=== PATIENT | female | born 1950 | race Asian ===

== ENCOUNTER 2017-02-13 12:41 | Inpatient (IN) | payer BC, MEDICARE ==
[2017-02-13] MEDS ORDERED: fentaNYL (PF) 50 MCG/ML 2 ML AMP IV STA (12:50)
--- NOTE | 2017-02-13 12:59 | ED ---
Fall HPI - General Chief Complaint: Fall Stated Complaint: Fall hip pain Time Seen by Provider: 02/13/17 12:41 Source: patient, EMS, RN notes reviewed Mode of arrival: EMS - History of Present Illness Initial Comments: This is a 66-year-old female history of multiple myeloma status post stem cell transplant who does receive steroid treatment each month who fell just prior to admission onto a grassy area but complains of severe left hip pain. He was brought in by EMS. She did receive 100 g of fentanyl with some relief the pain is still severe however. She denies any head neck back pain or other injuries at this time. She has had some chronic pain in her right hip and left knee. MD Complaint: fall - Related Data Home Medications Medication Instructions Recorded Confirmed Acyclovir 400 mg PO DAILY 02/13/17 02/13/17 Aspirin [Adult Low Dose Aspirin EC] 81 mg PO DAILY 02/13/17 02/13/17 Calcium Citrate 750 mg PO DAILY 02/13/17 02/13/17 Cholecalciferol [Vitamin D3] 1,000 unit PO DAILY 02/13/17 02/13/17 Dexamethasone 40mg 40 mg PO Q30D 02/13/17 02/13/17 Pravastatin Sodium [Pravachol] 80 mg PO DAILY 02/13/17 02/13/17 Valsartan [Diovan] 320 mg PO DAILY 02/13/17 02/13/17 Allergies Allergy/AdvReac Type Severity Reaction Status Date / Time No Known Allergies Allergy Verified 02/13/17 13:22 Review of Systems ROS Statement: Those systems with pertinent positive or pertinent negative responses have been documented in the HPI. ROS Other: All systems not noted in ROS Statement are negative. Past Medical History Past Medical History: Hyperlipidemia, Hypertension Additional Past Medical History / Comment(s): Multiple myeloma, History of Any Multi-Drug Resistant Organisms: None Reported Additional Past Surgical History / Comment(s): Stem cell transplants x2, thyroidectomy Past Psychological History: No Psychological Hx Reported Smoking Status: Never smoker Past Alcohol Use History: None Reported Past Drug Use History: None Reported General Exam - General Exam Comments Initial Comments: This is a well-developed well-nourished awake alert oriented 3 female Limitations: physical limitation General appearance: alert, anxious, in distress Head exam: Present: atraumatic, normocephalic, normal inspection Eye exam: Present: normal appearance, PERRL, EOMI. Absent: scleral icterus, conjunctival injection, periorbital swelling ENT exam: Present: normal exam, mucous membranes moist Neck exam: Present: normal inspection. Absent: tenderness, meningismus, lymphadenopathy Respiratory exam: Present: normal lung sounds bilaterally. Absent: respiratory distress, wheezes, rales, rhonchi, stridor Cardiovascular Exam: Present: regular rate, normal rhythm, normal heart sounds. Absent: systolic murmur, diastolic murmur, rubs, gallop, clicks GI/Abdominal exam: Present: soft, normal bowel sounds. Absent: distended, tenderness, guarding, rebound, rigid Rectal exam: Present: deferred Extremities exam: Present: tenderness, normal capillary refill, other ( Tenderness palpation over left hip with no definite deformity she cannot extend her left lower extremity is no tennis palpation over the left foot ankle tib- fib or distal femur. No tenderness to the other lower extremity.). Absent: pedal edema, joint swelling, calf tenderness Back exam: Present: normal inspection Neurological exam: Present: alert, oriented X3, CN II-XII intact Psychiatric exam: Present: normal affect, normal mood Skin exam: Present: warm, dry, intact, normal color. Absent: rash Course Vital Signs 02/13/17 02/13/17 12:42 13:25 Temperature 97.1 F L Pulse Rate 75 74 Respiratory 17 18 Rate Blood Pressure 163/76 179/81 O2 Sat by Pulse 94 L Oximetry - Reevaluation(s) Reevaluation #1: 02/13/17 14:50 The patient did require additional pain medication due to the severity of pain. Medical Decision Making - Medical Decision Making I did discuss the findings with the patient and . Patient will be admitted I did discuss case with [facility] Dr. Melendez will be the admitting physician. Dr. Shelton did come to see the patient in emergency department and has medically cleared her. Patient's last meal was at 9 AM this morning. - Lab Data Result diagrams: 02/13/17 12:55 02/13/17 12:55 Lab Results 02/13/17 02/13/17 Range/Units 12:55 12:55 WBC 7.1 (3.8-10.6) k/uL RBC 3.96 (3.80-5.40) m/uL Hgb 12.5 (11.4-16.0) gm/dL Hct 39.2 (34.0-46.0) % MCV 99.1 (80.0-100.0) fL MCH 31.6 (25.0-35.0) pg MCHC 31.9 (31.0-37.0) g/dL RDW 13.1 (11.5-15.5) % Plt Count 189 (150-450) k/uL Neutrophils % 68 % Lymphocytes % 22 % Monocytes % 6 % Eosinophils % 1 % Basophils % 1 % Neutrophils # 4.8 (1.3-7.7) k/uL Lymphocytes # 1.6 (1.0-4.8) k/uL Monocytes # 0.4 (0-1.0) k/uL Eosinophils # 0.0 (0-0.7) k/uL Basophils # 0.0 (0-0.2) k/uL Sodium 140 (137-145) mmol/L Potassium 3.8 (3.5-5.1) mmol/L Chloride 108 H (98-107) mmol/L Carbon Dioxide 25 (22-30) mmol/L Anion Gap 7 mmol/L BUN 22 H (7-17) mg/dL Creatinine 1.05 H (0.52-1.04) mg/dL Est GFR (MDRD) Af Amer >60 (>60 ml/min/1.73 sqM) Est GFR (MDRD) Non-Af 52 (>60 ml/min/1.73 sqM) Glucose 77 (74-99) mg/dL Calcium 8.6 (8.4-10.2) mg/dL Magnesium 1.9 (1.6-2.3) mg/dL Total Bilirubin 0.4 (0.2-1.3) mg/dL AST 19 (14-36) U/L ALT 32 (9-52) U/L Alkaline Phosphatase 46 (38-126) U/L Total Protein 5.8 L (6.3-8.2) g/dL Albumin 3.6 (3.5-5.0) g/dL - EKG Data -: EKG Interpreted by Tx EKG shows normal: sinus rhythm (EKG shows sinus rhythm with first-degree AV block rate was 72. Interval to 16 QRS of 90 QT since QTC of 432/473 low- voltage QRS no acute ST-T wave changes artifact is present.) - Radiology Data Radiology results: report reviewed (I did review the imaging and report the imaging that she'll evidence of a proximal femur fracture.), image reviewed Critical Care Time Critical Care Time: Yes Disposition Clinical Impression: Fracture of proximal end of left femur, Fall Disposition: ADMITTED IP TO THIS [facility] Condition: Stable Referrals: Claudia Shelton MD [Primary Care Provider] - 1-2 days
[2017-02-13 13:14] LABS: Basophils % (A) 1 %; CH 32.3; CHCM 32.7; Eosinophils % (A) 1 %; HCT 39.2 % (34.0-46.0); HDW 2.27; HGB 12.5 gm/dL (11.4-16.0); Luc # (Auto) 0.19; Luc % (Auto) 3; Lymphocytes # (A) 1.6 k/uL (1.0-4.8); Lymphocytes % (A) 22 %; MCH 31.6 pg (25.0-35.0); MCHC 31.9 g/dL (31.0-37.0); MCV 99.1 fL (80.0-100.0); Monocytes # (A) 0.4 k/uL (0-1.0); Monocytes % (A) 6 %; Neutrophils # (A) 4.8 k/uL (1.3-7.7); Neutrophils % (A) 68 %; RBC 3.96 m/uL (3.80-5.40); RDW 13.1 % (11.5-15.5); WBC 7.1 k/uL (3.8-10.6); WBC (Perox) 7.36
[2017-02-13] MEDS ORDERED: LORazepam 2 MG/ML SYRINGE IV STA (13:16)
[2017-02-13] MEDS: HYDROmorphone 1 MG/ML 1 ML SYRINGE IVP STA ×2 (13:21→16:37)
[2017-02-13 13:24] LABS: ALT 32 U/L (9-52); AST 19 U/L (14-36); Alkaline Phosphatase 46 U/L (38-126); Anion Gap 7 mmol/L; Blood Urea Nitrogen 22 mg/dL (7-17); Calcium 8.6 mg/dL (8.4-10.2); Carbon Dioxide 25 mmol/L (22-30); Chloride 108 mmol/L (98-107); Glucose 77 mg/dL (74-99); Magnesium 1.9 mg/dL (1.6-2.3); Non-African American GFR(MDRD) 52 (>60 ml/min/1.73 sqM); Potassium 3.8 mmol/L (3.5-5.1); Sodium 140 mmol/L (137-145); Total Bilirubin 0.4 mg/dL (0.2-1.3); Total Protein 5.8 g/dL (6.3-8.2)
[2017-02-13] MEDS ORDERED: HYDROmorphone 1 MG/ML 1 ML SYRINGE IVP STA (14:07)
--- NOTE | 2017-02-13 14:29 | XR ---
EXAMINATION TYPE: XR pelvis AP view DATE OF EXAM: 02/13/2017 COMPARISON: NONE HISTORY: Pain TECHNIQUE: AP pelvis FINDINGS: Calcifications within the right hemipelvis may be a calcified fibroid. Proximal left femora l fracture is at the edge of the [id number]. Remaining osseous structures appear intact. Sacroilia c joints and symphysis pubis are present. Normal bowel gas is present. IMPRESSION: 1. Proximal left femoral diaphyseal fracture at the edges the [id number]. 2. An acute pelvic process is not otherwise identified.
--- NOTE | 2017-02-13 14:31 | XR ---
EXAMINATION TYPE: XR chest 1V DATE OF EXAM: 02/13/2017 COMPARISON: NONE HISTORY: Chest pain TECHNIQUE: Single frontal view of the chest is obtained. FINDINGS: There is no focal air space opacity, pleural effusion, or pneumothorax seen. The cardiac silhouette size is within normal limits. The osseous structures are intact. Tortuosity is noted of the descending thoracic aorta as well as prominence of the azygos and superior vena cava confluence. IMPRESSION: No acute cardiopulmonary process.
--- NOTE | 2017-02-13 14:37 | XR ---
EXAMINATION TYPE: XR femur LT DATE OF EXAM: 02/13/2017 CLINICAL HISTORY: Known left femoral fracture. TECHNIQUE: Two views of the left femur are obtained. COMPARISON: Pelvic radiograph of the same day. FINDINGS: There is a comminuted, primarily obliquely oriented fracture of the proximal diaphysis of the femur with overlying soft tissue swelling. There is lateral angulation with displacement of the d istal fracture fragment approximately 2 cm and posterior displacement approximately 2.5 cm. No other fracture is identified. Enthesophytes are seen of the superior and inferior patellar poles. IMPRESSION: Laterally angulated and lateral posterior displacement of a comminuted primarily horizont ally oriented proximal diaphyseal left femoral fracture.
[2017-02-13] MEDS ORDERED: ONDANSETRON 4 MG/2 ML VIAL IVP PRN (14:54)
[2017-02-13] MEDS ORDERED: HYDROmorphone 1 MG/ML 1 ML SYRINGE IV PRN (14:54)
[2017-02-13] MEDS ORDERED: NALOXONE 0.4 MG/ML 1 ML VIAL IV PRN ×3 (14:54→17:26)
--- NOTE | 2017-02-13 15:09 | P.HPIM ---
History of Present Illness H&P Date: 02/13/17 Chief Complaint: Status post fall left hip pain This a pleasant 66-year-old lady well known to my practice, she has underlying history of multiple myeloma diagnosed in 2006 currently on Velcade and Decadron as well as Aredia by Dr. Maria, recent bone scan survey failed to reveal any skeletal lesions based on MRI findings known history of CK D stage 3, osteopenia , chronic hip right osteoarthritis, Hypertension admitted, to the hospital by our emergency room evaluation secondary to fall that occurred in her backyard today, there was a slope that was downhill for which the patient was navigating earlier that day with her slippers when she cannot control her speed and subsequently fell down to the ground landing on her left hip. Patient was subsequently seen in the emergency room with x-rays showing laterally angulated and lateral posterior displacement of a commminuted primary horizontal oriented proximal diaphyseal left femoral fracture. Orthopedics is consulted, Dr. Melendez for ORIF surgery later this afternoon. Patient is cleared for surgery with a class II anesthesia risk,. Patient does not have any history of diabetes mellitus no CAD no CHF no [place] no CVA no PE or DVT. EKG was reviewed which shows normal sinus rhythm heart, first [place]ano Black no ST-T wave changes chest x-ray shows no acute disease or acute infiltrate no cardiomegaly Review of Systems Constitutional: Reports as per HPI, Denies anorexia, Denies chills, Denies chronic headaches, Denies chronic pain, Denies daytime sleepiness, Denies fatigue, Denies fever, Denies lethargy, Denies malaise, Denies night sweats, Denies poor appetite, Denies sweats, Denies weakness, Denies weight gain, Denies weight loss Ears, nose, mouth and throat: Reports as per HPI, Denies ant. neck pain, Denies bleeding gums, Denies dental pain, Denies dysphagia, Denies epistaxis, Denies headache, Denies hoarseness, Denies mouth pain, Denies nasal congestion, Denies nasal discharge, Denies neck fullness/pressure, Denies neck lump, Denies nose pain, Denies odynophagia, Denies post-nasal drip, Denies sinus pain, Denies sinus pressure, Denies swelling in mouth, Denies swelling in throat, Denies sore throat, Denies vertigo, Denies voice changes Breasts: Reports as per HPI Cardiovascular: Reports as per HPI Respiratory: Reports as per HPI Gastrointestinal: Reports as per HPI, Denies abdominal pain, Denies belching, Denies bloating, Denies BRBPR, Denies change in bowel habits, Denies coffee ground emesis, Denies constipation, Denies diarrhea, Denies dyspepsia, Denies early satiety, Denies excessive gas, Denies heartburn, Denies hematemesis, Denies hematochezia, Denies indigestion, Denies jaundice, Denies lactose intolerance, Denies loss of appetite, Denies melena, Denies nausea, Denies vomiting Genitourinary: Reports as per HPI, Denies abnormal vaginal bleeding, Denies decreased libido, Denies difficulty conceiving, Denies difficulty voiding, Denies dysmenorrhea, Denies dyspareunia, Denies dysuria, Denies flank pain, Denies genital sores, Denies hematuria, Denies hot flashes, Denies incomplete emptying, Denies kidney stones, Denies menorrhagia, Denies mixed incontinence, Denies nocturia, Denies pelvic pain, Denies post void dribbling, Denies , Denies prolapse symptoms, Denies stress incontinence, Denies urge incontinence , Denies urgency, Denies urinary frequency, Denies vaginal discharge, Denies vaginal dryness, Denies vaginal itching, Denies vaginal odor Menstruation: Reports as per HPI, Denies amenorrhea, Denies amenorrhea on BC, Denies currently menstrual, Denies cycle < 21 days, Denies cycle > 35 days, Denies cycle variable, Denies menses 1-7 days, Denies menses 8 or > days, Denies menses variable, Denies period heavy, Denies period light, Denies period normal, Denies period spotting, Denies post hysterectomy, Denies postmenopausal , Denies premenarcheal Musculoskeletal: Reports as per HPI, Denies arm numbness/tingling, Denies atrophy, Denies fractures, Denies frequent falls, Denies gait dysfunction, Denies hot joints, Denies leg numbness/tingling, Denies limitation of motion, Denies loss of height, Denies low back pain, Denies morning stiffness, Denies muscle cramps, Denies muscle weakness, Denies myalgias, Denies neck pain, Denies neck stiffness, Denies prior amputations, Denies redness of joints, Denies shooting arm pain, Denies shooting leg pain Integumentary: Reports as per HPI, Denies acne, Denies boils, Denies brittle nails, Denies change in hair/nails, Denies color changes, Denies darkening of skin, Denies depigmentation, Denies dryness, Denies foot/leg ulcers, Denies growths, Denies hirsutism, Denies lesions, Denies onychomycosis, Denies pruritus , Denies rash, Denies sores, Denies striae, Denies unusual bruising, Denies wounds Neurological: Reports as per HPI, Denies aphasia, Denies ataxia, Denies balance difficulties, Denies burning pain, Denies change in mentation, Denies change in smell/taste, Denies change in speech, Denies confusion, Denies convulsions, Denies double vision, Denies gait dysfunction, Denies head injury, Denies headaches, Denies hearing difficulties, Denies lack of coordination, Denies loss of vision, Denies memory loss, Denies migraines, Denies motor disturbance, Denies numbness, Denies paralysis, Denies paresthesias, Denies seizures, Denies sensory deficit, Denies spasticity, Denies syncope, Denies tic, Denies tingling , Denies transient paralysis, Denies tremors, Denies vertigo, Denies weakness, Denies visual changes Psychiatric: Reports as per HPI, Denies anhedonia, Denies anxiety, Denies anxiety attacks, Denies change in appetite, Denies change in libido, Denies change in sleep habits, Denies confusion, Denies depression, Denies difficulty concentrating, Denies disorientation, Denies hallucinations, Denies hopelessness , Denies hypersomnia, Denies insomnia, Denies irritability, Denies memory loss, Denies mood swings, Denies paranoia, Denies sadness/tearfulness, Denies sleep disturbances, Denies suicidal ideation Endocrine: Reports as per HPI, Denies cold intolerance, Denies deepening of the voice, Denies excessive sweating, Denies excessive thirst, Denies fatigue, Denies flushing, Denies heat intolerance, Denies high blood sugars, Denies increase in ring/shoe/hat size, Denies low blood sugars, Denies nocturia, Denies palpitations, Denies polydipsia, Denies polyphagia, Denies polyuria, Denies proptosis, Denies recent glucocorticoid use, Denies thyroid mass, Denies weight change Hematologic/Lymphatic: Reports as per HPI, Denies easy bleeding, Denies easy bruising, Denies lymphadenopathy, Denies lymphedema, Denies thrombophilia Allergic/Immunologic: Reports as per HPI, Denies allergic rhinitis, Denies anaphylaxis, Denies angioedema, Denies gluten intolerance, Denies persistent infections, Denies seasonal allergies, Denies urticaria, Denies wheezing Past Medical History Past Medical History: Cancer (Multiple myeloma), Hyperlipidemia, Hypertension, Osteoarthritis (OA), Renal Disease (CK D stage III) Additional Past Medical History / Comment(s): Multiple myeloma, parathyroid adenoma excised History of Any Multi-Drug Resistant Organisms: None Reported Additional Past Surgical History / Comment(s): Stem cell transplants x2, parathyroidectomy partial Past Psychological History: No Psychological Hx Reported Smoking Status: Never smoker Past Alcohol Use History: None Reported Past Drug Use History: None Reported - Past Family History Father Family Medical History: CVA/TIA Mother Family Medical History: COPD Brother(s) Family Medical History: Diabetes Mellitus, Hypertension Sister(s) Family Medical History: Cancer (Thyroid cancer), Diabetes Mellitus, Hypertension Daughter(s) Family Medical History: No Reported History Medications and Allergies Home Medications Medication Instructions Recorded Confirmed Type Acyclovir 400 mg PO DAILY 02/13/17 02/13/17 History Aspirin [Adult Low Dose Aspirin EC] 81 mg PO DAILY 02/13/17 02/13/17 History Calcium Citrate 750 mg PO DAILY 02/13/17 02/13/17 History Cholecalciferol [Vitamin D3] 1,000 unit PO DAILY 02/13/17 02/13/17 History Dexamethasone 40mg 40 mg PO Q30D 02/13/17 02/13/17 History Pravastatin Sodium [Pravachol] 80 mg PO DAILY 02/13/17 02/13/17 History Valsartan [Diovan] 320 mg PO DAILY 02/13/17 02/13/17 History Allergies Allergy/AdvReac Type Severity Reaction Status Date / Time No Known Allergies Allergy Verified 02/13/17 13:22 Physical Exam Vitals: Vital Signs Temp Pulse Resp BP Pulse Ox 02/13/17 13:25 74 18 179/81 94 L 02/13/17 12:42 97.1 F L 75 17 163/76 Intake and Output 02/12/17 02/13/17 02/13/17 22:59 06:59 14:59 Other: Weight 62.596 kg Patient Weight 02/14/17 06:59 Weight 62.596 kg - Constitutional General appearance: average body habitus, cooperative, no acute distress - EENT Eyes: anicteric sclerae, EOMI, PERRLA, dentition normal, normal appearance ENT: hearing grossly normal, NA/AT, normal oropharynx - Neck Neck: no lymphadenopathy, normal ROM, no other, no rigidity, no stridor, no thyromegaly - Respiratory Respiratory: bilateral: CTA, negative: diminished, dullness, rales, rhonchi - Cardiovascular Rhythm: regular Heart sounds: normal: S1, S2 Abnormal Heart Sounds: no systolic murmur, no diastolic murmur, no rub, no S3 Gallop, no S4 Gallop, no click, no other - Gastrointestinal General gastrointestinal: normal bowel sounds, soft - Integumentary Integumentary: decreased turgor, normal - Neurologic Neurologic: CNII-XII intact - Musculoskeletal Musculoskeletal: strength equal bilaterally (Left hip angulated superiorly and laterally) - Psychiatric Psychiatric: A&O x's 3, appropriate affect, intact judgment & insight Results CBC & Chem 7: 02/13/17 12:55 02/13/17 12:55 Labs: Abnormal Lab Results - Last 24 Hours (Table) 02/13/17 Range/Units 12:55 Chloride 108 H (98-107) mmol/L BUN 22 H (7-17) mg/dL Creatinine 1.05 H (0.52-1.04) mg/dL Total Protein 5.8 L (6.3-8.2) g/dL Laboratory Results WBC 7.1 k/uL (3.8-10.6) 02/13/17 12:55 RBC 3.96 m/uL (3.80-5.40) 02/13/17 12:55 Hgb 12.5 gm/dL (11.4-16.0) 02/13/17 12:55 Hct 39.2 % (34.0-46.0) 02/13/17 12:55 MCV 99.1 fL (80.0-100.0) 02/13/17 12:55 MCH 31.6 pg (25.0-35.0) 02/13/17 12:55 MCHC 31.9 g/dL (31.0-37.0) 02/13/17 12:55 RDW 13.1 % (11.5-15.5) 02/13/17 12:55 Plt Count 189 k/uL (150-450) 02/13/17 12:55 Neutrophils % 68 % 02/13/17 12:55 Lymphocytes % 22 % 02/13/17 12:55 Monocytes % 6 % 02/13/17 12:55 Eosinophils % 1 % 02/13/17 12:55 Basophils % 1 % 02/13/17 12:55 Neutrophils # 4.8 k/uL (1.3-7.7) 02/13/17 12:55 Lymphocytes # 1.6 k/uL (1.0-4.8) 02/13/17 12:55 Monocytes # 0.4 k/uL (0-1.0) 02/13/17 12:55 Eosinophils # 0.0 k/uL (0-0.7) 02/13/17 12:55 Basophils # 0.0 k/uL (0-0.2) 02/13/17 12:55 Sodium 140 mmol/L (137-145) 02/13/17 12:55 Potassium 3.8 mmol/L (3.5-5.1) 02/13/17 12:55 Chloride 108 mmol/L (98-107) H 02/13/17 12:55 Carbon Dioxide 25 mmol/L (22-30) 02/13/17 12:55 Anion Gap 7 mmol/L 02/13/17 12:55 BUN 22 mg/dL (7-17) H 02/13/17 12:55 Creatinine 1.05 mg/dL (0.52-1.04) H 02/13/17 12:55 Est GFR (MDRD) Af Amer >60 (>60 ml/min/1.73 sqM) 02/13/17 12:55 Est GFR (MDRD) Non-Af 52 (>60 ml/min/1.73 sqM) 02/13/17 12:55 Glucose 77 mg/dL (74-99) 02/13/17 12:55 Calcium 8.6 mg/dL (8.4-10.2) 02/13/17 12:55 Magnesium 1.9 mg/dL (1.6-2.3) 02/13/17 12:55 Total Bilirubin 0.4 mg/dL (0.2-1.3) 02/13/17 12:55 AST 19 U/L (14-36) 02/13/17 12:55 ALT 32 U/L (9-52) 02/13/17 12:55 Alkaline Phosphatase 46 U/L (38-126) 02/13/17 12:55 Total Protein 5.8 g/dL (6.3-8.2) L 02/13/17 12:55 Albumin 3.6 g/dL (3.5-5.0) 02/13/17 12:55 Thrombosis Risk Factor Assmnt - DVT/VTE Prophylaxis DVT/VTE Prophylaxis: Pharmacologic Prophylaxis ordered Assessment and Plan Plan: 1. Left femur fracture, maintained angulated, requiring surgical intervention to include ORIF to be performed later today by Dr. Murphy 02/13/2017, she would be a class II anesthesia risk, should be needing postoperative DVT anticoagulation for prophylaxis, incentive spirometry, and opiates for pain. Home therapy is expected 2. Multiple myeloma under the care of Dr. Maria, no skeletal lesions or abnormalities noted on recent skeletal survey on maintenance Velcade and dexamethasone which was given 1 week ago on a monthly regimen. On date MARY, via 400 mg daily no changes made 3. Osteopenia, on Aredia every 2 months 4. Hypertension on valsartan 320 mg daily aspirin 81 mg daily for secondary prevention 5. Hyperlipidemia on pravastatin 80 mg daily 6. CK D stage III, avoid hypotension and nephrotoxins, labs will be monitored 7. DVT prophylaxis either with Coumadin or aspirin 81-325 mg twice a day 8. GI prophylaxis with Pepcid Expected length of stay 2 nights as CODE STATUS full Discharge planning to home with home therapies
[2017-02-13] MEDS ORDERED: hydrOXYzine PAMOATE 25 MG CAP PO PRN (15:41)
[2017-02-13] MEDS ORDERED: DIAZEPAM 5 MG TAB PO PRN ×2 (15:41)
[2017-02-13] MEDS ORDERED: MAGNESIUM HYDROXIDE 2,400 MG/10 ML CUP PO PRN (15:41)
[2017-02-13] MEDS ORDERED: HYDROmorphone 1 MG/ML 1 ML SYRINGE IVP PRN ×3 (15:41)
--- NOTE | 2017-02-13 16:32 | P.HPOR ---
History of Present Illness H&P Date: 02/13/17 Chief Complaint: Left hip/thigh pain This is a 66-year-old female who fell in her yard today sustaining injury to her left hip and thigh. She states that she was going down a slight hill and lost her footing. On exam and x-ray in the emergency department she is found to have a transverse subtrochanteric fracture of the left femur. She is admitted to our service for surgical intervention and care. The patient does have history of multiple myeloma. Past Medical History Past Medical History: Cancer (Multiple myeloma), Hyperlipidemia, Hypertension, Osteoarthritis (OA), Renal Disease (CK D stage III) Additional Past Medical History / Comment(s): Multiple myeloma, parathyroid adenoma excised History of Any Multi-Drug Resistant Organisms: None Reported Additional Past Surgical History / Comment(s): Stem cell transplants x2, parathyroidectomy partial Past Psychological History: No Psychological Hx Reported Smoking Status: Never smoker Past Alcohol Use History: None Reported Past Drug Use History: None Reported - Past Family History Father Family Medical History: CVA/TIA Mother Family Medical History: COPD Brother(s) Family Medical History: Diabetes Mellitus, Hypertension Sister(s) Family Medical History: Cancer (Thyroid cancer), Diabetes Mellitus, Hypertension Daughter(s) Family Medical History: No Reported History Medications and Allergies Home Medications Medication Instructions Recorded Confirmed Type Acyclovir 400 mg PO DAILY 02/13/17 02/13/17 History Aspirin [Adult Low Dose Aspirin EC] 81 mg PO DAILY 02/13/17 02/13/17 History Calcium Citrate 750 mg PO DAILY 02/13/17 02/13/17 History Cholecalciferol [Vitamin D3] 1,000 unit PO DAILY 02/13/17 02/13/17 History Dexamethasone 40mg 40 mg PO Q30D 02/13/17 02/13/17 History Pravastatin Sodium [Pravachol] 80 mg PO DAILY 02/13/17 02/13/17 History Valsartan [Diovan] 320 mg PO DAILY 02/13/17 02/13/17 History Allergies Allergy/AdvReac Type Severity Reaction Status Date / Time No Known Allergies Allergy Verified 02/13/17 13:22 Physical Examination This is a pleasant 66-year-old female in no acute distress. She is alert and oriented 3. Exam of the head neck reveal no obvious deformities. There is no pain with motion of the cervical spine. Exam the upper extremities reveal no obvious deformity. She can move bilateral shoulders, elbows, wrists and fingers without difficulty or pain. Neurovascular status the upper extremities is intact. Exam the lower extremities reveals rotation of the left femur. There are no obvious wounds or abrasions to the left lower extremity. She has full foot and ankle motion bilaterally. There is no pain with palpation or motion to the right leg. Neurovascular status to the lower extremities is intact. Results X-rays of the pelvis and left hip/femur reveal a transverse subtrochanteric fracture of the left femur with mild displacement. - Labs Labs: Abnormal Lab Results - Last 24 Hours (Table) 02/13/17 Range/Units 12:55 Chloride 108 H (98-107) mmol/L BUN 22 H (7-17) mg/dL Creatinine 1.05 H (0.52-1.04) mg/dL Total Protein 5.8 L (6.3-8.2) g/dL H & H 02/13/17 Range/Units 12:55 Hgb 12.5 (11.4-16.0) gm/dL Hct 39.2 (34.0-46.0) % Result Diagrams: 02/13/17 12:55 02/13/17 12:55 Assessment and Plan (1) Subtrochanteric fracture of left femur Status: Acute (2) Fracture of proximal end of left femur Status: Acute (3) History of multiple myeloma Status: Acute Plan: The clinical and x-ray findings are discussed with the patient and her . It is recommended that she undergo closed reduction with insertion of intertrochanteric nail of the left hip. The procedures been discussed in detail including possible risks and outcomes of surgery. Patient has been cleared medically for surgery. She will most likely remain inpatient throughout the weekend for physical therapy and postoperative care. After discussion and consideration the patient elects to proceed with closed reduction and insertion of intertrochanteric nail left hip.
[2017-02-13] MEDS ORDERED: LACTATED RINGERS 1,000 ML IV ONE ×2 (16:37→18:35)
[2017-02-13] MEDS ORDERED: DEXAMETHASONE SOD PHOS (MDV) 100 MG/10 ML VIAL IVP ONE (16:38)
[2017-02-13] MEDS ORDERED: PROPOFOL 10 MG/ML 20 ML VIAL IV ONE (16:52)
[2017-02-13] MEDS ORDERED: MIDAZOLAM 2 MG/2 ML VIAL ONE (16:52)
[2017-02-13] MEDS ORDERED: ePHEDrine SULFATE/0.9% NACL/PF 50 MG/5 ML SYRINGE IV ONE (16:52)
[2017-02-13] MEDS: ceFAZolin 2 GM in SODIUM CHLORIDE 0.9% 100 ML IVPB SCH (16:52)
[2017-02-13] MEDS ORDERED: ceFAZolin 1,000 MG in SODIUM CHLORIDE 0.9% 1,000 ML IRRIGATION ONE (17:54)
[2017-02-13] MEDS ORDERED: WARFARIN 5 MG TAB PO ONE (18:00)
--- NOTE | 2017-02-13 19:06 | P.OP ---
Date of Procedure: 02/13/17 Preoperative Diagnosis: Subtrochanteric fracture left femur Postoperative Diagnosis: Subtrochanteric fracture left femur Procedure(s) Performed: Close reduction and intramedullary nailing subtrochanteric fracture left femur Implants: [employer] intertan nail 130, 10 mm x 36 cm. [employer] Intertan subtrochanteric lag screw, 11 mm x 85mm.. [employer] L-P screw, 5.0 mm x 35 mm. Anesthesia: spinal Surgeon: [facility] Rn #1: Cele Torrez Estimated Blood Loss (ml): 300 Pathology: other (Bone for pathologic diagnosis secondary to history of multiple myeloma) Condition: stable Disposition: PACU Indications for Procedure: This is a 66-year-old female that slipped and fell in her backyard at home. She experienced immediate pain in her left leg was brought to the hospital emergency room. X-rays demonstrated a displaced subtrochanteric fracture of her left hip after discussing the surgical and nonsurgical treatment options with her and her family at length, I recommended a close reduction and intramedullary rodding of the left femur. Formed consent was obtained. Operative Findings: The operative findings are consistent with a subtrochanteric fracture of the left femur. Description of Procedure: The patient was seen in the preoperative area, consent was reviewed, and the operative site was marked with a skin marker. The patient was brought to the operating room and placed on the operating room table. Anesthesia was administered by the anesthesia department. 2 g of Ancef were administered intravenously. The patient was placed supine on the fracture table with the fractured extremity in traction boot. His other extremity was placed in a well leg antony and his bony prominences were padded. A universal timeout was then performed which confirmed the patient's name, surgical site, ALLERGIES, and consent. Fracture reduction was performed with traction and adduction maneuver which was confirmed with fluoroscopy. After reduction was performed, his extremity was then prepped and draped in the usual sterile fashion. Utilizing fluoroscopy to identify the tip of the greater trochanter, a 3 cm incision was made just proximal to the greater trochanter. Utilizing a curved awl, the starting hole was created at the tip of the greater trochanter and centralized in the AP plane. These locations were confirmed by fluoroscopy. Guidewire was then inserted down the medullary canal. Sequentially reaming of the femur was performed to 11.5 mm distally and 17 mm proximally. The reamings were sent to pathology for pathologic diagnosis secondary to the history of multiple myeloma. After reaming, appropriate size nail was inserted over the guidewire. The nail was inserted to the appropriate depth and the guidewire was removed. The lag screw targeting device was placed in the jig and a small skin incision was made and the targeting guide was placed down to bone. Utilizing the distally threaded guidewire, the guidewire was placed in the appropriate position in the femoral head, both anterior, posterior and mediolateral. The guidewire was measured and the appropriate depth was then reamed. The final size screw was placed to the appropriate depth. The proximal drill guide was then removed. Tension was directed to the distal locking screw. Using fluoroscopy, a lateral to medial distal locking screw was placed in the dynamic hole. The Distal hole was then drilled and measured to the appropriate depth. Distal screw was then placed. Final fluoroscopic x-rays were obtained. The wounds were then irrigated copiously with saline solution. Fascia was closed with 0-Vicryl. Subcutaneous tissues were closed with 2-0 Vicryl and the skin was closed with julienne. Sterile dressings were applied. The patient was transported to the recovery room in stable condition. The transition assistant MERON Blanco was required due the complexity of surgery the need for skilled behavioral assistant.
--- NOTE | 2017-02-13 19:42 | XR ---
EXAMINATION TYPE: XR Hip Limited LT DATE OF EXAM: 02/13/2017 COMPARISON: NONE HISTORY: Postop TECHNIQUE: 2 views FINDINGS: There is a left hip nailing fixing a fracture of the proximal shaft of the femur. Fragments are in anatomic position. Transverse screw and intramedullary arley are in good position. IMPRESSION: Satisfactory reduction of the femur fracture.
[2017-02-13 21:10] LABS: Basophils % (A) 0 %; CH 30.8; Eosinophils % (A) 0 %; HCT 33.4 % (34.0-46.0); HDW 2.37; HGB 10.6 gm/dL (11.4-16.0); Hypochromasia Slight; Luc # (Auto) 0.05; Luc % (Auto) 0; Lymphocytes # (A) 0.9 k/uL (1.0-4.8); Lymphocytes % (A) 6 %; MCH 31.6 pg (25.0-35.0); MCHC 31.7 g/dL (31.0-37.0); MCV 99.8 fL (80.0-100.0); Mean Platelet Volume 7.5; Monocytes # (A) 0.3 k/uL (0-1.0); Monocytes % (A) 2 %; Neutrophils % (A) 91 %; RBC 3.35 m/uL (3.80-5.40); RDW 12.3 % (11.5-15.5); WBC 14.3 k/uL (3.8-10.6)
[2017-02-13] MEDS ORDERED: SODIUM CHLORIDE 0.9% 500 ML IV ONE (21:18)
[2017-02-13] MEDS ORDERED: MELATONIN 3 MG TABLET PO PRN (21:28)
[2017-02-13] MEDS: HYDROCORTISONE SUCCINATE 100 MG/2 ML VIAL IV SCH (21:30)
[2017-02-13] MEDS: ASPIRIN 325 MG TAB PO SCH (23:38)
[2017-02-13] MEDS: SENNOSIDES-DOCUSATE SODIUM 1 EACH TAB PO SCH (23:39)
[2017-02-13] MEDS: SODIUM CHLORIDE 0.9% 1,000 ML IV SCH (23:44)
[2017-02-14] MEDS ORDERED: SODIUM CHLORIDE 0.9% 500 ML IV ONE (00:51)
[2017-02-14] MEDS: SODIUM CHLORIDE 0.9% 1,000 ML IV SCH ×3 (01:19→16:31)
[2017-02-14] MEDS: HYDROCORTISONE SUCCINATE 100 MG/2 ML VIAL IV SCH ×4 (01:20→23:55)
[2017-02-14] MEDS: HYDROcodone/APAP 5-325MG 1 EACH TAB PO PRN ×4 (05:22→19:12)
[2017-02-14 07:57] LABS: Prothrombin Time 10.5 sec (9.0-12.0)
[2017-02-14 08:08] LABS: Basophils % (A) 0 %; CH 30.9; CHCM 31.3; Eosinophils % (A) 0 %; HCT 26.3 % (34.0-46.0); HDW 2.37; Luc # (Auto) 0.09; Luc % (Auto) 1; Lymphocytes # (A) 0.9 k/uL (1.0-4.8); Lymphocytes % (A) 9 %; MCH 31.6 pg (25.0-35.0); MCHC 31.9 g/dL (31.0-37.0); MCV 99.1 fL (80.0-100.0); Mean Platelet Volume 7.7; Monocytes # (A) 0.7 k/uL (0-1.0); Monocytes % (A) 7 %; Neutrophils # (A) 8.2 k/uL (1.3-7.7); Neutrophils % (A) 83 %; RBC 2.65 m/uL (3.80-5.40); RDW 12.4 % (11.5-15.5); WBC 9.9 k/uL (3.8-10.6)
[2017-02-14 08:12] LABS: HGB 8.4 gm/dL (11.4-16.0)
[2017-02-14 08:29] LABS: ALT 26 U/L (9-52); AST 22 U/L (14-36); Alkaline Phosphatase 31 U/L (38-126); Anion Gap 6 mmol/L; Blood Urea Nitrogen 21 mg/dL (7-17); Calcium 7.7 mg/dL (8.4-10.2); Carbon Dioxide 22 mmol/L (22-30); Chloride 111 mmol/L (98-107); Creatine Kinase 608 U/L (30-135); Glucose 152 mg/dL (74-99); Non-African American GFR(MDRD) 53 (>60 ml/min/1.73 sqM); Potassium 4.4 mmol/L (3.5-5.1); Sodium 139 mmol/L (137-145); Total Bilirubin 0.2 mg/dL (0.2-1.3); Total Protein 4.4 g/dL (6.3-8.2)
[2017-02-14] MEDS ORDERED: KETOROLAC 30 MG/ML 1 ML VIAL IVP STA (10:18)
--- NOTE | 2017-02-14 10:21 | P.PN ---
Subjective Principal diagnosis: Left subtrochanteric femur fracture This is a 66-year-old female who fell in her yard yesterday sustaining injury to her left hip. She was found to have a displaced subtrochanteric fracture of the left hip on exam and x-ray and admitted to our service for surgical intervention. The patient was taken to surgery yesterday for close reduction with insertion of intramedullary hip screw fixation. She is doing well from an orthopedic standpoint today. She is having some hypotension. Objective - Vital Signs Vital signs: Vital Signs Temp 98.4 F 02/14/17 01:28 Pulse 81 02/14/17 07:40 Resp 16 02/14/17 01:28 BP 85/53 02/14/17 07:40 Pulse Ox 99 02/14/17 01:28 Intake & Output 02/13/17 02/14/17 02/14/17 18:59 06:59 18:59 Intake Total 2300 1875 Output Total 525 900 Balance 1775 975 Weight 62.596 kg Intake: IV 1300 Amount of Fluid Infused ( 1000 ml) Intake, IV Titration 1875 Amount Sodium Chloride 0.9% 1, 875 000 ml @ 125 mls/hr IV . Q8H [facility] Rx#:[id number] Sodium Chloride 0.9% 500 500 ml @ 999 mls/hr IV .Q31M ONE Rx#:[id number] Sodium Chloride 0.9% 500 500 ml @ 999 mls/hr IV .Q31M ONE Rx#:[id number] Output: Urine 225 900 Estimated Blood Loss 300 - Exam This is a pleasant 56-year-old female in no acute distress. She is alert and oriented 3. Exam of the left hip reveals that her dressing is clean, dry and intact. She has full foot ankle motion without difficulty or pain. Neurovascular status lower extremity is intact. - Labs CBC & Chem 7: 02/14/17 07:22 02/14/17 07:22 Labs: Abnormal Lab Results - Last 24 Hours (Table) 02/13/17 02/13/17 02/14/17 Range/Units 12:55 20:40 07:22 WBC 14.3 H (3.8-10.6) k/uL RBC 3.35 L 2.65 L (3.80-5.40) m/uL Hgb 10.6 L 8.4 L D (11.4-16.0) gm/dL Hct 33.4 L 26.3 L (34.0-46.0) % Neutrophils # 13.0 H 8.2 H (1.3-7.7) k/uL Lymphocytes # 0.9 L 0.9 L (1.0-4.8) k/uL Chloride 108 H (98-107) mmol/L BUN 22 H (7-17) mg/dL Creatinine 1.05 H (0.52-1.04) mg/dL Glucose (74-99) mg/dL Calcium (8.4-10.2) mg/dL Alkaline Phosphatase (38-126) U/L Creatine Kinase (30-135) U/L Total Protein 5.8 L (6.3-8.2) g/dL Albumin (3.5-5.0) g/dL 02/14/17 Range/Units 07:22 WBC (3.8-10.6) k/uL RBC (3.80-5.40) m/uL Hgb (11.4-16.0) gm/dL Hct (34.0-46.0) % Neutrophils # (1.3-7.7) k/uL Lymphocytes # (1.0-4.8) k/uL Chloride 111 H (98-107) mmol/L BUN 21 H (7-17) mg/dL Creatinine (0.52-1.04) mg/dL Glucose 152 H (74-99) mg/dL Calcium 7.7 L (8.4-10.2) mg/dL Alkaline Phosphatase 31 L (38-126) U/L Creatine Kinase 608 H (30-135) U/L Total Protein 4.4 L (6.3-8.2) g/dL Albumin 2.5 L (3.5-5.0) g/dL Assessment and Plan (1) Subtrochanteric fracture of left femur Status: Acute (2) Fracture of proximal end of left femur Status: Acute (3) History of multiple myeloma Status: Acute Plan: The clinical findings are discussed with the patient. She would like to be discharged today. However, her blood pressure is to low. We will plan possible discharge to home tomorrow if she is doing well orthopedically and medically.
[2017-02-14] MEDS: CALCIUM CARBONATE 500 MG CHEWABLE PO SCH (11:11)
[2017-02-14] MEDS: CHOLECALCIFEROL 1,000 UNIT TAB PO SCH (11:12)
[2017-02-14] MEDS: ASPIRIN 325 MG TAB PO SCH ×2 (11:12→21:33)
[2017-02-14] MEDS: ACYCLOVIR 200 MG CAP PO SCH (11:12)
[2017-02-14] MEDS: VALSARTAN 160 MG TAB PO SCH (11:13)
[2017-02-14] MEDS: ceFAZolin 2 GM in SODIUM CHLORIDE 0.9% 100 ML IVPB SCH (13:29)
--- NOTE | 2017-02-14 13:40 | P.PN ---
Subjective Principal diagnosis: Left hip fracture post ORIF, history of multiple myeloma, severe hypotension and adrenal insufficiency, history of hypertension, hyperlipidemia, stage III chronic kidney disease. This a pleasant 66-year-old lady well known to my practice, she has underlying history of multiple myeloma diagnosed in 2006 currently on Velcade and Decadron as well as Aredia by Dr. Maria, recent bone scan survey failed to reveal any skeletal lesions based on MRI findings known history of CK D stage 3, osteopenia , chronic hip right osteoarthritis, Hypertension admitted, to the hospital by our emergency room evaluation secondary to fall that occurred in her backyard today, there was a slope that was downhill for which the patient was navigating earlier that day with her slippers when she cannot control her speed and subsequently fell down to the ground landing on her left hip. Patient was subsequently seen in the emergency room with x-rays showing laterally angulated and lateral posterior displacement of a commminuted primary horizontal oriented proximal diaphyseal left femoral fracture. Orthopedics is consulted, Dr. Melendez for ORIF surgery later this afternoon. Patient is cleared for surgery with a class II anesthesia risk,. Patient does not have any history of diabetes mellitus no CAD no CHF no NH no CVA no PE or DVT. EKG was reviewed which shows normal sinus rhythm heart, first Chano Black no ST-T wave changes chest x-ray shows no acute disease or acute infiltrate no cardiomegaly Patient had her surgery successfully with orthopedic had ORIF limited weightbearing at this point will require gradual physical therapy and see of x- ray in the next few weeks. Patient blood pressure was quite bit low today patient was started on hydrocortisone 100 mg IV every 8 hours for adrenal insufficiency. Objective - Vital Signs Vital signs: Vital Signs Temp 97.1 F L 02/14/17 08:00 Pulse 75 02/14/17 08:00 Resp 16 02/14/17 08:00 BP 98/52 02/14/17 08:00 Pulse Ox 98 02/14/17 08:00 Intake & Output 02/13/17 02/14/17 02/14/17 18:59 06:59 18:59 Intake Total 2300 1875 Output Total 525 900 Balance 1775 975 Weight 62.596 kg Intake: IV 1300 Amount of Fluid Infused ( 1000 ml) Intake, IV Titration 1875 Amount Sodium Chloride 0.9% 1, 875 000 ml @ 125 mls/hr IV . Q8H [facility]SS[facility] Rx#:[id number] Sodium Chloride 0.9% 500 500 ml @ 999 mls/hr IV .Q31M ONE Rx#:[id number] Sodium Chloride 0.9% 500 500 ml @ 999 mls/hr IV .Q31M ONE Rx#:[id number] Output: Urine 225 900 Estimated Blood Loss 300 - Constitutional General appearance: Present: cooperative, no acute distress, thin. Absent: average body habitus, disheveled, mild distress, morbidly obese, obese, severe distress - EENT Eyes: Present: normal appearance. Absent: abnormal pupil, anicteric sclerae, disc margins sharp, edentulous, EOMI, PERRLA, fundus normal, photophobia, dentition normal, poor dentition, ptosis, scleral icterus ENT: Present: normal oropharynx. Absent: hard of hearing, hearing grossly normal, NA/AT, other, pharyngeal erythema, thrush, tonsillar exudates, tonsillar swelling Ears: bilateral: normal - Neck Neck: Present: normal ROM. Absent: lymphadenopathy, other, rigidity, stridor, thyromegaly Carotids: bilateral: upstroke normal, upstroke delayed Thyroid: bilateral: normal size - Respiratory Respiratory: bilateral: CTA, diminished - Cardiovascular Rhythm: regular Heart sounds: normal: S1, S2 Abnormal Heart Sounds: Present: systolic murmur - Gastrointestinal General gastrointestinal: Present: soft. Absent: absent bowel sounds, decreased bowel sounds, distended, hepatomegaly, hyperactive bowel sounds, normal bowel sounds, organomegaly, rigid, scaphoid, splenomegaly, tenderness, umbilical hernia, ventral hernia - Integumentary Integumentary: Present: normal, pale, rash. Absent: calor, cellulitis, cyanotic , decreased turgor, flushed, jaundiced, normal turgor, ulcer - Neurologic Neurologic: Present: CNII-XII intact - Musculoskeletal Musculoskeletal: Present: gait normal, generalized weakness. Absent: strength equal bilaterally, right sided weakness, left sided weakness - Psychiatric Psychiatric: Present: A&O x's 3, appropriate affect - Labs CBC & Chem 7: 02/14/17 07:22 02/14/17 07:22 Labs: Abnormal Lab Results - Last 24 Hours (Table) 08/18/17 08/19/17 08/19/17 Range/Units 20:40 07:22 07:22 WBC 14.3 H (3.8-10.6) k/uL RBC 3.35 L 2.65 L (3.80-5.40) m/uL Hgb 10.6 L 8.4 L D (11.4-16.0) gm/dL Hct 33.4 L 26.3 L (34.0-46.0) % Neutrophils # 13.0 H 8.2 H (1.3-7.7) k/uL Lymphocytes # 0.9 L 0.9 L (1.0-4.8) k/uL Chloride 111 H (98-107) mmol/L BUN 21 H (7-17) mg/dL Glucose 152 H (74-99) mg/dL Calcium 7.7 L (8.4-10.2) mg/dL Alkaline Phosphatase 31 L (38-126) U/L Creatine Kinase 608 H (30-135) U/L Total Protein 4.4 L (6.3-8.2) g/dL Albumin 2.5 L (3.5-5.0) g/dL Assessment and Plan Plan: 1. Left femur fracture, post ORIF with orthopedics. Patient is doing very well she still have limited weightbearing was start PTOT. 2. Multiple myeloma under the care of Dr. Maria, no skeletal lesions or abnormalities noted on recent skeletal survey on maintenance Velcade and dexamethasone which was given 1 week ago on a monthly regimen. On date MARY, via 400 mg daily no changes made 3. Osteopenia, on Aredia every 2 months 4. Hypertension on valsartan 320 mg daily aspirin 81 mg daily for secondary prevention, patient was hypotensive today medication were held. 5. adrenal insufficiency: Patient was started on hydrocortisone 100 mg every 8 hours for the next 24 hours. 6. Hyperlipidemia on pravastatin 80 mg daily 7. CK D stage III, avoid hypotension and nephrotoxins, labs will be monitored 8. DVT prophylaxis either with Coumadin or aspirin 81-325 mg twice a day 9. GI prophylaxis with Pepcid
[2017-02-14 17:50] LABS: Appearance,Urine Clear (Clear); Bilirubin,Urine Negative (Negative); Glucose,Urine (UA) 2+ (Negative); Ketones,Urine Negative (Negative); Leukocyte Esterase,Urine Small (Negative); Mucus,Urine Rare /hpf; Nitrite,Urine Negative (Negative); PH, Urine 5.5 (5.0-8.0); Particle Count 1057; Protein,Urine Negative (Negative); RBC,Urine 1 /hpf (0-5); Specific Gravity,Urine 1.009 (1.001-1.035); UA Billing (MACRO vs. MICRO) MICRO; Urobilinogen,Urine <2.0 mg/dL (<2.0); WBC,Urine 4 /hpf (0-5)
--- NOTE | 2017-02-14 18:02 | FL ---
Fluoroscopy INDICATION: Pain FINDINGS: Fluoroscopy time: 2 minutes 17 seconds. Images obtained: 4. IMPRESSIONS: 1. Documentation of fluoroscopy.
--- NOTE | 2017-02-14 18:03 | XR ---
Fluoroscopy INDICATION: Pain, left femoral fracture repair FINDINGS: Fluoroscopy time: 2 minutes 17 seconds. Images obtained: 4. Db and pins were placed. IMPRESSIONS: 1. Documentation of fluoroscopy.
[2017-02-14] MEDS: SENNOSIDES-DOCUSATE SODIUM 1 EACH TAB PO SCH (21:33)
[2017-02-15] MEDS: HYDROcodone/APAP 5-325MG 1 EACH TAB PO PRN ×5 (02:47→21:24)
[2017-02-15 07:09] LABS: Glucose,Whole Blood 137 mg/dL (75-99)
[2017-02-15 07:42] LABS: Basophils % (A) 0 %; CH 31.8; CHCM 31.5; Eosinophils % (A) 0 %; HCT 23.6 % (34.0-46.0); HDW 2.22; HGB 7.3 gm/dL (11.4-16.0); Luc # (Auto) 0.11; Luc % (Auto) 1; Lymphocytes # (A) 1.2 k/uL (1.0-4.8); Lymphocytes % (A) 10 %; MCH 31.3 pg (25.0-35.0); MCHC 30.8 g/dL (31.0-37.0); MCV 101.6 fL (80.0-100.0); Macrocytosis Slight; Mean Platelet Volume 8.6; Monocytes # (A) 0.6 k/uL (0-1.0); Monocytes % (A) 5 %; Neutrophils # (A) 9.8 k/uL (1.3-7.7); Neutrophils % (A) 84 %; RBC 2.32 m/uL (3.80-5.40); RDW 13.3 % (11.5-15.5); WBC 11.7 k/uL (3.8-10.6); WBC (Perox) 11.89
[2017-02-15 08:00] LABS: Calcium 8.2 mg/dL (8.4-10.2); Potassium 3.9 mmol/L (3.5-5.1); Total Bilirubin 0.1 mg/dL (0.2-1.3); Total Protein 4.7 g/dL (6.3-8.2)
[2017-02-15] MEDS: SODIUM CHLORIDE 0.9% 1,000 ML IV SCH ×2 (08:56→15:21)
[2017-02-15] MEDS ORDERED: MELOXICAM 7.5 MG TAB PO SCH (09:00)
--- NOTE | 2017-02-15 09:56 | P.PN ---
Subjective Principal diagnosis: Left subtrochanteric femur fracture This is a 66-year-old female who fell in her yard yesterday sustaining injury to her left hip. She was found to have a displaced subtrochanteric fracture of the left hip on exam and x-ray and admitted to our service for surgical intervention. The patient was taken to surgery on 02/13/17 for close reduction with insertion of intramedullary hip screw fixation. She is doing well from an orthopedic standpoint today. Her blood pressure is improved today. She is awaiting physical therapy for ambulation. Hemoglobin is 7.3 today. Objective - Vital Signs Vital signs: Vital Signs Temp 97.8 F 02/15/17 04:30 Pulse 68 02/15/17 04:30 Resp 16 02/15/17 04:30 BP 96/51 02/15/17 04:30 Pulse Ox 97 02/15/17 04:30 Intake & Output 02/14/17 02/15/17 02/15/17 18:59 06:59 18:59 Intake Total 2718 900 180 Output Total 800 Balance 2718 100 180 Intake: Intake, IV Titration 1038 Amount Sodium Chloride 0.9% 1, 938 000 ml @ 125 mls/hr IV . Q8H [facility] Rx#:[id number] ceFAZolin 2 gm In Sodium 100 Chloride 0.9% 100 ml @ 100 mls/hr IVPB Q8HR [facility] Rx#:[id number] Oral 1680 900 180 Output: Urine 800 Other: Voiding Method Indwelling Catheter - Exam This is a pleasant 56-year-old female in no acute distress. She is alert and oriented 3. Exam of the left hip reveals that her incisions look good. No erythema or ecchymosis. Minimal drainage. She has full foot ankle motion without difficulty or pain. Neurovascular status lower extremity is intact. - Labs CBC & Chem 7: 02/15/17 07:04 02/15/17 07:04 Labs: Abnormal Lab Results - Last 24 Hours (Table) 02/14/17 02/15/17 02/15/17 Range/Units 17:00 07:04 07:04 WBC 11.7 H (3.8-10.6) k/uL RBC 2.32 L (3.80-5.40) m/uL Hgb 7.3 L (11.4-16.0) gm/dL Hct 23.6 L (34.0-46.0) % MCV 101.6 H (80.0-100.0) fL MCHC 30.8 L (31.0-37.0) g/dL Plt Count 133 L (150-450) k/uL Neutrophils # 9.8 H (1.3-7.7) k/uL Chloride 113 H (98-107) mmol/L BUN 25 H (7-17) mg/dL Creatinine 1.15 H (0.52-1.04) mg/dL Glucose 118 H (74-99) mg/dL POC Glucose (mg/dL) (75-99) mg/dL Calcium 8.2 L (8.4-10.2) mg/dL Total Bilirubin 0.1 L (0.2-1.3) mg/dL Alkaline Phosphatase 35 L (38-126) U/L Creatine Kinase 405 H (30-135) U/L Total Protein 4.7 L (6.3-8.2) g/dL Albumin 2.8 L (3.5-5.0) g/dL Urine Glucose (UA) 2+ H (Negative) Urine Blood Small H (Negative) Ur Leukocyte Esterase Small H (Negative) Urine Mucus Rare H (None) /hpf 02/15/17 Range/Units 07:06 WBC (3.8-10.6) k/uL RBC (3.80-5.40) m/uL Hgb (11.4-16.0) gm/dL Hct (34.0-46.0) % MCV (80.0-100.0) fL MCHC (31.0-37.0) g/dL Plt Count (150-450) k/uL Neutrophils # (1.3-7.7) k/uL Chloride (98-107) mmol/L BUN (7-17) mg/dL Creatinine (0.52-1.04) mg/dL Glucose (74-99) mg/dL POC Glucose (mg/dL) 137 H (75-99) mg/dL Calcium (8.4-10.2) mg/dL Total Bilirubin (0.2-1.3) mg/dL Alkaline Phosphatase (38-126) U/L Creatine Kinase (30-135) U/L Total Protein (6.3-8.2) g/dL Albumin (3.5-5.0) g/dL Urine Glucose (UA) (Negative) Urine Blood (Negative) Ur Leukocyte Esterase (Negative) Urine Mucus (None) /hpf Assessment and Plan (1) Subtrochanteric fracture of left femur Status: Acute (2) Fracture of proximal end of left femur Status: Acute (3) History of multiple myeloma Status: Acute Plan: The clinical findings are discussed with the patient. She would like to be discharged to home today if possible. We will await evaluation with internal medicine. If she does well with physical therapy and is cleared by medicine she may be discharged home today.
[2017-02-15 11:06] LABS: Glucose,Whole Blood 89 mg/dL (75-99)
[2017-02-15 11:47] LABS: Basophils % (A) 0 %; CHCM 31.6; Eosinophils % (A) 0 %; HCT 23.9 % (34.0-46.0); HGB 7.7 gm/dL (11.4-16.0); Luc # (Auto) 0.27; Luc % (Auto) 2; Lymphocytes # (A) 1.7 k/uL (1.0-4.8); Lymphocytes % (A) 13 %; MCH 31.6 pg (25.0-35.0); MCV 98.7 fL (80.0-100.0); Mean Platelet Volume 7.9; Monocytes # (A) 0.9 k/uL (0-1.0); Monocytes % (A) 7 %; Neutrophils # (A) 10.4 k/uL (1.3-7.7); Neutrophils % (A) 78 %; RBC 2.42 m/uL (3.80-5.40); RDW 12.8 % (11.5-15.5); WBC 13.3 k/uL (3.8-10.6); WBC (Perox) 14.44
[2017-02-15] MEDS: HYDROCORTISONE SUCCINATE 100 MG/2 ML VIAL IV SCH (13:39)
[2017-02-15] MEDS: CALCIUM CARBONATE 500 MG CHEWABLE PO SCH (13:41)
[2017-02-15] MEDS: ASPIRIN 325 MG TAB PO SCH (13:41)
[2017-02-15] MEDS: VALSARTAN 160 MG TAB PO SCH (13:42)
[2017-02-15] MEDS: CHOLECALCIFEROL 1,000 UNIT TAB PO SCH (13:42)
[2017-02-15] MEDS: ACYCLOVIR 200 MG CAP PO SCH (13:43)
--- NOTE | 2017-02-15 13:45 | P.PN ---
Subjective Principal diagnosis: Left hip fracture post ORIF, history of multiple myeloma, severe hypotension and adrenal insufficiency, history of hypertension, hyperlipidemia, stage III chronic kidney disease, anemia and adrenal insufficiency. This a pleasant 66-year-old lady well known to my practice, she has underlying history of multiple myeloma diagnosed in 2006 currently on Velcade and Decadron as well as Aredia by Dr. Maria, recent bone scan survey failed to reveal any skeletal lesions based on MRI findings known history of CK D stage 3, osteopenia , chronic hip right osteoarthritis, Hypertension admitted, to the hospital by our emergency room evaluation secondary to fall that occurred in her backyard today, there was a slope that was downhill for which the patient was navigating earlier that day with her slippers when she cannot control her speed and subsequently fell down to the ground landing on her left hip. Patient was subsequently seen in the emergency room with x-rays showing laterally angulated and lateral posterior displacement of a commminuted primary horizontal oriented proximal diaphyseal left femoral fracture. Orthopedics is consulted, Dr. Melendez for ORIF surgery later this afternoon. Patient is cleared for surgery with a class II anesthesia risk,. Patient does not have any history of diabetes mellitus no CAD no CHF no DC no CVA no PE or DVT. EKG was reviewed which shows normal sinus rhythm heart, first Chano Black no ST-T wave changes chest x-ray shows no acute disease or acute infiltrate no cardiomegaly Patient had her surgery successfully with orthopedic had ORIF limited weightbearing at this point will require gradual physical therapy and see of x- ray in the next few weeks. Patient blood pressure was quite bit low today patient was started on hydrocortisone 100 mg IV every 8 hours for adrenal insufficiency. 02/15/2017: Patient is feeling better very stable hemodynamically her blood pressure still slightly bit low but responded very well to hydrocortisone her hemoglobin surprisingly dropped down to the mid 7 and patient kidney function and decline slightly. We'll delay her discharge till tomorrow see if there is any active GI bleed take patient off any medication might be aggravating her gastrointestinal tract and cause ulcer or gastritis and do more GI prophylaxis at this point. Objective - Vital Signs Vital signs: Vital Signs Temp 97.8 F 02/15/17 04:30 Pulse 68 02/15/17 04:30 Resp 16 02/15/17 04:30 BP 96/51 02/15/17 04:30 Pulse Ox 97 02/15/17 04:30 Intake & Output 02/14/17 02/15/17 02/15/17 18:59 06:59 18:59 Intake Total 2718 900 540 Output Total 800 100 Balance 2718 100 440 Intake: Intake, IV Titration 1038 Amount Sodium Chloride 0.9% 1, 938 000 ml @ 125 mls/hr IV . Q8H LYSSA Rx#:[id number] ceFAZolin 2 gm In Sodium 100 Chloride 0.9% 100 ml @ 100 mls/hr IVPB Q8HR LYSSA Rx#:[id number] Oral 1680 900 540 Output: Urine 800 100 Uretheral (Santo) 100 Other: Voiding Method Indwelling Catheter - Constitutional General appearance: Present: cooperative, no acute distress. Absent: average body habitus, disheveled, mild distress, morbidly obese, obese, severe distress , thin - EENT Eyes: Present: normal appearance. Absent: abnormal pupil, anicteric sclerae, disc margins sharp, edentulous, EOMI, PERRLA, fundus normal, photophobia, dentition normal, poor dentition, ptosis, scleral icterus ENT: Present: hard of hearing, normal oropharynx. Absent: hearing grossly normal, NA/AT, other, pharyngeal erythema, thrush, tonsillar exudates, tonsillar swelling Ears: bilateral: normal - Neck Neck: Present: normal ROM. Absent: lymphadenopathy, other, rigidity, stridor, thyromegaly Carotids: bilateral: upstroke normal Thyroid: bilateral: normal size - Respiratory Respiratory: bilateral: CTA, diminished - Cardiovascular Rhythm: regular Heart sounds: normal: S1, S2 Abnormal Heart Sounds: Present: systolic murmur, S3 Gallop - Gastrointestinal General gastrointestinal: Present: decreased bowel sounds, distended, scaphoid, soft, splenomegaly. Absent: absent bowel sounds, hepatomegaly, hyperactive bowel sounds, normal bowel sounds, organomegaly, rigid, tenderness, umbilical hernia, ventral hernia - Integumentary Integumentary Comment(s): Incision of her surgical site looks fine with no sign of infection induration or irritation. Integumentary: Present: pale, rash. Absent: calor, cellulitis, cyanotic, decreased turgor, flushed, jaundiced, normal, normal turgor, ulcer - Neurologic Neurologic: Present: CNII-XII intact - Musculoskeletal Musculoskeletal: Present: gait normal, generalized weakness, strength equal bilaterally. Absent: right sided weakness, left sided weakness - Psychiatric Psychiatric: Present: A&O x's 3, appropriate affect - Labs CBC & Chem 7: 02/15/17 11:21 02/15/17 07:04 Labs: Abnormal Lab Results - Last 24 Hours (Table) 02/14/17 02/15/17 02/15/17 Range/Units 17:00 07:04 07:04 WBC 11.7 H (3.8-10.6) k/uL RBC 2.32 L (3.80-5.40) m/uL Hgb 7.3 L (11.4-16.0) gm/dL Hct 23.6 L (34.0-46.0) % MCV 101.6 H (80.0-100.0) fL MCHC 30.8 L (31.0-37.0) g/dL Plt Count 133 L (150-450) k/uL Neutrophils # 9.8 H (1.3-7.7) k/uL Chloride 113 H (98-107) mmol/L BUN 25 H (7-17) mg/dL Creatinine 1.15 H (0.52-1.04) mg/dL Glucose 118 H (74-99) mg/dL POC Glucose (mg/dL) (75-99) mg/dL Calcium 8.2 L (8.4-10.2) mg/dL Total Bilirubin 0.1 L (0.2-1.3) mg/dL Alkaline Phosphatase 35 L (38-126) U/L Creatine Kinase 405 H (30-135) U/L Total Protein 4.7 L (6.3-8.2) g/dL Albumin 2.8 L (3.5-5.0) g/dL Urine Glucose (UA) 2+ H (Negative) Urine Blood Small H (Negative) Ur Leukocyte Esterase Small H (Negative) Urine Mucus Rare H (None) /hpf 02/15/17 02/15/17 Range/Units 07:06 11:21 WBC 13.3 H (3.8-10.6) k/uL RBC 2.42 L (3.80-5.40) m/uL Hgb 7.7 L (11.4-16.0) gm/dL Hct 23.9 L (34.0-46.0) % MCV (80.0-100.0) fL MCHC (31.0-37.0) g/dL Plt Count 148 L (150-450) k/uL Neutrophils # 10.4 H (1.3-7.7) k/uL Chloride (98-107) mmol/L BUN (7-17) mg/dL Creatinine (0.52-1.04) mg/dL Glucose (74-99) mg/dL POC Glucose (mg/dL) 137 H (75-99) mg/dL Calcium (8.4-10.2) mg/dL Total Bilirubin (0.2-1.3) mg/dL Alkaline Phosphatase (38-126) U/L Creatine Kinase (30-135) U/L Total Protein (6.3-8.2) g/dL Albumin (3.5-5.0) g/dL Urine Glucose (UA) (Negative) Urine Blood (Negative) Ur Leukocyte Esterase (Negative) Urine Mucus (None) /hpf Assessment and Plan Plan: 1. Left femur fracture, post ORIF with orthopedics. Patient is doing very well she still have limited weightbearing was start PTOT. 2. Multiple myeloma under the care of Dr. Maria, no skeletal lesions or abnormalities noted on recent skeletal survey on maintenance Velcade and dexamethasone which was given 1 week ago on a monthly regimen. On date MARY, via 400 mg daily no changes made 3. Osteopenia, on Aredia every 2 months 4. Hypertension on valsartan 320 mg daily aspirin 81 mg daily for secondary prevention, patient was hypotensive today medication were held. 5. adrenal insufficiency: Patient was switched to Cortef 10 mg twice a day. 6. Hyperlipidemia on pravastatin 80 mg daily 7. CK D stage III, avoid hypotension and nephrotoxins, labs will be monitored. 8 acute blood loss anemia: Post surgery with hemoglobin down 7.5 continue GI prophylaxis DC warfarin and change aspirin to 81 mg only continue to watch CBC daily and will do Hemoccult. 8. DVT patient is off warfarin she is on aspirin 81 mg a day only. 9. GI prophylaxis with Pepcid. 10 discharge planning: Patient be going home tomorrow if she stable.
[2017-02-15] MEDS: LACTULOSE 20 GM/30 ML CUP PO SCH ×3 (13:56→21:48)
[2017-02-15] MEDS: INSULIN LISPRO (humaLOG) 300 UNIT/3 ML VIAL SQ SCH ×3 (14:00→21:48)
[2017-02-15 17:47] LABS: Glucose,Whole Blood 178 mg/dL (75-99)
[2017-02-15 18:17] LABS: Basophils % (A) 0 %; CH 31.8; CHCM 31.4; Eosinophils % (A) 0 %; HCT 24.8 % (34.0-46.0); HDW 2.28; HGB 7.8 gm/dL (11.4-16.0); Luc # (Auto) 0.09; Luc % (Auto) 1; Lymphocytes % (A) 8 %; MCH 32.1 pg (25.0-35.0); MCHC 31.5 g/dL (31.0-37.0); MCV 101.8 fL (80.0-100.0); Macrocytosis Slight; Mean Platelet Volume 9.6; Monocytes # (A) 0.5 k/uL (0-1.0); Monocytes % (A) 3 %; Neutrophils # (A) 11.8 k/uL (1.3-7.7); Neutrophils % (A) 88 %; RBC 2.44 m/uL (3.80-5.40); RDW 13.4 % (11.5-15.5); WBC 13.4 k/uL (3.8-10.6); WBC (Perox) 13.43
[2017-02-15] MEDS: PANTOPRAZOLE 40 MG TABLET PO SCH (18:20)
[2017-02-15] MEDS: HYDROCORTISONE 10 MG TAB PO SCH (21:10)
[2017-02-15 21:22] LABS: Glucose,Whole Blood 171 mg/dL (75-99)
[2017-02-15] MEDS: SENNOSIDES-DOCUSATE SODIUM 1 EACH TAB PO SCH (21:48)
[2017-02-15 22:01] LABS: Hemoglobin A1C 5.7 % (4.2-6.1)
[2017-02-16 01:28] LABS: Glucose,Whole Blood 168 mg/dL (75-99)
[2017-02-16] MEDS: HYDROcodone/APAP 5-325MG 1 EACH TAB PO PRN ×3 (04:47→16:53)
[2017-02-16] MEDS: SODIUM CHLORIDE 0.9% 1,000 ML IV SCH ×4 (06:47→23:45)
[2017-02-16 07:08] LABS: Glucose,Whole Blood 102 mg/dL (75-99)
[2017-02-16 07:33] LABS: Basophils % (A) 0 %; CH 31.7; CHCM 31.7; Eosinophils % (A) 0 %; HCT 20.9 % (34.0-46.0); HDW 2.27; Luc # (Auto) 0.24; Luc % (Auto) 3; Lymphocytes # (A) 2.1 k/uL (1.0-4.8); Lymphocytes % (A) 22 %; MCH 31.7 pg (25.0-35.0); MCHC 31.5 g/dL (31.0-37.0); MCV 100.6 fL (80.0-100.0); Macrocytosis Slight; Mean Platelet Volume 7.8; Monocytes # (A) 0.7 k/uL (0-1.0); Monocytes % (A) 7 %; Neutrophils # (A) 6.7 k/uL (1.3-7.7); Neutrophils % (A) 68 %; RBC 2.07 m/uL (3.80-5.40); RDW 13.5 % (11.5-15.5); WBC 9.8 k/uL (3.8-10.6); WBC (Perox) 10.08
[2017-02-16 07:35] LABS: Calcium 7.8 mg/dL (8.4-10.2); Total Bilirubin 0.2 mg/dL (0.2-1.3); Total Protein 4.6 g/dL (6.3-8.2)
[2017-02-16] MEDS: INSULIN LISPRO (humaLOG) 300 UNIT/3 ML VIAL SQ SCH ×4 (07:56→20:37)
[2017-02-16 08:00] LABS: HGB 6.6 gm/dL (11.4-16.0)
[2017-02-16] MEDS: VALSARTAN 160 MG TAB PO SCH (08:03)
[2017-02-16] MEDS: PANTOPRAZOLE 40 MG TABLET PO SCH ×2 (08:04→18:22)
[2017-02-16] MEDS: LACTULOSE 20 GM/30 ML CUP PO SCH ×3 (08:04→20:38)
[2017-02-16] MEDS: CALCIUM CARBONATE 500 MG CHEWABLE PO SCH (08:04)
[2017-02-16] MEDS: ACYCLOVIR 200 MG CAP PO SCH (08:04)
[2017-02-16] MEDS: ASPIRIN 81 MG CHEW PO SCH (08:04)
[2017-02-16] MEDS: CHOLECALCIFEROL 1,000 UNIT TAB PO SCH (08:04)
[2017-02-16] MEDS: HYDROCORTISONE 10 MG TAB PO SCH ×2 (08:04→20:37)
--- NOTE | 2017-02-16 09:14 | P.PN ---
Subjective Principal diagnosis: left subtrochanteric hip fracture, s/p closed reduction intramedullary nailing This is a 66-year-old female who is s/p closed reduction intramedullary nailing of subtrochanteric fracture left femur. This is postoperative day #3. Patient states her pain is well-controlled and she is able to transfer out of bed with a walker. Patient states she has been working with physical therapy. Patient has no new complaints today. Objective - Vital Signs Vital signs: Vital Signs Temp 96.1 F L 02/16/17 07:00 Pulse 68 02/16/17 07:00 Resp 16 02/16/17 07:00 BP 103/58 02/16/17 07:00 Pulse Ox 96 02/16/17 07:00 Intake & Output 02/15/17 02/16/17 02/16/17 18:59 06:59 18:59 Intake Total 1040 1100 Output Total 200 650 Balance 840 450 Intake: Oral 1040 800 Other 300 Output: Urine 200 650 Uretheral (Santo) 100 Other: Voiding Method Indwelling Catheter # Voids 3 - Exam Vital signs are stable. Patient is in no acute distress and is alert and oriented 3. Calf is soft and nontender. Incisions are clean, dry, and intact with mild drainage. Neurovascular status intact. Patient has full foot and ankle motion. - Labs CBC & Chem 7: 02/16/17 06:41 02/16/17 06:41 Labs: Abnormal Lab Results - Last 24 Hours (Table) 02/15/17 02/15/17 02/15/17 Range/Units 11:21 17:21 18:05 WBC 13.3 H 13.4 H (3.8-10.6) k/uL RBC 2.42 L 2.44 L (3.80-5.40) m/uL Hgb 7.7 L 7.8 L (11.4-16.0) gm/dL Hct 23.9 L 24.8 L (34.0-46.0) % MCV 101.8 H (80.0-100.0) fL Plt Count 148 L 146 L (150-450) k/uL Neutrophils # 10.4 H 11.8 H (1.3-7.7) k/uL Chloride (98-107) mmol/L BUN (7-17) mg/dL Creatinine (0.52-1.04) mg/dL POC Glucose (mg/dL) 178 H (75-99) mg/dL Calcium (8.4-10.2) mg/dL Alkaline Phosphatase (38-126) U/L Total Protein (6.3-8.2) g/dL Albumin (3.5-5.0) g/dL 02/15/17 02/16/17 02/16/17 Range/Units 21:08 01:23 06:41 WBC (3.8-10.6) k/uL RBC 2.07 L (3.80-5.40) m/uL Hgb 6.6 L* (11.4-16.0) gm/dL Hct 20.9 L (34.0-46.0) % MCV 100.6 H (80.0-100.0) fL Plt Count 134 L (150-450) k/uL Neutrophils # (1.3-7.7) k/uL Chloride (98-107) mmol/L BUN (7-17) mg/dL Creatinine (0.52-1.04) mg/dL POC Glucose (mg/dL) 171 H 168 H (75-99) mg/dL Calcium (8.4-10.2) mg/dL Alkaline Phosphatase (38-126) U/L Total Protein (6.3-8.2) g/dL Albumin (3.5-5.0) g/dL 02/16/17 02/16/17 Range/Units 06:41 07:03 WBC (3.8-10.6) k/uL RBC (3.80-5.40) m/uL Hgb (11.4-16.0) gm/dL Hct (34.0-46.0) % MCV (80.0-100.0) fL Plt Count (150-450) k/uL Neutrophils # (1.3-7.7) k/uL Chloride 112 H (98-107) mmol/L BUN 29 H (7-17) mg/dL Creatinine 1.17 H (0.52-1.04) mg/dL POC Glucose (mg/dL) 102 H (75-99) mg/dL Calcium 7.8 L (8.4-10.2) mg/dL Alkaline Phosphatase 34 L (38-126) U/L Total Protein 4.6 L (6.3-8.2) g/dL Albumin 2.6 L (3.5-5.0) g/dL Assessment and Plan (1) Fracture of proximal end of left femur Status: Acute (2) Subtrochanteric fracture of left femur Status: Acute (3) History of multiple myeloma Status: Acute Plan: #1. Hemoglobin is 6.6 today. Patient is awaiting blood transfusion. GI consult pending. #2. Anticoagulation per medicine. #3. Continue pain control. #4. Toe-touch weightbearing with a walker. Continue physical therapy. #5. Discharge home when hemoglobin is stable and when cleared by internal medicine.
[2017-02-16 11:34] LABS: Glucose,Whole Blood 104 mg/dL (75-99)
[2017-02-16 11:36] LABS: Reticulocyte % 3.4 % (0.5-2.0)
--- NOTE | 2017-02-16 13:54 | US ---
EXAMINATION TYPE: US venous doppler duplex LE LT DATE OF EXAM: 02/16/2017 1:41 PM COMPARISON: NONE CLINICAL HISTORY: hematoma left hip. Proximal left femur fracture. Bruising at incision left hip. Matthew ma left leg SIDE PERFORMED: Left TECHNIQUE: The lower extremity deep venous system is examined utilizing real time linear array sonog laeh with graded compression, doppler sonography and color-flow sonography. VESSELS IMAGED: External Iliac Vein (EIV) Common Femoral Vein Deep Femoral Vein Greater Saphenous Vein * Femoral Vein Popliteal Vein Small Saphenous Vein * Proximal Calf Veins (* superficial vessels) Left Leg: No evidence of DVT. Scanned left hip area of bruising near incision, soft tissue edema not ed, small fluid collection = 2.4cm IMPRESSION: 1. No diagnostic evidence of DVT. 2. A small fluid collection soft tissue edema near the incision could represent a small hematoma. Inf ectious etiology not excluded correlate clinically.
--- NOTE | 2017-02-16 15:33 | P.PN ---
Subjective Left hip fracture post ORIF, history of multiple myeloma, severe hypotension and adrenal insufficiency, history of hypertension, hyperlipidemia, stage III chronic kidney disease, anemia and adrenal insufficiency. This a pleasant 66-year-old lady well known to my practice, she has underlying history of multiple myeloma diagnosed in 2006 currently on Velcade and Decadron as well as Aredia by Dr. Maria, recent bone scan survey failed to reveal any skeletal lesions based on MRI findings known history of CK D stage 3, osteopenia , chronic hip right osteoarthritis, Hypertension admitted, to the hospital by our emergency room evaluation secondary to fall that occurred in her backyard today, there was a slope that was downhill for which the patient was navigating earlier that day with her slippers when she cannot control her speed and subsequently fell down to the ground landing on her left hip. Patient was subsequently seen in the emergency room with x-rays showing laterally angulated and lateral posterior displacement of a commminuted primary horizontal oriented proximal diaphyseal left femoral fracture. Orthopedics is consulted, Dr. Melendez for ORIF surgery later this afternoon. Patient is cleared for surgery with a class II anesthesia risk,. Patient does not have any history of diabetes mellitus no CAD no CHF no MA no CVA no PE or DVT. EKG was reviewed which shows normal sinus rhythm heart, first Chano Black no ST-T wave changes chest x-ray shows no acute disease or acute infiltrate no cardiomegaly Patient had her surgery successfully with orthopedic had ORIF limited weightbearing at this point will require gradual physical therapy and see of x- ray in the next few weeks. Patient blood pressure was quite bit low today patient was started on hydrocortisone 100 mg IV every 8 hours for adrenal insufficiency. 02/15/2017: Patient is feeling better very stable hemodynamically her blood pressure still slightly bit low but responded very well to hydrocortisone her hemoglobin surprisingly dropped down to the mid 7 and patient kidney function and decline slightly. We'll delay her discharge till tomorrow see if there is any active GI bleed take patient off any medication might be aggravating her gastrointestinal tract and cause ulcer or gastritis and do more GI prophylaxis at this point. 02/16: Hemoglobin has dropped to 6.6 and 2 units of packed RBCs are to be transfused today. She has had 2 bowel movements since yesterday with no blood or tarriness noted. Consult in place for GI but was also added in Dr. Maria: No cervical from her multiple myeloma. Ultrasound of the left leg ordered to rule out hematoma and to rule out DVT Objective - Vital Signs Vital signs: Vital Signs Temp 96.1 F L 02/16/17 07:00 Pulse 68 02/16/17 07:00 Resp 16 02/16/17 07:00 BP 103/58 02/16/17 07:00 Pulse Ox 96 02/16/17 07:00 Intake & Output 02/15/17 02/16/17 02/16/17 18:59 06:59 18:59 Intake Total 1040 1100 Output Total 200 650 Balance 840 450 Intake: Oral 1040 800 Other 300 Output: Urine 200 650 Uretheral (S[place]) 100 Other: Voiding Method Indwelling Catheter # Voids 3 - Exam General appearance: Present: cooperative, no acute distress. Absent: average body habitus, disheveled, mild distress, morbidly obese, obese, severe distress , thin - EENT Eyes: Present: normal appearance. Absent: abnormal pupil, anicteric sclerae, disc margins sharp, edentulous, EOMI, PERRLA, fundus normal, photophobia, dentition normal, poor dentition, ptosis, scleral icterus ENT: Present: hard of hearing, normal oropharynx. Absent: hearing grossly normal, NA/AT, other, pharyngeal erythema, thrush, tonsillar exudates, tonsillar swelling Ears: bilateral: normal - Neck Neck: Present: normal ROM. Absent: lymphadenopathy, other, rigidity, stridor, thyromegaly Carotids: bilateral: upstroke normal Thyroid: bilateral: normal size - Respiratory Respiratory: bilateral: CTA, diminished - Cardiovascular Rhythm: regular Heart sounds: normal: S1, S2 Abnormal Heart Sounds: Present: systolic murmur, S3 Gallop - Gastrointestinal General gastrointestinal: Present: decreased bowel sounds, distended, scaphoid, soft, splenomegaly. Absent: absent bowel sounds, hepatomegaly, hyperactive bowel sounds, normal bowel sounds, organomegaly, rigid, tenderness, umbilical hernia, ventral hernia - Integumentary Integumentary Comment(s): Incision of her surgical site looks fine with no sign of infection induration or irritation. Integumentary: Present: pale, rash. Absent: calor, cellulitis, cyanotic, decreased turgor, flushed, jaundiced, normal, normal turgor, ulcer - Neurologic Neurologic: Present: CNII-XII intact - Musculoskeletal Musculoskeletal: Present: gait normal, generalized weakness, strength equal bilaterally. Absent: right sided weakness, left sided weakness - Psychiatric Psychiatric: Present: A&O x's 3, appropriate affect - Labs CBC & Chem 7: 02/16/17 06:41 02/16/17 06:41 Labs: Abnormal Lab Results - Last 24 Hours (Table) 02/15/17 02/15/17 02/15/17 Range/Units 11:21 17:21 18:05 WBC 13.3 H 13.4 H (3.8-10.6) k/uL RBC 2.42 L 2.44 L (3.80-5.40) m/uL Hgb 7.7 L 7.8 L (11.4-16.0) gm/dL Hct 23.9 L 24.8 L (34.0-46.0) % MCV 101.8 H (80.0-100.0) fL Plt Count 148 L 146 L (150-450) k/uL Neutrophils # 10.4 H 11.8 H (1.3-7.7) k/uL Chloride (98-107) mmol/L BUN (7-17) mg/dL Creatinine (0.52-1.04) mg/dL POC Glucose (mg/dL) 178 H (75-99) mg/dL Calcium (8.4-10.2) mg/dL Alkaline Phosphatase (38-126) U/L Total Protein (6.3-8.2) g/dL Albumin (3.5-5.0) g/dL 02/15/17 02/16/17 02/16/17 Range/Units 21:08 01:23 06:41 WBC (3.8-10.6) k/uL RBC 2.07 L (3.80-5.40) m/uL Hgb 6.6 L* (11.4-16.0) gm/dL Hct 20.9 L (34.0-46.0) % MCV 100.6 H (80.0-100.0) fL Plt Count 134 L (150-450) k/uL Neutrophils # (1.3-7.7) k/uL Chloride (98-107) mmol/L BUN (7-17) mg/dL Creatinine (0.52-1.04) mg/dL POC Glucose (mg/dL) 171 H 168 H (75-99) mg/dL Calcium (8.4-10.2) mg/dL Alkaline Phosphatase (38-126) U/L Total Protein (6.3-8.2) g/dL Albumin (3.5-5.0) g/dL 02/16/17 02/16/17 Range/Units 06:41 07:03 WBC (3.8-10.6) k/uL RBC (3.80-5.40) m/uL Hgb (11.4-16.0) gm/dL Hct (34.0-46.0) % MCV (80.0-100.0) fL Plt Count (150-450) k/uL Neutrophils # (1.3-7.7) k/uL Chloride 112 H (98-107) mmol/L BUN 29 H (7-17) mg/dL Creatinine 1.17 H (0.52-1.04) mg/dL POC Glucose (mg/dL) 102 H (75-99) mg/dL Calcium 7.8 L (8.4-10.2) mg/dL Alkaline Phosphatase 34 L (38-126) U/L Total Protein 4.6 L (6.3-8.2) g/dL Albumin 2.6 L (3.5-5.0) g/dL Assessment and Plan Plan: 1. Left femur fracture, post ORIF with orthopedics. Patient is doing very well she still have limited weightbearing was start PTOT. 2. Multiple myeloma under the care of Dr. Maria, no skeletal lesions or abnormalities noted on recent skeletal survey on maintenance Velcade and dexamethasone which was given 1 week ago on a monthly regimen. On acyclovir 400 mg daily no changes made 3. Osteopenia, on Aredia every 2 months 4. Hypertension on valsartan 320 mg daily aspirin 81 mg daily for secondary prevention, patient was hypotensive today medication were held. 5. adrenal insufficiency: Patient was switched to Cortef 10 mg twice a day. 6. Hyperlipidemia on pravastatin 80 mg daily 7. CKD stage III, avoid hypotension and nephrotoxins, labs will be monitored. 8 acute blood loss anemia: Patient will be transfused 2 units packed RBCs. GI consult added. Consult with Dr. Maria. 8. DVT patient is off warfarin she is on aspirin 81 mg a day only. 9. GI prophylaxis with Pepcid. 10 discharge planning: Patient be going home tomorrow if she stable. Impression and plan of care have been directed as dictated by the signing physician. Barbara Barth nurse practitioner acting as scribe for signing physician.
[2017-02-16 17:15] LABS: Glucose,Whole Blood 121 mg/dL (75-99)
[2017-02-16 20:34] LABS: Glucose,Whole Blood 120 mg/dL (75-99)
[2017-02-16] MEDS: SENNOSIDES-DOCUSATE SODIUM 1 EACH TAB PO SCH (20:38)
[2017-02-17] MEDS: HYDROcodone/APAP 5-325MG 1 EACH TAB PO PRN ×3 (01:34→12:15)
--- NOTE | 2017-02-17 01:37 | P.CONS ---
History of Present Illness - Reason for Consult Consult date: 02/16/17 Anemia - History of Present Illness This a 66-year-old female with history of multiple myeloma diagnosed in 2006 currently on Velcade and Decadron as well as Aredia followed by Dr. Maria, recent bone scan survey failed to reveal any skeletal lesions, CKD stage 3, osteopenia , chronic right hip osteoarthritis and Hypertension, was admitted to the hospital through the emergency room for evaluation secondary to fall that occurred in her backyard. X-rays showed a fracture for which she underwent ORIF. Patient was to be discharged today, but she was noted to have a drop in her Hb to 6.4. We are asked to see her for possible GI source of blood loss. The patient receive 2 units of packed cells. No nausea, vomiting or abdominal pains. Has passed today a normal colored BM without blood. Review of Systems 14 point review of systems is otherwise not revealing except as per present illness above. Past Medical History Past Medical History: Cancer, Hyperlipidemia, Hypertension, Osteoarthritis (OA) , Renal Disease Additional Past Medical History / Comment(s): Multiple myeloma, parathyroid adenoma excised History of Any Multi-Drug Resistant Organisms: C-DIFF Year Discovered:: 2011 MDRO Source:: Additional Past Surgical History / Comment(s): Stem cell transplants x2, parathyroidectomy partial Past Anesthesia/Blood Transfusion Reactions: No Reported Reaction Past Psychological History: No Psychological Hx Reported Smoking Status: Never smoker Past Alcohol Use History: None Reported Past Drug Use History: None Reported - Past Family History Father Family Medical History: CVA/TIA Mother Family Medical History: COPD Brother(s) Family Medical History: Diabetes Mellitus, Hypertension Sister(s) Family Medical History: Cancer, Diabetes Mellitus, Hypertension Daughter(s) Family Medical History: No Reported History Medications and Allergies Home Medications Medication Instructions Recorded Confirmed Type Acyclovir 400 mg PO DAILY 02/13/17 02/13/17 History Aspirin [Adult Low Dose Aspirin EC] 81 mg PO DAILY 02/13/17 02/13/17 History Calcium Citrate 750 mg PO DAILY 02/13/17 02/13/17 History Cholecalciferol [Vitamin D3] 1,000 unit PO DAILY 02/13/17 02/13/17 History Dexamethasone 40mg 40 mg PO Q30D 02/13/17 02/13/17 History Pravastatin Sodium [Pravachol] 80 mg PO DAILY 02/13/17 02/13/17 History Valsartan [Diovan] 320 mg PO DAILY 02/13/17 02/13/17 History Allergies Allergy/AdvReac Type Severity Reaction Status Date / Time No Known Allergies Allergy Verified 02/14/17 04:05 Physical Exam Vitals: Vital Signs Temp Pulse Pulse Resp BP BP Pulse Ox 02/16/17 19:37 97.4 F L 69 16 125/83 93 L 02/16/17 17:19 98.0 F 80 16 144/72 95 02/16/17 16:49 97.8 F 87 16 115/57 93 L 02/16/17 16:39 97.8 F 70 16 126/66 94 L 02/16/17 16:10 97.0 F L 78 16 138/74 97 02/16/17 14:41 98.3 F 86 16 117/76 98 02/16/17 13:45 97.0 F L 74 16 124/75 94 L 02/16/17 13:15 97.5 F L 74 16 121/70 95 02/16/17 13:05 97.0 F L 80 16 132/74 97 02/16/17 07:00 96.1 F L 68 16 103/58 96 02/16/17 02:05 97.1 F L 72 16 107/63 93 L Intake and Output 02/16/17 02/16/17 02/16/17 06:59 14:59 22:59 Intake Total 300 0 620 Output Total 650 Balance -350 0 620 Intake: Oral 300 Blood Product 0 620 Rc As-1 Unit 0 310 [id number] Rc As-1 Unit 310 [id number] Output: Urine 650 Other: Voiding Method Toilet # Voids 1 General appearance: The patient is alert, oriented, in normal post-op distress. HET: Head is normocephalic and atraumatic. Pupils are equal and reactive. Oropharynx is clear without lesions. Neck: Supple without lymphadenopathy. Trachea midline. Heart: S1 S2. Regular rate and rhythm. Lungs: No crackles or wheezes are heard. Abdomen: Soft, nontender, nondistended with bowel sounds. No peritoneal signs. No palpable organomegaly or masses. Extremities: Normal skin color and turgor. No cyanosis, rash, ulceration, clubbing, or edema. Radial and pedal pulses are 2/4 bilaterally. Area of left hip surgery noted, somewhat swollen Neurological: No focal deficits. Strength and sensation are grossly intact. Results CBC & Chem 7: 02/16/17 06:41 02/16/17 06:41 Labs: Abnormal Lab Results - Last 24 Hours (Table) 02/15/17 02/16/17 02/16/17 Range/Units 21:08 01:23 06:41 RBC 2.07 L (3.80-5.40) m/uL Hgb 6.6 L* (11.4-16.0) gm/dL Hct 20.9 L (34.0-46.0) % MCV 100.6 H (80.0-100.0) fL Plt Count 134 L (150-450) k/uL Retic Count (0.5-2.0) % Chloride (98-107) mmol/L BUN (7-17) mg/dL Creatinine (0.52-1.04) mg/dL POC Glucose (mg/dL) 171 H 168 H (75-99) mg/dL Calcium (8.4-10.2) mg/dL Alkaline Phosphatase (38-126) U/L Total Protein (6.3-8.2) g/dL Albumin (3.5-5.0) g/dL Crossmatch 02/16/17 02/16/17 02/16/17 Range/Units 06:41 06:41 07:03 RBC (3.80-5.40) m/uL Hgb (11.4-16.0) gm/dL Hct (34.0-46.0) % MCV (80.0-100.0) fL Plt Count (150-450) k/uL Retic Count 3.4 H (0.5-2.0) % Chloride 112 H (98-107) mmol/L BUN 29 H (7-17) mg/dL Creatinine 1.17 H (0.52-1.04) mg/dL POC Glucose (mg/dL) 102 H (75-99) mg/dL Calcium 7.8 L (8.4-10.2) mg/dL Alkaline Phosphatase 34 L (38-126) U/L Total Protein 4.6 L (6.3-8.2) g/dL Albumin 2.6 L (3.5-5.0) g/dL Crossmatch 02/16/17 02/16/17 02/16/17 Range/Units 09:32 11:30 17:05 RBC (3.80-5.40) m/uL Hgb (11.4-16.0) gm/dL Hct (34.0-46.0) % MCV (80.0-100.0) fL Plt Count (150-450) k/uL Retic Count (0.5-2.0) % Chloride (98-107) mmol/L BUN (7-17) mg/dL Creatinine (0.52-1.04) mg/dL POC Glucose (mg/dL) 104 H 121 H (75-99) mg/dL Calcium (8.4-10.2) mg/dL Alkaline Phosphatase (38-126) U/L Total Protein (6.3-8.2) g/dL Albumin (3.5-5.0) g/dL Crossmatch See Detail 02/16/17 Range/Units 20:32 RBC (3.80-5.40) m/uL Hgb (11.4-16.0) gm/dL Hct (34.0-46.0) % MCV (80.0-100.0) fL Plt Count (150-450) k/uL Retic Count (0.5-2.0) % Chloride (98-107) mmol/L BUN (7-17) mg/dL Creatinine (0.52-1.04) mg/dL POC Glucose (mg/dL) 120 H (75-99) mg/dL Calcium (8.4-10.2) mg/dL Alkaline Phosphatase (38-126) U/L Total Protein (6.3-8.2) g/dL Albumin (3.5-5.0) g/dL Crossmatch Assessment and Plan Plan: Profound anemia more likely related to postoperative bleed and sequestration in the soft tissue. There is no clinical suggestion of GI bleeding as a cause of anemia at this time. Agree with your current management. I did not schedule any endoscopic workup at this time and that can be kept as a contingency based on her course.
[2017-02-17 06:54] LABS: Glucose,Whole Blood 106 mg/dL (75-99)
[2017-02-17 07:55] VITALS: RESP 16
[2017-02-17 08:22] LABS: Basophils % (A) 0 %; CH 31.8; CHCM 32.8; Eosinophils # (A) 0.2 k/uL (0-0.7); Eosinophils % (A) 2 %; HCT 28.9 % (34.0-46.0); HDW 3.17; Luc # (Auto) 0.19; Luc % (Auto) 2; Lymphocytes # (A) 2.1 k/uL (1.0-4.8); Lymphocytes % (A) 24 %; MCHC 31.7 g/dL (31.0-37.0); MCV 97.9 fL (80.0-100.0); Mean Platelet Volume 8.9; Monocytes # (A) 0.5 k/uL (0-1.0); Monocytes % (A) 6 %; Neutrophils # (A) 5.8 k/uL (1.3-7.7); Neutrophils % (A) 66 %; RBC 2.95 m/uL (3.80-5.40); RDW 15.6 % (11.5-15.5); WBC 8.8 k/uL (3.8-10.6); WBC (Perox) 8.89
[2017-02-17 08:23] LABS: HGB 9.2 gm/dL (11.4-16.0)
[2017-02-17] MEDS: INSULIN LISPRO (humaLOG) 300 UNIT/3 ML VIAL SQ SCH ×2 (08:48→13:23)
[2017-02-17] MEDS: SODIUM CHLORIDE 0.9% 1,000 ML IV SCH (08:48)
[2017-02-17] MEDS: HYDROCORTISONE 10 MG TAB PO SCH (08:50)
[2017-02-17] MEDS: PANTOPRAZOLE 40 MG TABLET PO SCH (08:50)
[2017-02-17] MEDS: ACYCLOVIR 200 MG CAP PO SCH (08:50)
[2017-02-17] MEDS: CALCIUM CARBONATE 500 MG CHEWABLE PO SCH (08:50)
[2017-02-17] MEDS: CHOLECALCIFEROL 1,000 UNIT TAB PO SCH (08:51)
[2017-02-17] MEDS: ASPIRIN 81 MG CHEW PO SCH (08:51)
[2017-02-17] MEDS: VALSARTAN 160 MG TAB PO SCH (08:52)
[2017-02-17] MEDS: LACTULOSE 20 GM/30 ML CUP PO SCH (08:52)
--- NOTE | 2017-02-17 09:04 | P.DS ---
Providers Date of admission: 02/13/17 14:54 Expected date of discharge: 02/17/17 Attending physician: Maynor Melendez Consults: 02/13/17 14:54 Consult Physician Stat Consulting Provider: Claudia Shelton Consult Reason/Comments: Medical clearance for surgery Do you want consulting provider notified?: Already Contacted 02/16/17 08:20 Consult Physician Stat Consulting Provider: Michelle Enamorado Consult Reason/Comments: Hemaglobin 6.6 Do you want consulting provider notified?: Yes 02/16/17 11:01 Consult Physician Routine Consulting Provider: Surinder Maria Consult Reason/Comments: anemia, hx mult myeloma Do you want consulting provider notified?: Yes Primary care physician: Claudia Shelton - Discharge Diagnosis(es) (1) Fracture of proximal end of left femur Current Visit: Yes Status: Acute (2) Subtrochanteric fracture of left femur Current Visit: Yes Status: Acute (3) History of multiple myeloma Current Visit: Yes Status: Acute Hospital Course: This is a 66-year-old female who sustained an injury to the left hip after a fall on 02/13/2017 at home. The patient presents for evaluation in the emergency department and was found to have a transverse subtrochanteric fracture of the left femur via x-ray. Patient was admitted to the hospital for surgical intervention. After discussion and consideration patient elects to proceed with closed reduction with insertion of intertrochanteric nail left hip. The patient is seen preoperatively by Dr. Melendez and cleared for surgery. Patient is admitted to [facility] on 02/13/2017 for closed reduction with insertion of intertrochanteric nail left hip. The procedures performed without complication or sequelae. The patient is doing well postoperatively. Patient required a blood transfusion during admission due to postoperative anemia. Labs and vital signs are stable on day of discharge. On day of discharge patient's hip incision is healing well. There is minimal erythema. There is mild drainage noted at this time with ecchymosis present. There is minimal soft tissue swelling to the hip and thigh. Patient has full foot and ankle motion without difficulty or pain. Neurovascular status to the left lower extremity is intact. Patient is discharged home in good condition. Please see med rec for accurate list of home medications. Patient Condition at Discharge: Stable Plan - Discharge Summary New Discharge Prescriptions: New HYDROcodone/APAP 5-325MG [Donnelly 5-325] 1 - 2 each PO Q4-6H PRN #90 tab PRN Reason: Pain Sennosides-Docusate Sodium [Senokot-S] 1 tab PO BID #60 tablet No Action Valsartan [Diovan] 320 mg PO DAILY Calcium Citrate 750 mg PO DAILY Cholecalciferol [Vitamin D3] 1,000 unit PO DAILY Dexamethasone 40mg 40 mg PO Q30D Pravastatin Sodium [Pravachol] 80 mg PO DAILY Acyclovir 400 mg PO DAILY Aspirin [Adult Low Dose Aspirin EC] 81 mg PO DAILY Discharge Medication List Acyclovir 400 mg PO DAILY 02/13/17 [History] Aspirin [Adult Low Dose Aspirin EC] 81 mg PO DAILY 02/13/17 [History] Calcium Citrate 750 mg PO DAILY 02/13/17 [History] Cholecalciferol [Vitamin D3] 1,000 unit PO DAILY 02/13/17 [History] Dexamethasone 40mg 40 mg PO Q30D 02/13/17 [History] Pravastatin Sodium [Pravachol] 80 mg PO DAILY 02/13/17 [History] Valsartan [Diovan] 320 mg PO DAILY 02/13/17 [History] HYDROcodone/APAP 5-325MG [Donnelly 5-325] 1 - 2 each PO Q4-6H PRN #90 tab 02/14/17 [Rx] Sennosides-Docusate Sodium [Senokot-S] 1 tab PO BID #60 tablet 02/14/17 [Rx] Follow up Appointment(s)/Referral(s): Claudia Shelton MD [Primary Care Provider] - 1-2 days Maynor Melendez DO [Doctor of Osteopathic Medicine] - 2 Weeks Ambulatory/Diagnostic Orders: Walker [DME.AMB1] Location: Determined By Patient Activity/Diet/Wound Care/Special Instructions[facility] Toe touch wt bearing LLE w walker. Medical to manage anticoagulation. Discharge Disposition: HOME WITH HOME HEALTH SERVICES
--- NOTE | 2017-02-17 10:32 | P.PN ---
Subjective Principal diagnosis: Anemia Status post ORIF left femur fracture with underlying history of multiple myeloma. Evaluated yesterday in regards to postoperative anemia. Anemia secondary to suspected soft tissue blood loss. Received 2 units of blood yesterday. Hemoglobin 9.2. Denies hematemesis medication melena. No chest pain shortness of breath. Into spitting discharged inpatient rehab possibly later today. Objective - Vital Signs Vital signs: Vital Signs Temp 97.7 F 02/17/17 07:00 Pulse 77 02/17/17 07:00 Resp 16 02/17/17 07:00 BP 164/70 02/17/17 07:00 Pulse Ox 96 02/17/17 07:00 Intake & Output 02/16/17 02/17/17 02/17/17 18:59 06:59 18:59 Intake Total 310 1060 Balance 310 1060 Intake: Oral 750 Blood Product 310 310 Rc As-1 Unit 310 [id number] Rc As-1 Unit 0 310 [id number] Other: Voiding Method Toilet # Voids 1 2 - Exam General appearance: The patient is alert, oriented, in no acute distress. HET: Head is normocephalic and atraumatic. Pupils are equal and reactive. Oropharynx is clear without lesions. Neck: Supple without lymphadenopathy. Trachea midline. Heart: S1 S2. Regular rate and rhythm. Lungs: No crackles or wheezes are heard. Abdomen: Soft, nontender, nondistended with bowel sounds. No peritoneal signs. No palpable organomegaly or masses. Extremities: Left leg edema with ecchymosis. Dressing dry. Normal skin color and turgor. Radial and pedal pulses are 2/4 bilaterally. Neurological: No focal deficits. Strength and sensation are grossly intact. - Labs CBC & Chem 7: 02/17/17 08:02 02/16/17 06:41 Labs: Abnormal Lab Results - Last 24 Hours (Table) 02/16/17 02/16/17 02/16/17 Range/Units 06:41 09:32 11:30 RBC (3.80-5.40) m/uL Hgb (11.4-16.0) gm/dL Hct (34.0-46.0) % RDW (11.5-15.5) % Plt Count (150-450) k/uL Retic Count 3.4 H (0.5-2.0) % POC Glucose (mg/dL) 104 H (75-99) mg/dL Crossmatch See Detail 02/16/17 02/16/17 02/17/17 Range/Units 17:05 20:32 06:52 RBC (3.80-5.40) m/uL Hgb (11.4-16.0) gm/dL Hct (34.0-46.0) % RDW (11.5-15.5) % Plt Count (150-450) k/uL Retic Count (0.5-2.0) % POC Glucose (mg/dL) 121 H 120 H 106 H (75-99) mg/dL Crossmatch 02/17/17 Range/Units 08:02 RBC 2.95 L (3.80-5.40) m/uL Hgb 9.2 L D (11.4-16.0) gm/dL Hct 28.9 L (34.0-46.0) % RDW 15.6 H (11.5-15.5) % Plt Count 144 L (150-450) k/uL Retic Count (0.5-2.0) % POC Glucose (mg/dL) (75-99) mg/dL Crossmatch Assessment and Plan Plan: Impression: 1. Acute blood loss anemia secondary to sequestration soft tissue status post ORIF left lower extremity. No clinical evidence to suggest acute GI bleeding. 2. History of multiple myeloma. Recommendations: 1. Discharge per medicine orthopedics. No further workup. We'll sign off. Assessment and plan a care discussed with Dr. Shepherd.
[2017-02-17 11:59] LABS: Glucose,Whole Blood 100 mg/dL (75-99)
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
[2017-02-17 15:05] VITALS: BP 138/72; PULSE 90; TEMP 98.4
--- NOTE | 2017-02-18 00:13 | P.CONS ---
History of Present Illness - Reason for Consult Consult date: 02/17/17 Anemia, multiple myeloma in remission - History of Present Illness The patient is a 66-year-old lady, well known to myself. She was diagnosed with IgG kappa multiple myeloma in 2006. She was treated with induction therapy , with Velcade and Decadron and had a near complete response. She then underwent tandem autologous stem cell transplant, in 03/05 and 09/[address] [facility] in [place]. She has since been on monthly Velcade and Decadron for maintenance is very good tolerance. There has been no evidence of relapse so far. She was last seen in the office in 12/13, with labs again showing no evidence of relapse. The patient also receives Aredia every 3 months. The patient came into the hospital, after an accidental fall that led her to sustain trauma in the left hip area. She was found to have fracture and underwent open reduction with internal fixation. At the time of admission hemoglobin was 12.5. It then fell steadily, down to 6.6 yesterday. Posttransfusion it has improved back to 9.2. The patient does have a hematoma around the incision which apparently has become somewhat larger. She had been placed on Coumadin postop, and this was held with her being changed to baby aspirin. Consult was placed for further evaluation and recommendations. Review of Systems Constitutional: Reports fatigue Eyes: denies blurred vision, denies pain Ears: deny: decreased hearing, ear discharge, earache, tinnitus Ears, nose, mouth and throat: Denies headache, Denies sore throat Cardiovascular: Denies chest pain, Denies shortness of breath Respiratory: Denies cough Gastrointestinal: Denies abdominal pain, Denies diarrhea, Denies nausea, Denies vomiting Genitourinary: Denies dysuria, Denies hematuria Menstruation: Reports postmenopausal Musculoskeletal: Reports as per HPI Musculoskeletal: left: hip pain, hip stiffness Integumentary: Reports unusual bruising (Left upper thigh, around the incision) , Reports wounds Neurological: Denies numbness, Denies weakness Psychiatric: Denies anxiety, Denies depression Endocrine: Denies fatigue, Denies weight change Hematologic/Lymphatic: Reports as per HPI Past Medical History Past Medical History: Cancer, Hyperlipidemia, Hypertension, Osteoarthritis (OA) , Renal Disease Additional Past Medical History / Comment(s): Multiple myeloma, parathyroid adenoma excised History of Any Multi-Drug Resistant Organisms: C-DIFF Year Discovered:: 2011 MDRO Source:: Additional Past Surgical History / Comment(s): Stem cell transplants x2, parathyroidectomy partial Past Anesthesia/Blood Transfusion Reactions: No Reported Reaction Past Psychological History: No Psychological Hx Reported Smoking Status: Never smoker Past Alcohol Use History: None Reported Past Drug Use History: None Reported - Past Family History Father Family Medical History: CVA/TIA Mother Family Medical History: COPD Brother(s) Family Medical History: Diabetes Mellitus, Hypertension Sister(s) Family Medical History: Cancer, Diabetes Mellitus, Hypertension Daughter(s) Family Medical History: No Reported History Medications and Allergies Home Medications Medication Instructions Recorded Confirmed Type Acyclovir 400 mg PO DAILY 02/13/17 02/13/17 History Calcium Citrate 750 mg PO DAILY 02/13/17 02/13/17 History Cholecalciferol [Vitamin D3] 1,000 unit PO DAILY 02/13/17 02/13/17 History Dexamethasone 40mg 40 mg PO Q30D 02/13/17 02/13/17 History Pravastatin Sodium [Pravachol] 80 mg PO DAILY 02/13/17 02/13/17 History Valsartan [Diovan] 320 mg PO DAILY 02/13/17 02/13/17 History Allergies Allergy/AdvReac Type Severity Reaction Status Date / Time No Known Allergies Allergy Verified 02/14/17 04:05 Physical Exam Vitals: Vital Signs Temp Pulse Resp BP Pulse Ox 02/17/17 15:03 98.4 F 90 16 138/72 95 02/17/17 07:00 97.7 F 77 16 164/70 96 Intake and Output 02/17/17 02/17/17 02/18/17 14:59 22:59 06:59 Intake Total 240 Balance 240 Intake: Oral 240 - Constitutional General appearance: no acute distress - EENT Eyes: EOMI, PERRLA ENT: hearing grossly normal, normal oropharynx - Neck Neck: no lymphadenopathy Thyroid: bilateral: normal size - Respiratory Respiratory: bilateral: CTA - Cardiovascular Rhythm: regular Heart sounds: normal: S1, S2 - Gastrointestinal General gastrointestinal: normal bowel sounds, soft - Integumentary Significant hematoma,, around incision left upper thigh - Neurologic Neurologic: CNII-XII intact - Musculoskeletal Musculoskeletal: generalized weakness, left sided weakness (Due to recent fracture and surgery) - Psychiatric Psychiatric: A&O x's 3, appropriate affect Results CBC & Chem 7: 02/17/17 08:02 02/16/17 06:41 Labs: Abnormal Lab Results - Last 24 Hours (Table) 02/16/17 02/17/17 02/17/17 Range/Units 09:32 06:52 08:02 RBC 2.95 L (3.80-5.40) m/uL Hgb 9.2 L D (11.4-16.0) gm/dL Hct 28.9 L (34.0-46.0) % RDW 15.6 H (11.5-15.5) % Plt Count 144 L (150-450) k/uL POC Glucose (mg/dL) 106 H (75-99) mg/dL Crossmatch See Detail 02/17/17 Range/Units 11:56 RBC (3.80-5.40) m/uL Hgb (11.4-16.0) gm/dL Hct (34.0-46.0) % RDW (11.5-15.5) % Plt Count (150-450) k/uL POC Glucose (mg/dL) 100 H (75-99) mg/dL Crossmatch Comments: Femur and hip x-ray reports reviewed Assessment and Plan (1) Anemia Narrative/Plan: The patient's hemoglobin on admission was normal at 12.5, which is her usual baseline. Postop, she has declined to 6.6. She was appropriately transfuse, with optimal response to transfusion noted, in terms of increase in hemoglobin. Stool for occult blood was negative. - Given her clinical situation, I doubt that she is bleeding internally. She does have significant hematoma in the area of the incision. In addition, she has had long-term exposure to chemotherapy, including high-dose chemotherapy twice's for her stem cell transplant. Therefore marrow reserve is likely to be diminished, which can lead stool fall in now blood counts, and situation of additional stress such as surgery and bleeding. Given the above clinical impression, I would expect that her hemoglobin will spontaneously improve, as she gets further out from surgery, as long as no other complications occurred. Continue to follow, with additional transfusions if needed. Status: Acute (2) Fracture of proximal end of left femur Narrative/Plan: The patient is status post surgery, and is symptomatically doing quite well postop. Case was extensively discussed with the orthopedic service. From their standpoint the patient is okay for discharge. From our standpoint, discharge or also reasonable, given stabilization of hemoglobin posttransfusion. The patient does need postoperative anticoagulation preferably. At this time and the correlation is on hold due to the drop in hemoglobin. Clinically, 12, it does appear that there may be some increase in hematoma around the incision. Case was discussed with the internal medicine service. I would recommend close monitoring, with resumption of anticoagulation as soon as is felt to be reasonable by IM. Xarelto, at the postop prophylactic doses would be reasonable option, among others Status: Acute (3) History of multiple myeloma Narrative/Plan: Diagnostic and therapeutic circumstances are as described above in the HPI. The patient is currently in remission. She had restaging labs done most recently in late 12/13 showing no evidence of progression. Given her recent surgery, Velcade, as well as Aredia will be held for about 4 weeks postop.. She was asked, however, to keep her routine appointment with me in the office in early 03/15. At that time restaging labs will be drawn. Status: Acute
== END 2017-02-17 15:35 | DRG 481 ==
LOC: EC 12:41 → 3SUR 14:54
PROVIDERS: ADMIT Orthopaedic Surgery; ATTEND Orthopaedic Surgery
PROC: 0QS736Z Reposition Left Upper Femur with Intramedullary Internal Fixation Device, Percutaneous Approach (ICD-10-PCS; principal; 2017-02-13 13:20)
PROC: 30233N1 Transfusion of Nonautologous Red Blood Cells into Peripheral Vein, Percutaneous Approach (ICD-10-PCS; 2017-02-16)
DX: S72.22XA Displaced subtrochanteric fracture of left femur, initial encounter for closed fracture (principal); E27.40 Unspecified adrenocortical insufficiency; C90.01 Multiple myeloma in remission; D62 Acute posthemorrhagic anemia; I12.9 Hypertensive chronic kidney disease with stage 1 through stage 4 chronic kidney disease, or unspecified chronic kidney disease; N18.3 Chronic kidney disease, stage 3 (moderate); E78.5 Hyperlipidemia, unspecified; M85.80 Other specified disorders of bone density and structure, unspecified site; M19.91 Primary osteoarthritis, unspecified site; Z79.82 Long term (current) use of aspirin; Z79.899 Other long term (current) drug therapy; Y92.007 Garden or yard of unspecified non-institutional (private) residence as the place of occurrence of the external cause; W01.0XXA Fall on same level from slipping, tripping and stumbling without subsequent striking against object, initial encounter
CPT/HCPCS: 36415; 71010; 72170; 73501; 80053; 81001; 82272; 82550; 82728; 83036; 83735; 85025; 85045; 85610; 86850; 86900; 86901; 86920; 88304; 88311; 88342; 93005; 96374; 96375; 96376; 99285

== ENCOUNTER → 2019-03-04 | Outpatient (CLI) | payer MEDICARE, BC ==
--- NOTE | 2019-03-04 16:03 | CT ---
EXAMINATION TYPE: CT shoulder LT wo con DATE OF EXAM: 03/04/2019 COMPARISON: None HISTORY: 58-year-old female with bruising, assess for hemarthrosis. Patient on Xarelto. TECHNIQUE: Contiguous axial scanning of the left shoulder without IV contrast. Coronal and sagittal r econstructions performed. CT DLP: 375.6 mGycm Automated exposure control for dose reduction was used. FINDINGS: There is stranding within the subcutaneous tissues especially posteriorly and superiorly. There seems to be some generalized swelling of the musculature of the shoulder and some haziness of t he intervening fat planes. There is a suspected distention of the superior subscapularis recess measuring up to 4.2 cm on the ax ial series image 33 and 4.8 cm craniocaudal on sagittal image 3. This is generally contiguous with th e joint space. Some possible fluid within the subacromial/subdeltoid bursa as well, her first axial image 24. No acute fracture or lytic lesion is identified. Slight bony irregularity along the posterior aspect of the greater tuberosity likely degenerative in basis. IMPRESSION: 1. GENERALIZED SWELLING OF THE MUSCULATURE OF THE LEFT SHOULDER COULD REPRESENT AREAS OF INTRAMUSCULA R HEMORRHAGE. 2. THERE IS FAT STRANDING ESPECIALLY ALONG THE SUPERIOR AND POSTERIOR ASPECT OF THE LEFT SHOULDER AND SOME WITHIN THE INTERVENING FAT PLANES WHICH COULD ALSO REPRESENT SOME GENERALIZED BRUISING. 3. SUSPECT DISTENTION OF THE GLENOHUMERAL JOINT WITH INTERMEDIATE DENSITY FLUID, HEMARTHROSIS DIFFICU LT TO EXCLUDE. HEMORRHAGIC FLUID MAY ALSO BE LOCATED IN THE SUBACROMIAL/SUBDELTOID BURSA. FOR MORE DEFINITIVE EVALUATION, MRI WITH THE ADDITION OF A GRADIENT SEQUENCE CAN BE CONSIDERED. FOR QUICK EVALUATION OF POTENTIAL UNDERLYING GLENOID GLENOHUMERAL JOINT EFFUSION AND BURSAL EFFUSION, ULTRASOUND CAN BE PERFORMED. 4. NO ACUTE OSSEOUS ABNORMALITY SEEN AND NO DISCRETE BONE LESION IDENTIFIED.
== END | disposition home or self-care (01) ==
LOC: RADCTMAIN 15:28
PROVIDERS: ATTEND Family Medicine
DX: M25.412 Effusion, left shoulder (principal); M25.812 Other specified joint disorders, left shoulder

== ENCOUNTER 2019-03-05 05:12 | Inpatient (IN) | payer MEDICARE, BC ==
[2019-03-05] MEDS ORDERED: ONDANSETRON 4 MG/2 ML VIAL IVP STA (05:40)
[2019-03-05] MEDS ORDERED: HYDROmorphone 0.5 MG/0.5 ML SYRINGE IVP STA (05:40)
[2019-03-05 06:14] LABS: Albumin 3.7 g/dL (3.5-5.0); Calcium 8.4 mg/dL (8.4-10.2); Potassium 3.9 mmol/L (3.5-5.1); Total Bilirubin 0.5 mg/dL (0.2-1.3); Total Protein 5.7 g/dL (6.3-8.2)
[2019-03-05] MEDS ORDERED: MORPHINE SULFATE 4 MG/ML SYRINGE IV STA (06:17)
[2019-03-05 06:19] LABS: HGB 11.3 gm/dL (11.4-16.0); MCH 31.5 pg (25.0-35.0); MCHC 32.3 g/dL (31.0-37.0); MCV 97.4 fL (80.0-100.0); Mean Platelet Volume 11.7; Platelet Count 136 k/uL (150-450); RDW 15.4 % (11.5-15.5); WBC 3.3 k/uL (3.8-10.6)
[2019-03-05] MEDS ORDERED: HYDROmorphone 1 MG/ML 1 ML SYRINGE IVP STA ×2 (06:43→06:59)
--- NOTE | 2019-03-05 06:52 | CT ---
EXAM: CT Abdomen and Pelvis Without Intravenous Contrast CLINICAL HISTORY: ITS.REASON CT Reason: Pain TECHNIQUE: Axial computed tomography images of the abdomen and pelvis without intravenous contrast. CTDI is 7.4 mGy and DLP is 393 mGy-cm. This CT exam was performed using one or more of the following dose reduction techniques: automated exposure control, adjustment of the mA and/or kV according to patient size, and/or use of iterative reconstruction technique. Coronal and sagittal reformatted images were created and reviewed. COMPARISON: MRI pelvis dated 12/14/15 MRI lumbar spine dated 12/13/15 and pelvic radiograph dated 02/13/17 FINDINGS: Lung bases: Right lower lobe groundglass nodule measuring up to 4.9 mm. ABDOMEN: Liver: Unremarkable. Gallbladder and bile ducts: There is significant gallbladder distention with gallbladder wall thickening and pericholecystic fluid concerning for acute cholecystitis. Further evaluation may be performed with ultrasound. The common bile duct is dilated measuring up to 10.3 mm. Further evaluation may be performed with ERCP or MRCP. There is associated intrahepatic biliary ductal dilatation. Pancreas: Unremarkable. No ductal dilation. Spleen: Unremarkable. No splenomegaly. Adrenals: Bilateral fat stranding seen adjacent to the adrenal glands with calcifications. This may be represent evolving adrenal hemorrhage with a chronic component. Kidneys and ureters: Unremarkable. No obstructing stones. No hydronephrosis. Stomach and bowel: Unremarkable. No obstruction. No mucosal thickening. PELVIS: Appendix: No findings to suggest acute appendicitis. Bladder: Unremarkable. No stones. Reproductive: Calcified uterine myomas. ABDOMEN and PELVIS: Intraperitoneal space: Unremarkable. No free air. No significant fluid collection. Bones/joints: Evidence of previous intramedullary fixation of the left femur. Degenerative changes of the spine. No acute fracture. No dislocation. Soft tissues: Unremarkable. Vasculature: Unremarkable. No abdominal aortic aneurysm. Lymph nodes: Unremarkable. No enlarged lymph nodes. IMPRESSION: 1. There is significant gallbladder distention with gallbladder wall thickening and pericholecystic fluid concerning for acute cholecystitis. Further evaluation may be performed with ultrasound. 2. The common bile duct is dilated measuring up to 10.3 mm. Further evaluation may be performed with ERCP or MRCP. There is associated intrahepatic biliary ductal dilatation. 3. Bilateral fat stranding seen adjacent to the adrenal glands with calcifications. This may be represent evolving adrenal hemorrhage with a chronic component. 4. Calcified uterine myomas. 5. Right lower lobe groundglass nodule measuring up to 4.9 mm. If this is the only ground glass nodule in the chest, no follow up is necessary. <MYCVCSECTION> Critical Value Communications 03/05/19 06:57 Verify Receipt Verified receipt with ER Dr. Tyler on 03/05 06:56 (-04:00)
[2019-03-05 07:08] LABS: Eosinophils # (M) 0.03 k/uL (0-0.7); Lymphocytes # (M) 2.05 k/uL (1.0-4.8); Neutrophils % (M) 34 %; Nucleated Red Blood Cells 0 /100 WBC (0-0); Total Cells Counted 100
[2019-03-05] MEDS ORDERED: SODIUM CHLORIDE 0.9% 500 ML 500 ML IV STA (07:21)
[2019-03-05] MEDS ORDERED: SODIUM CHLORIDE 0.9% 1,000 ML IV STA (07:21)
[2019-03-05] MEDS ORDERED: PIPERACILLIN-TAZOBACTAM 3.375 GM in SODIUM CHLORIDE 0.9% 100 ML IVPB STA (07:21)
[2019-03-05] MEDS ORDERED: HYDROmorphone 0.5 MG/0.5 ML SYRINGE IVP PRN (07:25)
[2019-03-05] MEDS ORDERED: NALOXONE 0.4 MG/ML 1 ML VIAL IV PRN (07:25)
--- NOTE | 2019-03-05 07:37 | ED ---
Abdominal Pain HPI - General Chief Complaint: Abdominal Pain Stated Complaint: Abd Pain Time Seen by Provider: 03/05/19 05:25 Source: patient, family Limitations: no limitations - History of Present Illness Initial Comments: This patient is a 68-year-old woman with history of multiple myeloma who presents with said complaint of severe abdominal pain. Patient states this is been going on since yesterday morning but became significantly worse over the course of tonight. She indicates the epigastric area and states the pain is sharp and constant. She has not noted worsening or relieving factors. The intensity is 10 out of 10. She also has had some accompanying nausea and vomiting. She has not noted any change in urination or bowel movements. MD Complaint: abdominal pain Onset/Timin -: hour(s) Location: epigastric Radiation: none Migration to: no migration Severity: severe Quality: sharp Consistency: constant Improves With: nothing Worsens With: nothing Associated Symptoms: nausea, vomiting - Related Data Home Medications Medication Instructions Recorded Confirmed Acyclovir 400 mg PO DAILY 02/13/17 02/13/17 Calcium Citrate 750 mg PO DAILY 02/13/17 02/13/17 Cholecalciferol [Vitamin D3 (25 1,000 unit PO DAILY 02/13/17 02/13/17 Mcg = 1000 Iu)] Dexamethasone 40mg 40 mg PO Q30D 02/13/17 02/13/17 Pravastatin Sodium [Pravachol] 80 mg PO DAILY 02/13/17 02/13/17 Valsartan [Diovan] 320 mg PO DAILY 02/13/17 02/13/17 Previous Rx's Medication Instructions Recorded Aspirin 325 mg PO DAILY #30 tab 02/17/17 HYDROcodone/APAP 5-325MG [[place] 1 - 2 tab PO Q4-6H PRN #90 tab 02/17/17 5-325] Hydrocortisone [Cortef] 10 mg PO BID tab 02/17/17 Melatonin 6 mg PO HS PRN tab 02/17/17 Sennosides-Docusate Sodium 1 tab PO BID #60 tablet 02/17/17 [Senokot-S] Sennosides-Docusate Sodium 2 each PO HS tab 02/17/17 [Senokot-S] Allergies Allergy/AdvReac Type Severity Reaction Status Date / Time sulfamethoxazole Allergy Rash/Hives Verified 03/05/19 07:29 [From Bactrim] trimethoprim [From Bactrim] Allergy Rash/Hives Verified 03/05/19 07:29 Review of Systems ROS Statement: Those systems with pertinent positive or pertinent negative responses have been documented in the HPI. ROS Other: All systems not noted in ROS Statement are negative. Constitutional: Denies: fever, chills Respiratory: Denies: cough, dyspnea Cardiovascular: Denies: chest pain, palpitations Gastrointestinal: Reports: as per HPI, abdominal pain, nausea, vomiting. Denies: diarrhea, constipation, hematemesis, melena, hematochezia Genitourinary: Denies: dysuria, hematuria Musculoskeletal: Denies: back pain Skin: Denies: rash Neurological: Denies: headache Hematological/Lymphatic: Denies: easy bleeding Past Medical History Past Medical History: Cancer, Hyperlipidemia, Hypertension, Osteoarthritis (OA), Renal Disease Additional Past Medical History / Comment(s): Multiple myeloma, parathyroid adenoma excised History of Any Multi-Drug Resistant Organisms: C-DIFF Date of last positivie culture/infection: 2011 MDRO Source:: Additional Past Surgical History / Comment(s): Stem cell transplants x2, parathyroidectomy partial Past Anesthesia/Blood Transfusion Reactions: No Reported Reaction Past Psychological History: No Psychological Hx Reported Smoking Status: Never smoker Past Alcohol Use History: None Reported Past Drug Use History: None Reported - Past Family History Father Family Medical History: CVA/TIA Mother Family Medical History: COPD Brother(s) Family Medical History: Diabetes Mellitus, Hypertension Sister(s) Family Medical History: Cancer, Diabetes Mellitus, Hypertension Daughter(s) Family Medical History: No Reported History General Exam Limitations: no limitations General appearance: alert, in distress Head exam: Present: atraumatic, normocephalic Eye exam: Present: normal appearance. Absent: scleral icterus, conjunctival injection ENT exam: Present: normal oropharynx Respiratory exam: Present: normal lung sounds bilaterally. Absent: respiratory distress, wheezes, rales, rhonchi, stridor Cardiovascular Exam: Present: regular rate, normal rhythm, normal heart sounds. Absent: systolic murmur, diastolic murmur, rubs, gallop GI/Abdominal exam: Present: soft, tenderness, guarding, diminished bowel sounds. Absent: distended, rebound, rigid, mass, pulsatile mass, hernia Extremities exam: Present: normal inspection, normal capillary refill. Absent: pedal edema, calf tenderness Back exam: Present: normal inspection. Absent: CVA tenderness (R), CVA tenderness (L) Neurological exam: Present: alert Skin exam: Present: warm, dry, intact, normal color. Absent: rash Course Vital Signs 03/05/19 03/05/19 03/05/19 05:18 06:00 06:16 Temperature 97.6 F 97.6 F 97.8 F Pulse Rate 58 L 51 L 52 L Respiratory 34 H 16 18 Rate Blood Pressure 85/70 124/72 139/86 O2 Sat by Pulse 97 98 Oximetry 03/05/19 07:13 Temperature Pulse Rate 60 Respiratory 16 Rate Blood Pressure 124/65 O2 Sat by Pulse 97 Oximetry Medical Decision Making - Medical Decision Making Patient's 68-year-old woman in to be evaluated for epigastric abdominal pain that is been going on since yesterday morning. Based on the severity of the pain patient is sent for computed tomography scan area the CT does appear to show acute cholecystectomy. I have therefore paged Dr. Calero, who is currently at [facility] for a case there but states that he would be available shortly after 2 take this patient to the operating room. I then went and informed patient and her . The patient's primary physician Dr. Shelton then called and stated that they did not want to wait and Dr. Shelton contacted Dr. Fagan, who reportedly was coming to see the patient. - Lab Data Result diagrams: 03/05/19 05:44 03/05/19 05:44 Lab Results 03/05/19 03/05/19 03/05/19 Range/Units 05:44 05:44 05:44 WBC 3.3 L (3.8-10.6) k/uL RBC 3.60 L (3.80-5.40) m/uL Hgb 11.3 L (11.4-16.0) gm/dL Hct 35.0 (34.0-46.0) % MCV 97.4 (80.0-100.0) fL MCH 31.5 (25.0-35.0) pg MCHC 32.3 (31.0-37.0) g/dL RDW 15.4 (11.5-15.5) % Plt Count 136 L (150-450) k/uL Neutrophils % MAMMOGRAPHER Neutrophils % (Manual) 34 % Lymphocytes % MAMMOGRAPHER Lymphocytes % (Manual) 62 % Monocytes % MAMMOGRAPHER Monocytes % (Manual) 3 % Eosinophils % MAMMOGRAPHER Eosinophils % (Manual) 1 % Basophils % MAMMOGRAPHER Neutrophils # MAMMOGRAPHER Neutrophils # (Manual) 1.12 L (1.3-7.7) k/uL Lymphocytes # MAMMOGRAPHER Lymphocytes # (Manual) 2.05 (1.0-4.8) k/uL Monocytes # MAMMOGRAPHER Monocytes # (Manual) 0.10 (0-1.0) k/uL Eosinophils # MAMMOGRAPHER Eosinophils # (Manual) 0.03 (0-0.7) k/uL Basophils # MAMMOGRAPHER Nucleated RBCs 0 (0-0) /100 WBC Manual Slide Review Performed Sodium 138 (137-145) mmol/L Potassium 3.9 (3.5-5.1) mmol/L Chloride 107 (98-107) mmol/L Carbon Dioxide 25 (22-30) mmol/L Anion Gap 6 mmol/L BUN 30 H (7-17) mg/dL Creatinine 1.25 H (0.52-1.04) mg/dL Est GFR (CKD-EPI)AfAm 51 (>60 ml/min/1.73 sqM) Est GFR (CKD-EPI)NonAf 44 (>60 ml/min/1.73 sqM) Glucose 166 H (74-99) mg/dL Plasma Lactic Acid Vinayak 1.2 (0.7-2.0) mmol/L Calcium 8.4 (8.4-10.2) mg/dL Total Bilirubin 0.5 (0.2-1.3) mg/dL AST 19 (14-36) U/L ALT 19 (9-52) U/L Alkaline Phosphatase 45 (38-126) U/L Troponin I (0.000-0.034) ng/mL Total Protein 5.7 L (6.3-8.2) g/dL Albumin 3.7 (3.5-5.0) g/dL Amylase 156 H (30-110) U/L Lipase 342 H (23-300) U/L 03/05/19 Range/Units 05:44 WBC (3.8-10.6) k/uL RBC (3.80-5.40) m/uL Hgb (11.4-16.0) gm/dL Hct (34.0-46.0) % MCV (80.0-100.0) fL MCH (25.0-35.0) pg MCHC (31.0-37.0) g/dL RDW (11.5-15.5) % Plt Count (150-450) k/uL Neutrophils % Neutrophils % (Manual) % Lymphocytes % Lymphocytes % (Manual) % Monocytes % Monocytes % (Manual) % Eosinophils % Eosinophils % (Manual) % Basophils % Neutrophils # Neutrophils # (Manual) (1.3-7.7) k/uL Lymphocytes # Lymphocytes # (Manual) (1.0-4.8) k/uL Monocytes # Monocytes # (Manual) (0-1.0) k/uL Eosinophils # Eosinophils # (Manual) (0-0.7) k/uL Basophils # Nucleated RBCs (0-0) /100 WBC Manual Slide Review Sodium (137-145) mmol/L Potassium (3.5-5.1) mmol/L Chloride (98-107) mmol/L Carbon Dioxide (22-30) mmol/L Anion Gap mmol/L BUN (7-17) mg/dL Creatinine (0.52-1.04) mg/dL Est GFR (CKD-EPI)AfAm (>60 ml/min/1.73 sqM) Est GFR (CKD-EPI)NonAf (>60 ml/min/1.73 sqM) Glucose (74-99) mg/dL Plasma Lactic Acid Vinayak (0.7-2.0) mmol/L Calcium (8.4-10.2) mg/dL Total Bilirubin (0.2-1.3) mg/dL AST (14-36) U/L ALT (9-52) U/L Alkaline Phosphatase (38-126) U/L Troponin I <0.012 (0.000-0.034) ng/mL Total Protein (6.3-8.2) g/dL Albumin (3.5-5.0) g/dL Amylase (30-110) U/L Lipase (23-300) U/L Disposition Clinical Impression: Acute cholecystitis, Abdominal pain Disposition: ADMITTED IP TO THIS [facility] Condition: Serious Referrals: Claudia Shelton MD [Primary Care Provider] - 1-2 days
[2019-03-05 07:40] LABS: Appearance,Urine Clear (Clear); Bilirubin,Urine Negative (Negative); Blood,Urine Trace (Negative); Color,Urine Yellow; Glucose,Urine (UA) 3+ (Negative); Ketones,Urine Negative (Negative); Leukocyte Esterase,Urine Negative (Negative); Mucus,Urine Few /hpf; Nitrite,Urine Negative (Negative); Protein,Urine 1+ (Negative); RBC,Urine 1 /hpf (0-5); Specific Gravity,Urine 1.023 (1.001-1.035); Squamous Epithelial Cell,Urine <1 /hpf (0-4); Urobilinogen,Urine <2.0 mg/dL (<2.0); WBC,Urine 1 /hpf (0-5)
[2019-03-05 08:02] LABS: INR 0.9 (<1.2); Partial Thromboplastin Time 22.6 sec (22.0-30.0); Prothrombin Time 9.5 sec (9.0-12.0)
[2019-03-05] MEDS: HYDROmorphone 1 MG/ML 1 ML SYRINGE IVP PRN ×5 (08:09→19:27)
--- NOTE | 2019-03-05 09:38 | P.GSCN ---
History of Present Illness Consult date: 03/05/19 History of present illness: 68-year-old female presents to the emergency department after sudden abdominal pain woke her from her sleep this morning. She denies feeling this type of pain previously. She does admit to occasional nausea along with these pain episodes. She also complains of emesis. She denies any change in bowel function. On workup in the emergency department, CT of the abdomen and pelvis was performed that did show a dilated gallbladder along with pericholecystic fluid suspicious for acute cholecystitis. She also was noted to have a dilated common bile duct. She is on anticoagulation and last took xarelto yesterday. Review of Systems All systems: negative Past Medical History Past Medical History: Cancer, Hyperlipidemia, Hypertension, Osteoarthritis (OA), Renal Disease Additional Past Medical History / Comment(s): Multiple myeloma, parathyroid adenoma excised History of Any Multi-Drug Resistant Organisms: C-DIFF Year Discovered:: 2011 MDRO Source:: Additional Past Surgical History / Comment(s): Stem cell transplants x2, parathyroidectomy partial Past Anesthesia/Blood Transfusion Reactions: No Reported Reaction Past Psychological History: No Psychological Hx Reported Smoking Status: Never smoker Past Alcohol Use History: None Reported Past Drug Use History: None Reported - Past Family History Father Family Medical History: CVA/TIA Mother Family Medical History: COPD Brother(s) Family Medical History: Diabetes Mellitus, Hypertension Sister(s) Family Medical History: Cancer, Diabetes Mellitus, Hypertension Daughter(s) Family Medical History: No Reported History Medications and Allergies Home Medications Medication Instructions Recorded Confirmed Type Dexamethasone 40mg 20 mg PO DIRECTED 02/13/17 03/05/19 History Acetaminophen-Codeine 300-30mg 1 - 2 tab PO Q4-6H PRN 03/05/19 03/05/19 History [Tylenol w/codeine #3] Acyclovir [Zovirax] 400 mg PO DAILY 03/05/19 03/05/19 History Gamunex-C 20gm/200ml Ivig 1 dose IV Q28D 03/05/19 03/05/19 History Valsartan [Diovan] 80 mg PO DAILY 03/05/19 03/05/19 History Allergies Allergy/AdvReac Type Severity Reaction Status Date / Time sulfamethoxazole Allergy Rash/Hives Verified 03/05/19 07:29 [From Bactrim] trimethoprim [From Bactrim] Allergy Rash/Hives Verified 03/05/19 07:29 Surgical - Exam Osteopathic Statement: *. No significant issues noted on an osteopathic structural exam other than those noted in the History and Physical/Consult. Vital Signs Temp Pulse Resp BP Pulse Ox 97.6 F 58 L 34 H 85/70 97 03/05/19 05:18 03/05/19 05:18 03/05/19 05:18 03/05/19 05:18 03/05/19 05:18 - General well nourished, moderate pain - Eyes PERRL, normal ocular movement - Neck trachea midline - Respiratory No difficulty with respiration - Abdomen Soft, tender to palpation in the epigastrium and right upper quadrant, nondistended, no rebound, no guarding - Neurologic normal sensation - Psychiatric oriented to time, oriented to person, oriented to place Results - Labs 03/05/19 05:44 03/05/19 05:44 Abnormal Lab Results - Last 24 Hours (Table) 03/05/19 03/05/19 03/05/19 Range/Units 05:44 05:44 06:41 WBC 3.3 L (3.8-10.6) k/uL RBC 3.60 L (3.80-5.40) m/uL Hgb 11.3 L (11.4-16.0) gm/dL Plt Count 136 L (150-450) k/uL Neutrophils # (Manual) 1.12 L (1.3-7.7) k/uL BUN 30 H (7-17) mg/dL Creatinine 1.25 H (0.52-1.04) mg/dL Glucose 166 H (74-99) mg/dL Total Protein 5.7 L (6.3-8.2) g/dL Amylase 156 H (30-110) U/L Lipase 342 H (23-300) U/L Urine Protein 1+ H (Negative) Urine Glucose (UA) 3+ H (Negative) Urine Blood Trace H (Negative) Urine Mucus Few H (None) /hpf Diabetes panel 03/05/19 Range/Units 05:44 Sodium 138 (137-145) mmol/L Potassium 3.9 (3.5-5.1) mmol/L Chloride 107 (98-107) mmol/L Carbon Dioxide 25 (22-30) mmol/L BUN 30 H (7-17) mg/dL Creatinine 1.25 H (0.52-1.04) mg/dL Glucose 166 H (74-99) mg/dL Calcium 8.4 (8.4-10.2) mg/dL AST 19 (14-36) U/L ALT 19 (9-52) U/L Alkaline Phosphatase 45 (38-126) U/L Total Protein 5.7 L (6.3-8.2) g/dL Albumin 3.7 (3.5-5.0) g/dL Calcium panel 03/05/19 Range/Units 05:44 Calcium 8.4 (8.4-10.2) mg/dL Albumin 3.7 (3.5-5.0) g/dL Pituitary panel 03/05/19 Range/Units 05:44 Sodium 138 (137-145) mmol/L Potassium 3.9 (3.5-5.1) mmol/L Chloride 107 (98-107) mmol/L Carbon Dioxide 25 (22-30) mmol/L BUN 30 H (7-17) mg/dL Creatinine 1.25 H (0.52-1.04) mg/dL Glucose 166 H (74-99) mg/dL Calcium 8.4 (8.4-10.2) mg/dL Adrenal panel 03/05/19 Range/Units 05:44 Sodium 138 (137-145) mmol/L Potassium 3.9 (3.5-5.1) mmol/L Chloride 107 (98-107) mmol/L Carbon Dioxide 25 (22-30) mmol/L BUN 30 H (7-17) mg/dL Creatinine 1.25 H (0.52-1.04) mg/dL Glucose 166 H (74-99) mg/dL Calcium 8.4 (8.4-10.2) mg/dL Total Bilirubin 0.5 (0.2-1.3) mg/dL AST 19 (14-36) U/L ALT 19 (9-52) U/L Alkaline Phosphatase 45 (38-126) U/L Total Protein 5.7 L (6.3-8.2) g/dL Albumin 3.7 (3.5-5.0) g/dL - Imaging Additional studies: CT of the abdomen and pelvis was reviewed. Dilated gallbladder, pericholecystic fluid, dilated CBD Assessment and Plan (1) Acute cholecystitis Narrative/Plan: 68-year-old female with acute cholecystitis - I did discuss the case with the patient and the patient's . Due to the finding of a dilated common bile duct along with some mild increase in amylase and lipase, the patient may have an aspect of gallstone pancreatitis etiology. However, on the current imaging there is no evidence of gallstones or gallbladd er sludge. We will obtain an ultrasound of the gallbladder. I also will place a consult for gastroenterology due to the dilated common bile duct and for possible evaluation for any further workup for procedures. The patient did last take anticoagulation yesterday and will need to continue to hold anticoagulation for any possible surgical intervention. - The patient has been started on antibiotics. We will continue antibiotics for acute cholecystitis. - Further recommendations to follow based on patient's continued workup. Current Visit: Yes Status: Acute Code(s): K81.0 - ACUTE CHOLECYSTITIS [facility] ED Code(s): 78174861
--- NOTE | 2019-03-05 10:29 | US ---
EXAMINATION TYPE: US gallbladder DATE OF EXAM: 03/05/2019 COMPARISON: CT CLINICAL HISTORY: cholecystitis. EXAM MEASUREMENTS: Liver Length: 13.7 cm Gallbladder Wall: 0.7 cm CBD: 0.9 to 1.1 cm at pancreas head cm normal less than 0.7 cm. Right Kidney: 9.2 x 4.2 x 4.2 cm Technically difficult study due to patient being in a great deal of pain. Pancreas: visualized portions wnl. Tail of pancreas obscured by bowel gas Liver: wnl. Free fluid is adjacent to the liver. Gallbladder: thickened wall, pericholecystic fluid and wall edema Evidence for sonographic Chi's sign: Yes CBD: wnl Right Kidney: No hydronephrosis or masses seen Small amount of free fluid noted around liver. IMPRESSION: 1. Thickened gallbladder wall, dilated common bile duct. Findings compatible with acute cholecystitis . No gallstones are identified. 2. Small amount of ascites adjacent to the liver
[2019-03-05] MEDS: ONDANSETRON 4 MG/2 ML VIAL IVP PRN (11:49)
--- NOTE | 2019-03-05 13:06 | P.HPIM ---
History of Present Illness H&P Date: 03/05/19 Chief Complaint: Abdominal pain This is a 68-year-old female patient of Dr. Shelton with past medical history of multiple myeloma currently on Gamunex and Dexamethasone, under the care of Dr. Maria, chronic kidney disease stage III, osteopenia, hypertension and history of DVT started on Xarelto, paroxysmal atrial fibrillation on Xarelto. Patient has been on Xarelto since last year after she had hip fracture and repair and subsequently developed DVT. Patient did have documented episode of atrial fibrillation on Thanksgiving of last year. gives history that they were and pulling to contact and patient had a bug bite to her left shoulder posterior area and started scratching the area subsequently developed a hematoma that was quite significant at the time and continued to worsen recently. Patient underwent a CAT scan of the left shoulder ordered by Dr. Shelton yesterday revealed generalized swelling of the musculature of the left shoulder could rep resent areas of intramuscular hemorrhage. Had stranding along the superior and posterior aspect of the left shoulder could represent generalized bruising. Suspect distention of the glenohumeral joint with intermediate density fluid jose-arthrosis difficult to exclude. Hemorrhagic fluid may also be located in the sub-acral meal/subdeltoid bursa. Recommendations were MRI or ultrasound. No acute osseous abnormality. Patient was instructed to hold Xarelto due to this hematoma. Her last dose was yesterday. Patient woke up at 4:30 this morning with severe epigastric pain and she came into [facility] emergency center for evaluation. CT of the abdomen and pelvis revealed significant gallbladder distention with gallbladder wall thickening and Brigida-Colace cystic fluid concerning for acute cholecystitis. Common bile duct is dilated measuring up to 10.3 mm. Bilateral fat stranding adjacent to the adrenal glands with calcifications. Calcified uterine myomas. Right lower lobe groundglass nodule 4.9 mm. Ultrasound the gallbladder revealed thickening gallbladder wall, dilated common bile duct. Findings compatible with acute cholecystitis. No gallstones seen. Small amount of ascites adjacent to the liver. White count was 3.3, hemoglobin 11.3, platelet count 136. BUN 30 and creatinine 1.25-at baseline. Blood sugar 166. Amylase 156 and lipase 342. Urinalysis negative for infection. Patient was to be admitted to the [facility] floor and consult obtained with Dr. Fagan. Plan for cholecystectomy tomorrow. Kayden remains on hold. Review of Systems Constitutional: Reports anorexia, Reports poor appetite, Denies chills, Denies fatigue, Denies fever, Denies sweats, Denies weakness Ears, nose, mouth and throat: Denies nasal congestion, Denies nasal discharge, Denies vertigo Cardiovascular: Denies chest pain, Denies dyspnea on exertion, Denies edema, Denies leg edema, Denies lightheadedness, Denies syncope Respiratory: Denies cough, Denies cough with sputum, Denies dyspnea, Denies excessive sputum, Denies hemoptysis, Denies home oxygen, Denies wheezing Gastrointestinal: Reports abdominal pain, Reports loss of appetite, Reports nausea, Denies diarrhea, Denies vomiting Genitourinary: Denies dysuria, Denies urgency, Denies urinary frequency Musculoskeletal: Denies frequent falls, Denies gait dysfunction, Denies muscle weakness, Denies myalgias Musculoskeletal: left: shoulder pain, shoulder stiffness, shoulder swelling Integumentary: Reports color changes, Reports darkening of skin, Denies pruritus, Denies rash, Denies wounds Neurological: Denies change in mentation, Denies change in speech, Denies gait dysfunction, Denies seizures, Denies syncope, Denies vertigo, Denies weakness Psychiatric: Denies anxiety, Denies depression Endocrine: Denies fatigue, Denies weight change Past Medical History Past Medical History: Cancer, Hyperlipidemia, Hypertension, Osteoarthritis (OA), Renal Disease Additional Past Medical History / Comment(s): Multiple myeloma, parathyroid adenoma excised History of Any Multi-Drug Resistant Organisms: C-DIFF Date of last positivie culture/infection: 2011 MDRO Source:: Additional Past Surgical History / Comment(s): Stem cell transplants x2, parathyroidectomy partial Past Anesthesia/Blood Transfusion Reactions: No Reported Reaction Past Psychological History: No Psychological Hx Reported Smoking Status: Never smoker Past Alcohol Use History: None Reported Past Drug Use History: None Reported - Past Family History Father Family Medical History: CVA/TIA Mother Family Medical History: COPD Brother(s) Family Medical History: Diabetes Mellitus, Hypertension Sister(s) Family Medical History: Cancer, Diabetes Mellitus, Hypertension Daughter(s) Family Medical History: No Reported History Medications and Allergies Home Medications Medication Instructions Recorded Confirmed Type Dexamethasone 40mg 20 mg PO DIRECTED 02/13/17 03/05/19 History Acetaminophen-Codeine 300-30mg 1 - 2 tab PO Q4-6H PRN 03/05/19 03/05/19 History [Tylenol w/codeine #3] Acyclovir [Zovirax] 400 mg PO DAILY 03/05/19 03/05/19 History Gamunex-C 20gm/200ml Ivig 1 dose IV Q28D 03/05/19 03/05/19 History Valsartan [Diovan] 80 mg PO DAILY 03/05/19 03/05/19 History Allergies Allergy/AdvReac Type Severity Reaction Status Date / Time sulfamethoxazole Allergy Rash/Hives Verified 03/05/19 07:29 [From Bactrim] trimethoprim [From Bactrim] Allergy Rash/Hives Verified 03/05/19 07:29 Physical Exam Vitals: Vital Signs Temp Pulse Resp BP Pulse Ox 03/05/19 08:50 64 16 126/78 98 03/05/19 07:13 60 16 124/65 97 03/05/19 06:16 97.8 F 52 L 18 139/86 98 03/05/19 06:00 97.6 F 51 L 16 124/72 03/05/19 05:18 97.6 F 58 L 34 H 85/70 97 Intake and Output 03/04/19 03/05/19 03/05/19 22:59 06:59 14:59 Other: Weight 58.967 kg Gen: This is a 68-year-old female. Patient is seen in the emergency center. She is resting on stretcher and appears to be uncomfortable secondary to pain. is at bedside. HEENT: Head is atraumatic, normocephalic. Pupils equal, round. Sclerae is anicteric. NECK: Supple. No JVD. No lymphadenopathy. No thyromegaly. LUNGS: Clear to auscultation. No wheezes or rhonchi. No intercostal retractions. HEART: Regular rate and rhythm. No murmur. ABDOMEN: Soft. Bowel sounds are present. No masses. Right upper quadrant tenderness. Positive Chi sign EXTREMITIES: No pedal edema. No calf tenderness. NEUROLOGICAL: Patient is awake, alert and oriented x3. Cranial nerves 2 through 12 are grossly intact. Results CBC & Chem 7: 03/05/19 05:44 03/05/19 05:44 Labs: Abnormal Lab Results - Last 24 Hours (Table) 03/05/19 03/05/19 03/05/19 Range/Units 05:44 05:44 06:41 WBC 3.3 L (3.8-10.6) k/uL RBC 3.60 L (3.80-5.40) m/uL Hgb 11.3 L (11.4-16.0) gm/dL Plt Count 136 L (150-450) k/uL Neutrophils # (Manual) 1.12 L (1.3-7.7) k/uL BUN 30 H (7-17) mg/dL Creatinine 1.25 H (0.52-1.04) mg/dL Glucose 166 H (74-99) mg/dL Total Protein 5.7 L (6.3-8.2) g/dL Amylase 156 H (30-110) U/L Lipase 342 H (23-300) U/L Urine Protein 1+ H (Negative) Urine Glucose (UA) 3+ H (Negative) Urine Blood Trace H (Negative) Urine Mucus Few H (None) /hpf Assessment and Plan Plan: 1. Abdominal pain and nausea secondary to cholecystitis. Patient's been seen by Dr. Fagan with plan for cholecystectomy tomorrow. Hold Xarelto. Continue morphine as needed for pain, Zofran as needed for nausea. Continue IV fluids at 100 mL per hour. 2. Hypertension. Continue valsartan 80 mg daily 3. Hyperlipidemia. 4. Chronic kidney disease stage III. 5. Multiple myeloma under care of Dr. Maria. Patient is currently on Gamunex-C every 28 days and dexamethasone. 6. Paroxysmal atrial fibrillation, rate controlled. Xarelto on hold. 7. Large left shoulder hematoma. Xarelto on hold. 8. GI prophylaxis. Protonix. 9. DVT prophylaxis. Patient will be resumed on Xarelto after surgery. 10. Mild elevation in lipase most likely secondary to passed stone without p ancreatitis. Patient will be admitted to the hospital for a minimum of 2 night stay. Discharge plan: Return almost likely on Thursday. Impression and plan of care have been directed as dictated by the signing physician. Barbara Barth nurse practitioner acting as scribe for signing physician.
[2019-03-05] MEDS: VALSARTAN 80 MG TAB PO SCH (15:31)
[2019-03-05] MEDS: SODIUM CHLORIDE 0.9% 1,000 ML IV SCH ×2 (15:31→21:24)
[2019-03-05] MEDS: PIPERACILLIN-TAZOBACTAM 3.375 GM in SODIUM CHLORIDE 0.9% 100 ML IVPB SCH ×2 (15:31→23:19)
[2019-03-05] MEDS ORDERED: ACETAMINOPHEN TAB 500 MG TAB PO PRN (19:07)
[2019-03-05] MEDS: PANTOPRAZOLE 40 MG/10 ML VIAL IVP SCH (19:27)
[2019-03-06] MEDS ORDERED: SENNOSIDES-DOCUSATE SODIUM 1 EACH TAB PO ONE (00:30)
[2019-03-06] MEDS: HYDROmorphone 1 MG/ML 1 ML SYRINGE IVP PRN ×3 (01:16→12:32)
[2019-03-06] MEDS ORDERED: POLYETHYLENE GLYCOL 3350 17 GM POWD.PACK PO PRN (02:02)
[2019-03-06] MEDS: PIPERACILLIN-TAZOBACTAM 3.375 GM in SODIUM CHLORIDE 0.9% 100 ML IVPB SCH ×2 (06:59→15:53)
[2019-03-06] MEDS ORDERED: fentaNYL (PF) 50 MCG/ML 2 ML AMP ONE (07:50)
[2019-03-06] MEDS ORDERED: PHENYLEPHRINE-0.9% NACL SYG 1 MG/10 ML SYRINGE ONE (07:50)
[2019-03-06] MEDS ORDERED: GLYCOPYRROLATE 0.2 MG/ML 2 ML VIAL ONE (07:50)
[2019-03-06] MEDS ORDERED: SUCCINYLCHOLINE CHLORIDE 100 MG/5 ML SYR IV ONE (07:50)
[2019-03-06] MEDS ORDERED: ROCURONIUM BROMIDE 10 MG/ML 10 ML VIAL IV ONE (07:50)
[2019-03-06] MEDS ORDERED: LIDOCAINE 1% INJ 10MG/ML (20 ML MDV) ONE (07:50)
[2019-03-06] MEDS ORDERED: NEOSTIGMINE 1 MG/ML 10 ML VIAL ONE (07:50)
[2019-03-06] MEDS ORDERED: HEPARIN SODIUM,PORCINE 5,000 UNIT/ML 1 ML VIAL ONE (07:50)
[2019-03-06] MEDS ORDERED: MIDAZOLAM 2 MG/2 ML VIAL ONE (07:50)
[2019-03-06] MEDS ORDERED: PROPOFOL 10 MG/ML 20 ML VIAL IV ONE (07:50)
[2019-03-06] MEDS ORDERED: BUPIVACAIN-EPI 0.25%-1:200,000 30 ML VIAL SQ ONE (07:55)
[2019-03-06] MEDS ORDERED: SODIUM CHLORIDE 0.9% 1,000 ML IV ONE ×2 (07:55→17:06)
[2019-03-06 08:24] LABS: Albumin 3.3 g/dL (3.5-5.0); Calcium 7.5 mg/dL (8.4-10.2); Potassium 3.7 mmol/L (3.5-5.1); Total Bilirubin 1.5 mg/dL (0.2-1.3); Total Protein 5.3 g/dL (6.3-8.2)
[2019-03-06] MEDS ORDERED: LACTATED RINGERS 1,000 ML IV ONE (08:33)
[2019-03-06 08:43] LABS: HCT 36.2 % (34.0-46.0); HGB 11.5 gm/dL (11.4-16.0); Hypochromasia Slight; MCH 31.8 pg (25.0-35.0); MCHC 31.7 g/dL (31.0-37.0); MCV 100.2 fL (80.0-100.0); Macrocytosis Slight; Mean Platelet Volume 11.8; Platelet Count 140 k/uL (150-450); RBC 3.62 m/uL (3.80-5.40); RDW 15.4 % (11.5-15.5); WBC 2.6 k/uL (3.8-10.6)
--- NOTE | 2019-03-06 10:40 | P.CNOR ---
<Mellissa Brown Corrine - Last Filed: 03/06/19 13:54> History of Present Illness - HPI Consult date: 03/06/19 Consult reason: other (Left shoulder hematoma) History of present illness: The patient is a 68 y/o female who presented to the emergency department yesterday with significant abdominal pain. She has a history of multiple myeloma under care currently by Dr. Maria, chronic kidney disease, osteopenia, hypertension, DVT, and paroxysmal a. fib. She underwent a lap cholecystectomy today by Dr. Fagan. Upon exam today, she recently was transferred back up to the floor from recovery and is very sleepy still. No family at the bedside currently. According to the H&P from internal medicine, the patient had a bug bite on the posterior shoulder and was aggressively scratching the shoulder. The hematoma developed. The patient states today that the bruising was found during her recent mammogram. A CT of the shoulder ordered by Dr. Shelton revealed an extensive hematoma in the shoulder. Orthopedics was consulted for further evaluation and care. No significant pain in the shoulder at this time. Review of Systems ROS unobtainable: due to mental status (The patient recent came back from surgery and no family at the bedside. Unable to obtain at this time. ) Past Medical History Past Medical History: Cancer, Hyperlipidemia, Hypertension, Osteoarthritis (OA), Renal Disease Additional Past Medical History / Comment(s): Multiple myeloma, parathyroid adenoma excised History of Any Multi-Drug Resistant Organisms: C-DIFF Year Discovered:: 2011 MDRO Source:: Additional Past Surgical History / Comment(s): Stem cell transplants x2, parathyroidectomy partial Past Anesthesia/Blood Transfusion Reactions: No Reported Reaction Past Psychological History: No Psychological Hx Reported Smoking Status: Never smoker Past Alcohol Use History: None Reported Past Drug Use History: None Reported - Past Family History Father Family Medical History: CVA/TIA Mother Family Medical History: COPD Brother(s) Family Medical History: Diabetes Mellitus, Hypertension Sister(s) Family Medical History: Cancer, Diabetes Mellitus, Hypertension Daughter(s) Family Medical History: No Reported History Medications and Allergies Home Medications Medication Instructions Recorded Confirmed Type Dexamethasone 40mg 20 mg PO DIRECTED 02/13/17 03/05/19 History Acetaminophen-Codeine 300-30mg 1 - 2 tab PO Q4-6H PRN 03/05/19 03/05/19 History [Tylenol w/codeine #3] Acyclovir [Zovirax] 400 mg PO DAILY 03/05/19 03/05/19 History Gamunex-C 20gm/200ml Ivig 1 dose IV Q28D 03/05/19 03/05/19 History Valsartan [Diovan] 80 mg PO DAILY 03/05/19 03/05/19 History Allergies Allergy/AdvReac Type Severity Reaction Status Date / Time sulfamethoxazole Allergy Rash/Hives Verified 03/05/19 07:29 [From Bactrim] trimethoprim [From Bactrim] Allergy Rash/Hives Verified 03/05/19 07:29 Physical Examination The patient is a 68 y/o female who appears in no acute distress. She is alert and oriented but easily falls back to sleep during exam. Exam of the left shoulder reveals bruising to the anterior and posterior upper arm. No bruising over the actual shoulder joint. Arm is soft and non-tender. ROM of the shoulder not tested at this time. No tenderness to palpation of the shoulder, elbow, wrist, or hand. The left hand is warm and well-perfused. No numbness present. Strong radial pulse and cap refill <2 seconds. Results - Labs Labs: Abnormal Lab Results - Last 24 Hours (Table) 03/06/19 03/06/19 Range/Units 07:23 07:23 WBC 2.6 L (3.8-10.6) k/uL RBC 3.62 L (3.80-5.40) m/uL MCV 100.2 H (80.0-100.0) fL Plt Count 140 L (150-450) k/uL BUN 21 H (7-17) mg/dL Creatinine 1.16 H (0.52-1.04) mg/dL Glucose 102 H (74-99) mg/dL Calcium 7.5 L (8.4-10.2) mg/dL Total Bilirubin 1.5 H (0.2-1.3) mg/dL Alkaline Phosphatase 33 L (38-126) U/L Total Protein 5.3 L (6.3-8.2) g/dL Albumin 3.3 L (3.5-5.0) g/dL Lipase 862 H (23-300) U/L H & H 03/05/19 03/06/19 Range/Units 05:44 07:23 Hgb 11.3 L 11.5 (11.4-16.0) gm/dL Hct 35.0 36.2 (34.0-46.0) % Coagulation 03/05/19 Range/Units 05:44 INR 0.9 (<1.2) Result Diagrams: 03/06/19 07:23 03/06/19 07:23 - Diagnostic results Shoulder CT: image reviewed (CT of the right shoulder obtained on 03/04/2019 reveal possible intramuscular hemorrhage and joint hemaarthrosis. No acute fractures or bony lesions noted. ) Assessment and Plan (1) Hematoma Current Visit: Yes Status: Acute Code(s): T14.8XXA - OTHER INJURY OF UNSPECIFIED BODY REGION, INITIAL ENCOUNTER SNOMED Code(s): 668366839 (2) Abdominal pain Current Visit: Yes Status: Acute Code(s): R10.9 - UNSPECIFIED ABDOMINAL PAIN SNOMED Code(s): 34727089 (3) Acute cholecystitis Current Visit: Yes Status: Acute Code(s): K81.0 - ACUTE CHOLECYSTITIS SNOMED Code(s): 25212401 (4) History of multiple myeloma Current Visit: No Status: Acute Code(s): Z85.79 - PRSNL HX OF MALIG NEOPLM OF LYMPHOID, HEMATPOETC & REL TISS SNOMED Code(s): 588087479627109 Plan: The clinical and CT findings were discuss briefly with the patient. The case was also discussed with Dr. Alanis. We are recommending symptomatic treatment of the shoulder at this time. The patient appears comfortable with her shoulder and is not experiencing pain currently. We will re-evaluate the patient tomorrow after she wakes up more. <Wilder Alanis - Last Filed: 03/07/19 07:31> Results - Labs Labs: Abnormal Lab Results - Last 24 Hours (Table) 03/06/19 03/06/19 03/06/19 Range/Units 07:23 07:23 17:13 WBC 2.6 L (3.8-10.6) k/uL RBC 3.62 L (3.80-5.40) m/uL Hgb (11.4-16.0) gm/dL Hct (34.0-46.0) % MCV 100.2 H (80.0-100.0) fL MCHC (31.0-37.0) g/dL RDW (11.5-15.5) % Plt Count 140 L (150-450) k/uL Neutrophils # (Manual) 1.00 L (1.3-7.7) k/uL Lymphocytes # (Manual) (1.0-4.8) k/uL Chloride (98-107) mmol/L Carbon Dioxide (22-30) mmol/L BUN 21 H (7-17) mg/dL Creatinine 1.16 H (0.52-1.04) mg/dL Glucose 102 H (74-99) mg/dL POC Glucose (mg/dL) 121 H (75-99) mg/dL Calcium 7.5 L (8.4-10.2) mg/dL Total Bilirubin 1.5 H (0.2-1.3) mg/dL AST (14-36) U/L ALT (9-52) U/L Alkaline Phosphatase 33 L (38-126) U/L Total Protein 5.3 L (6.3-8.2) g/dL Albumin 3.3 L (3.5-5.0) g/dL Amylase (30-110) U/L Lipase 862 H (23-300) U/L Crossmatch 03/06/19 03/06/19 03/06/19 Range/Units 17:16 17:16 18:04 WBC 2.8 L (3.8-10.6) k/uL RBC 2.46 L (3.80-5.40) m/uL Hgb 7.8 L D (11.4-16.0) gm/dL Hct 25.4 L (34.0-46.0) % MCV 103.1 H (80.0-100.0) fL MCHC 30.8 L (31.0-37.0) g/dL RDW 16.6 H (11.5-15.5) % Plt Count 121 L (150-450) k/uL Neutrophils # (Manual) 1.23 L (1.3-7.7) k/uL Lymphocytes # (Manual) (1.0-4.8) k/uL Chloride (98-107) mmol/L Carbon Dioxide (22-30) mmol/L BUN (7-17) mg/dL Creatinine (0.52-1.04) mg/dL Glucose (74-99) mg/dL POC Glucose (mg/dL) 105 H (75-99) mg/dL Calcium (8.4-10.2) mg/dL Total Bilirubin (0.2-1.3) mg/dL AST (14-36) U/L ALT (9-52) U/L Alkaline Phosphatase (38-126) U/L Total Protein (6.3-8.2) g/dL Albumin (3.5-5.0) g/dL Amylase (30-110) U/L Lipase (23-300) U/L Crossmatch See Detail 03/06/19 03/06/19 03/06/19 Range/Units 19:39 19:39 19:39 WBC 2.6 L (3.8-10.6) k/uL RBC 2.11 L (3.80-5.40) m/uL Hgb 6.7 L* (11.4-16.0) gm/dL Hct 21.4 L (34.0-46.0) % MCV 101.7 H (80.0-100.0) fL MCHC (31.0-37.0) g/dL RDW 16.3 H (11.5-15.5) % Plt Count 113 L (150-450) k/uL Neutrophils # (Manual) (1.3-7.7) k/uL Lymphocytes # (Manual) 0.94 L (1.0-4.8) k/uL Chloride 113 H (98-107) mmol/L Carbon Dioxide 17 L (22-30) mmol/L BUN 23 H (7-17) mg/dL Creatinine 1.22 H (0.52-1.04) mg/dL Glucose 125 H (74-99) mg/dL POC Glucose (mg/dL) (75-99) mg/dL Calcium 5.9 L* (8.4-10.2) mg/dL Total Bilirubin (0.2-1.3) mg/dL AST (14-36) U/L ALT (9-52) U/L Alkaline Phosphatase (38-126) U/L Total Protein (6.3-8.2) g/dL Albumin (3.5-5.0) g/dL Amylase 124 H (30-110) U/L Lipase (23-300) U/L Crossmatch 03/07/19 03/07/19 Range/Units 04:55 04:55 WBC 2.8 L (3.8-10.6) k/uL RBC 2.00 L (3.80-5.40) m/uL Hgb 6.5 L* (11.4-16.0) gm/dL Hct 19.5 L* (34.0-46.0) % MCV (80.0-100.0) fL MCHC (31.0-37.0) g/dL RDW 16.1 H (11.5-15.5) % Plt Count 100 L (150-450) k/uL Neutrophils # (Manual) 1.10 L (1.3-7.7) k/uL Lymphocytes # (Manual) (1.0-4.8) k/uL Chloride 116 H (98-107) mmol/L Carbon Dioxide 16 L (22-30) mmol/L BUN 23 H (7-17) mg/dL Creatinine 1.22 H (0.52-1.04) mg/dL Glucose 125 H (74-99) mg/dL POC Glucose (mg/dL) (75-99) mg/dL Calcium 7.2 L (8.4-10.2) mg/dL Total Bilirubin (0.2-1.3) mg/dL AST 59 H (14-36) U/L ALT 58 H (9-52) U/L Alkaline Phosphatase 26 L (38-126) U/L Total Protein 3.6 L (6.3-8.2) g/dL Albumin 2.0 L (3.5-5.0) g/dL Amylase (30-110) U/L Lipase (23-300) U/L Crossmatch Microbiology - Last 24 Hours (Table) 03/05/19 08:20 Blood Culture - Preliminary Blood No Growth after 24 hours H & H 03/05/19 03/06/19 03/06/19 Range/Units 05:44 07:23 17:16 Hgb 11.3 L 11.5 7.8 L D (11.4-16.0) gm/dL Hct 35.0 36.2 25.4 L (34.0-46.0) % 03/06/19 03/07/19 Range/Units 19:39 04:55 Hgb 6.7 L* 6.5 L* (11.4-16.0) gm/dL Hct 21.4 L 19.5 L* (34.0-46.0) % Coagulation 03/05/19 Range/Units 05:44 INR 0.9 (<1.2) Result Diagrams: 03/07/19 04:55 03/07/19 04:55 Assessment and Plan Plan: Discussed with FELIX Brown and agree with above. Patient was subsequently seen and examined by myself as well. Interval events in the chart were reviewed S: The patient was seen and examined. Patient's father (who is a physician) was also present at the bedside. He states this began while in [facility]. She scratched the back of the shoulder and developed some pain and bruising. She subsequently had a massage which made it worse. They note the bruising was initially proximal around the shoulder but has now moved distally. She denies significant history of bleeding . Note that prior to her diagnosis of multiple myeloma, they would sometimes notice bruising around the eyes. She denies any pain in the shoulder now. O: Tenderness palpation around the shoulder. There is diffuse, matured ecchymosis in the anteromedial arm. No discrete subcutaneous or submuscular fluid collection. She is able to actively elevate the shoulder above 90 and has no pain with circumduction. She is able to hold abduction against resistance and has good strength with resisted internal and external rotation with no evidence of pain. A: 1. Left shoulder hematoma 2. Status post laparoscopic cholecystectomy 3. Acute anemia and hypotension P: I discussed the clinical and MRI findings with the patient and her father. The hematoma appears submuscular, beneath the deltoid and around the subscapular bursa. I do not see evidence of hemarthrosis. Her exam is concerning at all for infection. This does not require any intervention at this time and I re commended symptomatically treatment with warm or cold compresses and activity as tolerated. Questions were invited and answered. The expressed understanding and were in agreement with the proposed plan. We will sign off at this time. Please contact us if there are questions, concerns or clinical changes in the shoulder. Thank you for allowing me to participate in the care of this patient. Wilder Alanis D.O. [facility]
--- NOTE | 2019-03-06 10:40 | P.OP ---
Date of Procedure: 03/06/19 Preoperative Diagnosis: Acute cholecystitis Postoperative Diagnosis: Acute cholecystitis, bile peritonitis Procedure(s) Performed: Laparoscopic cholecystectomy Anesthesia: GIBRAN Surgeon: Meredith Fagan Pathology: other (Gallbladder) Condition: stable Disposition: floor Indications for Procedure: This is a 68-year-old female that presented to the emergency department with sudden onset abdominal pain in the epigastrium and right upper quadrant. Workup that was performed with CT of the abdomen and pelvis and ultrasound of the abdomen did show suspicion of acute cholecystitis. The patient was also evaluated by the gastroenterology service that did find it reasonable to have a cholecystectomy performed with a mildly dilated common bile duct. This was discussed with the patient and the patient's and consent was provided for laparoscopic cholecystectomy. Operative Findings: Bile peritonitis with free bile in the right upper quadrant, surrounding the gallbladder and in the right paracolic gutter. Severely inflamed gallbladder with thickened wall Description of Procedure: The patient was brought into the operating suite and placed in supine position on the operating table. Sedation was provided by anesthesia and the patient did undergo endotracheal intubation. The patient was then prepped and draped in regular sterile fashion. An infraumbilical incision was made and dissection was carried to the fascia the fascia was incised and the abdomen was entered. A 12 mm trocar was placed and pneumoperitoneum was achieved. Laparoscope was placed and immediate bile was noted in the right upper quadrant. Bilious output was noted along the pericolic gutter with some adherent tissue between the liver and the abdominal wall. The gallbladder was noted to be significantly inflamed. 3 additional 5 mm trochars were placed within the abdomen in the standard positions. The gallbladder was grasped and retracted and dissection was carried to free the adherent tissue from the cystic duct and cystic artery. Critical view was obtained. The cystic duct was skeletonized 2 clips were placed proximally one was placed distally and the cystic duct was ligated. The cystic artery was also skeletonized, 2 clips were placed proximally and one was placed distally and the cystic artery was ligated. The gallbladder was then dissected from the liver bed using cautery. It was placed in an Endo Catch bag and removed from the abdomen. Copious irrigation was placed in the right upper quadrant. Examination was made of the distal stomach and duodenum with no obvious evidence of perforation. There did not appear to be any biliary leakage in the right upper quadrant. A LENORE drain was placed and secured to the skin with a 3-0 nylon suture. All the trochars were removed from the abdomen. The infraumbilical incision fascial site was closed with multiple 0 Vicryl interrupted suture. All skin incisions were closed with 4-0 Vicryl subcuticular suture. The patient was awakened in the operating suite and taken to postanesthesia care unit in stable condition.
[2019-03-06] MEDS: PANTOPRAZOLE 40 MG/10 ML VIAL IVP SCH (10:47)
[2019-03-06] MEDS: SODIUM CHLORIDE 0.9% 1,000 ML IV SCH ×4 (10:48→19:32)
--- NOTE | 2019-03-06 11:35 | P.PN ---
Subjective Progress Note Date: 03/06/19 This is a 68-year-old female patient of Dr. Shelton with past medical history of multiple myeloma currently on Gamunex and Dexamethasone, under the care of Dr. Maria, chronic kidney disease stage III, osteopenia, hypertension and history of DVT started on Xarelto, paroxysmal atrial fibrillation on Xarelto. Patient has been on Xarelto since last year after she had hip fracture and repair and subsequently developed DVT. Patient did have documented episode of atrial fibrillation on Thanksgiving of last year. gives history that they were and pulling to contact and patient had a bug bite to her left shoulder posterior area and started scratching the area subsequently developed a hematoma that was quite significant at the time and continued to worsen recently. Patient underwent a CAT scan of the left shoulder ordered by Dr. Shelton yesterday revealed generalized swelling of the musculature of the left shoulder could represent areas of intramuscular hemorrhage. Had stranding along the superior and posterior aspect of the left shoulder could represent generalized bruising. Suspect distention of the glenohumeral joint with intermediate density fluid ken-arthrosis difficult to exclude. Hemorrhagic fluid may also be located in the sub-acral meal/subdeltoid bursa. Recommendations were MRI or ultrasound. No acute osseous abnormality. Patient was instructed to hold Xarelto due to this hematoma. Her last dose was yesterday. Patient woke up at 4:30 this morning with severe epigastric pain and she came into [facility] emergency center for evaluation. CT of the abdomen and pelvis revealed significant gallbladder distention with gallbladder wall thickening and pericholic fluid concerning for acute cholecystitis. Common bile duct is dilated measuring up to 10.3 mm. Bilateral fat stranding adjacent to the adrenal glands with calcifications. Calcified uterine myomas. Right lower lobe groundglass nodule 4.9 mm. Ultrasound the gallbladder revealed thickening gallbladder wall, dilated common bile duct. Findings compatible with acute cholecystitis. No gallstones seen. Small amount of ascites adjacent to the liver. White count was 3.3, hemoglobin 11.3, platelet count 136. BUN 30 and creatinine 1.25-at baseline. Blood sugar 166. Amylase 156 and lipase 342. Urinalysis negative for infection. Patient was to be admitted to the [facility] and consult obtained with Dr. Fagan. Plan for cholecystectomy tomorrow. Xarelto remains on hold. 03/06: Patient has been afebrile, heart rate 76, blood pressure 116/73, pulse ox 93% on room air. WBC 2.6, hemoglobin 11.5, platelet count 140. BUN 21 creatinine 1.16. Total bilirubin 1.5, AST 20, ALT 19, alkaline phosphatase 33. Lipase is 862. Patient is status post laparoscopic cholecystectomy. Orthopedic consult has been added regarding left shoulder hematoma. The patient is currently stable in the postop period. floor framer is sinus rhythm. Objective - Vital Signs Vital signs: Vital Signs Temp 98.5 F 03/06/19 07:00 Pulse 76 03/06/19 07:00 Resp 16 03/06/19 07:00 BP 116/73 03/06/19 07:00 Pulse Ox 93 L 03/06/19 07:00 Intake & Output 03/05/19 03/06/19 03/06/19 18:59 06:59 18:59 Intake Total 660 1440 700 Output Total 20 Balance 660 1440 680 Intake: IV 700 Intake, IV Titration 1200 Amount Piperacillin-Tazobactam 3 100 .375 gm In Sodium Chloride 0.9% 100 ml @ 25 mls/hr IVPB Q8HR [facility]SS[facility] Rx# :[id number] Sodium Chloride 0.9% 1, 1100 000 ml @ 100 mls/hr IV . Q10H LYSSA Rx#:[id number] Oral 660 240 Output: Estimated Blood Loss 20 Other: Voiding Method Bedside Commode # Voids 1 1 - Exam Review of Systems Constitutional: Reports anorexia, Reports poor appetite, Denies chills, Denies fatigue, Denies fever, Denies sweats, Denies weakness Ears, nose, mouth and throat: Denies nasal congestion, Denies nasal discharge, Denies vertigo Cardiovascular: Denies chest pain, Denies dyspnea on exertion, Denies edema, Denies leg edema, Denies lightheadedness, Denies syncope Respiratory: Denies cough, Denies cough with sputum, Denies dyspnea, Denies excessive sputum, Denies hemoptysis, Denies home oxygen, Denies wheezing Gastrointestinal: Reports abdominal pain, Reports loss of appetite, Reports nausea, Denies diarrhea, Denies vomiting Genitourinary: Denies dysuria, Denies urgency, Denies urinary frequency Musculoskeletal: Denies frequent falls, Denies gait dysfunction, Denies muscle weakness, Denies myalgias Musculoskeletal: left: shoulder pain, shoulder stiffness, shoulder swelling Integumentary: Reports color changes left shoulder, Reports darkening of skin, Denies pruritus, Denies rash, Denies wounds Neurological: Denies change in mentation, Denies change in speech, Denies gait dysfunction, Denies seizures, Denies syncope, Denies vertigo, Denies weakness Psychiatric: Denies anxiety, Denies depression Endocrine: Denies fatigue, Denies weight change Gen: This is a 68-year-old female. She is resting in bed following surgery and appears to be comfortable. HEENT: Head is atraumatic, normocephalic. Pupils equal, round. Sclerae is anicteric. NECK: Supple. No JVD. No lymphadenopathy. No thyromegaly. LUNGS: Clear to auscultation. No wheezes or rhonchi. No intercostal retractions. HEART: Regular rate and rhythm. No murmur. ABDOMEN: Soft. Bowel sounds are present. No masses. EXTREMITIES: No pedal edema. No calf tenderness. Left shoulder has large area of swelling, ecchymosis, limited range of motion. NEUROLOGICAL: Patient is awake, alert and oriented x3. Cranial nerves 2 through 12 are grossly intact. - Labs CBC & Chem 7: 03/06/19 07:23 03/06/19 07:23 Labs: Abnormal Lab Results - Last 24 Hours (Table) 03/06/19 03/06/19 Range/Units 07:23 07:23 WBC 2.6 L (3.8-10.6) k/uL RBC 3.62 L (3.80-5.40) m/uL MCV 100.2 H (80.0-100.0) fL Plt Count 140 L (150-450) k/uL BUN 21 H (7-17) mg/dL Creatinine 1.16 H (0.52-1.04) mg/dL Glucose 102 H (74-99) mg/dL Calcium 7.5 L (8.4-10.2) mg/dL Total Bilirubin 1.5 H (0.2-1.3) mg/dL Alkaline Phosphatase 33 L (38-126) U/L Total Protein 5.3 L (6.3-8.2) g/dL Albumin 3.3 L (3.5-5.0) g/dL Lipase 862 H (23-300) U/L Assessment and Plan Plan: 1. Abdominal pain and nausea secondary to cholecystitis. Patient has been seen by Dr. Fagan that is post laparoscopic cholecystectomy's morning. Hold Xarelto. Continue morphine as needed for pain, Zofran as needed for nausea. Continue IV fluids decreased to 75 mL per hour. 2. Hypertension. Continue valsartan 80 mg daily 3. Hyperlipidemia. 4. Chronic kidney disease stage III. 5. Multiple myeloma under care of Dr. Maria. Patient is currently on Gamunex-C every 28 days and dexamethasone. 6. Paroxysmal atrial fibrillation, rate controlled. Xarelto on hold. 7. Large left shoulder hematoma. Xarelto on hold. 8. GI prophylaxis. Protonix. 9. DVT prophylaxis. TETO fenton 10. Mild elevation in lipase most likely secondary to passed stone without pancreatitis. 11. Ken-arthrosis left shoulder, present on admission. Patient have follow-up with orthopedics this week for arthrocentesis. Xarelto to be on hold until seen by orthopedics. Discharge plan: Return home most likely on Thursday. Impression and plan of care have been directed as dictated by the signing physician. Barbara Barth nurse practitioner acting as scribe for signing physician.
[2019-03-06] MEDS: SENNOSIDES-DOCUSATE SODIUM 1 EACH TAB PO SCH (11:37)
[2019-03-06] MEDS: VALSARTAN 80 MG TAB PO SCH (11:37)
[2019-03-06 13:16] LABS: Band Neutrophils % 2 %; Eosinophils # (M) 0.03 k/uL (0-0.7); Large Platelets Present; Lymphocytes # (M) 1.22 k/uL (1.0-4.8); Monocytes # (M) 0.29 k/uL (0-1.0); Neutrophils % (M) 40 %; Nucleated Red Blood Cells 0 /100 WBC (0-0); Total Cells Counted 200
[2019-03-06] MEDS ORDERED: HYDROcodone/APAP 5-325MG 1 EACH TAB PO PRN (14:09)
[2019-03-06] MEDS ORDERED: SODIUM CHLORIDE 0.9% 500 ML 500 ML IV ONE ×2 (14:09→15:10)
[2019-03-06] MEDS: HEPARIN SODIUM,PORCINE 5,000 UNIT/ML 1 ML VIAL SQ SCH ×2 (16:05→16:06)
[2019-03-06] MEDS ORDERED: ACETAMINOPHEN TAB 325 MG TAB PO PRN (17:07)
[2019-03-06 17:25] LABS: Glucose,Whole Blood 121 mg/dL (75-99)
[2019-03-06] MEDS ORDERED: HYDROCORTISONE SUCCINATE 100 MG/2 ML VIAL IV STA (17:27)
[2019-03-06 17:47] LABS: Anisocytosis Slight; HCT 25.4 % (34.0-46.0); Hypochromasia Slight; MCH 31.8 pg (25.0-35.0); MCHC 30.8 g/dL (31.0-37.0); MCV 103.1 fL (80.0-100.0); Macrocytosis Moderate; Mean Platelet Volume 12.6; Platelet Count 121 k/uL (150-450); RBC 2.46 m/uL (3.80-5.40); RDW 16.6 % (11.5-15.5); WBC 2.8 k/uL (3.8-10.6)
[2019-03-06 17:48] LABS: HGB 7.8 gm/dL (11.4-16.0)
[2019-03-06 18:07] LABS: Glucose,Whole Blood 105 mg/dL (75-99)
[2019-03-06 18:15] LABS: Anisocytosis (M) Present; Hypochromasia (M) Present; Large Platelets Present; Monocytes # (M) 0.17 k/uL (0-1.0); Neutrophils % (M) 44 %; Nucleated Red Blood Cells 0 /100 WBC (0-0); Poikilocytosis (M) Present; Total Cells Counted 100
[2019-03-06] MEDS ORDERED: PHENYLEPHRINE 40 MG in SODIUM CHLORIDE 0.9% 250 ML IV SCH (18:45)
[2019-03-06] MEDS ORDERED: SODIUM CHLORIDE 0.9% 2,000 ML IV ONE (19:11)
--- NOTE | 2019-03-06 19:18 | P.CONS ---
History of Present Illness - Reason for Consult Consult date: 03/05/19 Dilated common bile duct Requesting physician: Meredith Fagan - Chief Complaint Abdominal pain - History of Present Illness 68-year-old female with a medical history significant for multiple myeloma, chronic kidney disease stage III, osteopenia, hypertension and prior DVT started on Xarelto who presented to the hospital with complaints of abdominal pain. The patient reported severe epigastric pain which woke her up from her sleep. She subsequently underwent computed tomography scan of the abdomen and pelvis which revealed findings of a distended gallbladder with findings of thickened gallbladder wall and pericholecystic fluid as well as a 10 mm CBD. Liver enzy mes on presentation were significant for total bilirubin 0.5, alkaline phosphatase 95, AST 19 and ALTs 19. The patient was seen lying in bed reporting that abdominal pain was somewhat improved but still operator. The plan was for ultrasound of the abdomen with subsequent cholecystectomy if no gross abnormalities were found. Other laboratory findings included WBC 3.3, hemoglobin 11.3, platelet count 136,000, creatinine 1.25, amylase 156 and lipase 342. Review of Systems REVIEW OF SYSTEMS: CONSTITUTIONAL: Denies any weight change or fatigue. CARDIOVASCULAR: Denies any chest pain, palpitations high or low blood pressures RESPIRATORY: Denies any shortness of breath, hemoptysis or cough. GENITOURINARY: No dysuria or hematuria. MUSCULOSKELETAL: No weakness reported. SKIN: Denies any new rashes or lesions, jaundice or pallor. PSYCHIATRIC: Denies any depression or anxiety. NEUROLOGY: Denies headache, denies any new focal deficits. EARS/NOSE/THROAT: No recent hearing change, congestion, nasal discharge or sore throat. EYES: No pain in eyes, discharge or change in vision. GASTROINTESTINAL: As per HPI. Past Medical History Past Medical History: Cancer, Hyperlipidemia, Hypertension, Osteoarthritis (OA), Renal Disease Additional Past Medical History / Comment(s): Multiple myeloma, parathyroid adenoma excised History of Any Multi-Drug Resistant Organisms: C-DIFF Year Discovered:: 2011 MDRO Source:: Additional Past Surgical History / Comment(s): Stem cell transplants x2, parathyroidectomy partial Past Anesthesia/Blood Transfusion Reactions: No Reported Reaction Past Psychological History: No Psychological Hx Reported Smoking Status: Never smoker Past Alcohol Use History: None Reported Past Drug Use History: None Reported - Past Family History Father Family Medical History: CVA/TIA Mother Family Medical History: COPD Brother(s) Family Medical History: Diabetes Mellitus, Hypertension Sister(s) Family Medical History: Cancer, Diabetes Mellitus, Hypertension Daughter(s) Family Medical History: No Reported History Medications and Allergies Home Medications Medication Instructions Recorded Confirmed Type Dexamethasone 40mg 20 mg PO DIRECTED 02/13/17 03/05/19 History Acetaminophen-Codeine 300-30mg 1 - 2 tab PO Q4-6H PRN 03/05/19 03/05/19 History [Tylenol w/codeine #3] Acyclovir [Zovirax] 400 mg PO DAILY 03/05/19 03/05/19 History Gamunex-C 20gm/200ml Ivig 1 dose IV Q28D 03/05/19 03/05/19 History Valsartan [Diovan] 80 mg PO DAILY 03/05/19 03/05/19 History Allergies Allergy/AdvReac Type Severity Reaction Status Date / Time sulfamethoxazole Allergy Rash/Hives Verified 03/05/19 07:29 [From Bactrim] trimethoprim [From Bactrim] Allergy Rash/Hives Verified 03/05/19 07:29 Physical Exam Vitals: Vital Signs Temp Pulse Pulse Resp BP BP Pulse Ox 03/05/19 20:30 97.8 F 91 15 125/79 94 L 03/05/19 12:15 96.9 F L 65 18 127/65 95 03/05/19 11:11 98.1 F 67 18 136/82 100 03/05/19 08:50 64 16 126/78 98 03/05/19 07:13 60 16 124/65 97 03/05/19 06:16 97.8 F 52 L 18 139/86 98 03/05/19 06:00 97.6 F 51 L 16 124/72 03/05/19 05:18 97.6 F 58 L 34 H 85/70 97 Intake and Output 03/05/19 03/05/19 03/06/19 14:59 22:59 06:59 Intake Total 900 Balance 900 Intake: Oral 900 Other: Voiding Method Bedside Commode # Voids 0 1 On physical examination, patient appears comfortable in no apparent distress. HEAD: Normocephalic, atraumatic. EYES: No scleral icterus. No conjunctival injection. MOUTH: No lesions, tongue midline. NECK: Trachea midline, no gross abnormalities. CHEST: Clear to auscultation with no wheezing or rhonchi appreciated. HEART: S1-S2 appreciated. ABDOMEN: Soft, tender to palpation worse in the right upper quadrant. Bowel sounds are positive. No organomegaly. No guarding or rigidity. EXTREMITIES: No pedal edema. SKIN: No rashes, no jaundice. NEUROLOGIC: Alert and oriented x3. No focal deficits. Results CBC & Chem 7: 03/06/19 17:16 03/06/19 07:23 Labs: Abnormal Lab Results - Last 24 Hours (Table) 03/05/19 03/05/19 03/05/19 Range/Units 05:44 05:44 06:41 WBC 3.3 L (3.8-10.6) k/uL RBC 3.60 L (3.80-5.40) m/uL Hgb 11.3 L (11.4-16.0) gm/dL Plt Count 136 L (150-450) k/uL Neutrophils # (Manual) 1.12 L (1.3-7.7) k/uL BUN 30 H (7-17) mg/dL Creatinine 1.25 H (0.52-1.04) mg/dL Glucose 166 H (74-99) mg/dL Total Protein 5.7 L (6.3-8.2) g/dL Amylase 156 H (30-110) U/L Lipase 342 H (23-300) U/L Urine Protein 1+ H (Negative) Urine Glucose (UA) 3+ H (Negative) Urine Blood Trace H (Negative) Urine Mucus Few H (None) /hpf CT scan - abdomen: report reviewed (Computed tomography scan of the abdomen with findings of a thickened distended gallbladder with a 1 cm CBD as well as pericholecystic fluid and other findings.) Assessment and Plan (1) Acute cholecystitis Narrative/Plan: Pleasant 68-year-old female with multiple medical comorbidities who presented for evaluation of abdominal pain and was found to have acute cholecystitis. CBD was found to be mildly dilated at 1 cm larger than expected CBD size of 7 mm given patient's age. Liver enzymes normal on presentation with total bilirubin 0.5, alkaline phosphatase 95, AST 19 and ALTs 19. Ultrasound also showed dilated CBD but no evidence of choledocholithiasis. Plan is to proceed with c holecystectomy. Current Visit: Yes Status: Acute Code(s): K81.0 - ACUTE CHOLECYSTITIS SNOMED Code(s): 09863544 (2) Abdominal pain Current Visit: Yes Status: Acute Code(s): R10.9 - UNSPECIFIED ABDOMINAL PAIN SNOMED Code(s): 92275541 Plan: Supportive care Appreciate recommendations from surgical service Continue to monitor liver enzymes Computed tomography scan reviewed Continue broad-spectrum antibiotic therapy No plans for ERCP at this time Case discussed with the surgical service and I agree with their management Will defer diet to the surgical service Thank you for allowing us to participate in the care of the patient we will con burton to follow
--- NOTE | 2019-03-06 19:19 | P.PN ---
Subjective Progress Note Date: 03/06/19 Principal diagnosis: Acute cholecystitis Attempted to see the patient earlier in the day and she is not in the room, will follow up tomorrow Objective - Vital Signs Vital signs: Vital Signs Temp 98.3 F 03/06/19 13:56 Pulse 76 03/06/19 16:51 Resp 17 03/06/19 13:56 BP 75/49 03/06/19 16:54 Pulse Ox 96 03/06/19 15:18 Intake & Output 03/06/19 03/06/19 03/07/19 06:59 18:59 06:59 Intake Total 1440 1300 Output Total 55 Balance 1440 1245 Intake: IV 1300 Intake, IV Titration 1200 Amount Piperacillin-Tazobactam 3 100 .375 gm In Sodium Chloride 0.9% 100 ml @ 25 mls/hr IVPB Q8HR [facility] Rx# :[id number] Sodium Chloride 0.9% 1, 1100 000 ml @ 125 mls/hr IV . Q8H [facility] Rx#:[id number] Oral 240 Output: Drainage 35 Abdomen 35 Estimated Blood Loss 20 Other: Voiding Method Bedside Commode Bedside Commode # Voids 1 - Labs CBC & Chem 7: 03/06/19 17:16 03/06/19 07:23 Labs: Abnormal Lab Results - Last 24 Hours (Table) 03/06/19 03/06/19 03/06/19 Range/Units 07:23 07:23 17:13 WBC 2.6 L (3.8-10.6) k/uL RBC 3.62 L (3.80-5.40) m/uL Hgb (11.4-16.0) gm/dL Hct (34.0-46.0) % MCV 100.2 H (80.0-100.0) fL MCHC (31.0-37.0) g/dL RDW (11.5-15.5) % Plt Count 140 L (150-450) k/uL Neutrophils # (Manual) 1.00 L (1.3-7.7) k/uL BUN 21 H (7-17) mg/dL Creatinine 1.16 H (0.52-1.04) mg/dL Glucose 102 H (74-99) mg/dL POC Glucose (mg/dL) 121 H (75-99) mg/dL Calcium 7.5 L (8.4-10.2) mg/dL Total Bilirubin 1.5 H (0.2-1.3) mg/dL Alkaline Phosphatase 33 L (38-126) U/L Total Protein 5.3 L (6.3-8.2) g/dL Albumin 3.3 L (3.5-5.0) g/dL Lipase 862 H (23-300) U/L 03/06/19 03/06/19 Range/Units 17:16 18:04 WBC 2.8 L (3.8-10.6) k/uL RBC 2.46 L (3.80-5.40) m/uL Hgb 7.8 L D (11.4-16.0) gm/dL Hct 25.4 L (34.0-46.0) % MCV 103.1 H (80.0-100.0) fL MCHC 30.8 L (31.0-37.0) g/dL RDW 16.6 H (11.5-15.5) % Plt Count 121 L (150-450) k/uL Neutrophils # (Manual) 1.23 L (1.3-7.7) k/uL BUN (7-17) mg/dL Creatinine (0.52-1.04) mg/dL Glucose (74-99) mg/dL POC Glucose (mg/dL) 105 H (75-99) mg/dL Calcium (8.4-10.2) mg/dL Total Bilirubin (0.2-1.3) mg/dL Alkaline Phosphatase (38-126) U/L Total Protein (6.3-8.2) g/dL Albumin (3.5-5.0) g/dL Lipase (23-300) U/L Microbiology - Last 24 Hours (Table) 03/05/19 08:20 Blood Culture - Preliminary Blood No Growth after 24 hours Assessment and Plan (1) Acute cholecystitis Current Visit: Yes Status: Acute Code(s): K81.0 - ACUTE CHOLECYSTITIS SNOMED Code(s): 54017211 (2) Abdominal pain Current Visit: Yes Status: Acute Code(s): R10.9 - UNSPECIFIED ABDOMINAL PAIN SNOMED Code(s): 19527763
[2019-03-06 20:10] LABS: Magnesium 1.7 mg/dL (1.6-2.3); Phosphorus 3.1 mg/dL (2.5-4.5); Potassium 3.8 mmol/L (3.5-5.1)
[2019-03-06 20:17] LABS: Anisocytosis Slight; HCT 21.4 % (34.0-46.0); Hypochromasia Slight; MCH 31.7 pg (25.0-35.0); MCHC 31.2 g/dL (31.0-37.0); MCV 101.7 fL (80.0-100.0); Macrocytosis Slight; Mean Platelet Volume 12.9; Platelet Count 113 k/uL (150-450); RBC 2.11 m/uL (3.80-5.40); RDW 16.3 % (11.5-15.5); WBC 2.6 k/uL (3.8-10.6)
[2019-03-06 20:19] LABS: Calcium 5.9 mg/dL (8.4-10.2)
[2019-03-06 20:20] LABS: HGB 6.7 gm/dL (11.4-16.0)
[2019-03-06 20:39] LABS: Anisocytosis (M) Present; Hypochromasia (M) Present; Large Platelets Present; Lymphocytes # (M) 0.94 k/uL (1.0-4.8); Neutrophils % (M) 60 %; Nucleated Red Blood Cells 0 /100 WBC (0-0); Poikilocytosis (M) Present; Total Cells Counted 100
[2019-03-06] MEDS ORDERED: CALCIUM CHLORIDE 100 MG/ML 10 ML SYRINGE IVP ONE ×2 (20:42→23:00)
[2019-03-06] MEDS ORDERED: FUROSEMIDE 10 MG/ML 4 ML VIAL IV ONE (20:50)
[2019-03-06] MEDS ORDERED: ALBUMIN HUMAN 25% 50 ML in EMPTY BAG 1 BAG IVPB ONE (21:00)
--- NOTE | 2019-03-06 21:19 | XR ---
EXAMINATION TYPE: XR chest 1V portable DATE OF EXAM: 03/06/2019 COMPARISON: 02/13/2017 HISTORY: Short of breath TECHNIQUE: Single frontal view of the chest is obtained. FINDINGS: There is poor inspiration. There is slight blunting right costophrenic angle. There is no heart failure. There are chest leads. Thoracic aorta is atheromatous. IMPRESSION: There is a small right pleural effusion that is new compared to old exam. No gross heart failure. Inspiration decreased compared to old exam.
[2019-03-06] MEDS: ONDANSETRON 4 MG/2 ML VIAL IVP PRN (21:23)
[2019-03-06 21:55] LABS: Amylase 124 U/L (30-110)
[2019-03-07] MEDS: PIPERACILLIN-TAZOBACTAM 3.375 GM in SODIUM CHLORIDE 0.9% 100 ML IVPB SCH ×4 (01:22→23:33)
[2019-03-07] MEDS: HEPARIN SODIUM,PORCINE 5,000 UNIT/ML 1 ML VIAL SQ SCH ×5 (01:22→23:46)
[2019-03-07] MEDS: MELATONIN 3 MG TABLET PO SCH ×2 (01:23→23:45)
[2019-03-07] MEDS: NOREPINEPHRINE 8 MG in SODIUM CHLORIDE 0.9% 250 ML IV SCH ×2 (02:47→21:27)
[2019-03-07 05:52] LABS: Anisocytosis Slight; Hypochromasia Slight; MCH 32.4 pg (25.0-35.0); MCHC 33.2 g/dL (31.0-37.0); MCV 97.7 fL (80.0-100.0); Macrocytosis Slight; Mean Platelet Volume 12.3; Platelet Count 100 k/uL (150-450); RDW 16.1 % (11.5-15.5); WBC 2.8 k/uL (3.8-10.6)
[2019-03-07 05:56] LABS: Calcium 7.2 mg/dL (8.4-10.2); HGB 6.5 gm/dL (11.4-16.0); Potassium 3.8 mmol/L (3.5-5.1); Total Bilirubin 0.7 mg/dL (0.2-1.3); Total Protein 3.6 g/dL (6.3-8.2)
[2019-03-07 05:57] LABS: HCT 19.5 % (34.0-46.0)
[2019-03-07 06:59] LABS: Band Neutrophils % 1 %; Nucleated Red Blood Cells 0 /100 WBC (0-0)
[2019-03-07 07:01] LABS: Ovalocytes Present
[2019-03-07] MEDS: PANTOPRAZOLE 40 MG/10 ML VIAL IVP SCH (08:22)
[2019-03-07] MEDS: HYDROCORTISONE SUCCINATE 100 MG/2 ML VIAL IV SCH (08:22)
[2019-03-07] MEDS: SENNOSIDES-DOCUSATE SODIUM 1 EACH TAB PO SCH (08:23)
[2019-03-07] MEDS: SODIUM CHLORIDE 0.9% 1,000 ML IV SCH ×2 (08:28→23:34)
--- NOTE | 2019-03-07 08:44 | P.PN ---
Subjective Progress Note Date: 03/07/19 Patient seen and examined at bedside. Overnight, the patient was noted to have hypotensive episodes and secondary to this was transferred to the ICU. She was also noted to receive 4 L of fluid bolus with only transient response to her hypotension. CBC was drawn after boluses within noted hemoglobin of 6.7. She was given 1 unit of packed red blood cells and had a repeat hemoglobin of 6.5. Currently, she is resting comfortably with some surgical abdominal pain. She denies any nausea vomiting. She is tolerating clear liquid diet. LEONRE drain is in place with serosanguineous output of 30 mL overnight. She is on a minimal amount of ron and MAPs are above 75. Objective - Vital Signs Vital signs: Vital Signs Temp 98.1 F 03/07/19 04:00 Pulse 84 03/07/19 07:00 Resp 25 H 03/07/19 07:00 BP 107/52 03/07/19 07:00 Pulse Ox 96 03/07/19 07:00 Intake & Output 03/06/19 03/07/19 03/07/19 18:59 06:59 18:59 Intake Total 1300 4222.361 150 Output Total 55 785 50 Balance 1245 3437.361 100 Weight 70.2 kg Intake: IV 1300 1750 150 0.9 1650 150 Piperacillin-Tazobactam 3 100 .375 gm In Sodium Chloride 0.9% 100 ml @ 25 mls/hr IVPB Q8HR ON LICENSE OF [facility] Rx# :[id number] Intake, IV Titration 2062.361 Amount Albumin Human 25% 50 ml 50 In Empty Bag 1 bag @ 50 mls/hr IVPB ONCE ONE Rx#: [id number] Norepinephrine 8 mg In 12.361 Sodium Chloride 0.9% 250 ml @ 0.05 MCG/KG/MIN 5. 705 mls/hr IV .Q24H ON LICENSE OF [facility] Rx#:[id number] Sodium Chloride 0.9% 2, 2000 000 ml @ 999 mls/hr IV . Q2H1M ONE Rx#:[id number] Oral 100 Blood Product 310 Rc Irr As1 Unit 310 [id number] Output: Drainage 35 30 Abdomen 35 30 Urine 755 50 Estimated Blood Loss 20 Other: Voiding Method Bedside Commode Bedside Commode - Constitutional General appearance: Present: cooperative, no acute distress - Respiratory Details: no difficulty with respiration - Gastrointestinal Gastrointestinal Comment(s): Soft, appropriate tenderness, nondistended, no rebound, no palpable fullness, no obvious ecchymosis, LENORE drain in place - Musculoskeletal Musculoskeletal: Present: generalized weakness - Labs CBC & Chem 7: 03/07/19 04:55 03/07/19 04:55 Labs: Abnormal Lab Results - Last 24 Hours (Table) 03/06/19 03/06/19 03/06/19 Range/Units 07:23 17:13 17:16 WBC 2.6 L 2.8 L (3.8-10.6) k/uL RBC 3.62 L 2.46 L (3.80-5.40) m/uL Hgb 7.8 L D (11.4-16.0) gm/dL Hct 25.4 L (34.0-46.0) % MCV 100.2 H 103.1 H (80.0-100.0) fL MCHC 30.8 L (31.0-37.0) g/dL RDW 16.6 H (11.5-15.5) % Plt Count 140 L 121 L (150-450) k/uL Neutrophils # (Manual) 1.00 L 1.23 L (1.3-7.7) k/uL Lymphocytes # (Manual) (1.0-4.8) k/uL Chloride (98-107) mmol/L Carbon Dioxide (22-30) mmol/L BUN (7-17) mg/dL Creatinine (0.52-1.04) mg/dL Glucose (74-99) mg/dL POC Glucose (mg/dL) 121 H (75-99) mg/dL Calcium (8.4-10.2) mg/dL AST (14-36) U/L ALT (9-52) U/L Alkaline Phosphatase (38-126) U/L Total Protein (6.3-8.2) g/dL Albumin (3.5-5.0) g/dL Amylase (30-110) U/L Crossmatch 03/06/19 03/06/19 03/06/19 Range/Units 17:16 18:04 19:39 WBC 2.6 L (3.8-10.6) k/uL RBC 2.11 L (3.80-5.40) m/uL Hgb 6.7 L* (11.4-16.0) gm/dL Hct 21.4 L (34.0-46.0) % MCV 101.7 H (80.0-100.0) fL MCHC (31.0-37.0) g/dL RDW 16.3 H (11.5-15.5) % Plt Count 113 L (150-450) k/uL Neutrophils # (Manual) (1.3-7.7) k/uL Lymphocytes # (Manual) 0.94 L (1.0-4.8) k/uL Chloride (98-107) mmol/L Carbon Dioxide (22-30) mmol/L BUN (7-17) mg/dL Creatinine (0.52-1.04) mg/dL Glucose (74-99) mg/dL POC Glucose (mg/dL) 105 H (75-99) mg/dL Calcium (8.4-10.2) mg/dL AST (14-36) U/L ALT (9-52) U/L Alkaline Phosphatase (38-126) U/L Total Protein (6.3-8.2) g/dL Albumin (3.5-5.0) g/dL Amylase (30-110) U/L Crossmatch See Detail 03/06/19 03/06/19 03/07/19 Range/Units 19:39 19:39 04:55 WBC 2.8 L (3.8-10.6) k/uL RBC 2.00 L (3.80-5.40) m/uL Hgb 6.5 L* (11.4-16.0) gm/dL Hct 19.5 L* (34.0-46.0) % MCV (80.0-100.0) fL MCHC (31.0-37.0) g/dL RDW 16.1 H (11.5-15.5) % Plt Count 100 L (150-450) k/uL Neutrophils # (Manual) 1.10 L (1.3-7.7) k/uL Lymphocytes # (Manual) (1.0-4.8) k/uL Chloride 113 H (98-107) mmol/L Carbon Dioxide 17 L (22-30) mmol/L BUN 23 H (7-17) mg/dL Creatinine 1.22 H (0.52-1.04) mg/dL Glucose 125 H (74-99) mg/dL POC Glucose (mg/dL) (75-99) mg/dL Calcium 5.9 L* (8.4-10.2) mg/dL AST (14-36) U/L ALT (9-52) U/L Alkaline Phosphatase (38-126) U/L Total Protein (6.3-8.2) g/dL Albumin (3.5-5.0) g/dL Amylase 124 H (30-110) U/L Crossmatch 03/07/19 Range/Units 04:55 WBC (3.8-10.6) k/uL RBC (3.80-5.40) m/uL Hgb (11.4-16.0) gm/dL Hct (34.0-46.0) % MCV (80.0-100.0) fL MCHC (31.0-37.0) g/dL RDW (11.5-15.5) % Plt Count (150-450) k/uL Neutrophils # (Manual) (1.3-7.7) k/uL Lymphocytes # (Manual) (1.0-4.8) k/uL Chloride 116 H (98-107) mmol/L Carbon Dioxide 16 L (22-30) mmol/L BUN 23 H (7-17) mg/dL Creatinine 1.22 H (0.52-1.04) mg/dL Glucose 125 H (74-99) mg/dL POC Glucose (mg/dL) (75-99) mg/dL Calcium 7.2 L (8.4-10.2) mg/dL AST 59 H (14-36) U/L ALT 58 H (9-52) U/L Alkaline Phosphatase 26 L (38-126) U/L Total Protein 3.6 L (6.3-8.2) g/dL Albumin 2.0 L (3.5-5.0) g/dL Amylase (30-110) U/L Crossmatch Microbiology - Last 24 Hours (Table) 03/05/19 08:20 Blood Culture - Preliminary Blood No Growth after 24 hours Assessment and Plan (1) Acute cholecystitis Narrative/Plan: 68-year-old female with acute cholecystitis, probable perforated gallbladder, POD #1 lap mandeep - The patient will be treated with one unit of pack red blood cells secondary to hemoglobin of 6.5. Hemoglobin dropped may be a mixture of postoperative and dilutional results. The patient is also noted to be on a hiatus from oncology medications secondary to multiple myeloma. We will involve oncology for any recommendations based on CBC findings. Continue LENORE drain at this time - no bilious drainage noted. Continue ICU care. Current Visit: Yes Status: Acute Code(s): K81.0 - ACUTE CHOLECYSTITIS SNOMED Code(s): 27068577
[2019-03-07 08:45] LABS: Ionized Calcium 4.9 mg/dL (4.5-5.3)
[2019-03-07 08:53] LABS: Magnesium 1.8 mg/dL (1.6-2.3)
[2019-03-07 11:17] LABS: Iron Saturation 3.86 (12.00-45.00)
[2019-03-07] MEDS ORDERED: Magnesium Replacement Protocol 1 EACH MISC MISCELLANE PRN (11:32)
[2019-03-07] MEDS: HYDROcodone/APAP 5-325MG 1 EACH TAB PO PRN ×2 (12:42→21:20)
--- NOTE | 2019-03-07 13:13 | P.CNPUL ---
History of Present Illness Consult date: 03/07/19 Requesting physician: Claudia Shelton Reason for consult: other (Acute abdominal pain and cholecystitis, anemia and hematoma of left shoulder.) Chief complaint: Abdominal pain History of present illness: This is a 68-year-old female with history of multiple medical problems including multiple myeloma, history of stem cell transplant 2, presently under the care of Dr. Maria, maintained on gamunex and dexamethasone, and Revlimid Patient is also known to have chronic kidney disease stage III, hypertension, history of deep vein thromboses in 2017, maintained on Xarelto for her previous history of DVT and for paroxysmal atrial fibrillation. Her deep vein thrombosis was related to previous hip surgery and hip fracture. Patient had a recent discomfort in the left shoulder area posteriorly, and has been scratching the area thinking that she may have a bug bite. Patient apparently developed generalized swelling of the musculature of the left shoulder representing possibly intramuscular hemorrhage and she developed significant ecchymosis in the area of the left shoulder and left upper extremity. CT of the left shoulder was noted. MRI was recommended. And orthopedic consultation is pending. On the day of admission, patient presented with severe epigastric pain came in to [facility] emergency room, and she was noted to have significant gallbladder distention with gallbladder wall thickening and very cholecystic fluid suggestive of acute cholecystitis. Small amount of ascites noted adjacent to the liver. Patient was noted to have a white count of 3.3 hemoglobin of 11.3 and she had slightly elevated amylase and lipase. Underwent laparoscopic cholecystectomy by Dr. Fagan, presently in the ICU. Hemoglobin on admission was 11.3, and hemoglobin this morning is 6.5. Patient received a total of 2 units of packed RBCs since admission. Xarelto is presently on hold. Blood pressure was noted to be a bit low earlier today, and the patient has been on norepinephrine at 3 mcg/m. Her blood pressure medication is presently on hold. And the patient is empirically on Zosyn. Patient is receiving stress doses of hydrocortisone since she is normally on methotrexate for her underlying multiple myeloma. Chest x-ray today showed minimal atelectasis at the right base, and small tiny right-sided pleural effusion. Her basic metabolic profile showed non-anion gap metabolic acidosis, bicarb is 17. Creatinine is 1.2 today, and it was 1.25 on admission. Lipase is down to 78 today. During my evaluation, the patient denied any headache, blurred vision, dizziness, denies any shortness of breath, no cough, no wheezing, no chest pain. Continues to have some epigastric discomfort and right upper quadrant pain and concerned about the ecchymosis that she has in her left upper extremity. And left shoulder area. Review of Systems Constitutional: Denies fever chills weight loss, does have chronic anorexia. Ears, nose, mouth and throat: Denies sore throat, denies ear ache. Denies any nasal discharge. Cardiovascular: Denies chest pain syncope palpitations she does have history of paroxysmal atrial fibrillation presently in sinus rhythm. Respiratory: Denies cough wheezing shortness of breath. Denies any hemoptysis. Gastrointestinal: As noted in HPI, mostly epigastric pain and right upper quadrant pain on presentation. Genitourinary: Denies hematuria frequency or urgency. Musculoskeletal: Denies falling, denies any weakness, denies any arthralgia or myalgia. However she has some left shoulder stiffness and swelling. Being addressed by orthopedics. Integumentary: Mostly ecchymosis in the area of the left shoulder and left upper extremity. Neurological: Denies headache blurred vision dizziness. Syncope Psychiatric: Denies any symptoms of active depression Endocrine: Denies heat or cold intolerance denies any symptoms of diabetes polyuria and polydipsia. Past Medical History Past Medical History: Cancer, Hyperlipidemia, Hypertension, Osteoarthritis (OA), Renal Disease Additional Past Medical History / Comment(s): Multiple myeloma, parathyroid adenoma excised History of Any Multi-Drug Resistant Organisms: C-DIFF Date of last positivie culture/infection: 2011 MDRO Source:: Additional Past Surgical History / Comment(s): Stem cell transplants x2, parathyroidectomy partial Past Anesthesia/Blood Transfusion Reactions: No Reported Reaction Past Psychological History: No Psychological Hx Reported Smoking Status: Never smoker Past Alcohol Use History: None Reported Past Drug Use History: None Reported - Past Family History Father Family Medical History: CVA/TIA Mother Family Medical History: COPD Brother(s) Family Medical History: Diabetes Mellitus, Hypertension Sister(s) Family Medical History: Cancer, Diabetes Mellitus, Hypertension Daughter(s) Family Medical History: No Reported History Medications and Allergies Home Medications Medication Instructions Recorded Confirmed Type Dexamethasone 40mg 20 mg PO DIRECTED 02/13/17 03/05/19 History Acetaminophen-Codeine 300-30mg 1 - 2 tab PO Q4-6H PRN 03/05/19 03/05/19 History [Tylenol w/codeine #3] Acyclovir [Zovirax] 400 mg PO DAILY 03/05/19 03/05/19 History Gamunex-C 20gm/200ml Ivig 1 dose IV Q28D 03/05/19 03/05/19 History Valsartan [Diovan] 80 mg PO DAILY 03/05/19 03/05/19 History Calcium Carb/Magnesium Ox,Carb 1.5 tab PO DAILY 03/07/19 03/07/19 History [Froilan-Mag 500-250 MG Chewable] Calcium Carbonate [Calcium] 750 mg PO 03/07/19 History Cholecalciferol (Vitamin D3) 1,000 unit PO DAILY 03/07/19 03/07/19 History [Vitamin D3] Lenalidomide [Revlimid] 5 mg PO DAILY 03/07/19 03/07/19 History Allergies Allergy/AdvReac Type Severity Reaction Status Date / Time sulfamethoxazole Allergy Rash/Hives Verified 03/05/19 07:29 [From Bactrim] trimethoprim [From Bactrim] Allergy Rash/Hives Verified 03/05/19 07:29 Physical Exam Vitals: Vital Signs Temp Pulse Pulse Resp BP BP Pulse Ox 03/07/19 11:00 73 25 H 110/51 96 03/07/19 10:40 98.1 F 83 25 H 118/54 94 L 03/07/19 10:20 76 29 H 116/59 97 03/07/19 10:10 98.1 F 77 28 H 101/41 97 03/07/19 10:00 97.8 F 78 28 H 103/44 95 03/07/19 09:50 80 25 H 103/44 95 03/07/19 09:40 78 24 105/48 96 03/07/19 09:30 82 26 H 102/41 95 03/07/19 09:20 31 H 102/41 97 03/07/19 09:10 82 33 H 109/49 96 03/07/19 09:00 85 27 H 109/49 96 03/07/19 08:45 83 29 H 94/68 96 03/07/19 08:30 88 38 H 105/59 100 03/07/19 08:15 79 19 125/56 95 03/07/19 08:00 98.8 F 86 35 H 107/54 96 03/07/19 07:45 82 26 H 114/58 95 03/07/19 07:30 85 23 114/60 95 03/07/19 07:15 86 31 H 116/55 03/07/19 07:00 84 25 H 107/52 96 03/07/19 06:00 78 21 90/44 97 03/07/19 05:00 84 30 H 100/52 94 L 03/07/19 04:00 98.1 F 78 22 91/49 95 03/07/19 03:00 79 22 86/39 99 03/07/19 02:00 80 20 93/60 99 03/07/19 01:14 98.1 F 74 18 86/43 97 03/07/19 01:00 76 18 94/42 100 03/07/19 00:14 98.6 F 73 18 96/56 03/07/19 00:00 98.1 F 77 20 77/44 100 03/06/19 23:44 98.6 F 79 18 77/44 100 03/06/19 23:34 98.1 F 81 20 74/48 100 03/06/19 23:00 84 27 H 85/41 100 03/06/19 22:00 82 19 93/54 96 03/06/19 21:45 94 41 H 93/54 96 03/06/19 21:30 86 24 98/51 95 03/06/19 21:15 89 21 97/67 96 03/06/19 21:00 87 27 H 103/55 98 03/06/19 20:45 92 20 99/73 95 03/06/19 20:30 87 24 96/53 97 03/06/19 20:15 98.0 F 84 26 H 101/58 98 03/06/19 20:00 87 13 88/60 97 03/06/19 19:45 84 28 H 88/60 98 03/06/19 19:30 85 24 134/121 96 03/06/19 19:15 85 30 H 93/51 99 03/06/19 19:00 80 21 83/45 96 03/06/19 18:45 80 20 103/48 100 03/06/19 18:30 89 26 H 123/82 98 03/06/19 18:15 97.7 F 85 22 131/93 99 03/06/19 18:03 34 H 03/06/19 16:54 75/49 03/06/19 16:51 76 70/49 03/06/19 16:27 76/52 03/06/19 16:04 81/52 03/06/19 15:55 82/56 03/06/19 15:43 88/55 03/06/19 15:20 82/51 03/06/19 15:18 76 96 03/06/19 15:17 84 79/47 03/06/19 15:16 69/41 03/06/19 15:05 70/47 03/06/19 14:58 77/51 03/06/19 14:44 84 93/64 03/06/19 14:02 86/52 03/06/19 13:56 98.3 F 81 17 81/52 98 Intake and Output 03/06/19 03/07/19 03/07/19 22:59 06:59 14:59 Intake Total 2600 8944.217 6450.321 Output Total 350 435 287 Balance 2250 1560.391 3160.321 Intake: IV 450 1300 250 0.9 450 1200 150 Piperacillin-Tazobactam 3 100 100 .375 gm In Sodium Chloride 0.9% 100 ml @ 25 mls/hr IVPB Q8HR PENDING SALE TO [facility] Rx# :[id number] Intake, IV Titration 0 12.361 619.321 Amount Albumin Human 25% 50 ml 50 In Empty Bag 1 bag @ 50 mls/hr IVPB ONCE ONE Rx#: [id number] Norepinephrine 8 mg In 12.361 19.321 Sodium Chloride 0.9% 250 ml @ 0.05 MCG/KG/MIN 5. 705 mls/hr IV .Q24H PENDING SALE TO [facility] Rx#:[id number] Sodium Chloride 0.9% 1, 600 000 ml @ 150 mls/hr IV . Q6H40M PENDING SALE TO [facility] Rx#:[id number] Sodium Chloride 0.9% 2, 2000 000 ml @ 999 mls/hr IV . Q2H1M ONE Rx#:[id number] Oral 100 245 Blood Product 310 460 Rc Irr As1 Unit 310 [id number] Rc Irr As1 Unit 310 [id number] Other 50 Rc Irr As1 Unit 50 [id number] Output: Drainage 30 Left Lateral Abdomen 30 Urine 350 405 287 Other: Voiding Method Bedside Commode Bedside Commode Indwelling Catheter Weight 70.2 kg Physical Exam: Revealed a 68-year-old female in no distress. Head: Atraumatic, normocephalic. HEENT:[Neck is supple.] [No neck masses.] [No thyromegaly.] [No JVD.] PERRLA, EOMI, no icterus. Chest: [Slightly diminished breath sound at the right base, no crackles or rhonchi or wheezes symmetrical chest expansion noted chest wall tenderness. Cardiac Exam: [Normal S1 and S2, no S3 gallop, no murmur.] Abdomen: [Soft, tender epigastrium and right upper quadrant noted., no megaly, no rebound, no guarding, diminished bowel sounds.] Extremities: [No clubbing, no edema, no cyanosis.] Evidence of ecchymosis noted in the right shoulder area and in the right upper extremity area extending almost to the elbow. Neurological Exam: [No focal neurologic deficit.] Alert oriented 3. Psychiatric: Normal mood, affect and normal mental status examination. Lymphatics: No lymphadenopathy. Results - Laboratory Findings CBC and BMP: 03/07/19 04:55 03/07/19 04:55 PT/INR, D-dimer PT 9.5 sec (9.0-12.0) 03/05/19 05:44 INR 0.9 (<1.2) 03/05/19 05:44 Abnormal lab findings: Abnormal Labs 03/05/19 03/05/19 03/05/19 05:44 05:44 06:41 WBC 3.3 L RBC 3.60 L Hgb 11.3 L Hct MCV MCHC RDW Plt Count 136 L Neutrophils # (Manual) 1.12 L Lymphocytes # (Manual) Chloride Carbon Dioxide BUN 30 H Creatinine 1.25 H Glucose 166 H POC Glucose (mg/dL) Calcium Iron TIBC Iron Saturation Total Bilirubin AST ALT Alkaline Phosphatase Total Protein 5.7 L Albumin Amylase 156 H Lipase 342 H Urine Protein 1+ H Urine Glucose (UA) 3+ H Urine Blood Trace H Urine Mucus Few H Crossmatch 03/06/19 03/06/19 03/06/19 07:23 07:23 17:13 WBC 2.6 L RBC 3.62 L Hgb Hct MCV 100.2 H MCHC RDW Plt Count 140 L Neutrophils # (Manual) 1.00 L Lymphocytes # (Manual) Chloride Carbon Dioxide BUN 21 H Creatinine 1.16 H Glucose 102 H POC Glucose (mg/dL) 121 H Calcium 7.5 L Iron TIBC Iron Saturation Total Bilirubin 1.5 H AST ALT Alkaline Phosphatase 33 L Total Protein 5.3 L Albumin 3.3 L Amylase Lipase 862 H Urine Protein Urine Glucose (UA) Urine Blood Urine Mucus Crossmatch 03/06/19 03/06/19 03/06/19 17:16 17:16 18:04 WBC 2.8 L RBC 2.46 L Hgb 7.8 L D Hct 25.4 L MCV 103.1 H MCHC 30.8 L RDW 16.6 H Plt Count 121 L Neutrophils # (Manual) 1.23 L Lymphocytes # (Manual) Chloride Carbon Dioxide BUN Creatinine Glucose POC Glucose (mg/dL) 105 H Calcium Iron TIBC Iron Saturation Total Bilirubin AST ALT Alkaline Phosphatase Total Protein Albumin Amylase Lipase Urine Protein Urine Glucose (UA) Urine Blood Urine Mucus Crossmatch See Detail 03/06/19 03/06/19 03/06/19 19:39 19:39 19:39 WBC 2.6 L RBC 2.11 L Hgb 6.7 L* Hct 21.4 L MCV 101.7 H MCHC RDW 16.3 H Plt Count 113 L Neutrophils # (Manual) Lymphocytes # (Manual) 0.94 L Chloride 113 H Carbon Dioxide 17 L BUN 23 H Creatinine 1.22 H Glucose 125 H POC Glucose (mg/dL) Calcium 5.9 L* Iron 8 L TIBC 207 L Iron Saturation 3.86 L Total Bilirubin AST ALT Alkaline Phosphatase Total Protein Albumin Amylase Lipase Urine Protein Urine Glucose (UA) Urine Blood Urine Mucus Crossmatch 03/06/19 03/07/19 03/07/19 19:39 04:55 04:55 WBC 2.8 L RBC 2.00 L Hgb 6.5 L* Hct 19.5 L* MCV MCHC RDW 16.1 H Plt Count 100 L Neutrophils # (Manual) 1.10 L Lymphocytes # (Manual) Chloride 116 H Carbon Dioxide 16 L BUN 23 H Creatinine 1.22 H Glucose 125 H POC Glucose (mg/dL) Calcium 7.2 L Iron TIBC Iron Saturation Total Bilirubin AST 59 H ALT 58 H Alkaline Phosphatase 26 L Total Protein 3.6 L Albumin 2.0 L Amylase 124 H Lipase Urine Protein Urine Glucose (UA) Urine Blood Urine Mucus Crossmatch - Diagnostic Findings Chest x-ray: image reviewed (As noted in HPI.) Assessment and Plan Assessment: Impression: 1 abdominal pain secondary to acute cholecystitis and possible pancreatitis. 2 status post laparoscopic cholecystectomy, postoperative day #1. 3 postoperative anemia, multifactorial, possibly related to surgery, also related to left shoulder ecchymosis and intramuscular bleeding, and possibly related to her underlying multiple myeloma which is being addressed by oncology on the case. 4 non-anion gap metabolic acidosis and history of chronic kidney disease stage III. Secondary to multiple myeloma. 5 history of multiple myeloma being followed by oncology. 6 history of paroxysmal atrial fibrillation presently controlled and patient is in sinus rhythm. 7 left shoulder hematoma hence Xarelto were remains on hold for the time being and her shoulder is to be addressed by orthopedics on the case. 8 hypotension most likely secondary to anemia and intravascular volume depletion, doubt sepsis, patient will likely respond to fluids and to blood transfusion. In the meantime she is empirically on antibiotics in the form of Zosyn. Recommendation: Continue antibiotics, IV fluids, blood transfusion to keep hemoglobin above 7, continue to monitor in the ICU, continue Protonix, keep Xarelto on hold, use TETO hose for DVT prophylaxis instead of anticoagulation. Continue to monitor renal status on a daily basis. Continue to hold blood pressure medication since the patient is normally on valsartan. We'll continue to follow. Time with Patient: Greater than 30
[2019-03-07] MEDS: MAGNESIUM SULFATE-D5W PMX 1 GM in DEXTROSE/WATER 1 100ML.BAG IVPB SCH ×2 (13:35→16:09)
[2019-03-07 14:17] VITALS: BMI 26.5
[2019-03-07 15:10] LABS: Lymphocytes # (M) 1.04 k/uL (1.0-4.8); Neutrophils % (M) 48 %
[2019-03-07 15:11] LABS: Blast Cells # (M) 0.22 k/uL (0); Monocytes # (M) 0.22 k/uL (0-1.0); Total Cells Counted 200
[2019-03-07 15:13] LABS: Large Platelets Present; Poikilocytosis (M) Present
--- NOTE | 2019-03-07 15:24 | P.PN ---
Subjective Progress Note Date: 03/07/19 This is a 68-year-old female patient of Dr. Shelton with past medical history of multiple myeloma currently on Gamunex and Dexamethasone, under the care of Dr. Maria, chronic kidney disease stage III, osteopenia, hypertension and history of DVT started on Xarelto, paroxysmal atrial fibrillation on Xarelto. Patient has been on Xarelto since last year after she had hip fracture and repair and subsequently developed DVT. Patient did have documented episode of atrial fibrillation on Thanksgiving of last year. gives history that they were and pulling to contact and patient had a bug bite to her left shoulder posterior area and started scratching the area subsequently developed a hematoma that was quite significant at the time and continued to worsen recently. Patient underwent a CAT scan of the left shoulder ordered by Dr. Shelton yesterday revealed generalized swelling of the musculature of the left shoulder could represent areas of intramuscular hemorrhage. Had stranding along the superior and posterior aspect of the left shoulder could represent generalized bruising. Suspect distention of the glenohumeral joint with intermediate density fluid jose-arthrosis difficult to exclude. Hemorrhagic fluid may also be located in the sub-acral meal/subdeltoid bursa. Recommendations were MRI or ultrasound. No acute osseous abnormality. Patient was instructed to hold Xarelto due to this hematoma. Her last dose was yesterday. Patient woke up at 4:30 this morning with severe epigastric pain and she came into [facility] emergency center for evaluation. CT of the abdomen and pelvis revealed significant gallbladder distention with gallbladder wall thickening and pericholic fluid concerning for acute cholecystitis. Common bile duct is dilated measuring up to 10.3 mm. Bilateral fat stranding adjacent to the adrenal glands with calcifications. Calcified uterine myomas. Right lower lobe groundglass nodule 4.9 mm. Ultrasound the gallbladder revealed thickening gallbladder wall, dilated common bile duct. Findings compatible with acute cholecystitis. No gallstones seen. Small amount of ascites adjacent to the liver. White count was 3.3, hemoglobin 11.3, platelet count 136. BUN 30 and creatinine 1.25-at baseline. Blood sugar 166. Amylase 156 and lipase 342. Urinalysis negative for infection. Patient was to be admitted to the [facility] and consult obtained with Dr. Fagan. Plan for cholecystectomy tomorrow. Xarelto remains on hold. 03/06: Patient has been afebrile, heart rate 76, blood pressure 116/73, pulse ox 93% on room air. WBC 2.6, hemoglobin 11.5, platelet count 140. BUN 21 creatinine 1.16. Total bilirubin 1.5, AST 20, ALT 19, alkaline phosphatase 33. Lipase is 862. Patient is status post laparoscopic cholecystectomy. Orthopedic consult has been added regarding left shoulder hematoma. The patient is currently stable in the postop period. interchange agent is sinus rhythm. 03/07: Patient had a drop in her blood pressure yesterday afternoon and she is now on total of 4-1/2 L. Patient also had a drop in her hemoglobin and is currently receiving a second unit of packed RBCs. Patient was transferred into the i ntensive care unit and consult added for pulmonary medicine. This morning, patient states she is penicillin and gas but no bowel movement. Pain is currently a #2. She is hemodynamically stable. Consults have been added for Dr. Maria. Patient has been seen by Dr. Castellanos with no plan for any surgical intervention/ERCP. Patient has been seen by orthopedics and no infection, hematoma noted. Recommend warm and cold compresses to the left shoulder and activity as tolerated. Repeat chest x-ray shows small right pleural effusion. BUN 23 and creatinine 1.22. Patient does have pancytopenia. Objective - Vital Signs Vital signs: Vital Signs Temp 98.1 F 03/07/19 10:40 Pulse 73 03/07/19 11:00 Resp 25 H 03/07/19 11:00 BP 110/51 03/07/19 11:00 Pulse Ox 96 03/07/19 11:00 Intake & Output 03/06/19 03/07/19 03/07/19 18:59 06:59 18:59 Intake Total 1300 4222.361 1624.321 Output Total 55 785 287 Balance 1245 3437.361 1337.321 Weight 70.2 kg 70.2 kg Intake: IV 1300 1750 250 0.9 1650 150 Piperacillin-Tazobactam 3 100 100 .375 gm In Sodium Chloride 0.9% 100 ml @ 25 mls/hr IVPB Q8HR [facility] Rx# :[id number] Intake, IV Titration 2062.361 619.321 Amount Albumin Human 25% 50 ml 50 In Empty Bag 1 bag @ 50 mls/hr IVPB ONCE ONE Rx#: [id number] Norepinephrine 8 mg In 12.361 19.321 Sodium Chloride 0.9% 250 ml @ 0.05 MCG/KG/MIN 5. 705 mls/hr IV .Q24H [facility] Rx#:[id number] Sodium Chloride 0.9% 1, 600 000 ml @ 150 mls/hr IV . Q6H40M [facility] Rx#:[id number] Sodium Chloride 0.9% 2, 2000 000 ml @ 999 mls/hr IV . Q2H1M [facility] Rx#:[id number] Oral 100 245 Blood Product 310 460 Rc Irr As1 Unit 310 [id number] Rc Irr As1 Unit 310 [id number] Other 50 Rc Irr As1 Unit 50 [id number] Output: Drainage 35 30 Left Lateral Abdomen 35 30 Urine 755 287 Estimated Blood Loss 20 Other: Voiding Method Bedside Commode Bedside Commode Indwelling Catheter - Exam Review of Systems Constitutional: Reports anorexia, Reports poor appetite, Denies chills, Denies fatigue, Denies fever, Denies sweats, Denies weakness Ears, nose, mouth and throat: Denies nasal congestion, Denies nasal discharge, Denies vertigo Cardiovascular: Denies chest pain, Denies dyspnea on exertion, Denies edema, Denies leg edema, Denies lightheadedness, Denies syncope Respiratory: Denies cough, Denies cough with sputum, Denies dyspnea, Denies excessive sputum, Denies hemoptysis, Denies home oxygen, Denies wheezing Gastrointestinal: Reports abdominal pain, Reports loss of appetite, Reports nausea, Denies diarrhea, Denies vomiting, reports flatulence Genitourinary: Denies dysuria, Denies urgency, Denies urinary frequency Musculoskeletal: Denies frequent falls, Denies gait dysfunction, Denies muscle weakness, Denies myalgias Musculoskeletal: left: shoulder pain, shoulder stiffness, shoulder swelling Integumentary: Reports color changes left shoulder, Reports darkening of skin, Denies pruritus, Denies rash, Denies wounds Neurological: Denies change in mentation, Denies change in speech, Denies gait dysfunction, Denies seizures, Denies syncope, Denies vertigo, Denies weakness Psychiatric: Denies anxiety, Denies depression Endocrine: Denies fatigue, Denies weight change Gen: This is a 68-year-old female. She is resting in ICU bed and appears to be comfortable. HEENT: Head is atraumatic, normocephalic. Pupils equal, round. Sclerae is anicteric. NECK: Supple. No JVD. No lymphadenopathy. No thyromegaly. LUNGS: Clear to auscultation. No wheezes or rhonchi. No intercostal retractions. HEART: Regular rate and rhythm. No murmur. ABDOMEN: Soft. Decreased bowel sounds are present. No masses. Mild tenderness to the epigastric and right upper quadrant. No organomegaly. EXTREMITIES: No pedal edema. No calf tenderness. Left shoulder has large area of swelling extending into the upper arm, ecchymosis, limited range of motion. NEUROLOGICAL: Patient is awake, alert and oriented x3. Cranial nerves 2 through 12 are grossly intact. - Labs CBC & Chem 7: 03/07/19 04:55 03/07/19 04:55 Labs: Abnormal Lab Results - Last 24 Hours (Table) 03/06/19 03/06/19 03/06/19 Range/Units 17:13 17:16 17:16 WBC 2.8 L (3.8-10.6) k/uL RBC 2.46 L (3.80-5.40) m/uL Hgb 7.8 L D (11.4-16.0) gm/dL Hct 25.4 L (34.0-46.0) % MCV 103.1 H (80.0-100.0) fL MCHC 30.8 L (31.0-37.0) g/dL RDW 16.6 H (11.5-15.5) % Plt Count 121 L (150-450) k/uL Neutrophils # (Manual) 1.23 L (1.3-7.7) k/uL Lymphocytes # (Manual) (1.0-4.8) k/uL Chloride (98-107) mmol/L Carbon Dioxide (22-30) mmol/L BUN (7-17) mg/dL Creatinine (0.52-1.04) mg/dL Glucose (74-99) mg/dL POC Glucose (mg/dL) 121 H (75-99) mg/dL Calcium (8.4-10.2) mg/dL Iron (50-170) ug/dL TIBC (228-460) ug/dL Iron Saturation (12.00-45.00) AST (14-36) U/L ALT (9-52) U/L Alkaline Phosphatase (38-126) U/L Total Protein (6.3-8.2) g/dL Albumin (3.5-5.0) g/dL Amylase (30-110) U/L Crossmatch See Detail 03/06/19 03/06/19 03/06/19 Range/Units 18:04 19:39 19:39 WBC 2.6 L (3.8-10.6) k/uL RBC 2.11 L (3.80-5.40) m/uL Hgb 6.7 L* (11.4-16.0) gm/dL Hct 21.4 L (34.0-46.0) % MCV 101.7 H (80.0-100.0) fL MCHC (31.0-37.0) g/dL RDW 16.3 H (11.5-15.5) % Plt Count 113 L (150-450) k/uL Neutrophils # (Manual) (1.3-7.7) k/uL Lymphocytes # (Manual) 0.94 L (1.0-4.8) k/uL Chloride 113 H (98-107) mmol/L Carbon Dioxide 17 L (22-30) mmol/L BUN 23 H (7-17) mg/dL Creatinine 1.22 H (0.52-1.04) mg/dL Glucose 125 H (74-99) mg/dL POC Glucose (mg/dL) 105 H (75-99) mg/dL Calcium 5.9 L* (8.4-10.2) mg/dL Iron (50-170) ug/dL TIBC (228-460) ug/dL Iron Saturation (12.00-45.00) AST (14-36) U/L ALT (9-52) U/L Alkaline Phosphatase (38-126) U/L Total Protein (6.3-8.2) g/dL Albumin (3.5-5.0) g/dL Amylase (30-110) U/L Crossmatch 03/06/19 03/06/19 03/07/19 Range/Units 19:39 19:39 04:55 WBC 2.8 L (3.8-10.6) k/uL RBC 2.00 L (3.80-5.40) m/uL Hgb 6.5 L* (11.4-16.0) gm/dL Hct 19.5 L* (34.0-46.0) % MCV (80.0-100.0) fL MCHC (31.0-37.0) g/dL RDW 16.1 H (11.5-15.5) % Plt Count 100 L (150-450) k/uL Neutrophils # (Manual) (1.3-7.7) k/uL Lymphocytes # (Manual) (1.0-4.8) k/uL Chloride (98-107) mmol/L Carbon Dioxide (22-30) mmol/L BUN (7-17) mg/dL Creatinine (0.52-1.04) mg/dL Glucose (74-99) mg/dL POC Glucose (mg/dL) (75-99) mg/dL Calcium (8.4-10.2) mg/dL Iron 8 L (50-170) ug/dL TIBC 207 L (228-460) ug/dL Iron Saturation 3.86 L (12.00-45.00) AST (14-36) U/L ALT (9-52) U/L Alkaline Phosphatase (38-126) U/L Total Protein (6.3-8.2) g/dL Albumin (3.5-5.0) g/dL Amylase 124 H (30-110) U/L Crossmatch 03/07/19 Range/Units 04:55 WBC (3.8-10.6) k/uL RBC (3.80-5.40) m/uL Hgb (11.4-16.0) gm/dL Hct (34.0-46.0) % MCV (80.0-100.0) fL MCHC (31.0-37.0) g/dL RDW (11.5-15.5) % Plt Count (150-450) k/uL Neutrophils # (Manual) (1.3-7.7) k/uL Lymphocytes # (Manual) (1.0-4.8) k/uL Chloride 116 H (98-107) mmol/L Carbon Dioxide 16 L (22-30) mmol/L BUN 23 H (7-17) mg/dL Creatinine 1.22 H (0.52-1.04) mg/dL Glucose 125 H (74-99) mg/dL POC Glucose (mg/dL) (75-99) mg/dL Calcium 7.2 L (8.4-10.2) mg/dL Iron (50-170) ug/dL TIBC (228-460) ug/dL Iron Saturation (12.00-45.00) AST 59 H (14-36) U/L ALT 58 H (9-52) U/L Alkaline Phosphatase 26 L (38-126) U/L Total Protein 3.6 L (6.3-8.2) g/dL Albumin 2.0 L (3.5-5.0) g/dL Amylase (30-110) U/L Crossmatch Microbiology - Last 24 Hours (Table) 03/05/19 08:20 Blood Culture - Preliminary Blood No Growth after 48 hours 03/06/19 22:50 Urine Culture - Preliminary Urine,Catheterized Assessment and Plan Plan: 1. Abdominal pain and nausea secondary to cholecystitis. Patient has been seen by Dr. Fagan that is status post laparoscopic cholecystectomy's morning. Hold Xarelto. Continue morphine as needed for pain, Zofran as needed for nausea. Continue IV fluids decreased to 75 mL per hour. 2. Postoperative hypovolemic shock secondary to acute blood loss related to the recent cholecystectomy and from left shoulder hematoma. Patient is status post fluid resuscitation. She is currently stable. 3. Acute blood loss anemia secondary to recent surgery and left shoulder ecchymosis. Patient is undergoing packed RBC transfusion. 4. Non-ion gap metabolic acidosis. 5. Pancytopenia secondary to underlying multiple myeloma and blood loss. 6. Hypertension. Hold valsartan 80 mg daily 7. Hyperlipidemia. 8. Chronic kidney disease stage III. 9. Multiple myeloma under care of Dr. Maria. Patient is currently on Gamunex-C every 28 days and dexamethasone. 10. Paroxysmal atrial fibrillation, rate controlled. Xarelto on hold. 11. Large left shoulder hematoma. Xarelto on hold. 12. GI prophylaxis. Protonix. 13. DVT prophylaxis. TETO hose 14. Mild elevation in lipase most likely secondary to passed stone without pancreatitis. Discharge plan: Return home. Impression and plan of care have been directed as dictated by the signing physician. Barbara Barth nurse practitioner acting as scribe for signing physician.
--- NOTE | 2019-03-07 15:32 | P.CONS ---
History of Present Illness - Reason for Consult Consult date: 03/07/19 Multiple myeloma Requesting physician: Meredith Fagan - Chief Complaint Abdominal pain - History of Present Illness Mrs. Doll is a very pleasant 68-year-old patient of Dr. Holliday with a history of myeloma diagnosed in 2006. She had a near complete response to induc tion with Velcade and Decadron she had tandem autologous transplants in 2006 and 2007. She was on monthly Velcade for maintenance aniridia every 3 months. She was lost leg is in 2013 and continued treatment with the same. She sees Dr. Holliday during the months that she is here in [place]. Patient has a history of a left lower extremity DVT in 2016 she was on Xarelto until April 2017. Patient continued on follow-up and had symptoms of biochemical relapse, at that time she was started on Revlimid 10 mg per day and Decadron 40 mg every 2 weeks in April 2017. She was then diagnosed with a right lower extremity DVT in November 2017 and placed back on Xarelto. She was seen here in February 2018 Review of Systems 14 point ROS is negative except as stated in HPI Past Medical History Past Medical History: Cancer, Hyperlipidemia, Hypertension, Osteoarthritis (OA), Renal Disease Additional Past Medical History / Comment(s): Multiple myeloma, parathyroid adenoma excised History of Any Multi-Drug Resistant Organisms: C-DIFF Year Discovered:: 2011 MDRO Source:: Additional Past Surgical History / Comment(s): Stem cell transplants x2, parathyroidectomy partial, bilateral breast biopsies Past Anesthesia/Blood Transfusion Reactions: No Reported Reaction Past Psychological History: No Psychological Hx Reported Smoking Status: Never smoker Past Alcohol Use History: None Reported Past Drug Use History: None Reported - Past Family History Father Family Medical History: CVA/TIA Mother Family Medical History: COPD Brother(s) Family Medical History: Diabetes Mellitus, Hypertension Sister(s) Family Medical History: Cancer, Diabetes Mellitus, Hypertension Daughter(s) Family Medical History: No Reported History Medications and Allergies Home Medications Medication Instructions Recorded Confirmed Type Dexamethasone 40mg 20 mg PO DIRECTED 02/13/17 03/05/19 History Acetaminophen-Codeine 300-30mg 1 - 2 tab PO Q4-6H PRN 03/05/19 03/05/19 History [Tylenol w/codeine #3] Acyclovir [Zovirax] 400 mg PO DAILY 03/05/19 03/05/19 History Gamunex-C 20gm/200ml Ivig 1 dose IV Q28D 03/05/19 03/05/19 History Valsartan [Diovan] 80 mg PO DAILY 03/05/19 03/05/19 History Calcium Carb/Magnesium Ox,Carb 1.5 tab PO DAILY 03/07/19 03/07/19 History [Froilan-Mag 500-250 MG Chewable] Calcium Carbonate [Calcium] 750 mg PO 03/07/19 History Cholecalciferol (Vitamin D3) 1,000 unit PO DAILY 03/07/19 03/07/19 History [Vitamin D3] Lenalidomide [Revlimid] 5 mg PO DAILY 03/07/19 03/07/19 History Allergies Allergy/AdvReac Type Severity Reaction Status Date / Time sulfamethoxazole Allergy Rash/Hives Verified 03/05/19 07:29 [From Bactrim] trimethoprim [From Bactrim] Allergy Rash/Hives Verified 03/05/19 07:29 Physical Exam Vitals: Vital Signs Temp Pulse Pulse Resp BP BP Pulse Ox 03/07/19 11:00 73 25 H 110/51 96 03/07/19 10:40 98.1 F 83 25 H 118/54 94 L 03/07/19 10:20 76 29 H 116/59 97 03/07/19 10:10 98.1 F 77 28 H 101/41 97 03/07/19 10:00 97.8 F 78 28 H 103/44 95 03/07/19 09:50 80 25 H 103/44 95 03/07/19 09:40 78 24 105/48 96 03/07/19 09:30 82 26 H 102/41 95 03/07/19 09:20 31 H 102/41 97 03/07/19 09:10 82 33 H 109/49 96 03/07/19 09:00 85 27 H 109/49 96 03/07/19 08:45 83 29 H 94/68 96 03/07/19 08:30 88 38 H 105/59 100 03/07/19 08:15 79 19 125/56 95 03/07/19 08:00 98.8 F 86 35 H 107/54 96 03/07/19 07:45 82 26 H 114/58 95 03/07/19 07:30 85 23 114/60 95 03/07/19 07:15 86 31 H 116/55 03/07/19 07:00 84 25 H 107/52 96 03/07/19 06:00 78 21 90/44 97 03/07/19 05:00 84 30 H 100/52 94 L 03/07/19 04:00 98.1 F 78 22 91/49 95 03/07/19 03:00 79 22 86/39 99 03/07/19 02:00 80 20 93/60 99 03/07/19 01:14 98.1 F 74 18 86/43 97 03/07/19 01:00 76 18 94/42 100 03/07/19 00:14 98.6 F 73 18 96/56 03/07/19 00:00 98.1 F 77 20 77/44 100 03/06/19 23:44 98.6 F 79 18 77/44 100 03/06/19 23:34 98.1 F 81 20 74/48 100 03/06/19 23:00 84 27 H 85/41 100 03/06/19 22:00 82 19 93/54 96 03/06/19 21:45 94 41 H 93/54 96 03/06/19 21:30 86 24 98/51 95 03/06/19 21:15 89 21 97/67 96 03/06/19 21:00 87 27 H 103/55 98 03/06/19 20:45 92 20 99/73 95 03/06/19 20:30 87 24 96/53 97 03/06/19 20:15 98.0 F 84 26 H 101/58 98 03/06/19 20:00 87 13 88/60 97 03/06/19 19:45 84 28 H 88/60 98 03/06/19 19:30 85 24 134/121 96 03/06/19 19:15 85 30 H 93/51 99 03/06/19 19:00 80 21 83/45 96 03/06/19 18:45 80 20 103/48 100 03/06/19 18:30 89 26 H 123/82 98 03/06/19 18:15 97.7 F 85 22 131/93 99 03/06/19 18:03 34 H 03/06/19 16:54 75/49 03/06/19 16:51 76 70/49 03/06/19 16:27 76/52 03/06/19 16:04 81/52 03/06/19 15:55 82/56 03/06/19 15:43 88/55 Intake and Output 03/07/19 03/07/19 03/07/19 06:59 14:59 22:59 Intake Total 3516.515 6271.321 Output Total 435 287 Balance 6510.307 9049.321 Intake: IV 1300 250 0.9 1200 150 Piperacillin-Tazobactam 3 100 100 .375 gm In Sodium Chloride 0.9% 100 ml @ 25 mls/hr IVPB Q8HR [facility] Rx# :[id number] Intake, IV Titration 12.361 619.321 Amount Norepinephrine 8 mg In 12.361 19.321 Sodium Chloride 0.9% 250 ml @ 0.05 MCG/KG/MIN 5. 705 mls/hr IV .Q24H [facility] Rx#:[id number] Sodium Chloride 0.9% 1, 600 000 ml @ 150 mls/hr IV . Q6H40M [facility] Rx#:[id number] Oral 245 Blood Product 310 460 Rc Irr As1 Unit 310 [id number] Rc Irr As1 Unit 310 [id number] Other 50 Rc Irr As1 Unit 50 [id number] Output: Drainage 30 Left Lateral Abdomen 30 Urine 405 287 Other: Voiding Method Bedside Commode Indwelling Catheter Weight 70.2 kg 70.2 kg - Constitutional General appearance: average body habitus, cooperative, no acute distress - EENT Eyes: anicteric sclerae, EOMI ENT: hearing grossly normal, normal oropharynx - Neck Neck: no lymphadenopathy - Respiratory Respiratory: bilateral: CTA, diminished (Basis) - Cardiovascular Heart sounds: normal: S1, S2 Abnormal Heart Sounds: no systolic murmur, no diastolic murmur, no rub, no S3 Gallop, no S4 Gallop, no click, no other - Gastrointestinal Right upper quadrant dressing is clean dry and intact, LENORE drain has s erosanguineous drainage, bruising noted at the naval, left side of the abdomen is completely nontender General gastrointestinal: normal bowel sounds, soft - Integumentary Left upper extremity has a significant bruise, no hematoma underneath, nonten nery, FROM - Neurologic Neurologic: CNII-XII intact - Musculoskeletal Musculoskeletal: strength equal bilaterally - Psychiatric Psychiatric: A&O x's 3, appropriate affect, intact judgment & insight Results CBC & Chem 7: 03/07/19 04:55 03/07/19 04:55 Labs: Abnormal Lab Results - Last 24 Hours (Table) 03/06/19 03/06/19 03/06/19 Range/Units 17:13 17:16 17:16 WBC 2.8 L (3.8-10.6) k/uL RBC 2.46 L (3.80-5.40) m/uL Hgb 7.8 L D (11.4-16.0) gm/dL Hct 25.4 L (34.0-46.0) % MCV 103.1 H (80.0-100.0) fL MCHC 30.8 L (31.0-37.0) g/dL RDW 16.6 H (11.5-15.5) % Plt Count 121 L (150-450) k/uL Blast Cells % % Neutrophils # (Manual) 1.23 L (1.3-7.7) k/uL Lymphocytes # (Manual) (1.0-4.8) k/uL Chloride (98-107) mmol/L Carbon Dioxide (22-30) mmol/L BUN (7-17) mg/dL Creatinine (0.52-1.04) mg/dL Glucose (74-99) mg/dL POC Glucose (mg/dL) 121 H (75-99) mg/dL Calcium (8.4-10.2) mg/dL Iron (50-170) ug/dL TIBC (228-460) ug/dL Iron Saturation (12.00-45.00) AST (14-36) U/L ALT (9-52) U/L Alkaline Phosphatase (38-126) U/L Total Protein (6.3-8.2) g/dL Albumin (3.5-5.0) g/dL Amylase (30-110) U/L Crossmatch See Detail 03/06/19 03/06/19 03/06/19 Range/Units 18:04 19:39 19:39 WBC 2.6 L (3.8-10.6) k/uL RBC 2.11 L (3.80-5.40) m/uL Hgb 6.7 L* (11.4-16.0) gm/dL Hct 21.4 L (34.0-46.0) % MCV 101.7 H (80.0-100.0) fL MCHC (31.0-37.0) g/dL RDW 16.3 H (11.5-15.5) % Plt Count 113 L (150-450) k/uL Blast Cells % % Neutrophils # (Manual) (1.3-7.7) k/uL Lymphocytes # (Manual) 0.94 L (1.0-4.8) k/uL Chloride 113 H (98-107) mmol/L Carbon Dioxide 17 L (22-30) mmol/L BUN 23 H (7-17) mg/dL Creatinine 1.22 H (0.52-1.04) mg/dL Glucose 125 H (74-99) mg/dL POC Glucose (mg/dL) 105 H (75-99) mg/dL Calcium 5.9 L* (8.4-10.2) mg/dL Iron (50-170) ug/dL TIBC (228-460) ug/dL Iron Saturation (12.00-45.00) AST (14-36) U/L ALT (9-52) U/L Alkaline Phosphatase (38-126) U/L Total Protein (6.3-8.2) g/dL Albumin (3.5-5.0) g/dL Amylase (30-110) U/L Crossmatch 03/06/19 03/06/19 03/07/19 Range/Units 19:39 19:39 04:55 WBC 2.8 L (3.8-10.6) k/uL RBC 2.00 L (3.80-5.40) m/uL Hgb 6.5 L* (11.4-16.0) gm/dL Hct 19.5 L* (34.0-46.0) % MCV (80.0-100.0) fL MCHC (31.0-37.0) g/dL RDW 16.1 H (11.5-15.5) % Plt Count 100 L (150-450) k/uL Blast Cells % 8 H* % Neutrophils # (Manual) (1.3-7.7) k/uL Lymphocytes # (Manual) (1.0-4.8) k/uL Chloride (98-107) mmol/L Carbon Dioxide (22-30) mmol/L BUN (7-17) mg/dL Creatinine (0.52-1.04) mg/dL Glucose (74-99) mg/dL POC Glucose (mg/dL) (75-99) mg/dL Calcium (8.4-10.2) mg/dL Iron 8 L (50-170) ug/dL TIBC 207 L (228-460) ug/dL Iron Saturation 3.86 L (12.00-45.00) AST (14-36) U/L ALT (9-52) U/L Alkaline Phosphatase (38-126) U/L Total Protein (6.3-8.2) g/dL Albumin (3.5-5.0) g/dL Amylase 124 H (30-110) U/L Crossmatch 03/07/19 Range/Units 04:55 WBC (3.8-10.6) k/uL RBC (3.80-5.40) m/uL Hgb (11.4-16.0) gm/dL Hct (34.0-46.0) % MCV (80.0-100.0) fL MCHC (31.0-37.0) g/dL RDW (11.5-15.5) % Plt Count (150-450) k/uL Blast Cells % % Neutrophils # (Manual) (1.3-7.7) k/uL Lymphocytes # (Manual) (1.0-4.8) k/uL Chloride 116 H (98-107) mmol/L Carbon Dioxide 16 L (22-30) mmol/L BUN 23 H (7-17) mg/dL Creatinine 1.22 H (0.52-1.04) mg/dL Glucose 125 H (74-99) mg/dL POC Glucose (mg/dL) (75-99) mg/dL Calcium 7.2 L (8.4-10.2) mg/dL Iron (50-170) ug/dL TIBC (228-460) ug/dL Iron Saturation (12.00-45.00) AST 59 H (14-36) U/L ALT 58 H (9-52) U/L Alkaline Phosphatase 26 L (38-126) U/L Total Protein 3.6 L (6.3-8.2) g/dL Albumin 2.0 L (3.5-5.0) g/dL Amylase (30-110) U/L Crossmatch Microbiology - Last 24 Hours (Table) 03/05/19 08:20 Blood Culture - Preliminary Blood No Growth after 48 hours 03/06/19 22:50 Urine Culture - Preliminary Urine,Catheterized Comments: Orthopedic notes reviewed Surgical notes reviewed CT scan - abdomen: report reviewed CT scan - pelvis: report reviewed Assessment and Plan (1) Pancytopenia Narrative/Plan: Pancytopenia is multifactorial including multiple myeloma as well as surgery for cholecystectomy. Patient is receiving a unit of irradiated packed red blood cells. Transfuse with packed red blood cells for hemoglobin less than 7 or if symptomatic. Platelets are 100,000, no intervention necessary. Transfuse for a platelet count of less than 10,000 or if symptomatic. Patient's WBC is 2.8. Patient was placed on hold from her myeloma treatment due to the low white blood cell count. Continue to hold Revlimid and dexamethasone for now. Blasts were noted in the peripheral smear. Discussed this with Dr. Maria. Patient's white count was recently low and with the sudden onset of cholecystitis and need for surgery/cholecystectomy it would not be entirely unusual to see blasts in the periphery at this time. We'll request that this continue to be monitored. Current Visit: Yes Status: Acute Priority: Medium Code(s): D61.818 - OTHER PANCYTOPENIA SNOMED Code(s): 415463045 (2) History of multiple myeloma Narrative/Plan: Patient's Revlimid and dexamethasone are currently on hold. Patient will be reevaluated prior to resuming therapy. Current Visit: No Status: Chronic Priority: Medium Code(s): Z85.79 - PRSNL HX OF MALIG NEOPLM OF LYMPHOID, HEMATPOETC & REL TISS SNOMED Code(s): 893162031122331
[2019-03-07 16:52] LABS: Anisocytosis Slight; HCT 23.5 % (34.0-46.0); HGB 7.9 gm/dL (11.4-16.0); Hypochromasia Slight; MCHC 33.7 g/dL (31.0-37.0); MCV 94.8 fL (80.0-100.0); Macrocytosis Slight; Poikilocytosis Slight; RBC 2.48 m/uL (3.80-5.40); RDW 17.3 % (11.5-15.5)
[2019-03-07 17:12] LABS: Platelet Count 95 k/uL (150-450)
--- NOTE | 2019-03-07 21:05 | P.PN ---
Subjective Progress Note Date: 03/07/19 Principal diagnosis: Acute cholecystitis, anemia Patient is seen lying in bed today. Abdomen is [employer]. No nausea or vomiting. Denies any signs or symptoms of GI bleeding. Objective - Vital Signs Vital signs: Vital Signs Temp 98.6 F 03/07/19 16:00 Pulse 79 03/07/19 20:00 Resp 28 H 03/07/19 20:00 BP 116/67 03/07/19 20:00 Pulse Ox 98 03/07/19 20:00 Intake & Output 03/07/19 03/07/19 03/08/19 06:59 18:59 06:59 Intake Total 4222.361 3195.731 150 Output Total 785 698 60 Balance 3437.361 2497.731 90 Weight 70.2 kg 70.2 kg Intake: IV 1750 350 0.9 1650 150 Piperacillin-Tazobactam 3 100 200 .375 gm In Sodium Chloride 0.9% 100 ml @ 25 mls/hr IVPB Q8HR [facility] Rx# :[id number] Intake, IV Titration 2062.361 1930.731 150 Amount Albumin Human 25% 50 ml 50 In Empty Bag 1 bag @ 50 mls/hr IVPB ONCE ONE Rx#: [id number] Magnesium Sulfate-D5w Pmx 200 1 gm In Dextrose/Water 1 100ml.bag @ 100 mls/hr IVPB Q1H [facility] Rx#: [id number] Norepinephrine 8 mg In 12.361 30.731 Sodium Chloride 0.9% 250 ml @ 0.05 MCG/KG/MIN 5. 705 mls/hr IV .Q24H [facility] Rx#:[id number] Sodium Chloride 0.9% 1, 1700 150 000 ml @ 150 mls/hr IV . Q6H40M [facility] Rx#:[id number] Sodium Chloride 0.9% 2, 2000 000 ml @ 999 mls/hr IV . Q2H1M [facility] Rx#:[id number] Oral 100 245 Blood Product 310 620 Rc Irr As1 Unit 310 [id number] Rc Irr As1 Unit 310 [id number] Other 50 Rc Irr As1 Unit 50 [id number] Output: Drainage 30 30 Left Lateral Abdomen 30 30 Urine 755 668 60 Other: Voiding Method Bedside Commode Indwelling Catheter - Exam On physical examination, patient appears comfortable in no apparent distress. HEAD: Normocephalic, atraumatic. EYES: No scleral icterus. No conjunctival injection. MOUTH: No lesions, tongue midline. NECK: Trachea midline, no gross abnormalities. CHEST: Clear to auscultation with no wheezing or rhonchi appreciated. HEART: S1-S2 appreciated. ABDOMEN: Soft, appropriately tender. Bowel sounds are positive. No organomegaly. No guarding or rigidity. EXTREMITIES: No pedal edema. SKIN: Large hematoma encompassing the patient's left upper extremity and shoulder. NEUROLOGIC: Alert and oriented x3. No focal deficits. - Labs CBC & Chem 7: 03/07/19 16:31 03/07/19 04:55 Labs: Abnormal Lab Results - Last 24 Hours (Table) 03/06/19 03/06/19 03/06/19 Range/Units 17:16 19:39 19:39 WBC (3.8-10.6) k/uL RBC (3.80-5.40) m/uL Hgb (11.4-16.0) gm/dL Hct (34.0-46.0) % RDW (11.5-15.5) % Plt Count (150-450) k/uL Blast Cells % % Blast Cells # (Man) (0) k/uL Pathologist Review Chloride (98-107) mmol/L Carbon Dioxide (22-30) mmol/L BUN (7-17) mg/dL Creatinine (0.52-1.04) mg/dL Glucose (74-99) mg/dL Calcium (8.4-10.2) mg/dL Iron 8 L (50-170) ug/dL TIBC 207 L (228-460) ug/dL Iron Saturation 3.86 L (12.00-45.00) AST (14-36) U/L ALT (9-52) U/L Alkaline Phosphatase (38-126) U/L Total Protein (6.3-8.2) g/dL Albumin (3.5-5.0) g/dL Amylase 124 H (30-110) U/L Crossmatch See Detail 03/07/19 03/07/19 03/07/19 Range/Units 04:55 04:55 16:31 WBC 2.8 L 3.0 L (3.8-10.6) k/uL RBC 2.00 L 2.48 L (3.80-5.40) m/uL Hgb 6.5 L* 7.9 L (11.4-16.0) gm/dL Hct 19.5 L* 23.5 L (34.0-46.0) % RDW 16.1 H 17.3 H (11.5-15.5) % Plt Count 100 L 95 L (150-450) k/uL Blast Cells % 8 H* % Blast Cells # (Man) 0.22 H (0) k/uL Pathologist Review See comment A Chloride 116 H (98-107) mmol/L Carbon Dioxide 16 L (22-30) mmol/L BUN 23 H (7-17) mg/dL Creatinine 1.22 H (0.52-1.04) mg/dL Glucose 125 H (74-99) mg/dL Calcium 7.2 L (8.4-10.2) mg/dL Iron (50-170) ug/dL TIBC (228-460) ug/dL Iron Saturation (12.00-45.00) AST 59 H (14-36) U/L ALT 58 H (9-52) U/L Alkaline Phosphatase 26 L (38-126) U/L Total Protein 3.6 L (6.3-8.2) g/dL Albumin 2.0 L (3.5-5.0) g/dL Amylase (30-110) U/L Crossmatch Microbiology - Last 24 Hours (Table) 03/05/19 08:20 Blood Culture - Preliminary Blood No Growth after 48 hours 03/06/19 22:50 Urine Culture - Preliminary Urine,Catheterized Assessment and Plan (1) Acute cholecystitis Narrative/Plan: Pleasant 68-year-old female with multiple medical comorbidities who presented for evaluation of abdominal pain and was found to have acute cholecystitis. CBD was found to be mildly dilated at 1 cm larger than expected CBD size of 7 mm given patient's age. Liver enzymes normal on presentation with total bilirubin 0.5, alkaline phosphatase 95, AST 19 and ALTs 19. Ultrasound also showed dilated CBD but no evidence of choledocholithiasis. Patient is status post cholecystectomy, initially with transient elevation in liver enzymes which improved today. Current Visit: Yes Status: Acute Code(s): K81.0 - ACUTE CHOLECYSTITIS SNOMED Code(s): 35221730 (2) Abdominal pain Current Visit: Yes Status: Acute Code(s): R10.9 - UNSPECIFIED ABDOMINAL PAIN SNOMED Code(s): 18179897 (3) Pancytopenia Narrative/Plan: Likely multifactorial given patient's underlying multiple myeloma, large hematoma on the left arm and shoulder as well as recent surgery. Denies any signs or symptoms of GI bleeding. Current Visit: Yes Status: Acute Priority: Medium Code(s): D61.818 - OTHER PANCYTOPENIA SNOMED Code(s): 449354734 Plan: Supportive care Appreciate recommendations from surgical service, and hematology/oncology Continue broad-spectrum antibiotic therapy No plans for ERCP at this time Anemia likely multifactorial in the setting of multiple myeloma, large upper extremity hematoma and recent surgery, denies any signs or symptoms of GI bleeding and no plans for endoscopic evaluation at this time Thank you for allowing us to participate in the care of the patient the GI service will stand by, please call us with questions or concerns
[2019-03-08 04:43] LABS: Anisocytosis Slight; HCT 21.8 % (34.0-46.0); HGB 7.2 gm/dL (11.4-16.0); Hypochromasia Slight; MCH 31.2 pg (25.0-35.0); MCV 94.7 fL (80.0-100.0); Mean Platelet Volume 12.2; Poikilocytosis Slight; RDW 17.3 % (11.5-15.5); WBC 2.9 k/uL (3.8-10.6)
[2019-03-08 04:56] LABS: Calcium 6.9 mg/dL (8.4-10.2); Magnesium 2.4 mg/dL (1.6-2.3); Potassium 3.5 mmol/L (3.5-5.1)
[2019-03-08] MEDS: HYDROcodone/APAP 5-325MG 1 EACH TAB PO PRN ×4 (04:59→22:20)
[2019-03-08] MEDS: SODIUM CHLORIDE 0.9% 1,000 ML IV SCH ×3 (05:02→22:20)
[2019-03-08] MEDS ORDERED: Potassium Replacement Protocol 1 EACH MISC MISCELLANE PRN (05:30)
[2019-03-08] MEDS: POTASSIUM CHLORIDE ER 20 MEQ TAB.ER PO SCH ×2 (06:04→07:03)
[2019-03-08 06:10] LABS: Band Neutrophils % 7 %; Lymphocytes # (M) 0.87 k/uL (1.0-4.8); Monocytes # (M) 0.15 k/uL (0-1.0); Neutrophils % (M) 49 %
[2019-03-08 06:11] LABS: Blast Cells # (M) 0.29 k/uL (0); Large Platelets Present; Nucleated Red Blood Cells 1 /100 WBC (0-0); Total Cells Counted 200
[2019-03-08 06:12] LABS: Polychromasia Present
[2019-03-08 06:25] LABS: Platelet Count 84 k/uL (150-450)
[2019-03-08] MEDS: PANTOPRAZOLE 40 MG/10 ML VIAL IVP SCH (08:12)
[2019-03-08] MEDS: HYDROCORTISONE SUCCINATE 100 MG/2 ML VIAL IV SCH (08:12)
[2019-03-08] MEDS: PIPERACILLIN-TAZOBACTAM 3.375 GM in SODIUM CHLORIDE 0.9% 100 ML IVPB SCH ×2 (08:12→15:58)
[2019-03-08] MEDS: SENNOSIDES-DOCUSATE SODIUM 1 EACH TAB PO SCH (08:13)
--- NOTE | 2019-03-08 08:53 | P.PN ---
Subjective Progress Note Date: 03/08/19 Patient seen and examined at bedside. She is sitting in a chair. She is doing well and states her pain is improving. She feels much better. She denies any nausea vomiting. She is asking for more food. Objective - Vital Signs Vital signs: Vital Signs Temp 98.2 F 03/08/19 08:00 Pulse 79 03/08/19 08:00 Resp 26 H 03/08/19 08:00 BP 127/70 03/08/19 08:00 Pulse Ox 97 03/08/19 08:00 Intake & Output 03/07/19 03/08/19 03/08/19 18:59 06:59 18:59 Intake Total 3195.731 2140 400 Output Total 698 510 100 Balance 2497.731 1630 300 Weight 70.2 kg 76.6 kg Intake: IV 350 1750 400 0.9 150 Piperacillin-Tazobactam 3 200 100 100 .375 gm In Sodium Chloride 0.9% 100 ml @ 25 mls/hr IVPB Q8HR [facility] Rx# :[id number] Sodium Chloride 0.9% 1, 1650 300 000 ml @ 150 mls/hr IV . Q6H40M [facility] Rx#:[id number] Intake, IV Titration 1930.731 150 Amount Magnesium Sulfate-D5w Pmx 200 1 gm In Dextrose/Water 1 100ml.bag @ 100 mls/hr IVPB Q1H [facility] Rx#: [id number] Norepinephrine 8 mg In 30.731 Sodium Chloride 0.9% 250 ml @ 0.05 MCG/KG/MIN 5. 705 mls/hr IV .Q24H [facility] Rx#:[id number] Sodium Chloride 0.9% 1, 1700 150 000 ml @ 150 mls/hr IV . Q6H40M [facility] Rx#:[id number] Oral 245 240 Blood Product 620 Rc Irr As1 Unit 310 [id number] Other 50 Rc Irr As1 Unit 50 [id number] Output: Drainage 30 0 Left Lateral Abdomen 30 0 Urine 668 510 100 Other: Voiding Method Indwelling Catheter Indwelling Catheter Indwelling Catheter - Constitutional General appearance: Present: cooperative, no acute distress - Respiratory Details: No difficulty with respiration - Gastrointestinal Gastrointestinal Comment(s): Soft, appropriate tenderness, nondistended, no rebound, no guarding, LENORE drain in place with serosanguineous output - Psychiatric Psychiatric: Present: A&O x's 3 - Labs CBC & Chem 7: 03/08/19 04:03 03/08/19 04:06 Labs: Abnormal Lab Results - Last 24 Hours (Table) 03/06/19 03/06/19 03/07/19 Range/Units 17:16 19:39 04:55 WBC 2.8 L (3.8-10.6) k/uL RBC 2.00 L (3.80-5.40) m/uL Hgb 6.5 L* (11.4-16.0) gm/dL Hct 19.5 L* (34.0-46.0) % RDW 16.1 H (11.5-15.5) % Plt Count 100 L (150-450) k/uL Blast Cells % 8 H* % Lymphocytes # (Manual) (1.0-4.8) k/uL Blast Cells # (Man) 0.22 H (0) k/uL Nucleated RBCs (0-0) /100 WBC Pathologist Review See comment A Chloride (98-107) mmol/L Carbon Dioxide (22-30) mmol/L BUN (7-17) mg/dL Creatinine (0.52-1.04) mg/dL Calcium (8.4-10.2) mg/dL Magnesium (1.6-2.3) mg/dL Iron 8 L (50-170) ug/dL TIBC 207 L (228-460) ug/dL Iron Saturation 3.86 L (12.00-45.00) Crossmatch See Detail 03/07/19 03/08/19 03/08/19 Range/Units 16:31 04:03 04:06 WBC 3.0 L 2.9 L (3.8-10.6) k/uL RBC 2.48 L 2.30 L (3.80-5.40) m/uL Hgb 7.9 L 7.2 L (11.4-16.0) gm/dL Hct 23.5 L 21.8 L (34.0-46.0) % RDW 17.3 H 17.3 H (11.5-15.5) % Plt Count 95 L 84 L (150-450) k/uL Blast Cells % 10 H* % Lymphocytes # (Manual) 0.87 L (1.0-4.8) k/uL Blast Cells # (Man) 0.29 H (0) k/uL Nucleated RBCs 1 H (0-0) /100 WBC Pathologist Review Chloride 117 H (98-107) mmol/L Carbon Dioxide 17 L (22-30) mmol/L BUN 20 H (7-17) mg/dL Creatinine 1.17 H (0.52-1.04) mg/dL Calcium 6.9 L (8.4-10.2) mg/dL Magnesium 2.4 H (1.6-2.3) mg/dL Iron (50-170) ug/dL TIBC (228-460) ug/dL Iron Saturation (12.00-45.00) Crossmatch Microbiology - Last 24 Hours (Table) 03/06/19 20:03 Blood Culture - Preliminary Blood No Growth after 24 hours 03/06/19 19:39 Blood Culture - Preliminary Blood No Growth after 24 hours 03/05/19 08:20 Blood Culture - Preliminary Blood No Growth after 48 hours 03/06/19 22:50 Urine Culture - Preliminary Urine,Catheterized Assessment and Plan (1) Acute cholecystitis Narrative/Plan: 68-year-old female with acute cholecystitis, probable perforated gallbladder, POD #2 lap mandeep - The patient appears to be improving. She is now status post 2 units of packed red blood cells. Hemoglobin is in the sevens. Blood pressure has stabilized. Advance to soft diet. Continue LENORE drain until tomorrow. Continue ICU and medical management. Current Visit: Yes Status: Acute Code(s): K81.0 - ACUTE CHOLECYSTITIS SNOMED Code(s): 82488695
[2019-03-08] MEDS: HEPARIN SODIUM,PORCINE 5,000 UNIT/ML 1 ML VIAL SQ SCH (08:55)
[2019-03-08 10:12] LABS: INR 0.9 (<1.2); Partial Thromboplastin Time 24.5 sec (22.0-30.0); Prothrombin Time 9.4 sec (9.0-12.0)
--- NOTE | 2019-03-08 12:41 | P.PN ---
Subjective Progress Note Date: 03/08/19 Principal diagnosis: Acute cholecystitis This is a 68-year-old female with history of multiple medical problems including multiple myeloma, history of stem cell transplant 2, presently under the care of Dr. Maria, maintained on gamunex and dexamethasone, and Revlimid Patient is also known to have chronic kidney disease stage III, hypertension, history of deep vein thromboses in 2017, maintained on Xarelto for her previous history of DVT and for paroxysmal atrial fibrillation. Her deep vein thrombosis was related to previous hip surgery and hip fracture. Patient had a recent discomfort in the left shoulder area posteriorly, and has been scratching the area thinking that she may have a bug bite. Patient apparently developed generalized swelling of the musculature of the left shoulder representing possibly intramuscular hemorrhage and she developed significant ecchymosis in the area of the left shoulder and left upper extremity. CT of the left shoulder was noted. MRI was recommended. And orthopedic consultation is pending. On the day of admission, patient presented with severe epigastric pain came in to [facility] emergency room, and she was noted to have significant gallbladder distention with gallbladder wall thickening and very cholecystic fluid suggestive of acute cholecystitis. Small amount of ascites noted adjacent to the liver. Patient was noted to have a white count of 3.3 hemoglobin of 11.3 and she had slightly elevated amylase and lipase. Underwent laparoscopic cholecystectomy by Dr. Fagan, presently in the ICU. Hemoglobin on admission was 11.3, and hemoglobin this morning is 6.5. Patient received a total of 2 units of packed RBCs since admission. Xarelto is presently on hold. Blood pressure was noted to be a bit low earlier today, and the patient has been on norepinephrine at 3 mcg/m. Her blood pressure medication is presently on hold. And the patient is empirically on Zosyn. Patient is receiving stress doses of hydrocortisone since she is normally on methotrexate for her underlying multiple myeloma. Chest x-ray today showed minimal atelectasis at the right base, and small tiny right-sided pleural effusion. Her basic metabolic profile showed non-anion gap metabolic acidosis, bicarb is 17. Creatinine is 1.2 today, and it was 1.25 on admission. Lipase is down to 78 today. During my evaluation, the patient denied any headache, blurred vision, dizziness, denies any shortness of breath, no cough, no wheezing, no chest pain. Continues to have some epigastric discomfort and right upper quadrant pain and concerned about the ecchymosis that she has in her left upper extremity. And left shoulder area. Patient was reevaluated today on 03/08/2019, she is feeling much better today compared to yesterday. Patient is sitting in a bedside chair, doing well, pain is significantly better, denies any shortness of breath, presently on room air. Compliant with her incentive spirometer. WBC count is 2.9 hemoglobin is 7.2 today, her platelets are 84,000, there is 10% blast cells noted on the differential, and 7% bands. Basic metabolic profile is relatively normal except for a bicarb of 17 BUN is 20 creatinine is 1.17 slightly improved compared to 2 days ago. Blood cultures remain negative so far in the last 72 hours. Urine culture is also negative. Patient was seen by hematology/oncology and amanuel mmended placing the patient back on Xarelto, and I agree that the benefits of Xarelto outweigh the risks at this point. Objective - Vital Signs Vital signs: Vital Signs Temp 98.3 F 03/08/19 12:00 Pulse 80 03/08/19 12:00 Resp 28 H 03/08/19 12:00 BP 156/84 03/08/19 12:00 Pulse Ox 98 03/08/19 12:00 Intake & Output 03/07/19 03/08/19 03/08/19 18:59 06:59 18:59 Intake Total 3195.731 2140 1040 Output Total 698 510 350 Balance 2497.731 1630 690 Weight 70.2 kg 76.6 kg Intake: IV 350 1750 800 0.9 150 Piperacillin-Tazobactam 3 200 100 100 .375 gm In Sodium Chloride 0.9% 100 ml @ 25 mls/hr IVPB Q8HR [facility] Rx# :[id number] Sodium Chloride 0.9% 1, 1650 700 000 ml @ 100 mls/hr IV . Q10H [facility] Rx#:[id number] Intake, IV Titration 1930.731 150 Amount Magnesium Sulfate-D5w Pmx 200 1 gm In Dextrose/Water 1 100ml.bag @ 100 mls/hr IVPB Q1H [facility] Rx#: [id number] Norepinephrine 8 mg In 30.731 Sodium Chloride 0.9% 250 ml @ 0.05 MCG/KG/MIN 5. 705 mls/hr IV .Q24H [facility] Rx#:[id number] Sodium Chloride 0.9% 1, 1700 150 000 ml @ 100 mls/hr IV . Q10H [facility] Rx#:[id number] Oral 245 240 240 Blood Product 620 Rc Irr As1 Unit 310 [id number] Other 50 Rc Irr As1 Unit 50 [id number] Output: Drainage 30 0 Left Lateral Abdomen 30 0 Urine 668 510 350 Other: Voiding Method Indwelling Catheter Indwelling Catheter Indwelling Catheter - Exam Physical Exam: Revealed a 68-year-old female in no distress. Presently on room air. Head: Atraumatic, normocephalic. HEENT:[Neck is supple.] [No neck masses.] [No thyromegaly.] [No JVD.] PERRLA, EOMI, no icterus. Chest: [Minimal fine crackles at the bases. No rhonchi and no wheezes. Symmetrical chest expansion. No chest wall tenderness. Cardiac Exam: [Normal S1 and S2, no S3 gallop, no murmur.] Abdomen: [Soft, minimal tenderness in the right upper quadrant noted, positive bowel sounds. Extremities: [No clubbing, no edema, no cyanosis.] Evidence of ecchymosis noted in the left shoulder area and in the left upper extremity area extending almost to the elbow. Neurological Exam: [No focal neurologic deficit.] Alert oriented 3. Psychiatric: Normal mood, affect and normal mental status examination. Lymphatics: No lymphadenopathy. - Labs CBC & Chem 7: 03/08/19 04:03 03/08/19 04:06 Labs: Abnormal Lab Results - Last 24 Hours (Table) 03/06/19 03/07/19 03/07/19 Range/Units 17:16 04:55 16:31 WBC 2.8 L 3.0 L (3.8-10.6) k/uL RBC 2.00 L 2.48 L (3.80-5.40) m/uL Hgb 6.5 L* 7.9 L (11.4-16.0) gm/dL Hct 19.5 L* 23.5 L (34.0-46.0) % RDW 16.1 H 17.3 H (11.5-15.5) % Plt Count 100 L 95 L (150-450) k/uL Blast Cells % 8 H* % Lymphocytes # (Manual) (1.0-4.8) k/uL Blast Cells # (Man) 0.22 H (0) k/uL Nucleated RBCs (0-0) /100 WBC Pathologist Review See comment A Chloride (98-107) mmol/L Carbon Dioxide (22-30) mmol/L BUN (7-17) mg/dL Creatinine (0.52-1.04) mg/dL Calcium (8.4-10.2) mg/dL Magnesium (1.6-2.3) mg/dL Crossmatch See Detail 03/08/19 03/08/19 Range/Units 04:03 04:06 WBC 2.9 L (3.8-10.6) k/uL RBC 2.30 L (3.80-5.40) m/uL Hgb 7.2 L (11.4-16.0) gm/dL Hct 21.8 L (34.0-46.0) % RDW 17.3 H (11.5-15.5) % Plt Count 84 L (150-450) k/uL Blast Cells % 10 H* % Lymphocytes # (Manual) 0.87 L (1.0-4.8) k/uL Blast Cells # (Man) 0.29 H (0) k/uL Nucleated RBCs 1 H (0-0) /100 WBC Pathologist Review Chloride 117 H (98-107) mmol/L Carbon Dioxide 17 L (22-30) mmol/L BUN 20 H (7-17) mg/dL Creatinine 1.17 H (0.52-1.04) mg/dL Calcium 6.9 L (8.4-10.2) mg/dL Magnesium 2.4 H (1.6-2.3) mg/dL Crossmatch Microbiology - Last 24 Hours (Table) 03/06/19 22:50 Urine Culture - Final Urine,Catheterized 03/05/19 08:20 Blood Culture - Preliminary Blood No Growth after 72 hours 03/06/19 20:03 Blood Culture - Preliminary Blood No Growth after 24 hours 03/06/19 19:39 Blood Culture - Preliminary Blood No Growth after 24 hours Assessment and Plan Assessment: Impression: 1 abdominal pain secondary to acute cholecystitis and possible pancreatitis. 2 status post laparoscopic cholecystectomy, postoperative day #2 3 postoperative anemia, multifactorial, possibly related to surgery, also related to left shoulder ecchymosis and intramuscular bleeding, and possibly r elated to her underlying multiple myeloma which is being addressed by oncology on the case. 4 non-anion gap metabolic acidosis and history of chronic kidney disease stage III. Secondary to multiple myeloma. 5 history of multiple myeloma being followed by oncology. 6 history of paroxysmal atrial fibrillation presently controlled and patient is in sinus rhythm. 7 left shoulder ecchymosis, improving, not getting any worse, hence patient is being considered for restarting Xarelto as per oncology on the case. 8 hypotension, multifactorial as noted in my previous note, patient is off norepinephrine, and responded well to fluids and blood transfusion. This was mostly secondary to intravascular depletion. Recommendation: Continue antibiotics, IV fluids, continue incentive spirometry, ambulation, consider starting Xarelto again if agreeable by oncology on the case. Will transfer the patient out of the ICU to a regular medical floor. We'll continue to follow. Discussed her condition with her and her /Dr. Doll. Time with Patient: Less than 30
--- NOTE | 2019-03-08 14:06 | P.PN ---
Subjective Progress Note Date: 03/08/19 Principal diagnosis: Multiple myeloma, pancytopenia Objective - Vital Signs Vital signs: Vital Signs Temp 98.3 F 03/08/19 12:00 Pulse 80 03/08/19 12:00 Resp 28 H 03/08/19 12:00 BP 156/84 03/08/19 12:00 Pulse Ox 98 03/08/19 12:00 Intake & Output 03/07/19 03/08/19 03/08/19 18:59 06:59 18:59 Intake Total 3195.731 2140 1140 Output Total 698 510 350 Balance 2497.731 1630 790 Weight 70.2 kg 76.6 kg Intake: IV 350 1750 900 0.9 150 Piperacillin-Tazobactam 3 200 100 100 .375 gm In Sodium Chloride 0.9% 100 ml @ 25 mls/hr IVPB Q8HR [facility] Rx# :[id number] Sodium Chloride 0.9% 1, 1650 800 000 ml @ 100 mls/hr IV . Q10H [facility] Rx#:[id number] Intake, IV Titration 1930.731 150 Amount Magnesium Sulfate-D5w Pmx 200 1 gm In Dextrose/Water 1 100ml.bag @ 100 mls/hr IVPB Q1H [facility] Rx#: [id number] Norepinephrine 8 mg In 30.731 Sodium Chloride 0.9% 250 ml @ 0.05 MCG/KG/MIN 5. 705 mls/hr IV .Q24H [facility] Rx#:[id number] Sodium Chloride 0.9% 1, 1700 150 000 ml @ 100 mls/hr IV . Q10H [facility] Rx#:[id number] Oral 245 240 240 Blood Product 620 Rc Irr As1 Unit 310 [id number] Other 50 Rc Irr As1 Unit 50 [id number] Output: Drainage 30 0 Left Lateral Abdomen 30 0 Urine 668 510 350 Other: Voiding Method Indwelling Catheter Indwelling Catheter Indwelling Catheter - Labs CBC & Chem 7: 03/08/19 04:03 03/08/19 04:06 Labs: Abnormal Lab Results - Last 24 Hours (Table) 03/06/19 03/07/19 03/07/19 Range/Units 17:16 04:55 16:31 WBC 2.8 L 3.0 L (3.8-10.6) k/uL RBC 2.00 L 2.48 L (3.80-5.40) m/uL Hgb 6.5 L* 7.9 L (11.4-16.0) gm/dL Hct 19.5 L* 23.5 L (34.0-46.0) % RDW 16.1 H 17.3 H (11.5-15.5) % Plt Count 100 L 95 L (150-450) k/uL Blast Cells % 8 H* % Lymphocytes # (Manual) (1.0-4.8) k/uL Blast Cells # (Man) 0.22 H (0) k/uL Nucleated RBCs (0-0) /100 WBC Pathologist Review See comment A Chloride (98-107) mmol/L Carbon Dioxide (22-30) mmol/L BUN (7-17) mg/dL Creatinine (0.52-1.04) mg/dL Calcium (8.4-10.2) mg/dL Magnesium (1.6-2.3) mg/dL Crossmatch See Detail 03/08/19 03/08/19 Range/Units 04:03 04:06 WBC 2.9 L (3.8-10.6) k/uL RBC 2.30 L (3.80-5.40) m/uL Hgb 7.2 L (11.4-16.0) gm/dL Hct 21.8 L (34.0-46.0) % RDW 17.3 H (11.5-15.5) % Plt Count 84 L (150-450) k/uL Blast Cells % 10 H* % Lymphocytes # (Manual) 0.87 L (1.0-4.8) k/uL Blast Cells # (Man) 0.29 H (0) k/uL Nucleated RBCs 1 H (0-0) /100 WBC Pathologist Review Chloride 117 H (98-107) mmol/L Carbon Dioxide 17 L (22-30) mmol/L BUN 20 H (7-17) mg/dL Creatinine 1.17 H (0.52-1.04) mg/dL Calcium 6.9 L (8.4-10.2) mg/dL Magnesium 2.4 H (1.6-2.3) mg/dL Crossmatch Microbiology - Last 24 Hours (Table) 03/06/19 22:50 Urine Culture - Final Urine,Catheterized 03/05/19 08:20 Blood Culture - Preliminary Blood No Growth after 72 hours 03/06/19 20:03 Blood Culture - Preliminary Blood No Growth after 24 hours 03/06/19 19:39 Blood Culture - Preliminary Blood No Growth after 24 hours Assessment and Plan (1) Pancytopenia Narrative/Plan: CBC reviewed, no transfusion today. CBC daily Blasts in the peripheral smear will continue to be monitored. Current Visit: Yes Status: Acute Priority: Medium Code(s): D61.818 - OTHER PANCYTOPENIA SNOMED Code(s): 890207094 (2) History of multiple myeloma Narrative/Plan: Patient's Revlimid and dexamethasone are on hold until after surgical incisions completely healed and she is reevaluated. Plan is to see pt in 4-6 weeks. She and her at bedside understand plan Current Visit: No Status: Chronic Priority: Medium Code(s): Z85.79 - PRSNL HX OF MALIG NEOPLM OF LYMPHOID, HEMATPOETC & REL TISS SNOMED Code(s): 067513962393577 (3) DVT (deep venous thrombosis) Narrative/Plan: Plan is to DC prophylactic dose of heparin and resume pt anticoagulation with xarelto. Plt count reviewed, coags checked. Current Visit: Yes Status: Chronic Priority: Medium Code(s): I82.409 - ACUTE EMBOLISM AND THOMBOS UNSP DEEP VN UNSP LOWER EXTREMITY SNOMED Code(s): 280937135 Plan: Doctor attests: I performed a history and physical examination of this patient, developed impression and plan of care, discussed with dictator. I agree with dictators note, documented as a scribe.
--- NOTE | 2019-03-08 14:41 | P.PN ---
Subjective Progress Note Date: 03/08/19 This is a 68-year-old female patient of Dr. Shelton with past medical history of multiple myeloma currently on Revlimi and Dexamethasone, under the care of Dr. Maria, chronic kidney disease stage III, osteopenia, hypertension and history of DVT started on Xarelto, paroxysmal atrial fibrillation on Xarelto. Patient has been on Xarelto since last year after she had hip fracture and repair and subsequently developed DVT. Patient did have documented episode of atrial fibrillation on Thanksgiving of last year. gives history that they were in [facility] and patient had a bug bite to her left shoulder posterior area and started scratching the area subsequently developed a hematoma that was quite significant at the time and continued to worsen recently. Patient underwent a CAT scan of the left shoulder ordered by Dr. Shelton yesterday revealed generalized swelling of the musculature of the left shoulder could represent areas of intramuscular hemorrhage. Had stranding along the superior and posterior aspect of the left shoulder could represent generalized bruising. Suspect distention of the glenohumeral joint with intermediate density fluid jose-arthrosis difficult to exclude. Hemorrhagic fluid may also be located in the sub-acral meal/subdeltoid bursa. Recommendations were MRI or ultrasound. No acute osseous abnormality. Patient was instructed to hold Xarelto due to thi s hematoma. Her last dose was yesterday. Patient woke up at 4:30 this morning with severe epigastric pain and she came into [facility] emergency center for evaluation. CT of the abdomen and pelvis revealed significant gallbladder distention with gallbladder wall thickening and pericholic fluid concerning for acute cholecystitis. Common bile duct is dilated measuring up to 10.3 mm. Bilateral fat stranding adjacent to the adrenal glands with calcifications. Calcified uterine myomas. Right lower lobe groundglass nodule 4.9 mm. Ultrasound the gallbladder revealed thickening gallbladder wall, dilated common bile duct. Findings compatible with acute cholecystitis. No gallstones seen. Small amount of ascites adjacent to the liver. White count was 3.3, hemoglobin 11.3, platelet count 136. BUN 30 and creatinine 1.25-at baseline. Blood sugar 166. Amylase 156 and lipase 342. Urinalysis negative for infection. Patient was to be admitted to the [facility] floor and consult obtained with Dr. Fagan. Plan for cholecystectomy tomorrow. Xarelto remains on hold. 03/06: Patient has been afebrile, heart rate 76, blood pressure 116/73, pulse ox 93% on room air. WBC 2.6, hemoglobin 11.5, platelet count 140. BUN 21 creatinine 1.16. Total bilirubin 1.5, AST 20, ALT 19, alkaline phosphatase 33. Lipase is 862. Patient is status post laparoscopic cholecystectomy. Orthopedic consult has been added regarding left shoulder hematoma. The patient is currently stable in the postop period. nurse monitoring is sinus rhythm. 03/07: Patient had a drop in her blood pressure yesterday afternoon and she is now on total of 4-1/2 L. Patient also had a drop in her hemoglobin and is currently receiving a second unit of packed RBCs. Patient was transferred into the intensive care unit and consult added for pulmonary medicine. This morning, patient states she is penicillin and gas but no bowel movement. Pain is currently a #2. She is hemodynamically stable. Consults have been added for Dr. Maria. Patient has been seen by Dr. Castellanos with no plan for any surgical intervention/ERCP. Patient has been seen by orthopedics and no infection, hematoma noted. Recommend warm and cold compresses to the left shoulder and activity as tolerated. Repeat chest x-ray shows small right pleural effusion. BUN 23 and creatinine 1.22. Patient does have pancytopenia. 03/08: Patient has been seen by oncology. She is status post transfusion of 2 units of packed RBCs. No need for transfusion of platelets. Repeat lab work this morning reveals white count of 2.9, hemoglobin 7.2, platelet count 84, blast cells 10%. BUN 20, creatinine 1.17, sodium 140, potassium 3.5, chloride 117, CO2 17. Lipase 71. Blood cultures no growth after 48 hours and to blood cultures no growth after 24 hours. Urine culture in progress. Patient is advanced to a low fiber diet for lunch today by Dr. Fagan. Pathology report is pending. Patient has been afebrile, heart rate 80, blood pressure 125/88, pulse ox 96% on room air. Dr. Maria has recommended resuming Xarelto which is been done for today. Patient remains on Solu-Cortef 100 mg IV daily. The patient states that she is feeling much better. She has had a bowel movement. She denies any dysuria. She does have a Santo catheter in place. She is scheduled for transfer out of the intensive care unit today. Objective - Vital Signs Vital signs: Vital Signs Temp 98.2 F 03/08/19 08:00 Pulse 80 03/08/19 09:00 Resp 24 03/08/19 09:00 BP 125/88 03/08/19 09:00 Pulse Ox 96 03/08/19 09:00 Intake & Output 03/07/19 03/08/19 03/08/19 18:59 06:59 18:59 Intake Total 3195.731 2140 500 Output Total 698 510 150 Balance 2497.731 1630 350 Weight 70.2 kg 76.6 kg Intake: IV 350 1750 500 0.9 150 Piperacillin-Tazobactam 3 200 100 100 .375 gm In Sodium Chloride 0.9% 100 ml @ 25 mls/hr IVPB Q8HR [facility] Rx# :[id number] Sodium Chloride 0.9% 1, 1650 400 000 ml @ 100 mls/hr IV . Q10H [facility] Rx#:[id number] Intake, IV Titration 1930.731 150 Amount Magnesium Sulfate-D5w Pmx 200 1 gm In Dextrose/Water 1 100ml.bag @ 100 mls/hr IVPB Q1H [facility] Rx#: [id number] Norepinephrine 8 mg In 30.731 Sodium Chloride 0.9% 250 ml @ 0.05 MCG/KG/MIN 5. 705 mls/hr IV .Q24H [facility] Rx#:[id number] Sodium Chloride 0.9% 1, 1700 150 000 ml @ 100 mls/hr IV . Q10H [facility] Rx#:[id number] Oral 245 240 Blood Product 620 Rc Irr As1 Unit 310 [id number] Other 50 Rc Irr As1 Unit 50 [id number] Output: Drainage 30 0 Left Lateral Abdomen 30 0 Urine 668 510 150 Other: Voiding Method Indwelling Catheter Indwelling Catheter Indwelling Catheter - Exam Review of Systems Constitutional: Reports anorexia, Reports poor appetite, Denies chills, Denies fatigue, Denies fever, Denies sweats, Denies weakness Ears, nose, mouth and throat: Denies nasal congestion, Denies nasal discharge, Denies vertigo Cardiovascular: Denies chest pain, Denies dyspnea on exertion, Denies edema, Denies leg edema, Denies lightheadedness, Denies syncope Respiratory: Denies cough, Denies cough with sputum, Denies dyspnea, Denies excessive sputum, Denies hemoptysis, Denies home oxygen, Denies wheezing Gastrointestinal: Reports abdominal pain-improved, Reports loss of appetite, denies nausea, Denies diarrhea, Denies vomiting Genitourinary: Denies dysuria, Denies urgency, Denies urinary frequency Musculoskeletal: Denies frequent falls, Denies gait dysfunction, Denies muscle weakness, Denies myalgias Musculoskeletal: left: shoulder pain, shoulder stiffness, shoulder swelling Integumentary: Reports color changes left shoulder, Reports darkening of skin, Denies pruritus, Denies rash, Denies wounds Neurological: Denies change in mentation, Denies change in speech, Denies gait dysfunction, Denies seizures, Denies syncope, Denies vertigo, Denies weakness Psychiatric: Denies anxiety, Denies depression Endocrine: Denies fatigue, Denies weight change Gen: This is a 68-year-old female. She is resting in ICU bed and appears to be comfortable. HEENT: Head is atraumatic, normocephalic. Pupils equal, round. Sclerae is anicteric. NECK: Supple. No JVD. No lymphadenopathy. No thyromegaly. LUNGS: Clear to auscultation. No wheezes or rhonchi. No intercostal retractions. HEART: Regular rate and rhythm. No murmur. ABDOMEN: Soft. Decreased bowel sounds are present. No masses. Mild tenderness to the epigastric and right upper quadrant. No organomegaly. Santo catheter in place draining clear doreen urine. EXTREMITIES: No pedal edema. No calf tenderness. Left shoulder has large area of swelling extending into the upper arm, ecchymosis, limited range of motion. NEUROLOGICAL: Patient is awake, alert and oriented x3. Cranial nerves 2 through 12 are grossly intact. - Labs CBC & Chem 7: 03/08/19 04:03 03/08/19 04:06 Labs: Abnormal Lab Results - Last 24 Hours (Table) 03/06/19 03/06/19 03/07/19 Range/Units 17:16 19:39 04:55 WBC 2.8 L (3.8-10.6) k/uL RBC 2.00 L (3.80-5.40) m/uL Hgb 6.5 L* (11.4-16.0) gm/dL Hct 19.5 L* (34.0-46.0) % RDW 16.1 H (11.5-15.5) % Plt Count 100 L (150-450) k/uL Blast Cells % 8 H* % Lymphocytes # (Manual) (1.0-4.8) k/uL Blast Cells # (Man) 0.22 H (0) k/uL Nucleated RBCs (0-0) /100 WBC Pathologist Review See comment A Chloride (98-107) mmol/L Carbon Dioxide (22-30) mmol/L BUN (7-17) mg/dL Creatinine (0.52-1.04) mg/dL Calcium (8.4-10.2) mg/dL Magnesium (1.6-2.3) mg/dL Iron 8 L (50-170) ug/dL TIBC 207 L (228-460) ug/dL Iron Saturation 3.86 L (12.00-45.00) Crossmatch See Detail 03/07/19 03/08/19 03/08/19 Range/Units 16:31 04:03 04:06 WBC 3.0 L 2.9 L (3.8-10.6) k/uL RBC 2.48 L 2.30 L (3.80-5.40) m/uL Hgb 7.9 L 7.2 L (11.4-16.0) gm/dL Hct 23.5 L 21.8 L (34.0-46.0) % RDW 17.3 H 17.3 H (11.5-15.5) % Plt Count 95 L 84 L (150-450) k/uL Blast Cells % 10 H* % Lymphocytes # (Manual) 0.87 L (1.0-4.8) k/uL Blast Cells # (Man) 0.29 H (0) k/uL Nucleated RBCs 1 H (0-0) /100 WBC Pathologist Review Chloride 117 H (98-107) mmol/L Carbon Dioxide 17 L (22-30) mmol/L BUN 20 H (7-17) mg/dL Creatinine 1.17 H (0.52-1.04) mg/dL Calcium 6.9 L (8.4-10.2) mg/dL Magnesium 2.4 H (1.6-2.3) mg/dL Iron (50-170) ug/dL TIBC (228-460) ug/dL Iron Saturation (12.00-45.00) Crossmatch Microbiology - Last 24 Hours (Table) 03/06/19 20:03 Blood Culture - Preliminary Blood No Growth after 24 hours 03/06/19 19:39 Blood Culture - Preliminary Blood No Growth after 24 hours 03/05/19 08:20 Blood Culture - Preliminary Blood No Growth after 48 hours 03/06/19 22:50 Urine Culture - Preliminary Urine,Catheterized Assessment and Plan Plan: 1. Abdominal pain and nausea secondary to cholecystitis. Patient has been seen by Dr. Fagan that is status post laparoscopic cholecystectomy's morning. Patient resumed on Xarelto. Patient to be transferred out of the intensive care unit today. 2. Postoperative hypovolemic shock secondary to acute blood loss related to the recent cholecystectomy and from left shoulder hematoma. Patient is status post fluid resuscitation. She is currently stable. 3. Acute blood loss anemia secondary to recent surgery and left shoulder ecch ymosis. Status post transfusion of 2 units packed RBCs. 4. Non-ion gap metabolic acidosis. 5. Pancytopenia secondary to underlying multiple myeloma and blood loss. 6. Hypertension. Hold valsartan 80 mg daily 7. Hyperlipidemia. 8. Chronic kidney disease stage III. 9. Multiple myeloma under care of Dr. Maria. Patient is currently on Revlimid and dexamethasone--on hold. 10. Paroxysmal atrial fibrillation, rate controlled. Xarelto resumed 11. Large left shoulder hematoma. Xarelto resumed. 12. GI prophylaxis. Protonix. 13. DVT prophylaxis. TETO hose 14. Mild elevation in lipase most likely secondary to passed stone without pancreatitis. Discharge plan: Return home. Impression and plan of care have been directed as dictated by the signing physician. Barbara Barth nurse practitioner acting as scribe for signing physician.
[2019-03-08] MEDS: RIVAROXABAN 15 MG TAB PO SCH (18:30)
[2019-03-08] MEDS: IPRATROPIUM-ALBUTEROL 3 ML NEB INHALATION SCH (19:10)
[2019-03-08] MEDS: BUDESONIDE 1 MG/2 ML NEBU INHALATION SCH (19:10)
[2019-03-08] MEDS: MELATONIN 3 MG TABLET PO SCH (22:20)
[2019-03-08] MEDS: IPRATROPIUM-ALBUTEROL 3 ML NEB INHALATION PRN (22:36)
[2019-03-09] MEDS: PIPERACILLIN-TAZOBACTAM 3.375 GM in SODIUM CHLORIDE 0.9% 100 ML IVPB SCH ×4 (00:20→23:55)
[2019-03-09] MEDS: HYDROcodone/APAP 5-325MG 1 EACH TAB PO PRN ×4 (04:26→23:52)
[2019-03-09] MEDS: SODIUM CHLORIDE 0.9% 1,000 ML IV SCH ×2 (08:00→17:10)
[2019-03-09] MEDS ORDERED: FUROSEMIDE 10 MG/ML 4 ML VIAL IV STA (08:16)
--- NOTE | 2019-03-09 08:18 | P.PN ---
Subjective Progress Note Date: 03/09/19 Patient seen and examined at bedside. States that she feels swollen today and is noted to have some lower extremity edema. She is stating that she is having some difficulty with deep breaths. Abdominal pain is unchanged from yesterday. Objective - Vital Signs Vital signs: Vital Signs Temp 98.1 F 03/09/19 04:00 Pulse 66 03/09/19 05:00 Resp 22 03/09/19 05:00 BP 156/77 03/09/19 04:00 Pulse Ox 96 03/09/19 04:00 Intake & Output 03/08/19 03/09/19 03/09/19 18:59 06:59 18:59 Intake Total 2080 1500 100 Output Total 825 570 60 Balance 1255 930 40 Intake: IV 1600 1200 100 Piperacillin-Tazobactam 3 200 100 .375 gm In Sodium Chloride 0.9% 100 ml @ 25 mls/hr IVPB Q8HR [facility] Rx# :[id number] Sodium Chloride 0.9% 1, 1400 1100 100 000 ml @ 100 mls/hr IV . Q10H [facility] Rx#:[id number] Oral 480 300 Output: Drainage 0 0 Left Lateral Abdomen 0 0 Urine 825 570 60 Other: Voiding Method Indwelling Catheter Indwelling Catheter # Bowel Movements 1 - Constitutional General appearance: Present: cooperative, no acute distress - Gastrointestinal Gastrointestinal Comment(s): Soft, appropriate tenderness, nondistended, no rebound, no guarding - Psychiatric Psychiatric: Present: A&O x's 3 - Labs CBC & Chem 7: 03/08/19 04:03 03/08/19 04:06 Labs: Microbiology - Last 24 Hours (Table) 03/06/19 20:03 Blood Culture - Preliminary Blood No Growth after 48 hours 03/06/19 19:39 Blood Culture - Preliminary Blood No Growth after 48 hours 03/06/19 22:50 Urine Culture - Final Urine,Catheterized 03/05/19 08:20 Blood Culture - Preliminary Blood No Growth after 72 hours Assessment and Plan (1) Acute cholecystitis Narrative/Plan: 68-year-old female with acute cholecystitis, probable perforated gallbladder, POD #3 lap mandeep - I did discuss the case with the ICU team, plan is for Lasix due to finding of lower extremity edema - Chest x-ray pending - Plan to DC LENORE drain today - Progressing slowly - Continue ICU and medical recommendations Current Visit: Yes Status: Acute Code(s): K81.0 - ACUTE CHOLECYSTITIS SNOMED Code(s): 35882352
--- NOTE | 2019-03-09 08:18 | XR ---
EXAMINATION TYPE: XR chest 1V portable DATE OF EXAM: 03/09/2019 Comparison: 03/06/2019 Clinical History: 68-year-old female wheezing Findings: Heart upper limits of normal in size. Atherosclerotic arch calcifications. Focal right midlung opacit y. Continued bibasilar opacities. Small right pleural effusion slightly increased from prior. Impression: Borderline heart size with interstitial changes, developing confluent opacity right midlung, increase d small right pleural effusion with adjacent bibasilar atelectasis and/or infiltrates. Query underlyi ng CHF as an etiology.
[2019-03-09] MEDS: HYDROCORTISONE SUCCINATE 100 MG/2 ML VIAL IV SCH (08:33)
[2019-03-09] MEDS: PANTOPRAZOLE 40 MG TABLET PO SCH (08:33)
[2019-03-09] MEDS: BUDESONIDE 1 MG/2 ML NEBU INHALATION SCH ×2 (08:34→19:27)
[2019-03-09] MEDS: IPRATROPIUM-ALBUTEROL 3 ML NEB INHALATION SCH ×4 (08:34→19:27)
[2019-03-09] MEDS: SENNOSIDES-DOCUSATE SODIUM 1 EACH TAB PO SCH (08:44)
[2019-03-09 09:22] LABS: Anisocytosis Slight; HCT 24.1 % (34.0-46.0); HGB 7.8 gm/dL (11.4-16.0); Hypochromasia Slight; MCH 31.9 pg (25.0-35.0); MCHC 32.4 g/dL (31.0-37.0); MCV 98.4 fL (80.0-100.0); Macrocytosis Slight; Mean Platelet Volume 11.8; Poikilocytosis Slight; RBC 2.44 m/uL (3.80-5.40); RDW 18.4 % (11.5-15.5); WBC 3.8 k/uL (3.8-10.6)
[2019-03-09 09:23] LABS: Platelet Count 97 k/uL (150-450)
[2019-03-09 09:28] LABS: Albumin 2.6 g/dL (3.5-5.0); Calcium 6.9 mg/dL (8.4-10.2); Potassium 3.6 mmol/L (3.5-5.1); Total Bilirubin 0.6 mg/dL (0.2-1.3); Total Protein 4.6 g/dL (6.3-8.2)
[2019-03-09 10:00] LABS: Eosinophils # (M) 0.11 k/uL (0-0.7); Lymphocytes # (M) 0.99 k/uL (1.0-4.8); Monocytes # (M) 0.34 k/uL (0-1.0); Neutrophils % (M) 56 %
[2019-03-09 10:01] LABS: Large Platelets Present; Nucleated Red Blood Cells 1 /100 WBC (0-0); Total Cells Counted 200
--- NOTE | 2019-03-09 12:15 | P.PN ---
Subjective Progress Note Date: 03/09/19 Principal diagnosis: Acute cholecystitis This is a 68-year-old female with history of multiple medical problems including multiple myeloma, history of stem cell transplant 2, presently under the care of Dr. Maria, maintained on gamunex and dexamethasone, and Revlimid Patient is also known to have chronic kidney disease stage III, hypertension, history of deep vein thromboses in 2017, maintained on Xarelto for her previous history of DVT and for paroxysmal atrial fibrillation. Her deep vein thrombosis was related to previous hip surgery and hip fracture. Patient had a recent discomfort in the left shoulder area posteriorly, and has been scratching the area thinking that she may have a bug bite. Patient apparently developed generalized swelling of the musculature of the left shoulder representing possibly intramuscular hemorrhage and she developed significant ecchymosis in the area of the left shoulder and left upper extremity. CT of the left shoulder was noted. MRI was recommended. And orthopedic consultation is pending. On the day of admission, patient presented with severe epigastric pain came in to [facility] emergency room, and she was noted to have significant gallbladder distention with gallbladder wall thickening and very cholecystic fluid suggestive of acute cholecystitis. Small amount of ascites noted adjacent to the liver. Patient was noted to have a white count of 3.3 hemoglobin of 11.3 and she had slightly elevated amylase and lipase. Underwent laparoscopic cholecystectomy by Dr. Fagan, presently in the ICU. Hemoglobin on admission was 11.3, and hemoglobin this morning is 6.5. Patient received a total of 2 units of packed RBCs since admission. Xarelto is presently on hold. Blood pressure was noted to be a bit low earlier today, and the patient has been on norepinephrine at 3 mcg/m. Her blood pressure medication is presently on hold. And the patient is empirically on Zosyn. Patient is receiving stress doses of hydrocortisone since she is normally on methotrexate for her underlying multiple myeloma. Chest x-ray today showed minimal atelectasis at the right base, and small tiny right-sided pleural effusion. Her basic metabolic profile showed non-anion gap metabolic acidosis, bicarb is 17. Creatinine is 1.2 today, and it was 1.25 on admission. Lipase is down to 78 today. During my evaluation, the patient denied any headache, blurred vision, dizziness, denies any shortness of breath, no cough, no wheezing, no chest pain. Continues to have some epigastric discomfort and right upper quadrant pain and concerned about the ecchymosis that she has in her left upper extremity. And left shoulder area. Patient was reevaluated today on 03/08/2019, she is feeling much better today compared to yesterday. Patient is sitting in a bedside chair, doing well, pain is significantly better, denies any shortness of breath, presently on room air. Compliant with her incentive spirometer. WBC count is 2.9 hemoglobin is 7.2 today, her platelets are 84,000, there is 10% blast cells noted on the differential, and 7% bands. Basic metabolic profile is relatively normal except for a bicarb of 17 BUN is 20 creatinine is 1.17 slightly improved compared to 2 days ago. Blood cultures remain negative so far in the last 72 hours. Urine culture is also negative. Patient was seen by hematology/oncology and amanuel mmended placing the patient back on Xarelto, and I agree that the benefits of Xarelto outweigh the risks at this point. Reevaluated today on 03/09/2019, patient remains as an overflow in the ICU. She developed some shortness of breath cough and wheezing earlier today, chest x-ray is showing evidence of right upper lobe infiltrate, bibasilar atelectasis, and small bilateral pleural effusions. Given a dose of Lasix 40 mg IV push, remains on antibiotics and bronchodilators as well as steroids. Patient remains on room air, O2 saturation is in the 90s on room air. CBC showed WBC count of 3.8 he moglobin of 7.8, continues to have 8% blast cells in the differential. Platelets were noted to be at 97,000. Patient was placed on Xarelto by hematology/oncology on the case. Electrolytes are normal bicarb remains at 17 BUN is 14 creatinine is 1.10, improved compared to creatinine on admission. Objective - Vital Signs Vital signs: Vital Signs Temp 98.1 F 03/09/19 04:00 Pulse 75 03/09/19 11:46 Resp 28 H 03/09/19 09:00 BP 154/75 03/09/19 09:00 Pulse Ox 96 03/09/19 08:00 Intake & Output 03/08/19 03/09/19 03/09/19 18:59 06:59 18:59 Intake Total 2080 1500 520 Output Total 825 570 275 Balance 1255 930 245 Intake: IV 1600 1200 280 Piperacillin-Tazobactam 3 200 100 100 .375 gm In Sodium Chloride 0.9% 100 ml @ 25 mls/hr IVPB Q8HR [facility] Rx# :[id number] Sodium Chloride 0.9% 1, 1400 1100 180 000 ml @ 20 mls/hr IV . Q24H [facility] Rx#:[id number] Oral 480 300 240 Output: Drainage 0 0 10 Left Lateral Abdomen 0 0 10 Urine 825 570 265 Other: Voiding Method Indwelling Catheter Indwelling Catheter # Bowel Movements 1 1 - Exam Physical Exam: Revealed a 68-year-old female in no distress. Remains on room air. Head: Atraumatic, normocephalic. HEENT:[Neck is supple.] [No neck masses.] [No thyromegaly.] [No JVD.] PERRLA, EOMI, no icterus. Chest: [Minimal fine crackles at the bases. Rhonchi bilaterally no wheezing. No chest wall tenderness. Cardiac Exam: [Normal S1 and S2, no S3 gallop, no murmur.] Abdomen: [Soft, minimal tenderness in the right upper quadrant noted, positive bowel sounds. Extremities: [No clubbing, no edema, no cyanosis.] Evidence of ecchymosis noted in the left shoulder area and in the left upper extremity area extending almost to the elbow. Neurological Exam: [No focal neurologic deficit.] Alert oriented 3. Psychiatric: Normal mood, affect and normal mental status examination. Lymphatics: No lymphadenopathy. - Labs CBC & Chem 7: 03/09/19 08:44 03/09/19 08:44 Labs: Abnormal Lab Results - Last 24 Hours (Table) 03/09/19 03/09/19 Range/Units 08:44 08:44 RBC 2.44 L (3.80-5.40) m/uL Hgb 7.8 L (11.4-16.0) gm/dL Hct 24.1 L (34.0-46.0) % RDW 18.4 H (11.5-15.5) % Plt Count 97 L (150-450) k/uL Blast Cells % 8 H* % Lymphocytes # (Manual) 0.99 L (1.0-4.8) k/uL Blast Cells # (Man) 0.30 H (0) k/uL Nucleated RBCs 1 H (0-0) /100 WBC Chloride 118 H (98-107) mmol/L Carbon Dioxide 17 L (22-30) mmol/L Creatinine 1.10 H (0.52-1.04) mg/dL Glucose 131 H (74-99) mg/dL Calcium 6.9 L (8.4-10.2) mg/dL Total Protein 4.6 L (6.3-8.2) g/dL Albumin 2.6 L (3.5-5.0) g/dL Microbiology - Last 24 Hours (Table) 03/05/19 08:20 Blood Culture - Preliminary Blood No Growth after 96 hours 03/06/19 20:03 Blood Culture - Preliminary Blood No Growth after 48 hours 03/06/19 19:39 Blood Culture - Preliminary Blood No Growth after 48 hours 03/06/19 22:50 Urine Culture - Final Urine,Catheterized Assessment and Plan Assessment: Impression: 1 abdominal pain secondary to acute cholecystitis and possible pancreatitis. 2 status post laparoscopic cholecystectomy, postoperative day #3 3 postoperative anemia, multifactorial, possibly related to surgery, also related to left shoulder ecchymosis and intramuscular bleeding, and possibly related to her underlying multiple myeloma which is being addressed by oncology on the case. 4 non-anion gap metabolic acidosis and history of chronic kidney disease stage III. Secondary to multiple myeloma. 5 history of multiple myeloma being followed by oncology. 6 history of paroxysmal atrial fibrillation presently controlled and patient is in sinus rhythm. 7 left shoulder ecchymosis, improving, not getting any worse, hence patient is being considered for restarting Xarelto as per oncology on the case. 8 hypotension, multifactorial resolved 9 fluid overload, patient received lots of fluids and blood transfusion during her admission, suspect the findings of the chest x-ray are mostly related to fluid overload, and the patient will improve with Lasix, however the possibility of early right upper lobe infiltrate/pneumonia is not entirely ruled out hence we will continue antibiotics and/Zosyn. Recommendation: Continue antibiotics, IV fluids, continue incentive spirometry, ambulation, resume Xarelto Will transfer the patient out of the ICU to a regular medical floor. Lasix was given earlier today, we'll continue to follow on the chest x-ray daily. In the meantime continue bronchodilators and steroids. Time with Patient: Less than 30
--- NOTE | 2019-03-09 13:52 | P.PN ---
Subjective Progress Note Date: 03/09/19 This is a 68-year-old female patient of Dr. Shelton with past medical history of multiple myeloma currently on Revlimi and Dexamethasone, under the care of Dr. Maria, chronic kidney disease stage III, osteopenia, hypertension and history of DVT started on Xarelto, paroxysmal atrial fibrillation on Xarelto. Patient has been on Xarelto since last year after she had hip fracture and repair and subsequently developed DVT. Patient did have documented episode of atrial fibrillation on Thanksgiving of last year. gives history that they were in [facility] and patient had a bug bite to her left shoulder posterior area and started scratching the area subsequently developed a hematoma that was quite significant at the time and continued to worsen recently. Patient underwent a CAT scan of the left shoulder ordered by Dr. Shelton yesterday revealed generalized swelling of the musculature of the left shoulder could represent areas of intramuscular hemorrhage. Had stranding along the superior and posterior aspect of the left shoulder could represent generalized bruising. Suspect distention of the glenohumeral joint with intermediate density fluid jose-arthrosis difficult to exclude. Hemorrhagic fluid may also be located in the sub-acral meal/subdeltoid bursa. Recommendations were MRI or ultrasound. No acute osseous abnormality. Patient was instructed to hold Xarelto due to thi s hematoma. Her last dose was yesterday. Patient woke up at 4:30 this morning with severe epigastric pain and she came into [facility] emergency center for evaluation. CT of the abdomen and pelvis revealed significant gallbladder distention with gallbladder wall thickening and pericholic fluid concerning for acute cholecystitis. Common bile duct is dilated measuring up to 10.3 mm. Bilateral fat stranding adjacent to the adrenal glands with calcifications. Calcified uterine myomas. Right lower lobe groundglass nodule 4.9 mm. Ultrasound the gallbladder revealed thickening gallbladder wall, dilated common bile duct. Findings compatible with acute cholecystitis. No gallstones seen. Small amount of ascites adjacent to the liver. White count was 3.3, hemoglobin 11.3, platelet count 136. BUN 30 and creatinine 1.25-at baseline. Blood sugar 166. Amylase 156 and lipase 342. Urinalysis negative for infection. Patient was to be admitted to the [facility] floor and consult obtained with Dr. Fagan. Plan for cholecystectomy tomorrow. Xarelto remains on hold. 03/06: Patient has been afebrile, heart rate 76, blood pressure 116/73, pulse ox 93% on room air. WBC 2.6, hemoglobin 11.5, platelet count 140. BUN 21 creatinine 1.16. Total bilirubin 1.5, AST 20, ALT 19, alkaline phosphatase 33. Lipase is 862. Patient is status post laparoscopic cholecystectomy. Orthopedic consult has been added regarding left shoulder hematoma. The patient is currently stable in the postop period. monitoring analyst is sinus rhythm. 03/07: Patient had a drop in her blood pressure yesterday afternoon and she is now on total of 4-1/2 L. Patient also had a drop in her hemoglobin and is currently receiving a second unit of packed RBCs. Patient was transferred into the intensive care unit and consult added for pulmonary medicine. This morning, patient states she is penicillin and gas but no bowel movement. Pain is currently a #2. She is hemodynamically stable. Consults have been added for Dr. Maria. Patient has been seen by Dr. Castellanos with no plan for any surgical intervention/ERCP. Patient has been seen by orthopedics and no infection, hematoma noted. Recommend warm and cold compresses to the left shoulder and activity as tolerated. Repeat chest x-ray shows small right pleural effusion. BUN 23 and creatinine 1.22. Patient does have pancytopenia. 03/08: Patient has been seen by oncology. She is status post transfusion of 2 units of packed RBCs. No need for transfusion of platelets. Repeat lab work this morning reveals white count of 2.9, hemoglobin 7.2, platelet count 84, blast cells 10%. BUN 20, creatinine 1.17, sodium 140, potassium 3.5, chloride 117, CO2 17. Lipase 71. Blood cultures no growth after 48 hours and to blood cultures no growth after 24 hours. Urine culture in progress. Patient is advanced to a low fiber diet for lunch today by Dr. Fagan. Pathology report is pending. Patient has been afebrile, heart rate 80, blood pressure 125/88, pulse ox 96% on room air. Dr. Maria has recommended resuming Xarelto which is been done for today. Patient remains on Solu-Cortef 100 mg IV daily. The patient states that she is feeling much better. She has had a bowel movement. She denies any dysuria. She does have a Santo catheter in place. She is scheduled for transfer out of the intensive care unit today. 03/09: Patient remains in the intensive care unit as an overflow. Patient states she is not feeling that well this morning, she developed shortness of breath cough and wheezing and increasing edema to the lower extremities in chest x-ray was done. There was bibasilar atelectasis and small bilateral pleural effusions. Patient was given 1 dose of IV Lasix 40 mg. Patient diuresed well. She is using incentive spirometry at 600 MLS. Santo cath remains in place. LENORE drain has been removed. WBC is up to 3.8, hemoglobin 7.8 with 8% blast, platelet count 97. CO2 17, BUN 14 creatinine 1.10. She has been afebrile, heart rate 76, blood pressure 154/75, pulse ox 95% on room air. monitoring analyst is a sinus rhythm. All blood cultures are showing no growth. Urine cultures finalize with no growth. She is eating between 25 and 50% of her meals. Objective - Vital Signs Vital signs: Vital Signs Temp 98.1 F 03/09/19 04:00 Pulse 75 03/09/19 11:46 Resp 28 H 03/09/19 09:00 BP 154/75 03/09/19 09:00 Pulse Ox 96 03/09/19 08:00 Intake & Output 03/08/19 03/09/19 03/09/19 18:59 06:59 18:59 Intake Total 2080 1500 520 Output Total 825 570 275 Balance 1255 930 245 Intake: IV 1600 1200 280 Piperacillin-Tazobactam 3 200 100 100 .375 gm In Sodium Chloride 0.9% 100 ml @ 25 mls/hr IVPB Q8HR [facility] Rx# :[id number] Sodium Chloride 0.9% 1, 1400 1100 180 000 ml @ 20 mls/hr IV . Q24H [facility] Rx#:[id number] Oral 480 300 240 Output: Drainage 0 0 10 Left Lateral Abdomen 0 0 10 Urine 825 570 265 Other: Voiding Method Indwelling Catheter Indwelling Catheter # Bowel Movements 1 1 - Exam Review of Systems Constitutional: Reports poor appetite, Denies chills, reports fatigue, Denies fever, Denies sweats, reports weakness Ears, nose, mouth and throat: Denies nasal congestion, Denies nasal discharge, Denies vertigo Cardiovascular: Denies chest pain, reports dyspnea on exertion, reports leg edema, Denies lightheadedness, Denies syncope Respiratory: Denies cough, Denies cough with sputum, reports dyspnea, Denies excessive sputum, Denies hemoptysis, Denies home oxygen, Denies wheezing Gastrointestinal: Reports abdominal pain-improved, Reports loss of appetite, denies nausea, Denies diarrhea, Denies vomiting Genitourinary: Denies dysuria, Denies urgency, Denies urinary frequency. Santo in place Musculoskeletal: Denies frequent falls, Denies gait dysfunction, Denies muscle weakness, Denies myalgias Musculoskeletal: left: shoulder pain, shoulder stiffness, shoulder swelling Integumentary: Reports color changes left shoulder, Reports darkening of skin, Denies pruritus, Denies rash, Denies wounds Neurological: Denies change in mentation, Denies change in speech, Denies gait dysfunction, Denies seizures, Denies syncope, Denies vertigo, Denies weakness Psychiatric: Denies anxiety, Denies depression Endocrine: Denies fatigue, Denies weight change Gen: This is a 68-year-old female. She is resting in a recliner in ICU and appears to be comfortable. HEENT: Head is atraumatic, normocephalic. Pupils equal, round. Sclerae is anicteric. NECK: Supple. No JVD. No lymphadenopathy. No thyromegaly. LUNGS: Clear to auscultation. No wheezes or rhonchi. No intercostal retractions. HEART: Regular rate and rhythm. No murmur. ABDOMEN: Soft. Decreased bowel sounds are present. No masses. Mild tenderness to the epigastric and right upper quadrant. No organomegaly. Santo catheter in place draining clear doreen urine. EXTREMITIES: 1+ pedal edema. No calf tenderness. Left shoulder has large area of swelling extending into the upper arm, ecchymosis. NEUROLOGICAL: Patient is awake, alert and oriented x3. Cranial nerves 2 through 12 are grossly intact. - Labs CBC & Chem 7: 03/09/19 08:44 03/09/19 08:44 Labs: Abnormal Lab Results - Last 24 Hours (Table) 03/09/19 03/09/19 Range/Units 08:44 08:44 RBC 2.44 L (3.80-5.40) m/uL Hgb 7.8 L (11.4-16.0) gm/dL Hct 24.1 L (34.0-46.0) % RDW 18.4 H (11.5-15.5) % Plt Count 97 L (150-450) k/uL Blast Cells % 8 H* % Lymphocytes # (Manual) 0.99 L (1.0-4.8) k/uL Blast Cells # (Man) 0.30 H (0) k/uL Nucleated RBCs 1 H (0-0) /100 WBC Chloride 118 H (98-107) mmol/L Carbon Dioxide 17 L (22-30) mmol/L Creatinine 1.10 H (0.52-1.04) mg/dL Glucose 131 H (74-99) mg/dL Calcium 6.9 L (8.4-10.2) mg/dL Total Protein 4.6 L (6.3-8.2) g/dL Albumin 2.6 L (3.5-5.0) g/dL Microbiology - Last 24 Hours (Table) 03/05/19 08:20 Blood Culture - Preliminary Blood No Growth after 96 hours 03/06/19 20:03 Blood Culture - Preliminary Blood No Growth after 48 hours 03/06/19 19:39 Blood Culture - Preliminary Blood No Growth after 48 hours 03/06/19 22:50 Urine Culture - Final Urine,Catheterized Assessment and Plan Plan: 1. Abdominal pain and nausea secondary to cholecystitis. Patient has been seen by Dr. Fagan that is status post laparoscopic cholecystectomy's morning. Patient resumed on Xarelto. Patient to be transferred out of the intensive care unit and is waiting for bed. 2. Postoperative hypovolemic shock secondary to acute blood loss related to the recent cholecystectomy and from left shoulder hematoma. Patient is status post fluid resuscitation. She is currently stable. 3. Acute blood loss anemia secondary to recent surgery and left shoulder ecchymosis. Status post transfusion of 2 units packed RBCs. 4. Non-ion gap metabolic acidosis. 5. Pancytopenia secondary to underlying multiple myeloma and blood loss. 6. Hypertension. Hold valsartan 80 mg daily 7. Hyperlipidemia. 8. Chronic kidney disease stage III. 9. Multiple myeloma under care of Dr. Maria. Patient is currently on Revlimid and dexamethasone--on hold. 10. Paroxysmal atrial fibrillation, rate controlled. Xarelto resumed 11. Large left shoulder hematoma. Xarelto resumed. 12. GI prophylaxis. Protonix. 13. DVT prophylaxis. TETO hose 14. Mild elevation in lipase most likely secondary to passed stone without pancreatitis. 15. Fluid overload secondary to IV fluid resuscitation. Patient received 1 dose of IV Lasix. No history of heart failure. Discharge plan: Return home. Impression and plan of care have been directed as dictated by the signing physician. Barbara Barth nurse practitioner acting as scribe for signing physician.
[2019-03-09] MEDS: RIVAROXABAN 15 MG TAB PO SCH (17:05)
[2019-03-09 17:41] LABS: Magnesium 2.2 mg/dL (1.6-2.3); Potassium 3.3 mmol/L (3.5-5.1)
[2019-03-09] MEDS ORDERED: Potassium Replacement Protocol 1 EACH MISC MISCELLANE PRN (17:47)
[2019-03-09] MEDS: POTASSIUM CHLORIDE ER 20 MEQ TAB.ER PO SCH ×2 (17:52→18:55)
--- NOTE | 2019-03-09 18:20 | P.PN ---
Subjective Progress Note Date: 03/09/19 Principal diagnosis: Multiple myeloma, pancytopenia Patient is doing well today. She is still having to splint when she coughs, she denies any fevers, nausea, she had her LENORE drain removed today, no bloating Objective - Vital Signs Vital signs: Vital Signs Temp 98.1 F 03/09/19 04:00 Pulse 75 03/09/19 11:46 Resp 28 H 03/09/19 09:00 BP 154/75 03/09/19 09:00 Pulse Ox 96 03/09/19 08:00 Intake & Output 03/08/19 03/09/19 03/09/19 18:59 06:59 18:59 Intake Total 2080 1500 520 Output Total 825 570 275 Balance 1255 930 245 Intake: IV 1600 1200 280 Piperacillin-Tazobactam 3 200 100 100 .375 gm In Sodium Chloride 0.9% 100 ml @ 25 mls/hr IVPB Q8HR [facility] Rx# :[id number] Sodium Chloride 0.9% 1, 1400 1100 180 000 ml @ 20 mls/hr IV . Q24H [facility] Rx#:[id number] Oral 480 300 240 Output: Drainage 0 0 10 Left Lateral Abdomen 0 0 10 Urine 825 570 265 Other: Voiding Method Indwelling Catheter Indwelling Catheter # Bowel Movements 1 1 - Constitutional General appearance: Present: average body habitus, cooperative, no acute distress - EENT Eyes: Present: anicteric sclerae, EOMI ENT: Present: hearing grossly normal - Respiratory Respiratory: bilateral: CTA - Cardiovascular Rhythm: regular Heart sounds: normal: S1, S2 Abnormal Heart Sounds: Absent: systolic murmur, diastolic murmur, rub, S3 Gallop, S4 Gallop, click, other - Peripheral edema leg Peripheral Edema: bilateral: None - Gastrointestinal General gastrointestinal: Present: normal bowel sounds - Integumentary Integumentary Comment(s): bruising on the left upper arm, shoulder, flank is stable, showing sings of healing - Neurologic Neurologic: Present: CNII-XII intact - Musculoskeletal Musculoskeletal: Present: strength equal bilaterally - Psychiatric Psychiatric: Present: A&O x's 3, appropriate affect, intact judgment & insight - Labs CBC & Chem 7: 03/09/19 08:44 03/09/19 17:13 Labs: Abnormal Lab Results - Last 24 Hours (Table) 03/09/19 03/09/19 Range/Units 08:44 08:44 RBC 2.44 L (3.80-5.40) m/uL Hgb 7.8 L (11.4-16.0) gm/dL Hct 24.1 L (34.0-46.0) % RDW 18.4 H (11.5-15.5) % Plt Count 97 L (150-450) k/uL Blast Cells % 8 H* % Lymphocytes # (Manual) 0.99 L (1.0-4.8) k/uL Blast Cells # (Man) 0.30 H (0) k/uL Nucleated RBCs 1 H (0-0) /100 WBC Chloride 118 H (98-107) mmol/L Carbon Dioxide 17 L (22-30) mmol/L Creatinine 1.10 H (0.52-1.04) mg/dL Glucose 131 H (74-99) mg/dL Calcium 6.9 L (8.4-10.2) mg/dL Total Protein 4.6 L (6.3-8.2) g/dL Albumin 2.6 L (3.5-5.0) g/dL Microbiology - Last 24 Hours (Table) 03/05/19 08:20 Blood Culture - Preliminary Blood No Growth after 96 hours 03/06/19 20:03 Blood Culture - Preliminary Blood No Growth after 48 hours 03/06/19 19:39 Blood Culture - Preliminary Blood No Growth after 48 hours 03/06/19 22:50 Urine Culture - Final Urine,Catheterized Assessment and Plan (1) Pancytopenia Narrative/Plan: Secondary to multiple myeloma, treatment of myeloma and acute distress (i.e. cholecystitis and surgical procedure) Stable with slight improvement today. Blast count is down to 8. Ongoing monitoring while in the hospital. Current Visit: Yes Status: Acute Priority: Medium Code(s): D61.818 - OTHER PANCYTOPENIA SNOMED Code(s): 706216098 (2) History of multiple myeloma Narrative/Plan: Plan is to hold Revlimid and dexamethasone until patient is completely healed from her surgery and she has been seen by her [employer] at [facility]. Patient and verbalized understanding plan. Xgeva will be on hold until patient has her follow-up appointment in the office with Dr. Crow in approximately 4 weeks. Current Visit: No Status: Chronic Priority: Medium Code(s): Z85.79 - PRSNL HX OF MALIG NEOPLM OF LYMPHOID, HEMATPOETC & REL TISS SNOMED Code(s): 894952604356527 (3) DVT (deep venous thrombosis) Narrative/Plan: Patient has been resumed on her 15 mg daily of Xarelto. Hemoglobin is stable, platelet count improved, no evidence of bleeding, bruising of the left arm and shoulder is stable, no signs or symptoms of progression. Current Visit: Yes Status: Chronic Priority: Medium Code(s): I82.409 - ACUTE EMBOLISM AND THOMBOS UNSP DEEP VN UNSP LOWER EXTREMITY SNOMED Code(s): 691337827 Plan: renal function continues to improve, baseline Patient is okay from a Hematology/Oncology standpoint to be discharged once she has been cleared by Attending and consulting Physicians.
[2019-03-09] MEDS ORDERED: METOPROLOL SUCCINATE (ER) 50 MG TAB.ER.24H PO STA (20:06)
[2019-03-09] MEDS: MELATONIN 3 MG TABLET PO SCH (22:36)
[2019-03-09] MEDS: DIAZEPAM 2 MG TAB PO PRN (23:49)
[2019-03-10] MEDS: IPRATROPIUM-ALBUTEROL 3 ML NEB INHALATION PRN (04:07)
[2019-03-10] MEDS ORDERED: RACEPINEPHRINE 2.25% NEB 0.5 ML NEBU INHALATION STA (04:11)
[2019-03-10] MEDS ORDERED: FUROSEMIDE 10 MG/ML 2 ML VIAL IV ONE (08:33)
--- NOTE | 2019-03-10 08:55 | XR ---
EXAMINATION TYPE: XR chest 1V portable DATE OF EXAM: 03/10/2019 HISTORY: Shortness of breath. COMPARISON: 03/09/2019 TECHNIQUE: Single view of the chest is submitted. FINDINGS: Demonstrated are scattered senescent parenchymal change. There is no evidence for focal infiltrate. Small bilateral pleural effusions and probable underlying atelectasis pulmonary venous engorgement without overt failure. The heart is stable. Hilar and mediastinal structures are within normal limits. Degenerative changes are seen of the dorsal spine. IMPRESSION: 1. Stable chest.
[2019-03-10] MEDS: BUDESONIDE 1 MG/2 ML NEBU INHALATION SCH ×2 (08:57→19:29)
[2019-03-10] MEDS: PIPERACILLIN-TAZOBACTAM 3.375 GM in SODIUM CHLORIDE 0.9% 100 ML IVPB SCH ×2 (08:57→15:25)
[2019-03-10] MEDS: IPRATROPIUM-ALBUTEROL 3 ML NEB INHALATION SCH ×4 (08:57→19:29)
[2019-03-10] MEDS: METOPROLOL SUCCINATE (ER) 50 MG TAB.ER.24H PO SCH (09:11)
[2019-03-10] MEDS: PANTOPRAZOLE 40 MG TABLET PO SCH (09:11)
[2019-03-10] MEDS: POTASSIUM BICARBONATE/CIT AC 20 MEQ TABLET.EFF NG-TUBE SCH ×2 (09:11→11:18)
[2019-03-10] MEDS: HYDROCORTISONE SUCCINATE 100 MG/2 ML VIAL IV SCH (09:11)
[2019-03-10] MEDS: SENNOSIDES-DOCUSATE SODIUM 1 EACH TAB PO SCH (09:12)
[2019-03-10] MEDS: HYDROcodone/APAP 5-325MG 1 EACH TAB PO PRN ×2 (09:12→12:57)
--- NOTE | 2019-03-10 10:07 | CONS ---
CONSULTATION Mrs. Doll is a 68-year-old female who is seen for cardiac evaluation and atrial fibrillation. This patient's chart reviewed. This patient has multiple medical problems. She has history of multiple myeloma with history of stem cell transplant x2. The patient has a past history of paroxysmal atrial fibrillation, history of DVT following her hip surgery and hip fracture and patient has been taking Xarelto. The patient was admitted with acute cholecystitis and underwent surgery. She had been doing fairly well. She went into atrial fibrillation with moderately rapid ventricular response last night. The patient did not have any chest pain or shortness of breath. She was otherwise comfortable. Patient was given metoprolol 50 mg oral last night and the patient's rate remained controlled. This morning patient has converted to the normal sinus rhythm. She is feeling well. Denies any chest pain. Denies any shortness of breath. EKG during last night showed atrial fibrillation without any significant ST-T changes. Echocardiogram done this morning shows normal left ventricular systolic function. The patient has a history of hypertension and paroxysmal atrial fibrillation. There is no prior history of myocardial infarction. Patient's potassium was 3.3 yesterday. PAST MEDICAL HISTORY: Past medical history includes history of multiple myeloma, stem cell x2, history of hypertension, history of hyperlipidemia, history of paroxysmal atrial fibrillation and history of chronic kidney disease. PHYSICAL EXAMINATION: Physical examination at present reveals a 68-year-old female who is not in any acute distress. The patient is afebrile. Heart rate is 81 per minute, blood pressure is 143/83 mmHg. Head/ENT examination is negative. Neck is supple. There is no increase in jugular venous pressure. Both the carotid pulses are felt. There is no bruit. Chest is symmetrical. HEART: The PMI is not felt. First and second heart sounds are normal. Lungs are clinically clear to auscultation and percussion. Abdomen is soft. There is mild generalized tenderness noted. EXTREMITIES: Peripheral pulsations are 2+. Patient's monitor now shows normal sinus rhythm. Patient's potassium is 3.1. She has been having some intermittent diarrhea. FINAL IMPRESSION: This patient is status post cholecystectomy, history of multiple myeloma, history of intramuscular hematoma and low hemoglobin. RECOMMENDATIONS: I will continue the patient on Lopressor 50 mg b.i.d. as well as Xarelto once a day. We will correct the patient's potassium. I do not think patient has any evidence of acute coronary syndrome. The patient's chest x-ray shows minimal bilateral pleural effusion and some atelectasis, may be suggestive of some fluid overload. May give intermittent Lasix. MMODL / IJN: [id number] /
[2019-03-10] MEDS ORDERED: POTASSIUM BICARBONATE/CIT AC 20 MEQ TABLET.EFF PO ONE (11:15)
--- NOTE | 2019-03-10 11:48 | P.PN ---
Subjective Progress Note Date: 03/10/19 Patient seen and examined at bedside. She appears to be doing very well today. She is in good spirits. Denies nausea or vomiting. Tolerating diet. States that she is having some diarrhea episodes. States abdominal pain is well-controlled. Objective - Vital Signs Vital signs: Vital Signs Temp 98.2 F 03/10/19 08:00 Pulse 81 03/10/19 09:19 Resp 24 03/10/19 08:00 BP 143/83 03/10/19 08:00 Pulse Ox 100 03/10/19 04:00 Intake & Output 03/09/19 03/10/19 03/10/19 18:59 06:59 18:59 Intake Total 1140 200 460 Output Total 1225 1395 875 Balance -85 -1195 -415 Intake: IV 420 100 100 Piperacillin-Tazobactam 3 200 100 100 .375 gm In Sodium Chloride 0.9% 100 ml @ 25 mls/hr IVPB Q8HR [facility] Rx# :[id number] Sodium Chloride 0.9% 1, 220 000 ml @ 20 mls/hr IV . Q24H [facility] Rx#:[id number] Oral 720 100 360 Output: Drainage 10 Left Lateral Abdomen 10 Urine 1215 1395 875 Other: Voiding Method Indwelling Catheter Indwelling Catheter Indwelling Catheter # Bowel Movements 1 - Constitutional General appearance: Present: cooperative, no acute distress - Gastrointestinal Gastrointestinal Comment(s): soft, appropriate tenderness, nondistended, no rebound, no guarding, incisions healing well - Musculoskeletal Musculoskeletal: Present: generalized weakness - Psychiatric Psychiatric: Present: A&O x's 3 - Labs CBC & Chem 7: 03/09/19 08:44 03/10/19 07:40 Labs: Abnormal Lab Results - Last 24 Hours (Table) 03/09/19 03/10/19 Range/Units 17:13 07:40 Potassium 3.3 L 3.1 L (3.5-5.1) mmol/L Microbiology - Last 24 Hours (Table) 03/05/19 08:20 Blood Culture - Preliminary Blood No Growth after 120 hours 03/06/19 20:03 Blood Culture - Preliminary Blood No Growth after 72 hours 03/06/19 19:39 Blood Culture - Preliminary Blood No Growth after 72 hours Assessment and Plan (1) Acute cholecystitis Narrative/Plan: 68-year-old female with acute cholecystitis, probable perforated gallbladder, POD #4 lap mandeep - Continue med mgmt - LENORE removed yesterday - Progressing slowly - Continue ICU and medical recommendations Current Visit: Yes Status: Acute Code(s): K81.0 - ACUTE CHOLECYSTITIS SNOMED Code(s): 34916219
--- NOTE | 2019-03-10 11:57 | CDI ---
Documentation Clarification Form Date: 03/10/2019 11:43:43 AM From: Katty Kruse RN, CCDS Phone: [phone] Admit Date: 03/05/2019 1:36:00 PM Patient Name: Mercy Doll Visit Number: [id number] ATTENTION: The Clinical Documentation Specialists (CDI) and [facility] Coding Staff appreciate your assistance in clarifying documentation. Please respond to the clarification below the line at the bottom and electronically sign. The CDI & [facility] Coding staff will review the response and follow-up if needed. Please note: Queries are made part of the Legal Health Record. If you have any questions, please contact the author of this message via ITS. Dr. Diogenes Lim Pneumonia was documented in the pulmonary progress notes and requires further specificity. History/Risk Factors: S/p lap choley, Post-operative hypovolemic shock, acute blood loss anemia, pancytopenia, CKD stage 3, paroxysmal atrial fib Clinical Indicators: 03/09 Pulmonary Progress note: "fluid overload, patient received lots of fluids and blood transfusion during her admission, suspect the findings of the chest x- ray are mostly related to fluid overload, and the patient will improve with Lasix, however the possibility of early right upper lobe infiltrate/pneumonia is not entirely ruled out hence we will continue antibiotics and/Zosyn." 03/09 1200 Vital signs: Temp 98.8, HR 84, RR 29, B/P 141/76, spo2 95% ra WBC/Left shift: 3.8/2.13 03/09 CXR: "Borderline heart size with interstitial changes, developing confluent opacity right midlung, increased small right pleural effusion with adjacent bibasilar atelectasis and/or infiltrates. Query underlying CHF as an etiology." 03/09 Attending Lung/Breathing assessment: "LUNGS: Clear to auscultation. No wheezes or rhonchi. No intercostal retractions." Treatment: Antibiotics: Zosyn 3.375 gm IVPB Q 8 hrs O2: room air Breathing TX: Duoneb, QID and PRN, Pulmicort BID, Epinephrine INH In order to capture the severity of condition, please clarify if the condition signifies and you are treating for: Aspiration Pneumonia, identify if: Due to solids or liquids Bacterial Pneumonia, specify causal organism (if known) Gram Negative Pneumonia Due to Strep Due to Staph Due to E. coli Other bacteria (please specify) Other, please specify Unable to determine (Last Revision: September 2017) MTDD
--- NOTE | 2019-03-10 12:12 | P.PN ---
Subjective Progress Note Date: 03/10/19 Principal diagnosis: Acute cholecystitis This is a 68-year-old female with history of multiple medical problems including multiple myeloma, history of stem cell transplant 2, presently under the care of Dr. Maria, maintained on gamunex and dexamethasone, and Revlimid Patient is also known to have chronic kidney disease stage III, hypertension, history of deep vein thromboses in 2017, maintained on Xarelto for her previous history of DVT and for paroxysmal atrial fibrillation. Her deep vein thrombosis was related to previous hip surgery and hip fracture. Patient had a recent discomfort in the left shoulder area posteriorly, and has been scratching the area thinking that she may have a bug bite. Patient apparently developed generalized swelling of the musculature of the left shoulder representing possibly intramuscular hemorrhage and she developed significant ecchymosis in the area of the left shoulder and left upper extremity. CT of the left shoulder was noted. MRI was recommended. And orthopedic consultation is pending. On the day of admission, patient presented with severe epigastric pain came in to [facility] emergency room, and she was noted to have significant gallbladder distention with gallbladder wall thickening and very cholecystic fluid suggestive of acute cholecystitis. Small amount of ascites noted adjacent to the liver. Patient was noted to have a white count of 3.3 hemoglobin of 11.3 and she had slightly elevated amylase and lipase. Underwent laparoscopic cholecystectomy by Dr. Fagan, presently in the ICU. Hemoglobin on admission was 11.3, and hemoglobin this morning is 6.5. Patient received a total of 2 units of packed RBCs since admission. Xarelto is presently on hold. Blood pressure was noted to be a bit low earlier today, and the patient has been on norepinephrine at 3 mcg/m. Her blood pressure medication is presently on hold. And the patient is empirically on Zosyn. Patient is receiving stress doses of hydrocortisone since she is normally on methotrexate for her underlying multiple myeloma. Chest x-ray today showed minimal atelectasis at the right base, and small tiny right-sided pleural effusion. Her basic metabolic profile showed non-anion gap metabolic acidosis, bicarb is 17. Creatinine is 1.2 today, and it was 1.25 on admission. Lipase is down to 78 today. During my evaluation, the patient denied any headache, blurred vision, dizziness, denies any shortness of breath, no cough, no wheezing, no chest pain. Continues to have some epigastric discomfort and right upper quadrant pain and concerned about the ecchymosis that she has in her left upper extremity. And left shoulder area. Patient was reevaluated today on 03/08/2019, she is feeling much better today compared to yesterday. Patient is sitting in a bedside chair, doing well, pain is significantly better, denies any shortness of breath, presently on room air. Compliant with her incentive spirometer. WBC count is 2.9 hemoglobin is 7.2 today, her platelets are 84,000, there is 10% blast cells noted on the differential, and 7% bands. Basic metabolic profile is relatively normal except for a bicarb of 17 BUN is 20 creatinine is 1.17 slightly improved compared to 2 days ago. Blood cultures remain negative so far in the last 72 hours. Urine culture is also negative. Patient was seen by hematology/oncology and amanuel mmended placing the patient back on Xarelto, and I agree that the benefits of Xarelto outweigh the risks at this point. Reevaluated today on 03/09/2019, patient remains as an overflow in the ICU. She developed some shortness of breath cough and wheezing earlier today, chest x-ray is showing evidence of right upper lobe infiltrate, bibasilar atelectasis, and small bilateral pleural effusions. Given a dose of Lasix 40 mg IV push, remains on antibiotics and bronchodilators as well as steroids. Patient remains on room air, O2 saturation is in the 90s on room air. CBC showed WBC count of 3.8 he moglobin of 7.8, continues to have 8% blast cells in the differential. Platelets were noted to be at 97,000. Patient was placed on Xarelto by hematology/oncology on the case. Electrolytes are normal bicarb remains at 17 BUN is 14 creatinine is 1.10, improved compared to creatinine on admission. Reevaluated today on 03/10/2019, patient looks better today, feeling better, no cough no wheezing no shortness of breath, she is however having intermittent episodes of diarrhea. Vague abdominal pain. Being addressed by surgery on the case. And I have recommended C. difficile colitis screening.her CBC is relatively normal WBC count is 3.8 hemoglobin is 7.8 continues to have 8% blast cells in the differential. Platelets are 97,000 much improved compared to yesterday. Chest x-ray showed resolution of the right upper lobe airspace disease, has minimal bibasilar atelectasis and small bilateral pleural effusions. Lasix was given earlier. Potassium is being corrected as per protocol. Objective - Vital Signs Vital signs: Vital Signs Temp 98.2 F 03/10/19 08:00 Pulse 81 03/10/19 09:19 Resp 24 03/10/19 08:00 BP 143/83 03/10/19 08:00 Pulse Ox 100 03/10/19 04:00 Intake & Output 03/09/19 03/10/19 03/10/19 18:59 06:59 18:59 Intake Total 1140 200 460 Output Total 1225 1395 1075 Balance -85 -1161 -978 Intake: IV 420 100 100 Piperacillin-Tazobactam 3 200 100 100 .375 gm In Sodium Chloride 0.9% 100 ml @ 25 mls/hr IVPB Q8HR [facility] Rx# :[id number] Sodium Chloride 0.9% 1, 220 000 ml @ 20 mls/hr IV . Q24H [facility] Rx#:[id number] Oral 720 100 360 Output: Drainage 10 Left Lateral Abdomen 10 Urine 1215 1395 1075 Other: Voiding Method Indwelling Catheter Indwelling Catheter Indwelling Catheter # Bowel Movements 1 - Exam Physical Exam: Revealed a 68-year-old female in no distress. Remains on room air.O2 saturation is 99% on room air. Head: Atraumatic, normocephalic. HEENT:[Neck is supple.] [No neck masses.] [No thyromegaly.] [No JVD.] PERRLA, EOMI, no icterus. Chest: [Minimal fine crackles at the bases. nor rhonchi no wheezes. Cardiac Exam: [Normal S1 and S2, no S3 gallop, no murmur.] Abdomen: [Soft, minimal tenderness in the right upper quadrant noted, positive bowel sounds. Extremities: [No clubbing, trace of bipedal edema, no cyanosis.] Evidence of ecchymosis noted in the left shoulder area and in the left upper extremity area extending almost to the elbow. Neurological Exam: [No focal neurologic deficit.] Alert oriented 3. Psychiatric: Normal mood, affect and normal mental status examination. Lymphatics: No lymphadenopathy. - Labs CBC & Chem 7: 03/09/19 08:44 03/10/19 07:40 Labs: Abnormal Lab Results - Last 24 Hours (Table) 03/09/19 03/10/19 Range/Units 17:13 07:40 Potassium 3.3 L 3.1 L (3.5-5.1) mmol/L Microbiology - Last 24 Hours (Table) 03/05/19 08:20 Blood Culture - Preliminary Blood No Growth after 120 hours 03/06/19 20:03 Blood Culture - Preliminary Blood No Growth after 72 hours 03/06/19 19:39 Blood Culture - Preliminary Blood No Growth after 72 hours Assessment and Plan Assessment: Impression: 1 abdominal pain secondary to acute cholecystitis and possible pancreatitis. 2 status post laparoscopic cholecystectomy, postoperative day #4 3 postoperative anemia, multifactorial, possibly related to surgery, also related to left shoulder ecchymosis and intramuscular bleeding, and possibly related to her underlying multiple myeloma which is being addressed by oncology on the case. 4 non-anion gap metabolic acidosis and history of chronic kidney disease stage III. Secondary to multiple myeloma. 5 history of multiple myeloma being followed by oncology. 6 history of paroxysmal atrial fibrillation presently controlled and patient is in sinus rhythm.Patient is now back on Xarelto. 7 left shoulder ecchymosis, improving, we'll continue to monitor while on Xarelto 8 hypotension, multifactorial resolved 9 fluid overload, patient received lots of fluids and blood transfusion during her admission,echocardiogram was ordered by admitting physician, doubt LV dysfunction. Recommendation: Continue antibiotics, IV fluids, continue incentive spirometry, ambulation, resume Xarelto Will transfer the patient out of the ICU to a regular medical floor. 20 mg of Lasix was given earlier today, we'll continue to follow . Discussed and reviewed chest x-ray findings with the patient and her was a radiologist. We will sign off for now and see the patient on when necessary basis Time with Patient: Less than 30
--- NOTE | 2019-03-10 12:15 | P.CONS ---
History of Present Illness - Chief Complaint Medical debility - History of Present Illness I had the opportunity to see patient for inpatient rehab consultation with regard to medical debility. She was admitted to [facility] March 05 abdominal pain and evaluated by Dr. Fagan who did perform cholecystectomy on March 06. Patient reports complicated stay in seen by Dr. Diaz for ICU care as well as [facility]ales for pancytopenia and myeloma. [facility] for left shoulder hematoma, appears to be superficial or muscular. Chest x-ray stable. I have just added PT and OT at this time. Previous functional history as elicited from patient: 68-year-old left-handed female who is lives and 2 floor home with . Retired. Describes independent with cooking, laundry, driving, standing shower and gait without device generally. She will use a standard cane or roller walker when fatigue. Denies tobacco or alcohol. Dr. Shelton is regular doctor. Review of Systems Review of systems: ENT: Denies sneezes or discharge. Eyes: Denies discharge or photophobia. Cardiac: Denies chest pain or palpitation. Pulmonary: Denies cough or shortness of breath. Breast: Denies discharge or lumps. Gastrointestinal: Abdominal discomfort and nausea. Genitourinary: Denies discharge or frequency. Musculoskeletal: Denies muscle or bone aches. Neurologic: General weakness. Endocrine: Denies shakes or sweats. Oncology: Denies cancers. Dermatologic: Denies rash, itching, pruritus. ALLERGY/immunology: Denies sneezes, rashes. Past Medical History Past Medical History: Cancer, Hyperlipidemia, Hypertension, Osteoarthritis (OA), Renal Disease Additional Past Medical History / Comment(s): Multiple myeloma, parathyroid adenoma excised History of Any Multi-Drug Resistant Organisms: C-DIFF Year Discovered:: 2011 MDRO Source:: Additional Past Surgical History / Comment(s): Stem cell transplants x2, parathyroidectomy partial, bilateral breast biopsies Past Anesthesia/Blood Transfusion Reactions: No Reported Reaction Past Psychological History: No Psychological Hx Reported Smoking Status: Never smoker Past Alcohol Use History: None Reported Past Drug Use History: None Reported - Past Family History Father Family Medical History: CVA/TIA Mother Family Medical History: COPD Brother(s) Family Medical History: Diabetes Mellitus, Hypertension Sister(s) Family Medical History: Cancer, Diabetes Mellitus, Hypertension Daughter(s) Family Medical History: No Reported History Medications and Allergies Home Medications Medication Instructions Recorded Confirmed Type Dexamethasone 40mg 20 mg PO DIRECTED 02/13/17 03/05/19 History Acetaminophen-Codeine 300-30mg 1 - 2 tab PO Q4-6H PRN 03/05/19 03/05/19 History [Tylenol w/codeine #3] Acyclovir [Zovirax] 400 mg PO DAILY 03/05/19 03/05/19 History Gamunex-C 20gm/200ml Ivig 1 dose IV Q28D 03/05/19 03/05/19 History Valsartan [Diovan] 80 mg PO DAILY 03/05/19 03/05/19 History Calcium Carb/Magnesium Ox,Carb 1.5 tab PO DAILY 03/07/19 03/07/19 History [Froilan-Mag 500-250 MG Chewable] Calcium Carbonate [Calcium] 750 mg PO 03/07/19 History Cholecalciferol (Vitamin D3) 1,000 unit PO DAILY 03/07/19 03/07/19 History [Vitamin D3] Lenalidomide [Revlimid] 5 mg PO DAILY 03/07/19 03/07/19 History Allergies Allergy/AdvReac Type Severity Reaction Status Date / Time sulfamethoxazole Allergy Rash/Hives Verified 03/05/19 07:29 [From Bactrim] trimethoprim [From Bactrim] Allergy Rash/Hives Verified 03/05/19 07:29 Physical Exam Vitals: Vital Signs Temp Pulse Pulse Resp BP BP Pulse Ox 03/10/19 09:19 81 03/10/19 08:57 81 03/10/19 08:00 98.2 F 87 98 24 143/83 03/10/19 04:30 104 H 23 03/10/19 04:28 100 03/10/19 04:20 98 23 03/10/19 04:16 98 03/10/19 04:15 98 03/10/19 04:07 98 03/10/19 04:00 98.3 F 94 24 155/102 100 03/10/19 03:30 93 28 H 03/10/19 03:00 98 24 161/102 03/10/19 02:30 92 19 03/10/19 02:00 87 18 127/79 03/10/19 01:30 96 18 03/10/19 01:00 109 H 23 133/86 03/10/19 00:00 98.4 F 102 H 98 23 145/93 96 03/09/19 23:00 98 98 16 145/97 145/97 98 03/09/19 22:45 111 H 15 141/103 03/09/19 22:30 20 141/103 03/09/19 22:00 113 H 20 141/103 03/09/19 21:08 107 H 115/81 03/09/19 20:00 98.5 F 122 H 16 140/95 98 03/09/19 19:42 118 H 03/09/19 19:29 116 H 03/09/19 17:09 115 H 143/90 03/09/19 16:00 97.5 F L 85 26 H 149/74 96 03/09/19 15:58 86 03/09/19 15:48 88 Intake and Output 03/09/19 03/10/19 03/10/19 22:59 06:59 14:59 Intake Total 440 100 460 Output Total 793 293 3920 Balance -405 -127 -992 Intake: IV 100 100 100 Piperacillin-Tazobactam 3 100 100 100 .375 gm In Sodium Chloride 0.9% 100 ml @ 25 mls/hr IVPB Q8HR [facility] Rx# :[id number] Sodium Chloride 0.9% 1, 0 000 ml @ 20 mls/hr IV . Q24H [facility] Rx#:[id number] Oral 340 360 Output: Urine 217 240 1671 Other: Voiding Method Indwelling Catheter Indwelling Catheter Indwelling Catheter Skin: Good color, texture, turgor. General: Medium build and comfortable appearance. Head: Normocephalic, atraumatic. Eyes: Symmetric. Pupils equal round. Ears: Symmetric. Hearing within normal limits. Mouth: Clear. Neck: Supple. Carotid without bruit. Cardiac: Regular rate and rhythm. Lungs: Clear anteriorly and posteriorly. Abdomen: Soft active nontender. Extremities: Normal tone. Neurological: Mental status: Alert, cooperative, pleasant. Cranial nerves: Symmetric facial tone and trapezius. Motor: Can actively elevate all 4 limbs. Sensation: Intact throughout. DTRs: Symmetric and equal throughout. Mobility: Requires assistance for functional mobility and transfer. Results CBC & Chem 7: 03/09/19 08:44 03/10/19 07:40 Labs: Abnormal Lab Results - Last 24 Hours (Table) 03/09/19 03/10/19 Range/Units 17:13 07:40 Potassium 3.3 L 3.1 L (3.5-5.1) mmol/L Microbiology - Last 24 Hours (Table) 03/05/19 08:20 Blood Culture - Preliminary Blood No Growth after 120 hours 03/06/19 20:03 Blood Culture - Preliminary Blood No Growth after 72 hours 03/06/19 19:39 Blood Culture - Preliminary Blood No Growth after 72 hours Assessment and Plan Plan: Impression: 1. Medical debility. 2. Acute cholecystitis status post cholecystectomy. 3 multiple myeloma. 4 pancytopenia. 5. Hypertension. 6. Dyslipidemia. 7. Chronic kidney disease. 8. Osteoarthritis. Constant plan: At this time prescribed PT and OT and we'll follow therapies with yourself. Have discussed insurance does have criteria is and will have to be mindful of this.
--- NOTE | 2019-03-10 12:41 | ECHOF ---
Referral Reason:Afib MEASUREMENTS -------- HEIGHT: 162.6 cm WEIGHT: 76.2 kg BP: RVIDd: 3.0 cm (< 3.3) IVSd: 0.9 cm (0.6 - 1.1) LVIDd: 3.9 cm (3.9 - 5.3) LVPWd: 1.1 cm (0.6 - 1.1) IVSs: 1.3 cm LVIDs: 2.7 cm LVPWs: 1.3 cm LA Diam: 3.7 cm (2.7 - 3.8) LAESV Index (A-L): 27.15 ml/m Ao Diam: 3.2 cm (2.0 - 3.7) AV Cusp: 1.3 cm (1.5 - 2.6) LA Diam: 4.0 cm (2.7 - 3.8) MV EXCURSION: 18.221 mm (> 18.000) MV EF SLOPE: 72 mm/s (70 - 150) EPSS: 0.3 cm MV E Armando: 0.92 m/s MV DecT: 132 ms MV A Armando: 0.64 m/s MV E/A Ratio: 1.45 AR PHT: 273 ms RAP: 5.00 mmHg RVSP: 48.59 mmHg FINDINGS -------- Sinus rhythm. This was a technically adequate study. The left ventricular size is normal. There is mild concentric left ventricular hypertrophy. Overa ll left ventricular systolic function is normal with, an EF between 55 - 60 %. The right ventricle is normal in size. The left atrial size is normal. The right atrial size is normal. There is mild aortic valve sclerosis. There is no evidence of aortic regurgitation. Mild mitral annular calcification present. Ydey-zl-jmcisfdw mitral regurgitation is present. Moderate tricuspid regurgitation present. There is moderate pulmonary hypertension. The right fatoumata tricular systolic pressure, as measured by Doppler, is 48.59mmHg. There is no pulmonic regurgitation present. The aortic root size is normal. There is no pericardial effusion. CONCLUSIONS -------- 1. Sinus rhythm. 2. This was a technically adequate study. 3. The left ventricular size is normal. 4. There is mild concentric left ventricular hypertrophy. 5. Overall left ventricular systolic function is normal with, an EF between 55 - 60 %. 6. The right ventricle is normal in size. 7. The left atrial size is normal. 8. The right atrial size is normal. 9. There is mild aortic valve sclerosis. 10. Mild mitral annular calcification present. 11. Sevw-gx-erxjxnxh mitral regurgitation is present. 12. Moderate tricuspid regurgitation present. 13. There is moderate pulmonary hypertension. 14. The right ventricular systolic pressure, as measured by Doppler, is 48.59mmHg. 15. There is no pulmonic regurgitation present. 16. The aortic root size is normal. 17. There is no pericardial effusion. PIERCING ARTIST: Liseth Bernardo RDCS
[2019-03-10 12:56] LABS: Anisocytosis Slight; HCT 23.8 % (34.0-46.0); HGB 7.7 gm/dL (11.4-16.0); Hypochromasia Slight; MCH 30.9 pg (25.0-35.0); MCHC 32.5 g/dL (31.0-37.0); MCV 95.2 fL (80.0-100.0); Macrocytosis Slight; Mean Platelet Volume 12.8; Poikilocytosis Slight; RDW 18.4 % (11.5-15.5)
[2019-03-10 12:58] LABS: Platelet Count 98 k/uL (150-450)
--- NOTE | 2019-03-10 13:05 | P.PN ---
Subjective Progress Note Date: 03/10/19 Principal diagnosis: Multiple myeloma, pancytopenia In follow-up today patient is eating her lunch, she states of poor night sleep, denies any other complaints, no pain, she feels that her left shoulder bruising is improved. Objective - Vital Signs Vital signs: Vital Signs Temp 98.2 F 03/10/19 08:00 Pulse 88 03/10/19 12:58 Resp 24 03/10/19 08:00 BP 143/83 03/10/19 08:00 Pulse Ox 100 03/10/19 04:00 Intake & Output 03/09/19 03/10/19 03/10/19 18:59 06:59 18:59 Intake Total 1140 200 460 Output Total 1225 1395 1075 Balance -85 -7125 -615 Intake: IV 420 100 100 Piperacillin-Tazobactam 3 200 100 100 .375 gm In Sodium Chloride 0.9% 100 ml @ 25 mls/hr IVPB Q8HR [facility] Rx# :[id number] Sodium Chloride 0.9% 1, 220 000 ml @ 20 mls/hr IV . Q24H [facility] Rx#:[id number] Oral 720 100 360 Output: Drainage 10 Left Lateral Abdomen 10 Urine 1215 1395 1075 Other: Voiding Method Indwelling Catheter Indwelling Catheter Indwelling Catheter # Bowel Movements 1 - Constitutional General appearance: Present: average body habitus, cooperative, no acute distress - EENT Eyes: Present: anicteric sclerae, EOMI - Respiratory Details: Respiratory effort is unlabored - Integumentary Integumentary Comment(s): The bruising of the left shoulder and left upper arm is in various stages of healing, it continues to improve. - Neurologic Neurologic: Present: CNII-XII intact - Psychiatric Psychiatric: Present: A&O x's 3, appropriate affect, intact judgment & insight - Labs CBC & Chem 7: 03/10/19 08:15 03/10/19 07:40 Labs: Abnormal Lab Results - Last 24 Hours (Table) 03/09/19 03/10/19 03/10/19 Range/Units 17:13 07:40 08:15 WBC 3.5 L (3.8-10.6) k/uL RBC 2.50 L (3.80-5.40) m/uL Hgb 7.7 L (11.4-16.0) gm/dL Hct 23.8 L (34.0-46.0) % RDW 18.4 H (11.5-15.5) % Plt Count 98 L (150-450) k/uL Potassium 3.3 L 3.1 L (3.5-5.1) mmol/L Microbiology - Last 24 Hours (Table) 03/05/19 08:20 Blood Culture - Preliminary Blood No Growth after 120 hours 03/06/19 20:03 Blood Culture - Preliminary Blood No Growth after 72 hours 03/06/19 19:39 Blood Culture - Preliminary Blood No Growth after 72 hours Assessment and Plan (1) Pancytopenia Narrative/Plan: Secondary to multiple myeloma, treatment of myeloma and acute distress (i.e. cholecystitis and surgical procedure) Stable today, no blasts reported. CBC in the a.m Current Visit: Yes Status: Acute Priority: Medium Code(s): D61.818 - OTHER PANCYTOPENIA SNOMED Code(s): 044330433 (2) History of multiple myeloma Narrative/Plan: Hold Revlimid and dexamethasone until patient is completely healed from her surgery and she has been seen by her Belt Loop Machine Operator at [facility]. Xgeva will be on hold until patient has her follow-up appointment in the office with Dr. Maria in approximately 4 weeks. Current Visit: No Status: Chronic Priority: Medium Code(s): Z85.79 - PRSNL HX OF MALIG NEOPLM OF LYMPHOID, HEMATPOETC & REL TISS SNOMED Code(s): 714056382960324 (3) DVT (deep venous thrombosis) Narrative/Plan: Patient has been resumed on her 15 mg daily of Xarelto. Hemoglobin is stable, platelet count stable, no evidence of bleeding, bruising of the left arm and shoulder is stable Current Visit: Yes Status: Chronic Priority: Medium Code(s): I82.409 - ACUTE EMBOLISM AND THOMBOS UNSP DEEP VN UNSP LOWER EXTREMITY SNOMED Code(s): 468891854 Plan: Patient is okay from a Hematology/Oncology standpoint to be discharged once she has been cleared by Attending and consulting Physicians.
[2019-03-10 13:27] LABS: Blast Cells # (M) 0.24 k/uL (0); Eosinophils # (M) 0.07 k/uL (0-0.7); Lymphocytes # (M) 0.82 k/uL (1.0-4.8); Monocytes # (M) 0.27 k/uL (0-1.0); Neutrophils % (M) 59 %; Nucleated Red Blood Cells 4 /100 WBC (0-0); Total Cells Counted 100; WBC 3.4 k/uL (3.8-10.6)
[2019-03-10 13:28] LABS: Large Platelets Present
--- NOTE | 2019-03-10 15:58 | P.PN ---
Subjective Progress Note Date: 03/10/19 This is a 68-year-old female patient of Dr. Shelton with past medical history of multiple myeloma currently on Revlimi and Dexamethasone, under the care of Dr. Maria, chronic kidney disease stage III, osteopenia, hypertension and history of DVT started on Xarelto, paroxysmal atrial fibrillation on Xarelto. Patient has been on Xarelto since last year after she had hip fracture and repair and subsequently developed DVT. Patient did have documented episode of atrial fibrillation on Thanksgiving of last year. gives history that they were in [facility] and patient had a bug bite to her left shoulder posterior area and started scratching the area subsequently developed a hematoma that was quite significant at the time and continued to worsen recently. Patient underwent a CAT scan of the left shoulder ordered by Dr. Shelton yesterday revealed generalized swelling of the musculature of the left shoulder could represent areas of intramuscular hemorrhage. Had stranding along the superior and posterior aspect of the left shoulder could represent generalized bruising. Suspect distention of the glenohumeral joint with intermediate density fluid jose-arthrosis difficult to exclude. Hemorrhagic fluid may also be located in the sub-acral meal/subdeltoid bursa. Recommendations were MRI or ultrasound. No acute osseous abnormality. Patient was instructed to hold Xarelto due to thi s hematoma. Her last dose was yesterday. Patient woke up at 4:30 this morning with severe epigastric pain and she came into [facility] emergency center for evaluation. CT of the abdomen and pelvis revealed significant gallbladder distention with gallbladder wall thickening and pericholic fluid concerning for acute cholecystitis. Common bile duct is dilated measuring up to 10.3 mm. Bilateral fat stranding adjacent to the adrenal glands with calcifications. Calcified uterine myomas. Right lower lobe groundglass nodule 4.9 mm. Ultrasound the gallbladder revealed thickening gallbladder wall, dilated common bile duct. Findings compatible with acute cholecystitis. No gallstones seen. Small amount of ascites adjacent to the liver. White count was 3.3, hemoglobin 11.3, platelet count 136. BUN 30 and creatinine 1.25-at baseline. Blood sugar 166. Amylase 156 and lipase 342. Urinalysis negative for infection. Patient was to be admitted to the [facility] floor and consult obtained with Dr. Fagan. Plan for cholecystectomy tomorrow. Xarelto remains on hold. 03/06: Patient has been afebrile, heart rate 76, blood pressure 116/73, pulse ox 93% on room air. WBC 2.6, hemoglobin 11.5, platelet count 140. BUN 21 creatinine 1.16. Total bilirubin 1.5, AST 20, ALT 19, alkaline phosphatase 33. Lipase is 862. Patient is status post laparoscopic cholecystectomy. Orthopedic consult has been added regarding left shoulder hematoma. The patient is currently stable in the postop period. subpoena server is sinus rhythm. 03/07: Patient had a drop in her blood pressure yesterday afternoon and she is now on total of 4-1/2 L. Patient also had a drop in her hemoglobin and is currently receiving a second unit of packed RBCs. Patient was transferred into the intensive care unit and consult added for pulmonary medicine. This morning, patient states she is penicillin and gas but no bowel movement. Pain is currently a #2. She is hemodynamically stable. Consults have been added for Dr. Maria. Patient has been seen by Dr. Castellanos with no plan for any surgical intervention/ERCP. Patient has been seen by orthopedics and no infection, hematoma noted. Recommend warm and cold compresses to the left shoulder and activity as tolerated. Repeat chest x-ray shows small right pleural effusion. BUN 23 and creatinine 1.22. Patient does have pancytopenia. 03/08: Patient has been seen by oncology. She is status post transfusion of 2 units of packed RBCs. No need for transfusion of platelets. Repeat lab work this morning reveals white count of 2.9, hemoglobin 7.2, platelet count 84, blast cells 10%. BUN 20, creatinine 1.17, sodium 140, potassium 3.5, chloride 117, CO2 17. Lipase 71. Blood cultures no growth after 48 hours and to blood cultures no growth after 24 hours. Urine culture in progress. Patient is advanced to a low fiber diet for lunch today by Dr. Fagan. Pathology report is pending. Patient has been afebrile, heart rate 80, blood pressure 125/88, pulse ox 96% on room air. Dr. Maria has recommended resuming Xarelto which is been done for today. Patient remains on Solu-Cortef 100 mg IV daily. The patient states that she is feeling much better. She has had a bowel movement. She denies any dysuria. She does have a Santo catheter in place. She is scheduled for transfer out of the intensive care unit today. 03/09: Patient remains in the intensive care unit as an overflow. Patient states she is not feeling that well this morning, she developed shortness of breath cough and wheezing and increasing edema to the lower extremities in chest x-ray was done. There was bibasilar atelectasis and small bilateral pleural effusions. Patient was given 1 dose of IV Lasix 40 mg. Patient diuresed well. She is using incentive spirometry at 600 MLS. Santo cath remains in place. LENORE drain has been removed. WBC is up to 3.8, hemoglobin 7.8 with 8% blast, platelet count 97. CO2 17, BUN 14 creatinine 1.10. She has been afebrile, heart rate 76, blood pressure 154/75, pulse ox 95% on room air. subpoena server is a sinus rhythm. All blood cultures are showing no growth. Urine cultures finalize with no growth. She is eating between 25 and 50% of her meals. 03/10: [facility] She was transferred out of intensive care unit this morning. Patient had Valium last night to help with sleep. Patient had brief period of atrial fibrillation with RVR and cardiology consult was requested. Patient was seen by Dr. VC Escalante with recommendations to continue Lopressor 50 mg twice daily and Xarelto. Echocardiogram reveals EF of 55-60% with mild concentric left ventricular hypertrophy, mild to moderate m itral regurgitation, moderate tricuspid regurgitation, moderate pulmonary hypertension. She continues to have lower extremity edema. Patient has been afebrile, heart rate 71, blood pressure 134/81, pulse ox 98% on room air. Repeat lab work reveals white count of 3.4, hemoglobin 7.7, platelet count 98, blast cells 7. Discussed discharge planning and patient is open to consult with Dr. Reagan for inpatient rehab. She would not like to go to subacute rehab. Objective - Vital Signs Vital signs: Vital Signs Temp 98.2 F 03/10/19 08:00 Pulse 81 03/10/19 09:19 Resp 24 03/10/19 08:00 BP 143/83 03/10/19 08:00 Pulse Ox 100 03/10/19 04:00 Intake & Output 03/09/19 03/10/19 03/10/19 18:59 06:59 18:59 Intake Total 1140 200 460 Output Total 1225 1395 1075 Balance -33 -7102 -239 Intake: IV 420 100 100 Piperacillin-Tazobactam 3 200 100 100 .375 gm In Sodium Chloride 0.9% 100 ml @ 25 mls/hr IVPB Q8HR [facility] Rx# :[id number] Sodium Chloride 0.9% 1, 220 000 ml @ 20 mls/hr IV . Q24H [facility] Rx#:[id number] Oral 720 100 360 Output: Drainage 10 Left Lateral Abdomen 10 Urine 1215 1395 1075 Other: Voiding Method Indwelling Catheter Indwelling Catheter Indwelling Catheter # Bowel Movements 1 - Exam Review of Systems Constitutional: Reports poor appetite, Denies chills, reports fatigue, Denies fever, Denies sweats, reports weakness Ears, nose, mouth and throat: Denies nasal congestion, Denies nasal discharge, Denies vertigo Cardiovascular: Denies chest pain, reports dyspnea on exertion, reports leg edema, Denies lightheadedness, Denies syncope, reports palpitations Respiratory: Denies cough, Denies cough with sputum, reports dyspnea, Denies excessive sputum, Denies hemoptysis, Denies home oxygen, Denies wheezing Gastrointestinal: Reports abdominal pain-improved, Reports loss of appetite, denies nausea, Denies diarrhea, Denies vomiting Genitourinary: Denies dysuria, Denies urgency, Denies urinary frequency. Santo in place Musculoskeletal: Denies frequent falls, Denies gait dysfunction, Denies muscle weakness, Denies myalgias Musculoskeletal: left: shoulder pain, shoulder stiffness, shoulder swelling Integumentary: Reports color changes left shoulder, Reports darkening of skin, Denies pruritus, Denies rash, Denies wounds Neurological: Denies change in mentation, Denies change in speech, Denies gait dysfunction, Denies seizures, Denies syncope, Denies vertigo, Denies weakness Psychiatric: Denies anxiety, Denies depression Endocrine: Denies fatigue, Denies weight change Gen: This is a 68-year-old female. She is resting in a recliner and appears to be comfortable. HEENT: Head is atraumatic, normocephalic. Pupils equal, round. Sclerae is anicteric. NECK: Supple. No JVD. No lymphadenopathy. No thyromegaly. LUNGS: Clear to auscultation. No wheezes or rhonchi. No intercostal retractions. HEART: Regular rate and rhythm. No murmur. ABDOMEN: Soft. Normal bowel sounds are present. No masses. No organomegaly. Santo catheter in place draining clear doreen urine. EXTREMITIES: 1+ pedal edema. No calf tenderness. Left shoulder has large area of ecchymosis extending into the upper arm. NEUROLOGICAL: Patient is awake, alert and oriented x3. Cranial nerves 2 through 12 are grossly intact. - Labs CBC & Chem 7: 03/10/19 08:15 03/10/19 07:40 Labs: Abnormal Lab Results - Last 24 Hours (Table) 03/09/19 03/10/19 Range/Units 17:13 07:40 Potassium 3.3 L 3.1 L (3.5-5.1) mmol/L Microbiology - Last 24 Hours (Table) 03/05/19 08:20 Blood Culture - Preliminary Blood No Growth after 120 hours 03/06/19 20:03 Blood Culture - Preliminary Blood No Growth after 72 hours 03/06/19 19:39 Blood Culture - Preliminary Blood No Growth after 72 hours Assessment and Plan Plan: 1. Abdominal pain and nausea secondary to cholecystitis. Patient has been seen by Dr. Fagan that is status post laparoscopic cholecystectomy's morning. Patient resumed on Xarelto. 2. Postoperative hypovolemic shock secondary to acute blood loss related to the recent cholecystectomy and from left shoulder hematoma. Patient is status post fluid resuscitation. She is currently stable. 3. Acute blood loss anemia secondary to recent surgery and left shoulder ecchymosis. Status post transfusion of 2 units packed RBCs. 4. Non-ion gap metabolic acidosis. 5. Pancytopenia secondary to underlying multiple myeloma and blood loss. 6. Hypertension. Continue Toprol-XL 7. Hyperlipidemia. 8. Chronic kidney disease stage III. 9. Multiple myeloma under care of Dr. Maria. Patient is currently on Revlimid and dexamethasone--on hold. 10. Paroxysmal atrial fibrillation, rate controlled. Xarelto resumed. Metoprolol XL 50 mg daily 11. Large left shoulder hematoma. Orthopedic consult appreciated. No surgical intervention. Xarelto resumed. 12. GI prophylaxis. Protonix. 13. DVT prophylaxis. TETO hose 14. Mild elevation in lipase most likely secondary to passed stone without pancreatitis. 15. Fluid overload secondary to IV fluid resuscitation. Aspiration pneumonia not completely ruled out. Continue Zosyn. Patient received 1 dose of IV Lasix. No history of heart failure. Discharge plan: Consult with Dr. Davidson for possible inpatient rehab Impression and plan of care have been directed as dictated by the signing physician. Barbara Barth nurse practitioner acting as scribe for signing physician.
[2019-03-10] MEDS: RIVAROXABAN 15 MG TAB PO SCH (17:54)
[2019-03-10] MEDS: SODIUM CHLORIDE 0.9% 1,000 ML IV SCH (18:03)
[2019-03-10] MEDS: MELATONIN 3 MG TABLET PO SCH (21:35)
[2019-03-10] MEDS: DIAZEPAM 2 MG TAB PO PRN (23:01)
[2019-03-11] MEDS: ONDANSETRON 4 MG/2 ML VIAL IVP PRN ×2 (00:03→08:34)
[2019-03-11] MEDS: PIPERACILLIN-TAZOBACTAM 3.375 GM in SODIUM CHLORIDE 0.9% 100 ML IVPB SCH ×2 (00:06→08:28)
[2019-03-11] MEDS: HYDROcodone/APAP 5-325MG 1 EACH TAB PO PRN (04:23)
[2019-03-11 07:45] VITALS: BP 163/89; RESP 16; TEMP 98.2
[2019-03-11] MEDS: IPRATROPIUM-ALBUTEROL 3 ML NEB INHALATION SCH ×2 (07:55→11:33)
[2019-03-11] MEDS: BUDESONIDE 1 MG/2 ML NEBU INHALATION SCH (07:56)
[2019-03-11 08:10] LABS: Anisocytosis Slight; HCT 20.6 % (34.0-46.0); HGB 7.1 gm/dL (11.4-16.0); Hypochromasia Slight; MCH 32.5 pg (25.0-35.0); MCHC 34.5 g/dL (31.0-37.0); MCV 94.3 fL (80.0-100.0); Mean Platelet Volume 12.9; Poikilocytosis Slight; RBC 2.19 m/uL (3.80-5.40); RDW 17.5 % (11.5-15.5)
[2019-03-11 08:18] LABS: Platelet Count 87 k/uL (150-450)
[2019-03-11] MEDS: METOPROLOL SUCCINATE (ER) 50 MG TAB.ER.24H PO SCH (08:28)
[2019-03-11] MEDS: HYDROCORTISONE SUCCINATE 100 MG/2 ML VIAL IV SCH (08:28)
[2019-03-11] MEDS: PANTOPRAZOLE 40 MG TABLET PO SCH (08:28)
[2019-03-11 08:40] LABS: Calcium 6.6 mg/dL (8.4-10.2); Potassium 3.2 mmol/L (3.5-5.1)
[2019-03-11] MEDS ORDERED: POTASSIUM CHLORIDE ER 20 MEQ TAB.ER PO STA (10:10)
[2019-03-11] MEDS ORDERED: FUROSEMIDE 40 MG TAB PO SCH (10:30)
--- NOTE | 2019-03-11 10:40 | P.PN ---
Subjective This is a pleasant 68-year-old female past medical history significant for hypertension, dyslipidemia, paroxysmal atrial fibrillation, DVT, multiple myeloma s/p stem cell transplant and recently underwent cholecystectomy. We are following for an episode of a-fib post-surgery. She has converted to sinus mechanism. She is seen and examined sitting up in the chair eating breakfast. She denies palpitations, chest discomfort or dizziness. She does complain of feeling short of breath with exertion. Chest xray obttained yesterday revealed bilateral pleural effusion and underlying atelectasis with pulmonary venous congestion. She was given 2 dose of IV lasix the last 2 mornings. Laboratory data reviewed, WBC 3.0, hgb 7.1, plt 87, sodium 142, potassium 3.2, creatinine 1.0, troponin negative x3, proBNP 3440. Currently maintained on toprol 50 mg d aily and xarelto 15 mg daily. Echocardiogram obtained on this admission revealed preserved LV systolic function with EF 55-60%, mild-moderate MR, moderate TR and moderate PH RVSP 48 mmHg. GENERAL: Well-appearing, well-nourished and in no acute distress. NECK: Supple without JVD or thyromegaly. LUNGS: Faint bibasilar rales, no wheezes or rhonchi. Respiration equal and unlabored. HEART: Regular rate and rhythm without murmurs, rubs or gallops. S1 and S2 heard. EXTREMITIES: Normal range of motion, trace pitting edema bilaterally. No clubbing or cyanosis. Peripheral pulses intact. ASSESSMENT Paroxysmal atrial fibrillation, currently maintaining sinus mechanism Hypokalemia Fluid overload secondary to fluid resuscitation POD #5 cholecystectomy Pancytopenia History of multiple myeloma Hypertension Valvular heart disease Pulmonary hypertension PLAN Replace potassium per protocol. Give small dose of PO lasix as she is still quite short of breath with exertion. Nurse Practitioner note has been reviewed, I agree with a documented findings and plan of care. Patient was seen and examined. Objective - Vital Signs Vital signs: Vital Signs Temp 98.2 F 03/11/19 07:00 Pulse 64 03/11/19 08:13 Resp 16 03/11/19 07:00 BP 163/89 03/11/19 07:00 Pulse Ox 99 03/11/19 07:58 Intake & Output 03/10/19 03/11/19 03/11/19 18:59 06:59 18:59 Intake Total 460 Output Total 1075 Balance -615 Intake: IV 100 Piperacillin-Tazobactam 3 100 .375 gm In Sodium Chloride 0.9% 100 ml @ 25 mls/hr IVPB Q8HR [facility] Rx# :[id number] Oral 360 Output: Urine 1075 Other: Voiding Method Indwelling Catheter Toilet # Voids 1 2 # Bowel Movements 1 - Labs CBC & Chem 7: 03/11/19 06:54 03/11/19 06:54 Labs: Abnormal Lab Results - Last 24 Hours (Table) 03/10/19 03/11/19 03/11/19 Range/Units 08:15 06:54 06:54 WBC 3.4 L 3.0 L (3.8-10.6) k/uL RBC 2.50 L 2.19 L (3.80-5.40) m/uL Hgb 7.7 L 7.1 L (11.4-16.0) gm/dL Hct 23.8 L 20.6 L (34.0-46.0) % RDW 18.4 H 17.5 H (11.5-15.5) % Plt Count 98 L 87 L (150-450) k/uL Blast Cells % 7 H* % Lymphocytes # (Manual) 0.82 L (1.0-4.8) k/uL Blast Cells # (Man) 0.24 H (0) k/uL Nucleated RBCs 4 H (0-0) /100 WBC Potassium 3.2 L (3.5-5.1) mmol/L Chloride 113 H (98-107) mmol/L Glucose 106 H (74-99) mg/dL Calcium 6.6 L (8.4-10.2) mg/dL Microbiology - Last 24 Hours (Table) 03/06/19 20:03 Blood Culture - Preliminary Blood No Growth after 96 hours 03/06/19 19:39 Blood Culture - Preliminary Blood No Growth after 96 hours 03/05/19 08:20 Blood Culture - Preliminary Blood No Growth after 120 hours
[2019-03-11 11:29] LABS: Band Neutrophils % 1 %; Blast Cells # (M) 0.18 k/uL (0); Eosinophils # (M) 0.03 k/uL (0-0.7); Lymphocytes # (M) 0.84 k/uL (1.0-4.8); Monocytes # (M) 0.45 k/uL (0-1.0); Myelocytes # (M) 0.03 k/uL (0); Myelocytes % 1 %; Neutrophils % (M) 48 %; Nucleated Red Blood Cells 0 /100 WBC (0-0); Total Cells Counted 100
[2019-03-11 11:31] LABS: Large Platelets Present
[2019-03-11] MEDS: SENNOSIDES-DOCUSATE SODIUM 1 EACH TAB PO SCH (11:35)
[2019-03-11 11:44] VITALS: PULSE 62
--- NOTE | 2019-03-11 12:28 | P.PN ---
Subjective Progress Note Date: 03/11/19 Patient seen and examined at bedside. Feeling a lot better today. Denies nausea vomiting. Tolerating diet. Objective - Vital Signs Vital signs: Vital Signs Temp 98.2 F 03/11/19 07:00 Pulse 62 03/11/19 11:43 Resp 16 03/11/19 07:00 BP 163/89 03/11/19 07:00 Pulse Ox 99 03/11/19 07:58 Intake & Output 03/10/19 03/11/19 03/11/19 18:59 06:59 18:59 Intake Total 460 Output Total 1075 Balance -615 Intake: IV 100 Piperacillin-Tazobactam 3 100 .375 gm In Sodium Chloride 0.9% 100 ml @ 25 mls/hr IVPB Q8HR [facility] Rx# :[id number] Oral 360 Output: Urine 1075 Other: Voiding Method Indwelling Catheter Toilet # Voids 1 2 # Bowel Movements 1 - Constitutional General appearance: Present: cooperative, no acute distress - Respiratory Details: No difficulty with respiration - Gastrointestinal Gastrointestinal Comment(s): Soft, nontender, nondistended, no rebound, no guarding, incision sites are clean, dry and intact - Psychiatric Psychiatric: Present: A&O x's 3 - Labs CBC & Chem 7: 03/11/19 06:54 03/11/19 06:54 Labs: Abnormal Lab Results - Last 24 Hours (Table) 03/10/19 03/11/19 03/11/19 Range/Units 08:15 06:54 06:54 WBC 3.4 L 3.0 L (3.8-10.6) k/uL RBC 2.50 L 2.19 L (3.80-5.40) m/uL Hgb 7.7 L 7.1 L (11.4-16.0) gm/dL Hct 23.8 L 20.6 L (34.0-46.0) % RDW 18.4 H 17.5 H (11.5-15.5) % Plt Count 98 L 87 L (150-450) k/uL Blast Cells % 7 H* 6 H* % Lymphocytes # (Manual) 0.82 L 0.84 L (1.0-4.8) k/uL Myelocytes # (Manual) 0.03 H (0) k/uL Blast Cells # (Man) 0.24 H 0.18 H (0) k/uL Nucleated RBCs 4 H (0-0) /100 WBC Potassium 3.2 L (3.5-5.1) mmol/L Chloride 113 H (98-107) mmol/L Glucose 106 H (74-99) mg/dL Calcium 6.6 L (8.4-10.2) mg/dL Microbiology - Last 24 Hours (Table) 03/05/19 08:20 Blood Culture - Final Blood No Growth after 144 hours 03/06/19 20:03 Blood Culture - Preliminary Blood No Growth after 96 hours 03/06/19 19:39 Blood Culture - Preliminary Blood No Growth after 96 hours Assessment and Plan (1) Acute cholecystitis Narrative/Plan: 68-year-old female with acute cholecystitis, probable perforated gallbladder, POD #5 lap mandeep - Continue med mgmt - Surgically stable for discharge - Progressing slowly - Follow up as an outpatient Current Visit: Yes Status: Acute Code(s): K81.0 - ACUTE CHOLECYSTITIS SNOMED Code(s): 59531112
--- NOTE | 2019-03-11 14:03 | P.PN ---
Subjective Progress Note Date: 03/11/19 Principal diagnosis: Acute cholecystitis This is a 68-year-old female with history of multiple medical problems including multiple myeloma, history of stem cell transplant 2, presently under the care of Dr. Maria, maintained on gamunex and dexamethasone, and Revlimid Patient is also known to have chronic kidney disease stage III, hypertension, history of deep vein thromboses in 2017, maintained on Xarelto for her previous history of DVT and for paroxysmal atrial fibrillation. Her deep vein thrombosis was related to previous hip surgery and hip fracture. Patient had a recent discomfort in the left shoulder area posteriorly, and has been scratching the area thinking that she may have a bug bite. Patient apparently developed generalized swelling of the musculature of the left shoulder representing possibly intramuscular hemorrhage and she developed significant ecchymosis in the area of the left shoulder and left upper extremity. CT of the left shoulder was noted. MRI was recommended. And orthopedic consultation is pending. On the day of admission, patient presented with severe epigastric pain came in to [facility] emergency room, and she was noted to have significant gallbladder distention with gallbladder wall thickening and very cholecystic fluid suggestive of acute cholecystitis. Small amount of ascites noted adjacent to the liver. Patient was noted to have a white count of 3.3 hemoglobin of 11.3 and she had slightly elevated amylase and lipase. Underwent laparoscopic cholecystectomy by Dr. Fagan, presently in the ICU. Hemoglobin on admission was 11.3, and hemoglobin this morning is 6.5. Patient received a total of 2 units of packed RBCs since admission. Xarelto is presently on hold. Blood pressure was noted to be a bit low earlier today, and the patient has been on norepinephrine at 3 mcg/m. Her blood pressure medication is presently on hold. And the patient is empirically on Zosyn. Patient is receiving stress doses of hydrocortisone since she is normally on methotrexate for her underlying multiple myeloma. Chest x-ray today showed minimal atelectasis at the right base, and small tiny right-sided pleural effusion. Her basic metabolic profile showed non-anion gap metabolic acidosis, bicarb is 17. Creatinine is 1.2 today, and it was 1.25 on admission. Lipase is down to 78 today. During my evaluation, the patient denied any headache, blurred vision, dizziness, denies any shortness of breath, no cough, no wheezing, no chest pain. Continues to have some epigastric discomfort and right upper quadrant pain and concerned about the ecchymosis that she has in her left upper extremity. And left shoulder area. Patient was reevaluated today on 03/08/2019, she is feeling much better today compared to yesterday. Patient is sitting in a bedside chair, doing well, pain is significantly better, denies any shortness of breath, presently on room air. Compliant with her incentive spirometer. WBC count is 2.9 hemoglobin is 7.2 today, her platelets are 84,000, there is 10% blast cells noted on the differential, and 7% bands. Basic metabolic profile is relatively normal except for a bicarb of 17 BUN is 20 creatinine is 1.17 slightly improved compared to 2 days ago. Blood cultures remain negative so far in the last 72 hours. Urine culture is also negative. Patient was seen by hematology/oncology and amanuel mmended placing the patient back on Xarelto, and I agree that the benefits of Xarelto outweigh the risks at this point. Reevaluated today on 03/09/2019, patient remains as an overflow in the ICU. She developed some shortness of breath cough and wheezing earlier today, chest x-ray is showing evidence of right upper lobe infiltrate, bibasilar atelectasis, and small bilateral pleural effusions. Given a dose of Lasix 40 mg IV push, remains on antibiotics and bronchodilators as well as steroids. Patient remains on room air, O2 saturation is in the 90s on room air. CBC showed WBC count of 3.8 he moglobin of 7.8, continues to have 8% blast cells in the differential. Platelets were noted to be at 97,000. Patient was placed on Xarelto by hematology/oncology on the case. Electrolytes are normal bicarb remains at 17 BUN is 14 creatinine is 1.10, improved compared to creatinine on admission. Reevaluated today on 03/10/2019, patient looks better today, feeling better, no cough no wheezing no shortness of breath, she is however having intermittent episodes of diarrhea. Vague abdominal pain. Being addressed by surgery on the case. And I have recommended C. difficile colitis screening.her CBC is relatively normal WBC count is 3.8 hemoglobin is 7.8 continues to have 8% blast cells in the differential. Platelets are 97,000 much improved compared to yesterday. Chest x-ray showed resolution of the right upper lobe airspace disease, has minimal bibasilar atelectasis and small bilateral pleural effusions. Lasix was given earlier. Potassium is being corrected as per protocol. The patient is seen today 03/11/2019 in follow-up on the regular medical floor. She is currently sitting up in a chair at the bedside. Awake and alert in no acute distress. On room air. No worsening shortness of breath, cough or congestion. Abdominal discomfort improved today as compared to yesterday. Gold and 7.1. She's status post 2 units of packed red blood cells this admission. Blood and urine cultures reveal no growth. White count 3.0. Hemoglobin 7.1. Creatinine 1.0. She remains on Zosyn. Objective - Vital Signs Vital signs: Vital Signs Temp 98.2 F 03/11/19 07:00 Pulse 62 03/11/19 11:43 Resp 16 03/11/19 07:00 BP 163/89 03/11/19 07:00 Pulse Ox 99 03/11/19 07:58 Intake & Output 03/10/19 03/11/19 03/11/19 18:59 06:59 18:59 Intake Total 460 Output Total 1075 Balance -615 Intake: IV 100 Piperacillin-Tazobactam 3 100 .375 gm In Sodium Chloride 0.9% 100 ml @ 25 mls/hr IVPB Q8HR [facility] Rx# :[id number] Oral 360 Output: Urine 1075 Other: Voiding Method Indwelling Catheter Toilet # Voids 1 2 # Bowel Movements 1 - Exam Physical Exam: Revealed a 68-year-old female in no distress. Remains on room air. O2 saturation is 96% on room air. Head: Atraumatic, normocephalic. HEENT:[Neck is supple.] [No neck masses.] [No thyromegaly.] [No JVD.] PERRLA, EOMI, no icterus. Chest: [Minimal fine crackles at the bases. nor rhonchi no wheezes. Cardiac Exam: [Normal S1 and S2, no S3 gallop, no murmur.] Abdomen: [Soft, minimal tenderness in the right upper quadrant noted, positive bowel sounds. Extremities: [No clubbing, trace of bipedal edema, no cyanosis.] Evidence of ecchymosis noted in the left shoulder area and in the left upper extremity area extending almost to the elbow. Neurological Exam: [No focal neurologic deficit.] Alert oriented 3. Psychiatric: Normal mood, affect and normal mental status examination. Lymphatics: No lymphadenopathy. - Labs CBC & Chem 7: 03/11/19 06:54 03/11/19 06:54 Labs: Abnormal Lab Results - Last 24 Hours (Table) 03/11/19 03/11/19 Range/Units 06:54 06:54 WBC 3.0 L (3.8-10.6) k/uL RBC 2.19 L (3.80-5.40) m/uL Hgb 7.1 L (11.4-16.0) gm/dL Hct 20.6 L (34.0-46.0) % RDW 17.5 H (11.5-15.5) % Plt Count 87 L (150-450) k/uL Blast Cells % 6 H* % Lymphocytes # (Manual) 0.84 L (1.0-4.8) k/uL Myelocytes # (Manual) 0.03 H (0) k/uL Blast Cells # (Man) 0.18 H (0) k/uL Potassium 3.2 L (3.5-5.1) mmol/L Chloride 113 H (98-107) mmol/L Glucose 106 H (74-99) mg/dL Calcium 6.6 L (8.4-10.2) mg/dL Microbiology - Last 24 Hours (Table) 03/05/19 08:20 Blood Culture - Final Blood No Growth after 144 hours 03/06/19 20:03 Blood Culture - Preliminary Blood No Growth after 96 hours 03/06/19 19:39 Blood Culture - Preliminary Blood No Growth after 96 hours Assessment and Plan Assessment: Impression: 1 abdominal pain secondary to acute cholecystitis and possible pancreatitis. 2 status post laparoscopic cholecystectomy, postoperative day #5 3 postoperative anemia, multifactorial, possibly related to surgery, also related to left shoulder ecchymosis and intramuscular bleeding, and possibly related to her underlying multiple myeloma which is being addressed by oncology on the case. 4 non-anion gap metabolic acidosis and history of chronic kidney disease stage III. Secondary to multiple myeloma. 5 history of multiple myeloma being followed by oncology. 6 history of paroxysmal atrial fibrillation presently controlled and patient is in sinus rhythm.Patient is now back on Xarelto. 7 left shoulder ecchymosis, improving, we'll continue to monitor while on Xarelto 8 hypotension, multifactorial resolved 9 fluid overload, patient received lots of fluids and blood transfusion during her admission, echocardiogram feels preserved left ventricular systolic function with ejection fraction 55-60% Plan: The patient was seen and evaluated by Dr. Shine. She is improved today as compared to yesterday. Remains on IV Zosyn. Working well with the incentive spirometer. Increase her activity as tolerated. We'll continue to follow. I, the cosigning physician, performed a history & physical examination of the patient. Lungs sounds are clear. Maintaining good O2 saturations in the 90s on room air. I discussed the assessment and plan of care with my nurse practitioner, Vy Lucas. I attest to the above note as dictated by her.
--- NOTE | 2019-03-11 14:52 | P.DS ---
Providers Date of admission: 03/05/19 13:36 Expected date of discharge: 03/11/19 Attending physician: Claudia Shelton Consults: 03/05/19 07:25 Consult Physician Stat Consulting Provider: Meredith Fagan Consult Reason/Comments: Acute cholecystitis Do you want consulting provider notified?: Yes 03/06/19 17:00 Consult Physician Stat Consulting Provider: Aaron Pineda Consult Reason/Comments: post surgical hypotension Do you want consulting provider notified?: Yes 03/07/19 06:08 Consult Physician Routine Consulting Provider: Surinder Maria Consult Reason/Comments: established patient, low Hgb Do you want consulting provider notified?: Yes, Notify in am 03/09/19 20:10 Consult Physician Stat Consulting Provider: Cici Escalante Consult Reason/Comments: Afib RVR Do you want consulting provider notified?: Yes 03/10/19 11:04 Consult Physician Routine Consulting Provider: Jakob Reagan Consult Reason/Comments: inpt rehab Do you want consulting provider notified?: Yes Primary care physician: Claudia Shelton [place] [facility] Course: This is a 68-year-old female patient of Dr. Shelton with past medical history of multiple myeloma currently on Revlimi and Dexamethasone, under the care of Dr. Maria, chronic kidney disease stage III, osteopenia, hypertension and history of DVT started on Xarelto, paroxysmal atrial fibrillation on Xarelto. Patient has been on Xarelto since last year after she had hip fracture and repair and subsequently developed DVT. Patient did have documented episode of atrial fibrillation on Thanksgiving of last year. gives history that they were in [facility] and patient had a bug bite to her left shoulder posterior area and started scratching the area subsequently developed a hematoma that was quite significant at the time and continued to worsen recently. Patient underwent a CAT scan of the left shoulder ordered by Dr. Shelton yesterday revealed generalized swelling of the musculature of the left shoulder could repr esent areas of intramuscular hemorrhage. Had stranding along the superior and posterior aspect of the left shoulder could represent generalized bruising. Suspect distention of the glenohumeral joint with intermediate density fluid jose-arthrosis difficult to exclude. Hemorrhagic fluid may also be located in the sub-acral meal/subdeltoid bursa. Recommendations were MRI or ultrasound. No acute osseous abnormality. Patient was instructed to hold Xarelto due to this hematoma. Her last dose was yesterday. Patient woke up at 4:30 this morning with severe epigastric pain and she came into [facility] emergency center for evaluation. CT of the abdomen and pelvis revealed significant gallbladder distention with gallbladder wall thickening and pericholic fluid concerning for acute cholecystitis. Common bile duct is dilated measuring up to 10.3 mm. Bilateral fat stranding adjacent to the adrenal glands with calcifications. Calcified uterine myomas. Right lower lobe groundglass nodule 4.9 mm. Ultrasound the gallbladder revealed thickening gallbladder wall, dilated common bile duct. Findings compatible with acute cholecystitis. No gallstones seen. Small amount of ascites adjacent to the liver. White count was 3.3, hemoglobin 11.3, platelet count 136. BUN 30 and creatinine 1.25-at baseline. Blood sugar 166. Amylase 156 and lipase 342. Urinalysis negative for infection. Patient was to be admitted to the [facility] floor and consult obtained with Dr. Fagan. Plan for cholecystectomy tomorrow. Xarelto remains on hold. 03/06: Patient has been afebrile, heart rate 76, blood pressure 116/73, pulse ox 93% on room air. WBC 2.6, hemoglobin 11.5, platelet count 140. BUN 21 creatinine 1.16. Total bilirubin 1.5, AST 20, ALT 19, alkaline phosphatase 33. Lipase is 862. Patient is status post laparoscopic cholecystectomy. Orthopedic consult has been added regarding left shoulder hematoma. The patient is currently stable in the postop period. nurse outreach case manager is sinus rhythm. 03/07: Patient had a drop in her blood pressure yesterday afternoon and she is now on total of 4-1/2 L. Patient also had a drop in her hemoglobin and is currently receiving a second unit of packed RBCs. Patient was transferred into the intensive care unit and consult added for pulmonary medicine. This morning, patient states she is penicillin and gas but no bowel movement. Pain is currently a #2. She is hemodynamically stable. Consults have been added for Dr. Maria. Patient has been seen by Dr. Castellanos with no plan for any surgical intervention/ERCP. Patient has been seen by orthopedics and no infection, hematoma noted. Recommend warm and cold compresses to the left shoulder and activity as tolerated. Repeat chest x-ray shows small right pleural effusion. BUN 23 and creatinine 1.22. Patient does have pancytopenia. 03/08: Patient has been seen by oncology. She is status post transfusion of 2 units of packed RBCs. No need for transfusion of platelets. Repeat lab work this morning reveals white count of 2.9, hemoglobin 7.2, platelet count 84, blast cells 10%. BUN 20, creatinine 1.17, sodium 140, potassium 3.5, chloride 117, CO2 17. Lipase 71. Blood cultures no growth after 48 hours and to blood cultures no growth after 24 hours. Urine culture in progress. Patient is advanced to a low fiber diet for lunch today by Dr. Fagan. Pathology report is pending. Patient has been afebrile, heart rate 80, blood pressure 125/88, pulse ox 96% on room air. Dr. Maria has recommended resuming Xarelto which is been done for today. Patient remains on Solu-Cortef 100 mg IV daily. The patient states that she is feeling much better. She has had a bowel movement. She denies any dysuria. She does have a Santo catheter in place. She is scheduled for transfer out of the intensive care unit today. 03/09: Patient remains in the intensive care unit as an overflow. Patient states she is not feeling that well this morning, she developed shortness of breath cough and wheezing and increasing edema to the lower extremities in chest x-ray was done. There was bibasilar atelectasis and small bilateral pleural effusions. Patient was given 1 dose of IV Lasix 40 mg. Patient diuresed well. She is using incentive spirometry at 600 MLS. Santo cath remains in place. LENORE drain has been removed. WBC is up to 3.8, hemoglobin 7.8 with 8% blast, platelet count 97. CO2 17, BUN 14 creatinine 1.10. She has been afebrile, heart rate 76, blood pressure 154/75, pulse ox 95% on room air. nurse outreach case manager is a sinus rhythm. All blood cultures are showing no growth. Urine cultures finalize with no growth. She is eating between 25 and 50% of her meals. 03/10: The patient is seen on the [facility] floor. She was transferred out of intensive care unit this morning. Patient had Valium last night to help with sleep. Patient had brief period of atrial fibrillation with RVR and cardiology consult was requested. Patient was seen by Dr. VC Escalante with recommendations to continue Lopressor 50 mg twice daily and Xarelto. Echocardiogram reveals EF of 55-60% with mild concentric left ventricular hypertrophy, mild to moderate mitral regurgitation, moderate tricuspid regurgitation, moderate pulmonary hypertension. She continues to have lower extremity edema. Patient has been afebrile, heart rate 71, blood pressure 134/81, pulse ox 98% on room air. Re peat lab work reveals white count of 3.4, hemoglobin 7.7, platelet count 98, blast cells 7. Discussed discharge planning and patient is open to consult with Dr. Reagan for inpatient rehab. She would not like to go to subacute rehab. 03/11: The patient denies any new complaints today. Patient has been evaluated by Dr. Reagan. She may be good candidate for inpatient rehab however, patient walked with physical therapy and did very well this morning and patient would rather go home. IV medications have been transition for her to go home today. She will be placed on a tapering dose of Cortef. She has been instructed by oncology to hold Revlimid and dexamethasone. Patient will be discharged home today in stable condition. Discharge diagnoses: 1. Abdominal pain and nausea secondary to cholecystitis. 2. Postoperative hypovolemic shock secondary to acute blood loss related to the recent cholecystectomy and from left shoulder hematoma. 3. Acute blood loss anemia secondary to recent surgery and left shoulder ecchymosis. Status post transfusion of 2 units packed RBCs. 4. Non-ion gap metabolic acidosis. 5. Pancytopenia secondary to underlying multiple myeloma and blood loss. 6. Hypertension. 7. Hyperlipidemia. 8. Chronic kidney disease stage III. 9. Multiple myeloma under care of Dr. Maria. 10. Paroxysmal atrial fibrillation, rate controlled. 11. Large left shoulder hematoma. 12. Mild elevation in lipase most likely secondary to passed stone without pancreatitis. 15. Fluid overload secondary to IV fluid resuscitation. Aspiration pneumonia not completely ruled out. No history of heart failure. Discharge plan: Home with [facility] Impression and plan of care have been directed as dictated by the signing physician. Barbara Barth nurse practitioner acting as scribe for signing physician. Patient Condition at Discharge: Good Plan - Discharge Summary Discharge Rx Participant: Yes New Discharge Prescriptions: New Hydrocortisone [Cortef] 10 mg PO BID #10 tablet Melatonin 6 mg PO HS tablet Polyethylene Glycol 3350 [Miralax] 17 gm PO DAILY PRN powd.pack PRN Reason: Constipation Pantoprazole [Protonix] 40 mg PO DAILY tablet.dr Acevedo-Docusate Sodium [Senokot-S] 2 each PO DAILY tab Acetaminophen Tab [Tylenol] 650 mg PO Q4HR PRN tab PRN Reason: Fever And/ Or Pain Rivaroxaban [Xarelto] 15 mg PO W/SUPPER tab Metoprolol Succinate (ER) [Toprol Xl] 50 mg PO DAILY #30 tab Potassium Chloride ER [K-Dur 20] 20 meq PO DAILY #30 tab.er.prt Furosemide [Lasix] 40 mg PO DAILY #30 tab Amoxic-Pot Clav 875-125Mg [Augmentin 875-125] 1 tab PO Q12HR #10 tablet HYDROcodone/APAP 5-325MG [[place] 5-325] 1 tab PO Q6HR PRN 3 Days #12 tab PRN Reason: Pain Diazepam [Valium] 2 mg PO BID #6 tab Continue Acyclovir [Zovirax] 400 mg PO DAILY Calcium Carb/Magnesium Ox,Carb [Froilan-Mag 500-250 MG Chewable] 1.5 tab PO DAILY Cholecalciferol (Vitamin D3) [Vitamin D3] 1,000 unit PO DAILY Calcium Carbonate [Calcium] 750 mg PO Valsartan [Diovan] 80 mg PO DAILY #0 Discontinued Dexamethasone 40mg 20 mg PO DIRECTED Gamunex-C 20gm/200ml Ivig 1 dose IV Q28D Acetaminophen-Codeine 300-30mg [Tylenol w/codeine #3] 1 - 2 tab PO Q4-6H PRN PRN Reason: Pain Lenalidomide [Revlimid] 5 mg PO DAILY Discharge Medication List Acyclovir [Zovirax] 400 mg PO DAILY 03/05/19 [History] Calcium Carb/Magnesium Ox,Carb [Froilan-Mag 500-250 MG Chewable] 1.5 tab PO DAILY 03/07/19 [History] Calcium Carbonate [Calcium] 750 mg PO 03/07/19 [History] Cholecalciferol (Vitamin D3) [Vitamin D3] 1,000 unit PO DAILY 03/07/19 [History] Acetaminophen Tab [Tylenol] 650 mg PO Q4HR PRN tab 03/11/19 [Rx] Amoxic-Pot Clav 875-125Mg [Augmentin 875-125] 1 tab PO Q12HR #10 tablet 03/11/19 [Rx] Diazepam [Valium] 2 mg PO BID #6 tab 03/11/19 [Rx] Furosemide [Lasix] 40 mg PO DAILY #30 tab 03/11/19 [Rx] HYDROcodone/APAP 5-325MG [[place] 5-325] 1 tab PO Q6HR PRN 3 Days #12 tab 03/11/19 [Rx] Hydrocortisone [Cortef] 10 mg PO BID #10 tablet 03/11/19 [Rx] Melatonin 6 mg PO HS tablet 03/11/19 [Rx] Metoprolol Succinate (ER) [Toprol Xl] 50 mg PO DAILY #30 tab 03/11/19 [Rx] Pantoprazole [Protonix] 40 mg PO DAILY tablet.dr 03/11/19 [Rx] Polyethylene Glycol 3350 [Miralax] 17 gm PO DAILY PRN powd.pack 03/11/19 [Rx] Potassium Chloride ER [K-Dur 20] 20 meq PO DAILY #30 tab.er.prt 03/11/19 [Rx] Rivaroxaban [Xarelto] 15 mg PO W/SUPPER tab 03/11/19 [Rx] Sennosides-Docusate Sodium [Senokot-S] 2 each PO DAILY tab 03/11/19 [Rx] Valsartan [Diovan] 80 mg PO DAILY #0 03/11/19 [Rx] Follow up Appointment(s)/Referral(s): Surinder Maria MD [STAFF PHYSICIAN] - 04/07/19 11:30 am Claudia Shelton MD [Primary Care Provider] - 1 Week [facility] [NON-STAFF] - 1-2 Days Meredith Fagan DO [Doctor of Osteopathic Medicine] - 1 Week (Office computers are down-unable to make appointment. Please call Thursday to schedule.) Cici Escalante MD [STAFF PHYSICIAN] - 04/01/19 3:45 pm Patient Instructions/Handouts: Laparoscopic Cholecystectomy (DC) Activity/Diet/Wound Care/Special Instructions: Patient is to hold Revlimid and dexamethasone until she has been seen by Dr. Maria and Dr. Benjamin Hold Xgeva until pt seen in office by Dr. Maria Discharge Disposition: HOME WITH HOME HEALTH SERVICES
[2019-03-12] MEDS ORDERED: POTASSIUM CHLORIDE ER 20 MEQ TAB.ER PO SCH (09:00)
[2019-03-12] MEDS ORDERED: POTASSIUM CHLORIDE ER 10 MEQ TAB.ER.PRT PO SCH (09:00)
== END 2019-03-11 17:28 | disposition home health service (06) | DRG 417 ==
LOC: EC 05:12 → 3NMEDONC 07:39 → 4MS4W 11:10 → OBSVTOIN 13:36 → 4SSUR 23:01 → 2SICU 03-06 18:06 → 4SSUR 03-10 10:56
PROVIDERS: ADMIT Family Medicine; ATTEND Family Medicine
PROC: 0FT44ZZ Resection of Gallbladder, Percutaneous Endoscopic Approach (ICD-10-PCS; principal; 2019-03-06 08:00)
PROC: 30233N0 Transfusion of Autologous Red Blood Cells into Peripheral Vein, Percutaneous Approach (ICD-10-PCS; 2019-03-08)
DX: K81.0 Acute cholecystitis (principal); K65.3 Choleperitonitis; T81.19XA Other postprocedural shock, initial encounter; J69.0 Pneumonitis due to inhalation of food and vomit; J90 Pleural effusion, not elsewhere classified; J98.11 Atelectasis; E87.2 Acidosis; C90.00 Multiple myeloma not having achieved remission; D62 Acute posthemorrhagic anemia; D61.818 Other pancytopenia; Z94.84 Stem cells transplant status; M85.80 Other specified disorders of bone density and structure, unspecified site; K83.8 Other specified diseases of biliary tract; M19.90 Unspecified osteoarthritis, unspecified site; N18.3 Chronic kidney disease, stage 3 (moderate); I12.9 Hypertensive chronic kidney disease with stage 1 through stage 4 chronic kidney disease, or unspecified chronic kidney disease; I48.0 Paroxysmal atrial fibrillation; I27.20 Pulmonary hypertension, unspecified; I08.1 Rheumatic disorders of both mitral and tricuspid valves; E87.70 Fluid overload, unspecified; E87.6 Hypokalemia; E78.5 Hyperlipidemia, unspecified; M79.81 Nontraumatic hematoma of soft tissue; Z79.01 Long term (current) use of anticoagulants; Z79.82 Long term (current) use of aspirin; Z79.899 Other long term (current) drug therapy; Z82.49 Family history of ischemic heart disease and other diseases of the circulatory system; Z82.5 Family history of asthma and other chronic lower respiratory diseases; Z83.3 Family history of diabetes mellitus; Z86.718 Personal history of other venous thrombosis and embolism; Q13.1 Absence of iris; Z88.2 Allergy status to sulfonamides; Z90.89 Acquired absence of other organs
CPT/HCPCS: 36415; 71045; 74176; 76705; 80048; 80053; 81001; 82150; 82330; 82728; 83010; 83540; 83550; 83605; 83690; 83735; 83880; 84100; 84132; 84145; 84484; 85025; 85027; 85045; 85610; 85730; 86850; 86900; 86901; 86920; 87040; 87086; 88304; 93005; 93306; 94640; 94760; 96361; 96365; 96366; 96375; 96376; 99285

== ENCOUNTER → 2020-01-30 | Outpatient (CLI) | payer MEDICARE, BC | END | disposition home or self-care (01) | LOC: LABWHC1 11:29 | PROVIDERS: ATTEND Family Medicine | DX: Z20.828 Contact with and (suspected) exposure to other viral communicable diseases (principal) | CPT/HCPCS: U0003; C9803 ==